=== PATIENT | female | born 1960 | race Caucasian/White ===

== ENCOUNTER 2020-07-02 03:48 | Inpatient (IN) | payer OTHER, SELFPAY ==
[2020-07-02] VITALS (42 sets, daily range): BP systolic 97–181; BP diastolic 57–129; PULSE 101–161; RESP 20–40; TEMP 36.1–37.1; O2SAT 90–100; BMI 51.4
--- NOTE | ~2020-07-02 | CT_ITS ---
EXAMINATION: CT chest high resolution wo id EXAM DATE: 07/04/2020 10:03 INDICATION: persistent hypoxemia, hemoptysis. TECHNIQUE: Spiral CT of the chest without contrast. HRCT. Axial, coronal and sagittal images of the chest were reviewed. Coronal maximum intensity pixel images of chest reviewed. The dose-length prod uct (DLP) for this examination was 990.55 mGy-cm. The exposure was tailored according to patient siz e (auto mA exposure control), and iterative reconstruction (ASIR) was used as additional dose reducti on technique. Comparison is made to prior examination from 02/21/2019. FINDINGS: There is moderate to severe emphysema. There is patchy right-sided ill-defined perihilar g roundglass airspace disease most consistent with acute infection, less likely hemorrhage or asymmetri c edema. There are superimposed small regions of confluence and volume loss which are probably superi mposed atelectasis. Follow-up exam is needed to exclude any underlying cancer. Small amount of left b asilar subsegmental atelectasis. There are no pleural or pericardial effusions. Tracheobronchial tree is patent. There is no media stinal, hilar or axillary lymphadenopathy. There is no pneumothorax. Heart normal in size. Ther e is mild coronary arterial calcification, arterial sclerosis. Upper abdomen is unremarkable. Ther e is thoracic spondylosis without osteoblastic or osteolytic lesions identified. Right shoulder repla cement. IMPRESSION: 1. Moderate amount of right-sided perihilar predominant acute airspace disease most likely infection , superimposed regions of atelectasis. Follow-up chest CT in 6 months recommended to exclude any unde rlying cancer. 2. Moderate to severe emphysema unchanged. Reviewed, dictated and finalized at location B. IMPRESSION: 1. Moderate amount of right-sided perihilar predominant acute airspace disease most likely infection, superimposed regions of atelectasis. Follow-up chest CT in 6 months recommended to exclude any underlying cancer. 2. Moderate to severe emphysema unchanged.
--- NOTE | ~2020-07-02 | XR_ITS ---
XR chest 1V portable DATE: 07/02/2020 04:18 INDICATION: Shortness of breath TECHNIQUE: Portable AP chest on 07/02/2020 at 0418 hours COMPARISON: 02/21/2019 AP and lateral chest FINDINGS: There is prominent patchy consolidation in the right mid and particularly right lower lung zones and mild infiltrate or atelectasis at the left lung base. Normal heart size. Aortic calcification and unfolding. Right glenohumeral joint replacement. Resection of the lateral aspect of the right clavicle. Diffuse osteopenia. Degenerative spurring of the thoracic spine. IMPRESSION: Prominent patchy consolidation in the right mid and lower lung zones and mild infiltrate or atelectasis at the left lung base Reviewed, dictated and finalized at location A. IMPRESSION: Prominent patchy consolidation in the right mid and lower lung zone s and mild infiltrate or atelectasis at the left lung base
[2020-07-02] MEDS: NITROGLYCERIN OINTMENT 1 INCH DOSE 0.5 INCH TRANSDERM (04:20)
[2020-07-02 04:24] LABS: Alveolar/Arterial O2 Gradient 523.4 mmHg; Base Excess ABG -3.6 mEq/l (+/-2.0); Fractional Inspired Oxygen 100 %; HCO3 ABG 23.1 mEq/l (22.0-26.0); Oxygen Content ABG 19.1 %vol (16.0-22.0); Oxygen Saturation ABG 98.6 % (95.0-100.0); Oxyhemoglobin 97.2 % THb (90.0-100.0); PCO2 ABG 47.6 mmHg (35.0-45.0); PO2 FiO2 Ratio Arterial Blood 1.42 %; Total Hemoglobin 13.8 g/dL (12.0-18.0); pH ABG 7.303 (7.350-7.450)
[2020-07-02 04:25] LABS: Device NON-INVASIVE VENT; Modified Allen's Test Pass; Site Drawn RIGHT RADIAL
[2020-07-02 04:26] LABS: Non-Invasive Expiratory Pressure 8 CMH2O; Non-Invasive Inspiratory Pressure 16 CMH2O; Non-Invasive Vent Rate 4 /MIN
[2020-07-02 04:37] LABS: Hematocrit 45.5 % (37.0-47.0); Hemoglobin 13.4 g/dL (12.0-15.0); Mean Corpuscular HGB Conc 29.5 g/dl (32-36); Mean Corpuscular Hemoglobin 27.1 pg (26-34); Mean Corpuscular Volume 91.9 fl (80-100); Mean Platelet Volume 10.9 fl (7.4-10.4); Platelet Count Result 180 k/mm3 (150-375); Red Blood Count 4.95 M/mm3 (4.2-5.4); Red Cell Distribution Width 15.3 % (11.5-14.5); White Blood Count 17.3 K/mm3 (4.5-10.0)
[2020-07-02 04:49] LABS: Alanine Aminotransferase 23 U/L (4-35); Alkaline Phosphatase 142 U/L (38-126); Anion Gap 9 mmol/L (8-16); Aspartate Amino Transferase 26 U/L (14-36); Bilirubin,Total 0.5 mg/dL (0.2-1.3); Blood Urea Nitrogen 18 mg/dL (7-17); Calcium 9.2 mg/dL (8.4-10.2); Carbon Dioxide 22 mmol/L (22-30); Chloride 107 mmol/L (98-107); Estimated CRCL calculation 70 ml/min; Estimated Glomerular Filt Rate 42; Glucose 147 mg/dL (65-105); INR 0.9; Potassium 4.4 mmol/L (3.4-5.0); Prothrombin Time 12.2 Seconds (11.1-14.7); Sodium 138 mmol/L (137-145)
[2020-07-02 04:50] LABS: Band Neutrophils Percent 4 % (0-6); Lymphocytes Absolute Manual 0.69 K/mm3 (1.1-4.5); Monocytes Absolute Manual 0.17 K/mm3 (0.1-0.90); Monocytes Percent Manual 1 % (3-9); Neutrophils Absolute Manual 16.43 K/mm3 (1.7-7.2); Neutrophils Percent Manual 91 % (46-73); Ovalocytes 1+ (NORMAL); Platelet Estimate Adequate (Adequate); Stomatocytes 1+ (NORMAL); Total Cells Counted 100
[2020-07-02] MEDS: dilTIAZem HCl INJ 25 MG/5 ML VIAL 10 MG IV PUSH (04:55)
[2020-07-02 05:12] LABS: NT Pro B Type Natriuretic Pept 57 pg/mL (5-100); Troponin I < 0.012 ng/mL (0.000-0.034)
--- NOTE | 2020-07-02 05:25 | ED.SOB ---
HPI - SOB/Dyspnea General Chief Complaint: Shortness of Breath/Dyspnea Stated Complaint: difficulty breathing/speaking Time Seen by Provider: 07/02/20 03:49 History of Present Illness HPI Narrative: Patient is a 59-year-old female with COPD who presents ER with shortness of breath and hypoxia. Patient was found to be hypoxic in the 70s on her home O2 of 3 L. EMS applied CPAP and 100% O2 and patient's oxygen saturations improved. Patient is wheezy and dyspneic. She reports she has had a cough for the last 2 weeks and associated fevers. No known sick contacts. She has no chest pain or chest pressure. She does have history of CHF and a leaky valve. She reports has been compliant with her Lasix and she has had no increase in her weight or leg edema. She is out of nebulizer treatments at home. Shortness of breath is worsened with any type of movement. No alleviating factors at this time. Related Data Allergies Allergy/AdvReac Type Severity Reaction Status Date / Time Penicillins Allergy Rash Verified 02/21/19 17:22 Review of Systems Review of Systems: All systems reviewed & are unremarkable except as noted in HPI and below Constitutional: Constitutional: Reports chills, Reports fatigue and Reports fever(s) ENT: Denies nasal congestion and Denies sore throat Cardiovascular: Cardiovascular: Denies chest pain and Denies radiating jaw, neck or arm pain Respiratory: Respiratory: Reports cough, Reports dyspnea and Reports wheezing Gastrointestinal: Gastrointestinal: Denies abdominal pain, Denies nausea and Denies vomiting PMF Past Medical History Medical History (Updated 07/02/20 @ 05:57 by Troy Schwartz MD) Asthma COPD (chronic obstructive pulmonary disease) Herniated disc On home O2 3L Peripheral neuropathy Surgical History Surgical History (Updated 02/21/19 @ 18:25 by Nhi Tejeda) No pertinent past surgical history Social History Social History (Updated 02/21/19 @ 18:27 by Nhi Tejeda) Smoking status: Unknown if ever smoked Exam Narrative: Exam Narrative: GENERAL:ill-appearing, morbidly obese, and in moderate distress. HEAD: Normocephalic, atraumatic. ENT: Mucous membranes moist. CHEST: Diffuse wheezing, poor air movement, moderate respiratory distress. HEART: Tachycardic regular. Normal peripheral pulses. ABDOMEN: Soft, nontender, nondistended. EXTREMITIES: Normal range of motion. 1+ edema. SKIN: Warm, dry, no rash. NEURO: Alert and oriented x3. PSYCH: Normal mood and affect. Course Course Emergency Course: Significant pneumonia on chest x-ray. IV antibiotics ordered. Tachycardia not improving with diltiazem or with nebulizer. Patient may just be volume depleted related to infection. Admit to hospitalist service. Vital Signs Vital signs: Vital Signs Temperature 97.0 F L 07/02/20 04:04 Pulse Rate 141 H 07/02/20 04:04 Respiratory Rate 40 H 07/02/20 04:04 Blood Pressure 165/114 H 07/02/20 04:04 Pulse Oximetry 91 07/02/20 04:04 Temperature 97.0 F L 07/02/20 04:04 Pulse Rate 138 H 07/02/20 06:40 Respiratory Rate 29 H 07/02/20 06:40 Blood Pressure 128/73 07/02/20 06:03 Pulse Oximetry 99 07/02/20 06:40 MDM - SOB/Dyspnea Lab Data Result diagrams: 07/02/20 04:33 07/02/20 04:33 Labs: Lab Results 07/02/20 07/02/20 07/02/20 Range/Units 04:21 04:33 04:33 WBC 17.3 H (4.5-10.0) K/mm3 RBC 4.95 (4.2-5.4) M/mm3 Hgb 13.4 (12.0-15.0) g/dL Hct 45.5 (37.0-47.0) % MCV 91.9 (80-100) fl MCH 27.1 (26-34) pg MCHC 29.5 L (32-36) g/dl RDW 15.3 H (11.5-14.5) % Plt Count 180 (150-375) k/mm3 MPV 10.9 H (7.4-10.4) fl Immature Gran % (Auto) Not Reportable Neut % (Auto) Not Reportable Lymph % (Auto) Not Reportable [place] % (Auto) Not Reportable Eos % (Auto) Not Reportable Baso % (Auto) Not Reportable Lymph # (Auto) Not Reportable [place] # (Auto) Not Re
[2020-07-02] MEDS: IPRATROPIUM BR 0.02% INH SOLN 0.5 MG/2.5 ML VIAL 1.5 MG INHALATION (05:29)
--- NOTE | 2020-07-02 05:38 | PC.NURSE ---
0510 At direction of EDP Nitro paste removed.
--- NOTE | 2020-07-02 05:52 | ECG_ITS ---
Measurements Intervals [place] Rate: 153 P: 31 MS: 121 QRS: -16 QRSD: 82 T: 42 QT: 300 QTc: 480 Interpretive Statements SINUS TACHYCARDIA, POSSIBLE ATRIAL FLUTTER INCOMPLETE RIGHT BUNDLE BRANCH BLOCK LOW QRS VOLTAGE IN PRECORDIAL LEADS INFERIOR INFARCT, AGE INDETERMINATE BORDERLINE ST-T WAVE ABNORMALITY- HIGH LATERAL LEADS BASELINE ARTIFACT- II, III, AVF, V1, V2, V3-V6 ABNORMAL ECG Electronically Signed On 07-02-2020 8:45:48 CDT by Royce Santiago D.O.
[2020-07-02] MEDS: SODIUM CHLORIDE 0.9% IV 1,000 ML 999 ML IV CONT (06:04)
[2020-07-02] MEDS: methylPREDNISolone SOD SUCC 125 MG VIAL IV PUSH (06:04)
[2020-07-02 06:17] LABS: Lactic Acid Reflex 2.6 mmol/L (0.7-2.1)
--- NOTE | 2020-07-02 07:52 | PC.NURSE ---
This patient, Fariba Olson, was admitted to IMU Room 213-01. Patient/family oriented to hospital policies and general routines including ID bracelet, bed and alarms, visiting hours, pain management, procedures, bathroom and other care routines, personal items, smoking policy, room service/diet, and visiting hours. Information on how to activate the Rapid Response Team has been discussed. Patient/Family are encouraged to report perceived risks to care and to ask questions if they do not understand what they are told or what they should do.
[2020-07-02 08:53] LABS: Reflex Lactic Acid Yes or No Add Lactic
[2020-07-02] MEDS: ONDANSETRON INJ 4 MG/2 ML VIAL IV PUSH (10:46)
[2020-07-02] MEDS: HYDROcodone/acetaminophen (*CRX) 5-325 MG TABLET 1 TAB PO ×2 (10:50→20:32)
[2020-07-02] MEDS: GABAPENTIN 400 MG CAPSULE 800 MG PO ×3 (10:50→17:22)
[2020-07-02] MEDS: CYCLOBENZAPRINE HCL 10 MG TABLET PO ×3 (10:51→17:22)
[2020-07-02] MEDS: TOPIRAMATE 25 MG TABLET 50 MG PO ×2 (10:52→20:29)
[2020-07-02] MEDS: lamoTRIgine 25 MG TABLET 75 MG PO ×2 (10:52→20:31)
[2020-07-02] MEDS: ESCITALOPRAM OXALATE 10 MG TABLET 20 MG PO ×2 (10:52→20:29)
[2020-07-02] MEDS: LORATADINE 10 MG TABLET PO (11:56)
[2020-07-02] MEDS: PANTOPRAZOLE 40 MG TABLET PO (11:56)
[2020-07-02] MEDS: allopurinoL 300 MG TABLET PO (11:56)
[2020-07-02] MEDS: lisinopriL 10 MG TABLET PO ×2 (11:56→20:30)
[2020-07-02] MEDS: MONTELUKAST SODIUM 10 MG TABLET PO (11:56)
[2020-07-02] MEDS: OMEGA 3 POLYUNSAT FATTY ACIDS 1 GM CAP PO ×2 (11:57→17:22)
[2020-07-02] MEDS: POTASSIUM CHLORIDE 20 MEQ TABLET.ER PO ×2 (11:57→17:23)
[2020-07-02] MEDS: ASPIRIN 81 MG ENTERIC TABLET PO (11:57)
[2020-07-02] MEDS: IPRATROPIUM BR 0.02% INH SOLN 0.5 MG/2.5 ML VIAL INHALATION ×3 (11:57→20:45)
[2020-07-02] MEDS: ALBUTEROL SULFATE NEB 2.5 MG/0.5 ML INH INHALATION ×3 (11:57→20:45)
[2020-07-02] MEDS: UMECLIDINIUM BROMIDE 62.5 MCG ELLIPTA 1 PUFF INHALATION (11:58)
--- NOTE | 2020-07-02 13:11 | PM.IMHP ---
H&P: HPI History of Present Illness Date/Time: 07/02/20 13:11 patient is a 59-year-old female with history of chronic respiratory failure on home oxygen 3 L per nasal cannula and COPD patient presented emergency department via EMS upon EMS arrival patient was hypoxic and saturating 70% on her 3 L nasal cannula, CPAP was applied and patient was brought to emergency depart which did improve her oxygenation. Patient stated for last 2 weeks patient has been short of breath, cough and fever, emergency depart patient was applied on BiPAP, chest x-ray showed prominent patchy consolidation in the right mid and lower lung zones and mild infiltrate or atelectasis at the left lung base. Patient is diagnosed with community-acquired pneumonia and placed azithromycin and Rocephin, also has exacerbation of COPD patient is treated with Solu-Medrol and updraft, there is a concern the patient may have a COVID-19 patient is being isolated and tested, at present time patient states is feeling much better compared to when she arrived, will continue present management, will consult welt stitcher for further recommendation, continue to monitor the patient. Patient will stay in the hospital for 2 days secondary to exacerbation of COPD and community-acquired pneumonia Chief Complaint: Shortness of breath Review of Systems Review of Systems: All systems reviewed & are unremarkable except as noted in HPI and below PMFSH Past Medical History Medical History (Updated 07/02/20 @ 13:29 by Juan Chan MD) Asthma COPD (chronic obstructive pulmonary disease) Herniated disc On home O2 3L Peripheral neuropathy Surgical History Surgical History (Updated 02/21/19 @ 18:25 by Nhi Tejeda) No pertinent past surgical history Social History Social History (Updated 02/21/19 @ 18:27 by Nhi Tejeda) Smoking status: Unknown if ever smoked Meds Home Medications and Allergies Home Medications Medication Instructions Recorded Confirmed Type albuterol sulfate 2 puff INHALATION Q6H PRN 07/02/20 07/02/20 History albuterol sulfate 2.5 mg INHALATION TID 07/02/20 07/02/20 History allopurinol 300 mg PO DAILY 07/02/20 07/02/20 History alprazolam 0.5 mg PO HS PRN 07/02/20 07/02/20 History aspirin 81 mg PO DAILY 07/02/20 07/02/20 History atorvastatin 40 mg PO HS 07/02/20 07/02/20 History bupropion HCl 150 mg PO Q12H 07/02/20 07/02/20 History cetirizine 10 mg PO DAILY 07/02/20 07/02/20 History cyclobenzaprine 10 mg PO TID 07/02/20 07/02/20 History escitalopram oxalate 20 mg PO Q12H 07/02/20 07/02/20 History furosemide 40 mg PO TID 07/02/20 07/02/20 History gabapentin 800 mg PO TID 07/02/20 07/02/20 History hydrocodone-acetaminophen [[place]] 1 tablet PO Q8H PRN 07/02/20 07/02/20 History ibuprofen 400 mg PO Q6H PRN 07/02/20 07/02/20 History lamotrigine 75 mg PO BID 07/02/20 07/02/20 History lisinopril 10 mg PO BID 07/02/20 07/02/20 History montelukast 10 mg PO DAILY 07/02/20 07/02/20 History nitroglycerin [Nitrostat] 0.4 mg SUBLINGUAL PRN PRN 07/02/20 07/02/20 History omega-3 fatty acids-vitamin E 1 cap PO BID 07/02/20 07/02/20 History [Fish Oil] pantoprazole 40 mg PO DAILY 07/02/20 07/02/20 History potassium chloride 20 meq PO BID 07/02/20 07/02/20 History topiramate 50 mg PO BID 07/02/20 07/02/20 History trazodone 50 mg PO HS 07/02/20 07/02/20 History umeclidinium [Incruse Ellipta] 1 inh INHALATION DAILY 07/02/20 07/02/20 History Allergies Allergy/AdvReac Type Severity Reaction Status Date / Time Penicillins Allergy Rash Verified 02/21/19 17:22 Vital Signs Vital Signs - 24 hr 07/02/20 04:04 07/02/20 04:13 07/02/20 04:23 Temperature 97.0 F L Pulse Rate 141 H 156 H Respiratory Rate 40 H 35 H 40 H Blood Pressure 165/114 H Pulse Oximetry 91 98 07/02/20 04:29 07/02/20 04:30 07/02/20 04:31 Temperature Pulse Rate 161 H 156 H 161 H Respiratory Rate 25 H 21 H 40 H Blood Pressure 126/97 H 144/129 H Pulse Oximetry 100 97 100 07/02/20
[2020-07-02] MEDS: methylPREDNISolone SOD SUCC 125 MG VIAL 60 MG IV PUSH ×2 (14:29→21:19)
--- NOTE | 2020-07-02 16:53 | PM.CNPUL ---
Assessment and Plan Assessment and plan (1) Acute on chronic respiratory failure: Qualifiers: Respiratory failure complication: hypoxia and hypercapnia Qualified Code(s): J96.21 - Acute and chronic respiratory failure with hypoxia; J96.22 - Acute and chronic respiratory failure with hypercapnia Code(s): J96.20 - Acute and chronic respiratory failure, unspecified whether with hypoxia or hypercapnia Status: Acute Assessment and Plan: ABG 7.3/47/142 on excessive amounts of O2; needs to be weaned, CO2 retention is not severe enough to qualify for NPPV She normally uses O2 at home, has been on O2 for 10 years, increased to 5 L.min since COVID in the fall from 3 L/min; today on 100% and bipap she had significant increase in the A-a gradient, pO2 147 on 100% BiPAP 16; she has infiltrate in the right base with crackles, localized squeaks, right chest wall tenderness; may have pleuritis. She is being treated for pneumonia with Rocephin and azithromycin, adequate coverage. She is on respiratory isolation, and COVID precautions are in effect until she has a negative test. Her pCO2 was mildly increased at 47.6, and this was after she was on BiPAP, normal HCO3. Does not appear to have chronic hypercapnea. Will decrease the steroids, continue inhaled bronchodilator. I called the [facility] number to let them know that she is here in the hospital. They will not have services at her house until she is discharged. (2) COPD (chronic obstructive pulmonary disease): Code(s): J44.9 - Chronic obstructive pulmonary disease, unspecified Status: Acute Assessment and Plan: She has a long history of tobacco, over 40 pack years, at times 1.5 pack a day, quit in 2019. She is on Incruse at home and uses albuterol inhaler about twice a day. She may benefit from triple medication. She sees Dr Mendoza, pulmonary, in [facility]. Previously had a nebulizer, no longer useful after the cord was chewed on by a mouse. She says she is able to use the inhaler without a problem. Will request records from [facility] to see her renal baseline, any additional diagnoses. She is a candidate for triple therapy with addition of inhaled corticosteroid. (3) Community acquired pneumonia: Code(s): J18.9 - Pneumonia, unspecified organism Status: Acute Assessment and Plan: Infiltrate in the right base, without significant sputum production. She is on broad coverage for community acquired pathogens. Will check urine antigen for pneumococcus and sputum for bacterial pathogens. (4) History of tobacco abuse: Code(s): Z87.891 - Personal history of nicotine dependence Status: Acute Assessment and Plan: Quit Feb 2019, up to 1.5 ppd, started age 11, 40+ pack years History of Present Illness History of Present Illness Consult date: 07/03/20 Requesting physician: Juan Chan MD Chief complaint: pneumonia/respiratory failure Narrative: Primary = Dr Raza Lakhani; pulmonary is Dr. Mendoza NEW: Fariba Olson is a 59 year old female admitted with increased shortness of breath. She has COPD, chronic respiratory failure on supplemental O2 for about 10 years since she became disabled and stopped working in 2009. She was using O2 at 3 L/min until she had COVID in Dec through Jan 2020, admitted to [facility] for a month. She went home, and has been on 5 L/min since then with saturation 88%-92%. She never fully recovered, still has shortness of breath and loss of smell and taste. She does not walk much at home, uses a walker and wheelchair due to severe non-diabetic neuropathy worse in legs than hands, cannot feel her lower legs. For the last month she has had increased lower extremity swelli
[2020-07-02 19:16] LABS: SARS-CoV-2 RNA PCR Negative
[2020-07-02] MEDS: ENOXAPARIN 40 MG/0.4 ML SYRINGE SUB-Q (20:29)
[2020-07-02] MEDS: ATORVASTATIN 40 MG TABLET PO (20:30)
[2020-07-02] MEDS: traZODone HCL 50 MG TABLET PO (20:30)
[2020-07-03] VITALS (22 sets, daily range): BP systolic 92–105; BP diastolic 45–59; PULSE 79–106; RESP 20–24; TEMP 35.8–36.8; O2SAT 88–97
[2020-07-03] MEDS: IPRATROPIUM BR 0.02% INH SOLN 0.5 MG/2.5 ML VIAL INHALATION ×6 (00:14→19:50)
[2020-07-03] MEDS: ALBUTEROL SULFATE NEB 2.5 MG/0.5 ML INH INHALATION ×6 (00:14→19:50)
[2020-07-03 04:38] LABS: Hemoglobin 10.2 g/dL (12.0-15.0); Mean Corpuscular Volume 89.9 fl (80-100); Mean Platelet Volume 11.5 fl (7.4-10.4); Platelet Count Result 153 k/mm3 (150-375); Red Blood Count 3.78 M/mm3 (4.2-5.4); Red Cell Distribution Width 15.4 % (11.5-14.5)
[2020-07-03] MEDS: methylPREDNISolone SOD SUCC 40 MG VIAL IV PUSH ×3 (05:09→22:17)
[2020-07-03] MEDS: HYDROcodone/acetaminophen (*CRX) 5-325 MG TABLET 1 TAB PO ×2 (05:14→18:29)
[2020-07-03 05:23] LABS: Anion Gap 7 mmol/L (8-16); Blood Urea Nitrogen 40 mg/dL (7-17); Calcium 8.8 mg/dL (8.4-10.2); Carbon Dioxide 24 mmol/L (22-30); Chloride 100 mmol/L (98-107); Estimated CRCL calculation 46 ml/min; Estimated Glomerular Filt Rate 27; Glucose 126 mg/dL (65-105); Magnesium 1.6 mg/dL (1.6-2.3); Potassium 4.9 mmol/L (3.4-5.0); Sodium 131 mmol/L (137-145)
[2020-07-03] MEDS: ESCITALOPRAM OXALATE 10 MG TABLET 20 MG PO ×2 (07:59→22:16)
[2020-07-03] MEDS: CYCLOBENZAPRINE HCL 10 MG TABLET PO ×3 (07:59→16:35)
[2020-07-03] MEDS: LORATADINE 10 MG TABLET PO (07:59)
[2020-07-03] MEDS: GABAPENTIN 400 MG CAPSULE 800 MG PO ×3 (07:59→16:35)
[2020-07-03] MEDS: TOPIRAMATE 25 MG TABLET 50 MG PO ×2 (07:59→22:15)
[2020-07-03] MEDS: allopurinoL 300 MG TABLET PO (07:59)
[2020-07-03] MEDS: OMEGA 3 POLYUNSAT FATTY ACIDS 1 GM CAP PO ×2 (07:59→16:35)
[2020-07-03] MEDS: lisinopriL 10 MG TABLET PO ×2 (07:59→22:16)
[2020-07-03] MEDS: ASPIRIN 81 MG ENTERIC TABLET PO (07:59)
[2020-07-03] MEDS: MONTELUKAST SODIUM 10 MG TABLET PO (08:00)
[2020-07-03] MEDS: PANTOPRAZOLE 40 MG TABLET PO (08:00)
[2020-07-03] MEDS: ENOXAPARIN 40 MG/0.4 ML SYRINGE SUB-Q ×2 (08:00→22:16)
[2020-07-03] MEDS: lamoTRIgine 25 MG TABLET 75 MG PO ×2 (08:00→22:16)
[2020-07-03] MEDS: POTASSIUM CHLORIDE 20 MEQ TABLET.ER PO ×2 (08:00→16:36)
[2020-07-03] MEDS: UMECLIDINIUM BROMIDE 62.5 MCG ELLIPTA 1 PUFF INHALATION (08:11)
--- NOTE | 2020-07-03 09:15 | PC.NURSE ---
Patients rings were removed from fingers and returned to patient. [address] in a bag, given to the patient and she put them in her purse.
[2020-07-03] MEDS: SODIUM CHLORIDE 0.9% IV 1,000 ML 75 ML IV CONT (09:23)
--- NOTE | 2020-07-03 11:55 | PC.NURSE ---
This patient, Fariba Olson, was received from IMU 213 on 07/03/20 at 1155. Patient/family oriented to unit policies and routines
--- NOTE | 2020-07-03 15:38 | PM.PNPUL ---
Progress Note: A&P Assessment and Plan (1) Acute on chronic respiratory failure: Qualifiers: Respiratory failure complication: hypoxia and hypercapnia Qualified Code(s): J96.21 - Acute and chronic respiratory failure with hypoxia; J96.22 - Acute and chronic respiratory failure with hypercapnia Code(s): J96.20 - Acute and chronic respiratory failure, unspecified whether with hypoxia or hypercapnia Status: Acute Assessment and Plan: PLAN: ABG 7.3/47/142 on excessive amounts of O2; needs to be weaned, CO2 retention is not severe enough to qualify for NPPV Needs fiber for bowel regimen and chest CT for hemoptysis Continue antibiotics @@@@@@@@@@@@@@@@ She normally uses O2 at home, has been on O2 for 10 years, increased to 5 L/min since COVID in the fall from 3 L/min; she has infiltrates in the right base with crackles, localized squeaks, right chest wall tenderness; may have pleuritis. SARS-CoV-2 negative. She is being treated for pneumonia with Rocephin and azithromycin, adequate coverage. SHe is off respiratory isolation She had increased pCO2 47.6, and this was after she was on BiPAP, normal HCO3. Does not appear to have chronic hypercapnea. Continue lower dose steroids, inhaled bronchodilator. (2) COPD (chronic obstructive pulmonary disease): Code(s): J44.9 - Chronic obstructive pulmonary disease, unspecified Status: Acute Assessment and Plan: She has a long history of tobacco, over 40 pack years, at times 1.5 pack a day, quit in 2019. She is on Incruse at home and uses albuterol inhaler about twice a day. She may benefit from triple medication. She sees Dr Mendoza, pulmonary, in [facility]. Previously had a nebulizer, no longer useful after the cord was chewed on by a mouse. She says she is able to use the inhaler without a problem. Will request records from [facility] to see her renal baseline, any additional diagnoses. She is a candidate for triple therapy with addition of inhaled corticosteroid. (3) Community acquired pneumonia: Code(s): J18.9 - Pneumonia, unspecified organism Status: Acute Assessment and Plan: Infiltrate in the right base, without significant sputum production. She is on broad coverage for community acquired pathogens. Will check urine antigen for pneumococcus and sputum for bacterial pathogens. (4) History of tobacco abuse: Code(s): Z87.891 - Personal history of nicotine dependence Status: Acute Assessment and Plan: Quit Feb 2019, up to 1.5 ppd, started age 11, 40+ pack years Subjective Date/time seen: 07/03/20 15:38 Fariba Knight is a 59 year old female with acute on chronic respiratory failure, COPD exacerbation, community acquired pneumonia. SARS-CoV-2 negative. She has been moved from [address] [place] [address] to [facility]. She is not on respiratory isolation. She continues to cough with small amounts of blood expectorated. She is eating, however food does not taste normal. She remains short of breath, especially with exertion. She has a problem taking a deep breath in, has not moved her bowels in a few days. Review of Systems Constitutional: Constitutional: Reports difficulty sleeping (getting one hour at a time, then waking) Comments: Legs are not swelling as much Eyes: Eyes: Reports no additional eye complaints Exam Narrative: Exam Narrative: Alert, oriented x 3. Mild to moderate increase in respiratory effort; she is able to lean forward with some effort Const: General: uncomfortable Orientation/consciousness: patient oriented x3 HENMT: Ears: hearing grossly normal bilaterally General nose exam: Normal external nose present Face and sinus: nor
--- NOTE | 2020-07-03 16:23 | PM.IMPN ---
Progress Note: A&P Assessment and Plan (1) Community acquired pneumonia: Code(s): J18.9 - Pneumonia, unspecified organism Status: Acute Assessment and Plan: 07/03/20 16:23 patient is a 59-year-old female with history of chronic respiratory failure on home oxygen 3 L per nasal cannula and COPD patient presented emergency department via EMS upon EMS arrival patient was hypoxic and saturating 70% on her 3 L nasal cannula, CPAP was applied and patient was brought to emergency depart which did improve her oxygenation. Patient stated for last 2 weeks patient has been short of breath, cough and fever, emergency depart patient was applied on BiPAP, chest x-ray showed prominent patchy consolidation in the right mid and lower lung zones and mild infiltrate or atelectasis at the left lung base. Patient is diagnosed with community-acquired pneumonia and placed azithromycin and Rocephin, also has exacerbation of COPD patient is treated with Solu-Medrol and updraft, there is a concern the patient may have a COVID-19 patient is being isolated and tested, at present time patient states is feeling much better compared to when she arrived, will continue present management, will consult chemical applicator for further recommendation, continue to monitor the patient. 07/03 patient COVID test is negative, patient states feeling much better compared to when she arrived, patient was seen by Dr. Ryan of pulmonology and taper Solu-Medrol from 60 mg q.8 to 40 mg q.8, suspect patient has a community-acquired pneumonia will continue azithromycin and Rocephin repeat chest x-ray tomorrow and further recommendation to follow, patient creatinine is rising will gently hydrate the patient as patient p.o. intake for last few days is poor will monitor kidney function, will have a PT OT evaluate the patient patient will benefit from acute rehab. (2) Acute exacerbation of chronic obstructive airways disease: Code(s): J44.1 - Chronic obstructive pulmonary disease with (acute) exacerbation Status: Acute Assessment and Plan: Patient with a history of COPD not in exacerbation being treated with Solu-Medrol updraft azithromycin to cover for atypical with possible community-acquired pneumonia, patient be seen by chemical applicator and further recommendation to (3) Acute on chronic respiratory failure: Qualifiers: Respiratory failure complication: hypoxia and hypercapnia Qualified Code(s): J96.21 - Acute and chronic respiratory failure with hypoxia; J96.22 - Acute and chronic respiratory failure with hypercapnia Code(s): J96.20 - Acute and chronic respiratory failure, unspecified whether with hypoxia or hypercapnia Status: Acute Assessment and Plan: Multifactorial secondary to exacerbation of COPD and community-acquired pneumonia, unlikely congestive heart failure as patient BNP 59 is normal and chest x-ray shows more pneumonia or other than the pulmonary edema (4) COVID-19 ruled out: Code(s): Z20.822 - Contact with and (suspected) exposure to COVID-19 Status: Acute Assessment and Plan: Suspect patient may have COVID-19 patient been isolated and tested (5) CHF (congestive heart failure): Code(s): I50.9 - Heart failure, unspecified Status: Acute Assessment and Plan: Patient with history of congestive heart failure her BNP is 59 patient appears euvolemic though morbidly obese, will continue to monitor (6) Generalized weakness: Code(s): R53.1 - Weakness Status: Acute Assessment and Plan: Most likely secondary to exacerbation of COPD and pneumonia will have a PT OT evaluate the patient and further recommendation to follow Subjective Date/time seen: 07/03/20 16:23 patient is a 59-year-old female with history of chronic respiratory failure on home oxygen 3 L per nasal cannula and COPD patient presented emergency department via EMS upon EMS arrival patient was hypoxic and saturating 70%
[2020-07-03] MEDS: ATORVASTATIN 40 MG TABLET PO (22:16)
[2020-07-03] MEDS: traZODone HCL 50 MG TABLET PO (22:16)
[2020-07-03] MEDS: PSYLLIUM POWDER PACKET 1 PACKET PO (22:17)
[2020-07-04] VITALS (20 sets, daily range): BP systolic 108–114; BP diastolic 61–65; PULSE 80–109; RESP 18–20; TEMP 36.4–37.1; O2SAT 92–96
[2020-07-04] MEDS: ALBUTEROL SULFATE NEB 2.5 MG/0.5 ML INH INHALATION ×7 (00:03→23:18)
[2020-07-04] MEDS: IPRATROPIUM BR 0.02% INH SOLN 0.5 MG/2.5 ML VIAL INHALATION ×7 (00:03→23:18)
[2020-07-04] MEDS: SODIUM CHLORIDE 0.9% IV 1,000 ML 75 ML IV CONT (01:36)
[2020-07-04] MEDS: methylPREDNISolone SOD SUCC 40 MG VIAL IV PUSH (05:56)
[2020-07-04 06:13] LABS: Hematocrit 32.9 % (37.0-47.0); Mean Corpuscular HGB Conc 30.4 g/dl (32-36); Mean Corpuscular Volume 88.9 fl (80-100); Mean Platelet Volume 11.5 fl (7.4-10.4); Platelet Count Result 131 k/mm3 (150-375); Red Cell Distribution Width 14.9 % (11.5-14.5); White Blood Count 18.6 K/mm3 (4.5-10.0)
[2020-07-04 06:18] LABS: Anion Gap 7 mmol/L (8-16); Blood Urea Nitrogen 41 mg/dL (7-17); Calcium 8.7 mg/dL (8.4-10.2); Carbon Dioxide 22 mmol/L (22-30); Chloride 101 mmol/L (98-107); Estimated CRCL calculation 67 ml/min; Estimated Glomerular Filt Rate 42; Glucose 172 mg/dL (65-105); Potassium 4.9 mmol/L (3.4-5.0); Sodium 130 mmol/L (137-145)
--- NOTE | 2020-07-04 10:26 | PM.PNPUL ---
Progress Note: A&P Assessment and Plan (1) Acute on chronic respiratory failure: Qualifiers: Respiratory failure complication: hypoxia and hypercapnia Qualified Code(s): J96.21 - Acute and chronic respiratory failure with hypoxia; J96.22 - Acute and chronic respiratory failure with hypercapnia Code(s): J96.20 - Acute and chronic respiratory failure, unspecified whether with hypoxia or hypercapnia Status: Acute Assessment and Plan: 07/02 She normally uses O2 at home, has been on O2 for 10 years, increased to 5 L.min since COVID in the fall from 3 L/min; today on 100% and bipap she had significant increase in the A-a gradient, pO2 147 on 100% BiPAP 17/10; she has infiltrate in the right base with crackles, localized squeaks, right chest wall tenderness; may have pleuritis. She is being treated for pneumonia with Rocephin and azithromycin, adequate coverage. She is on respiratory isolation, and COVID precautions are in effect until she has a negative test. Her pCO2 was mildly increased at 47.6, and this was after she was on BiPAP, normal HCO3. Does not appear to have chronic hypercapnea. Will decrease the steroids, continue inhaled bronchodilator. I called the [facility] number to let them know that she is here in the hospital. They will not have services at her house until she is discharged. 07/03 ABG 7.3/47/142 on excessive amounts of O2; needs to be weaned, CO2 retention is not severe enough to qualify for NPPV Needs fiber for bowel regimen and chest CT for hemoptysis. Continue antibiotics 07/04 On her home dose of 5L with sats 94% at rest. Will do home O2 assessment later today. (2) COPD (chronic obstructive pulmonary disease): Code(s): J44.9 - Chronic obstructive pulmonary disease, unspecified Status: Acute Assessment and Plan: 07/03 She has a long history of tobacco, over 40 pack years, at times 1.5 pack a day, quit in 2019. She has severe panlobular emphysema on CT scan chest 02/21/2019. She is on Incruse at home and uses albuterol inhaler about twice a day. She may benefit from triple medication. She sees Dr Mendoza, pulmonary, in [facility]. Previously had a nebulizer, no longer useful after the cord was chewed on by a mouse. She says she is able to use the inhaler without a problem. Will request records from [facility] to see her renal baseline, any additional diagnoses. She is a candidate for triple therapy with addition of inhaled corticosteroid. 5/ no wheezes on solumedrol 40 Q 8 and I will change to prednisone 50 mg PO today. Continue albuterol 2.5 mg neb Q 4, ipratroprium 05 mg neb Q 4, hold incruse ellipta while on maximum dose of ipratroprium nebs. Start budesonide .5 mg neb BID today. (3) Community acquired pneumonia: Code(s): J18.9 - Pneumonia, unspecified organism Status: Acute Assessment and Plan: 5/2 Infiltrate in the right base, without significant sputum production. She is on broad coverage for community acquired pathogens. Will check urine antigen for pneumococcus and sputum for bacterial pathogens. 5/3 Day 3 ceftriaxone and azithro. Afebrile and WBC improved. Sputum and cough slowly improved. Cul;tures negative. Hemopsysis improved as well. (4) History of tobacco abuse: Code(s): Z87.891 - Personal history of nicotine dependence Status: Acute Assessment and Plan: Quit Feb 2019, up to 1.5 ppd, started age 11, 40+ pack years Subjective Date/time seen: 07/04/20 10:26 Interval history: 07/02 Fariba Olson is a 59 year old female admitted with increased shortness of breath. She has COPD, chronic respiratory failure on supplemental O2 for about 10 years since she became disabled and stopped working in 2009. She was using O2 at 3
[2020-07-04] MEDS: HYDROcodone/acetaminophen (*CRX) 5-325 MG TABLET 1 TAB PO ×2 (10:33→18:32)
[2020-07-04] MEDS: GABAPENTIN 400 MG CAPSULE 800 MG PO ×3 (10:34→17:00)
[2020-07-04] MEDS: ENOXAPARIN 40 MG/0.4 ML SYRINGE SUB-Q ×2 (10:35→20:32)
[2020-07-04] MEDS: MONTELUKAST SODIUM 10 MG TABLET PO (10:35)
[2020-07-04] MEDS: OMEGA 3 POLYUNSAT FATTY ACIDS 1 GM CAP PO ×2 (10:36→17:01)
[2020-07-04] MEDS: TOPIRAMATE 25 MG TABLET 50 MG PO ×2 (10:36→20:33)
[2020-07-04] MEDS: PANTOPRAZOLE 40 MG TABLET PO (10:36)
[2020-07-04] MEDS: lamoTRIgine 25 MG TABLET 75 MG PO ×2 (10:36→20:32)
[2020-07-04] MEDS: CYCLOBENZAPRINE HCL 10 MG TABLET PO ×3 (10:36→17:01)
[2020-07-04] MEDS: ASPIRIN 81 MG ENTERIC TABLET PO (10:36)
[2020-07-04] MEDS: LORATADINE 10 MG TABLET PO (10:36)
[2020-07-04] MEDS: POTASSIUM CHLORIDE 20 MEQ TABLET.ER PO ×2 (10:37→17:01)
[2020-07-04] MEDS: allopurinoL 300 MG TABLET PO (10:37)
[2020-07-04] MEDS: lisinopriL 10 MG TABLET PO ×2 (10:37→20:33)
[2020-07-04] MEDS: ESCITALOPRAM OXALATE 10 MG TABLET 20 MG PO ×2 (10:37→20:33)
--- NOTE | 2020-07-04 10:37 | PCRCNOTE ---
WILL TRY TO ARRANGE HOME O2 EVAL WITH PT/OT. STATED SHE JUST GOT BACK FROM RAD AND DOESNT WANT TO DO ANYTHING, TOO TIRED AND SOB. SATS ARE 90% ON 5L RESTING IN BED. WEARS 5L AT HOME, BUT DESATS ON 5L WHEN SHE GETS UP TO GO FROM BED TO BATHROOM AT HOME. RN STATED SHE IS STARTING PT/OT TODAY.
[2020-07-04] MEDS: PSYLLIUM POWDER PACKET 1 PACKET PO ×2 (11:32→20:31)
[2020-07-04] MEDS: predniSONE 40 MG, predniSONE 10 MG 50 MG PO (11:33)
--- NOTE | 2020-07-04 12:29 | PM.IMPN ---
Progress Note: A&P Assessment and Plan (1) Community acquired pneumonia: Code(s): J18.9 - Pneumonia, unspecified organism Status: Acute Assessment and Plan: 07/04/20 12:29 patient is a 59-year-old female with history of chronic respiratory failure on home oxygen 3 L per nasal cannula and COPD patient presented emergency department via EMS upon EMS arrival patient was hypoxic and saturating 70% on her 3 L nasal cannula, CPAP was applied and patient was brought to emergency depart which did improve her oxygenation. Patient stated for last 2 weeks patient has been short of breath, cough and fever, emergency depart patient was applied on BiPAP, chest x-ray showed prominent patchy consolidation in the right mid and lower lung zones and mild infiltrate or atelectasis at the left lung base. Patient is diagnosed with community-acquired pneumonia and placed azithromycin and Rocephin, also has exacerbation of COPD patient is treated with Solu-Medrol and updraft, there is a concern the patient may have a COVID-19 patient is being isolated and tested, at present time patient states is feeling much better compared to when she arrived, will continue present management, will consult acoustics teacher for further recommendation, continue to monitor the patient. 07/03 patient COVID test is negative, patient states feeling much better compared to when she arrived, patient was seen by Dr. Ryan of pulmonology and taper Solu-Medrol from 60 mg q.8 to 40 mg q.8, suspect patient has a community-acquired pneumonia will continue azithromycin and Rocephin repeat chest x-ray tomorrow and further recommendation to follow, patient creatinine is rising will gently hydrate the patient as patient p.o. intake for last few days is poor will monitor kidney function, will have a PT OT evaluate the patient patient will benefit from acute rehab. 07/04 patient still c/o shortness of breath at rest and with exertion patient community-acquired pneumonia being treated with azithromycin Rocephin as well as exacerbation of COPD, patient was seen by acoustics teacher today order CT scan in of the chest, and taper Solu-Medrol to prednisone 50 mg q.day, acoustics teacher will follow-up on CT scan of the chest and further recommendation to follow, will continue PT OT, patient will benefit from acute rehab at home present outpatient therapy. (2) Acute exacerbation of chronic obstructive airways disease: Code(s): J44.1 - Chronic obstructive pulmonary disease with (acute) exacerbation Status: Acute Assessment and Plan: Patient with a history of COPD not in exacerbation being treated with Solu-Medrol updraft azithromycin to cover for atypical with possible community-acquired pneumonia, patient be seen by acoustics teacher and further recommendation to (3) Acute on chronic respiratory failure: Qualifiers: Respiratory failure complication: hypoxia and hypercapnia Qualified Code(s): J96.21 - Acute and chronic respiratory failure with hypoxia; J96.22 - Acute and chronic respiratory failure with hypercapnia Code(s): J96.20 - Acute and chronic respiratory failure, unspecified whether with hypoxia or hypercapnia Status: Acute Assessment and Plan: Multifactorial secondary to exacerbation of COPD and community-acquired pneumonia, unlikely congestive heart failure as patient BNP 59 is normal and chest x-ray shows more pneumonia or other than the pulmonary edema (4) COVID-19 ruled out: Code(s): Z20.822 - Contact with and (suspected) exposure to COVID-19 Status: Acute Assessment and Plan: Suspect patient may have COVID-19 patient been isolated and tested (5) CHF (congestive heart failure): Code(s): I50.9 - Heart failure, unspecified Status: Acute Assessment and Plan: Patient with history of congestive heart failure her BNP is 59 patient appears euvolemic though morbidly obese, will continue to monitor (6) Generalized weakness:
[2020-07-04] MEDS: IBUPROFEN 400 MG TABLET PO ×2 (13:17→20:31)
[2020-07-04] MEDS: BUDESONIDE RESPULE NEB 0.5 MG/2 ML AMP INHALATION (19:29)
[2020-07-04] MEDS: ATORVASTATIN 40 MG TABLET PO (20:33)
[2020-07-04] MEDS: traZODone HCL 50 MG TABLET PO (20:34)
[2020-07-05] VITALS (28 sets, daily range): BP systolic 103–135; BP diastolic 53–73; PULSE 72–124; RESP 20–22; TEMP 36.1–36.6; O2SAT 85–98
[2020-07-05] MEDS: ALBUTEROL SULFATE NEB 2.5 MG/0.5 ML INH INHALATION ×4 (03:54→20:53)
[2020-07-05] MEDS: IPRATROPIUM BR 0.02% INH SOLN 0.5 MG/2.5 ML VIAL INHALATION ×4 (03:54→20:53)
[2020-07-05] MEDS: MONTELUKAST SODIUM 10 MG TABLET PO (08:20)
[2020-07-05] MEDS: GABAPENTIN 400 MG CAPSULE 800 MG PO ×3 (08:20→16:38)
[2020-07-05] MEDS: TOPIRAMATE 25 MG TABLET 50 MG PO ×2 (08:21→20:21)
[2020-07-05] MEDS: CYCLOBENZAPRINE HCL 10 MG TABLET PO ×3 (08:21→16:38)
[2020-07-05] MEDS: lamoTRIgine 25 MG TABLET 75 MG PO ×2 (08:21→20:21)
[2020-07-05] MEDS: OMEGA 3 POLYUNSAT FATTY ACIDS 1 GM CAP PO ×2 (08:21→16:39)
[2020-07-05] MEDS: allopurinoL 300 MG TABLET PO (08:21)
[2020-07-05] MEDS: POTASSIUM CHLORIDE 20 MEQ TABLET.ER PO ×2 (08:21→16:38)
[2020-07-05] MEDS: LORATADINE 10 MG TABLET PO (08:21)
[2020-07-05] MEDS: ESCITALOPRAM OXALATE 10 MG TABLET 20 MG PO ×2 (08:21→20:21)
[2020-07-05] MEDS: PANTOPRAZOLE 40 MG TABLET PO (08:21)
[2020-07-05] MEDS: PSYLLIUM POWDER PACKET 1 PACKET PO ×2 (08:22→20:20)
[2020-07-05] MEDS: ENOXAPARIN 40 MG/0.4 ML SYRINGE SUB-Q ×2 (08:22→20:20)
[2020-07-05] MEDS: ASPIRIN 81 MG ENTERIC TABLET PO (08:22)
[2020-07-05] MEDS: predniSONE 40 MG, predniSONE 10 MG 50 MG PO (08:22)
[2020-07-05] MEDS: HYDROcodone/acetaminophen (*CRX) 5-325 MG TABLET 1 TAB PO ×2 (08:25→16:38)
[2020-07-05 08:29] LABS: Hematocrit 31.3 % (37.0-47.0); Hemoglobin 9.9 g/dL (12.0-15.0); Mean Corpuscular HGB Conc 31.6 g/dl (32-36); Mean Corpuscular Volume 85.3 fl (80-100); Mean Platelet Volume 10.7 fl (7.4-10.4); Platelet Count Result 169 k/mm3 (150-375); Red Blood Count 3.67 M/mm3 (4.2-5.4); Red Cell Distribution Width 14.8 % (11.5-14.5); White Blood Count 14.7 K/mm3 (4.5-10.0)
[2020-07-05] MEDS: BUDESONIDE RESPULE NEB 0.5 MG/2 ML AMP INHALATION ×2 (08:33→20:53)
[2020-07-05 08:42] LABS: Anion Gap 6 mmol/L (8-16); Blood Urea Nitrogen 30 mg/dL (7-17); Calcium 8.7 mg/dL (8.4-10.2); Carbon Dioxide 22 mmol/L (22-30); Chloride 102 mmol/L (98-107); Estimated CRCL calculation 72 ml/min; Estimated Glomerular Filt Rate 46; Glucose 133 mg/dL (65-105); Potassium 4.2 mmol/L (3.4-5.0); Sodium 130 mmol/L (137-145)
--- NOTE | 2020-07-05 08:55 | PM.PNPUL ---
Progress Note: A&P Assessment and Plan (1) Acute on chronic respiratory failure: Qualifiers: Respiratory failure complication: hypoxia and hypercapnia Qualified Code(s): J96.21 - Acute and chronic respiratory failure with hypoxia; J96.22 - Acute and chronic respiratory failure with hypercapnia Code(s): J96.20 - Acute and chronic respiratory failure, unspecified whether with hypoxia or hypercapnia Status: Acute Assessment and Plan: 07/02 She normally uses O2 at home, has been on O2 for 10 years, increased to 5 L.min since COVID in the fall from 3 L/min; today on 100% and bipap she had significant increase in the A-a gradient, pO2 147 on 100% BiPAP 16/; she has infiltrate in the right base with crackles, localized squeaks, right chest wall tenderness; may have pleuritis. She is being treated for pneumonia with Rocephin and azithromycin, adequate coverage. She is on respiratory isolation, and COVID precautions are in effect until she has a negative test. Her pCO2 was mildly increased at 47.6, and this was after she was on BiPAP, normal HCO3. Does not appear to have chronic hypercapnea. Will decrease the steroids, continue inhaled bronchodilator. I called the [facility] number to let them know that she is here in the hospital. They will not have services at her house until she is discharged. 07/03 ABG 7.3/47/142 on excessive amounts of O2; needs to be weaned, CO2 retention is not severe enough to qualify for NPPV Needs fiber for bowel regimen and chest CT for hemoptysis. Continue antibiotics / On her home dose of 5L with sats 94% at rest. 5/ On her home dose of 5L NC with sats 90%. Will do home O2 assessment prior to discharge. (2) COPD (chronic obstructive pulmonary disease): Code(s): J44.9 - Chronic obstructive pulmonary disease, unspecified Status: Acute Assessment and Plan: 07/03 She has a long history of tobacco, over 40 pack years, at times 1.5 pack a day, quit in 2019. She has severe panlobular emphysema on CT scan chest 02/21/2019. She had a sleep study 5 months ago, negative for WALT. She is on Incruse and wixela 250/50 1 puff BID at home and uses albuterol inhaler about twice a day. She sees Dr Mendoza, pulmonary, in [facility]. Previously had a nebulizer, no longer useful after the cord was chewed on by a mouse. She says she is able to use the inhaler without a problem. Will request records from [facility] to see her renal baseline, any additional diagnoses. 07/04 no wheezes on solumedrol 40 Q 8 and I will change to prednisone 50 mg PO today. Continue albuterol 2.5 mg neb Q 4, ipratroprium 05 mg neb Q 4, hold incruse ellipta while on maximum dose of ipratroprium nebs. Start budesonide .5 mg neb BID today. 07/05 Continues to improve, on prednisone 50 (day 4 steroids), budesonide 0.5 mg neb BID, albuterol 2.5 mg neb Q 4, ipratroprium 05 mg neb Q 4. If does well anticipate DC on 07/07 on these pulmonary medications: Prednisone 40 mg PO on 07/08, 30 mg PO on 07/09, 20 mg PO on 07/10 and last does of 10 mg PO on 07/11. Levaquin 750 mg PO for 5 days (last torres on 07/11 for a total on 10 days antibiotics) Wixela 250/50 at 1 puff Q day Incruse ellipta 62.5 at 1 puff Q day Rescue albuterol 2 puffs Q 4 H PRN and albuterol 2.5 mg neb Q 4 PRN. Per care corrdination note she will need to purchase a new nebulizer machine. Oxygen per formal home O2 assessment (already ordered). 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 (3) Community acquired pneumonia: Code(s): J18.9 - Pneumonia, unspecified organism Status: Acute Assessment and Plan: 5/2 Infiltrate in the right base, without significant sputum production. She is on broad coverage for community acquired pathogens. Will check urine antigen for pneumococcus and sputum for bacteri
--- NOTE | 2020-07-05 11:09 | HOMEO2EVAL ---
Evaluation was performed at [facility] Home Oxygen Evaluation RC: Home Oxygen (O2) Evaluation Start: 07/04/20 09:35 Freq: ONCE Status: Active Protocol: RPE Activity Type Activity Date Activity User E-Sign Co-Sign Detail Recorded Client Recorded Date Recorded By Document 07/05/20 10:30 LINDY [email or web address] 07/05/20 11:09 LINDY Document 07/05/20 10:31 LINDY [email or web address] 07/05/20 11:09 LINDY Document 07/05/20 10:32 LINDY [email or web address] 07/05/20 11:09 LINDY Document 07/05/20 10:33 LINDY [email or web address] 07/05/20 11:09 LINDY Document 07/05/20 10:34 LINDY [email or web address] 07/05/20 11:09 LINDY Document 07/05/20 10:35 LINDY [email or web address] 07/05/20 11:09 LINDY Document 07/05/20 10:37 LINDY [email or web address] 07/05/20 11:09 LINDY Document 07/05/20 10:38 LINDY [email or web address] 07/05/20 11:09 LINDY Document 07/05/20 10:39 LINDY [email or web address] 07/05/20 11:09 LINDY Document 07/05/20 10:39 LINDY [email or web address] 07/05/20 11:09 LINDY Document 07/05/20 10:40 LINDY [email or web address] 07/05/20 11:09 LINDY Document 07/05/20 10:40 LINDY [email or web address] 07/05/20 11:09 LINDY Document 07/05/20 10:45 LINDY [email or web address] 07/05/20 11:09 LINDY 07/05/20 07/05/20 07/05/20 10:30 10:31 10:32 Home O2 Evaluation Test Phase Resting Resting Resting Oxygen Delivery Room Air High Flow Nasal High Flow Nasal Cannula Cannula Oxygen Flow Rate (L/min) 1 2 Pulse Oximetry (90-100 %) 87 L 87 L 87 L Pulse Rate (60-100 beats/min) 93 Activity Tolerance Ambulation Distance (feet) Home Oxygen Evaluation Comments Treatment Charges O2 Evaluation - Inpatient 07/05/20 07/05/20 07/05/20 10:33 10:34 10:35 Home O2 Evaluation Test Phase Resting Resting Exercise Oxygen Delivery High Flow Nasal High Flow Nasal High Flow Nasal Cannula Cannula Cannula Oxygen Flow Rate (L/min) 3 4 4 Pulse Oximetry (90-100 %) 87 L 91 85 L Pulse Rate (60-100 beats/min) 121 H Activity Tolerance Fair Ambulation Distance (feet) Home Oxygen Evaluation Comments Treatment Charges 07/05/20 07/05/20 07/05/20 10:37 10:38 10:39 Home O2 Evaluation Test Phase Exercise Exercise Exercise Oxygen Delivery High Flow Nasal High Flow Nasal High Flow Nasal Cannula Cannula Cannula Oxygen Flow Rate (L/min) 5 6 7 Pulse Oximetry (90-100 %) 86 L 86 L 86 L Pulse Rate (60-100 beats/min) Activity Tolerance Ambulation Distance (feet) 30 Home Oxygen Evaluation Comments Up from bed with walker, independent, walked from bed to door and back to bed Treatment Charges 07/05/20 07/05/20 07/05/20 10:39 10:40 10:40 Home O2 Evaluation Test Phase Exercise Exercise Exercise Oxygen Delivery High Flow Nasal High Flow Nasal High Flow Nasal Cannula Cannula Cannula Oxygen Flow Rate (L/min) 8 9 10 Pulse Oximetry (90-100 %) 87 L 87 L 89 L Pulse Rate (60-100 beats/min) 124 H Activity Tolerance Ambulation Distance (feet) Home Oxygen Evaluation Comments Treatment Charges 07/05/20 10:45 Home O2 Evaluation Test Phase Resting Oxygen Delivery High Flow Nasal Cannula Oxygen Flow Rate (L/min) 4 Pulse Oximetry (90-100 %) 92 Pulse Rate (60-100 beats/min) 92 Activity Tolerance Ambulation Distance (feet) Home Oxygen Evaluation Comments Pt requires 4 L rest and 10 L exertion/ activity Treatment Charges
--- NOTE | 2020-07-05 11:10 | PCRCNOTE ---
Home O2 eval done, Pt requires 4L rest and 10 L High flow with exertion. Pt has home O2 established with [facility]. I will update them on new/changing O2 needs to ensure pt has all required O2 equipment in the home. States her daughter will bring in a tank for discharge/transport home.
--- NOTE | 2020-07-05 12:13 | PM.IMPN ---
Progress Note: A&P Assessment and Plan (1) Community acquired pneumonia: Code(s): J18.9 - Pneumonia, unspecified organism Status: Acute Assessment and Plan: 07/05/20 12:13 patient is a 59-year-old female with history of chronic respiratory failure on home oxygen 3 L per nasal cannula and COPD patient presented emergency department via EMS upon EMS arrival patient was hypoxic and saturating 70% on her 3 L nasal cannula, CPAP was applied and patient was brought to emergency depart which did improve her oxygenation. Patient stated for last 2 weeks patient has been short of breath, cough and fever, emergency depart patient was applied on BiPAP, chest x-ray showed prominent patchy consolidation in the right mid and lower lung zones and mild infiltrate or atelectasis at the left lung base. Patient is diagnosed with community-acquired pneumonia and placed azithromycin and Rocephin, also has exacerbation of COPD patient is treated with Solu-Medrol and updraft, there is a concern the patient may have a COVID-19 patient is being isolated and tested, at present time patient states is feeling much better compared to when she arrived, will continue present management, will consult ash worker for further recommendation, continue to monitor the patient. 07/03 patient COVID test is negative, patient states feeling much better compared to when she arrived, patient was seen by Dr. Ryan of pulmonology and taper Solu-Medrol from 60 mg q.8 to 40 mg q.8, suspect patient has a community-acquired pneumonia will continue azithromycin and Rocephin repeat chest x-ray tomorrow and further recommendation to follow, patient creatinine is rising will gently hydrate the patient as patient p.o. intake for last few days is poor will monitor kidney function, will have a PT OT evaluate the patient patient will benefit from acute rehab. 07/04 patient still c/o shortness of breath at rest and with exertion patient community-acquired pneumonia being treated with azithromycin Rocephin as well as exacerbation of COPD, patient was seen by ash worker today order CT scan in of the chest, and taper Solu-Medrol to prednisone 50 mg q.day, ash worker will follow-up on CT scan of the chest and further recommendation to follow, will continue PT OT, patient will benefit from acute rehab at home present outpatient therapy. 07/05 CT scan of the chest CT showed right-sided infiltrate and recommending to repeat scan in 6 months to further evaluate, today patient is seen by pulmonology, patient is able to walk to the bathroom with a walker however still short winded, ash worker WILLIAM Gonzalez and place the patient Levaquin 750 for 4 days, will have home O2 eval today if remains clinically stable may discharge home tomorrow (2) Acute exacerbation of chronic obstructive airways disease: Code(s): J44.1 - Chronic obstructive pulmonary disease with (acute) exacerbation Status: Acute Assessment and Plan: Patient with a history of COPD not in exacerbation being treated with Solu-Medrol updraft azithromycin to cover for atypical with possible community-acquired pneumonia, patient be seen by ash worker and further recommendation to (3) Acute on chronic respiratory failure: Qualifiers: Respiratory failure complication: hypoxia and hypercapnia Qualified Code(s): J96.21 - Acute and chronic respiratory failure with hypoxia; J96.22 - Acute and chronic respiratory failure with hypercapnia Code(s): J96.20 - Acute and chronic respiratory failure, unspecified whether with hypoxia or hypercapnia Status: Acute Assessment and Plan: Multifactorial secondary to exacerbation of COPD and community-acquired pneumonia, unlikely congestive heart failure as patient BNP 59 is normal and chest x-ray shows more pneumonia or other than the pulmonary edema (4) COVID-19 ruled out: Code(s): Z20.822 - Contact with and (suspected) exposure to COVID-19 Status: Acu
[2020-07-05] MEDS: IBUPROFEN 400 MG TABLET PO ×2 (12:24→20:20)
--- NOTE | 2020-07-05 14:36 | PCRCNOTE ---
SPOKE TO FUENTES FROM [facility] AND SHE STATED THAT SHE HAS A 10 L HOME CONCENTRATOR AND A 15 L REGULATOR FOR SMALLER TANKS FOR OUTSIDE THE HOME. ALSO HAS ALL TUBING AND OTHER SUPPLIES NEEDED.
--- NOTE | 2020-07-05 17:16 | PCRCNOTE ---
Window of time for administration has passed. See next scheduled administration.
[2020-07-05] MEDS: ATORVASTATIN 40 MG TABLET PO (20:22)
[2020-07-05] MEDS: traZODone HCL 50 MG TABLET PO (20:22)
[2020-07-05] MEDS: lisinopriL 10 MG TABLET PO (20:22)
[2020-07-05 22:39] LABS: Pneumococcal Antigen Urine Not Detected (Not Detected)
[2020-07-06] VITALS (10 sets, daily range): BP systolic 127; BP diastolic 71; PULSE 83–120; RESP 20–24; TEMP 36.1; O2SAT 97
[2020-07-06] MEDS: ALBUTEROL SULFATE NEB 2.5 MG/0.5 ML INH INHALATION ×3 (01:34→11:37)
[2020-07-06] MEDS: IPRATROPIUM BR 0.02% INH SOLN 0.5 MG/2.5 ML VIAL INHALATION ×3 (01:34→11:37)
[2020-07-06 06:06] LABS: Hematocrit 35.1 % (37.0-47.0); Hemoglobin 10.8 g/dL (12.0-15.0); Mean Corpuscular HGB Conc 30.8 g/dl (32-36); Mean Corpuscular Hemoglobin 26.9 pg (26-34); Mean Corpuscular Volume 87.5 fl (80-100); Mean Platelet Volume 10.9 fl (7.4-10.4); Platelet Count Result 179 k/mm3 (150-375); Red Blood Count 4.01 M/mm3 (4.2-5.4); Red Cell Distribution Width 14.9 % (11.5-14.5); White Blood Count 10.8 K/mm3 (4.5-10.0)
[2020-07-06 06:19] LABS: Anion Gap 4 mmol/L (8-16); Blood Urea Nitrogen 26 mg/dL (7-17); Calcium 9.2 mg/dL (8.4-10.2); Carbon Dioxide 25 mmol/L (22-30); Chloride 103 mmol/L (98-107); Estimated CRCL calculation 67 ml/min; Estimated Glomerular Filt Rate 42; Glucose 74 mg/dL (65-105); Potassium 4.5 mmol/L (3.4-5.0); Sodium 132 mmol/L (137-145)
--- NOTE | 2020-07-06 07:06 | PCRCNOTE ---
0400 neb treatment not given. Window of time for administration has passed. See next scheduled administration.
[2020-07-06] MEDS: HYDROcodone/acetaminophen (*CRX) 5-325 MG TABLET 1 TAB PO (08:24)
[2020-07-06] MEDS: CYCLOBENZAPRINE HCL 10 MG TABLET PO (08:24)
[2020-07-06] MEDS: ENOXAPARIN 40 MG/0.4 ML SYRINGE SUB-Q (08:25)
[2020-07-06] MEDS: predniSONE 40 MG, predniSONE 10 MG 50 MG PO (08:26)
[2020-07-06] MEDS: lamoTRIgine 25 MG TABLET 75 MG PO (08:26)
[2020-07-06] MEDS: GABAPENTIN 400 MG CAPSULE 800 MG PO (08:26)
[2020-07-06] MEDS: lisinopriL 10 MG TABLET PO (08:27)
[2020-07-06] MEDS: OMEGA 3 POLYUNSAT FATTY ACIDS 1 GM CAP PO (08:27)
[2020-07-06] MEDS: POTASSIUM CHLORIDE 20 MEQ TABLET.ER PO (08:27)
[2020-07-06] MEDS: PANTOPRAZOLE 40 MG TABLET PO (08:27)
[2020-07-06] MEDS: MONTELUKAST SODIUM 10 MG TABLET PO (08:27)
[2020-07-06] MEDS: LORATADINE 10 MG TABLET PO (08:27)
[2020-07-06] MEDS: allopurinoL 300 MG TABLET PO (08:28)
[2020-07-06] MEDS: TOPIRAMATE 25 MG TABLET 50 MG PO (08:28)
[2020-07-06] MEDS: ESCITALOPRAM OXALATE 10 MG TABLET 20 MG PO (08:28)
[2020-07-06] MEDS: ASPIRIN 81 MG ENTERIC TABLET PO (08:28)
--- NOTE | 2020-07-06 08:32 | PM.PNPUL ---
Progress Note: A&P Assessment and Plan (1) Acute on chronic respiratory failure: Qualifiers: Respiratory failure complication: hypoxia and hypercapnia Qualified Code(s): J96.21 - Acute and chronic respiratory failure with hypoxia; J96.22 - Acute and chronic respiratory failure with hypercapnia Code(s): J96.20 - Acute and chronic respiratory failure, unspecified whether with hypoxia or hypercapnia Status: Acute Assessment and Plan: 07/02 She normally uses O2 at home, has been on O2 for 10 years, increased to 5 L.min since COVID in the fall from 3 L/min; today on 100% and bipap she had significant increase in the A-a gradient, pO2 147 on 100% BiPAP 16/; she has infiltrate in the right base with crackles, localized squeaks, right chest wall tenderness; may have pleuritis. She is being treated for pneumonia with Rocephin and azithromycin, adequate coverage. She is on respiratory isolation, and COVID precautions are in effect until she has a negative test. Her pCO2 was mildly increased at 47.6, and this was after she was on BiPAP, normal HCO3. Does not appear to have chronic hypercapnea. Will decrease the steroids, continue inhaled bronchodilator. I called the [facility] number to let them know that she is here in the hospital. They will not have services at her house until she is discharged. 07/03 ABG 7.3/47/142 on excessive amounts of O2; needs to be weaned, CO2 retention is not severe enough to qualify for NPPV Needs fiber for bowel regimen and chest CT for hemoptysis. Continue antibiotics 07/04 On her home dose of 5L with sats 94% at rest. 5 On her home dose of 5L NC with sats 90%. Will do home O2 assessment prior to discharge. Required 4 L with rest and 10 L with ambulation. (2) COPD (chronic obstructive pulmonary disease): Code(s): J44.9 - Chronic obstructive pulmonary disease, unspecified Status: Acute Assessment and Plan: 07/03 She has a long history of tobacco, over 40 pack years, at times 1.5 pack a day, quit in 2019. She has severe panlobular emphysema on CT scan chest 02/21/2019. She had a sleep study 5 months ago, negative for WALT. She is on Incruse and wixela 250/50 1 puff BID at home and uses albuterol inhaler about twice a day. She sees Dr Mendoza, pulmonary, in [facility]. Previously had a nebulizer, no longer useful after the cord was chewed on by a mouse. She says she is able to use the inhaler without a problem. Will request records from [facility] to see her renal baseline, any additional diagnoses. 07/04 no wheezes on solumedrol 40 Q 8 and I will change to prednisone 50 mg PO today. Continue albuterol 2.5 mg neb Q 4, ipratroprium 05 mg neb Q 4, hold incruse ellipta while on maximum dose of ipratroprium nebs. Start budesonide .5 mg neb BID today. 07/05 Continues to improve, on prednisone 50 (day 4 steroids), budesonide 0.5 mg neb BID, albuterol 2.5 mg neb Q 4, ipratroprium 05 mg neb Q 4. 07/06 Slow improvement, remaisn with ROSEN. No wheezes. Ready for DC home on these pulmonary medications: Prednisone 40 mg PO on 07/08, 30 mg PO on 07/09, 20 mg PO on 07/10 and last does of 10 mg PO on 07/11. Levaquin 750 mg PO for 5 more days (last dose on 07/11 for a total on 10 days antibiotics) Wixela 250/50 at 1 puff Q day Incruse ellipta 62.5 at 1 puff Q day Rescue albuterol 2 puffs Q 4 H PRN and albuterol 2.5 mg neb Q 4 PRN. Per care corrdination note she will need to purchase a new nebulizer machine. Home O2 with 4 L at rest and 10L with ambulation. 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 Tucker at [facility], in about 2 weeks. (3) Community acquired pneumonia: Code(s): J18.9 - Pneumonia, unspecified organism Status: Acute Assessment and Plan: 5/ Infiltrate in the right base, without significant sputum production. She is on
[2020-07-06] MEDS: BUDESONIDE RESPULE NEB 0.5 MG/2 ML AMP INHALATION (08:42)
--- NOTE | 2020-07-06 10:57 | PCOTNOTE ---
Attempted to see patient this am, however patient refused due to 10/10 right shoulder pain. Pt reported she is unable to have pain medicine just yet. RN notified.
--- NOTE | 2020-07-06 12:42 | PM.DS ---
DS: Admitting Diagnosis Admitting Diagnosis Admitting Diagnosis: (1) Community acquired pneumonia: (2) Acute exacerbation of chronic obstructive airways disease: (3) Acute on chronic respiratory failure: (4) COVID-19 ruled out: (5) CHF (congestive heart failure): (6) Generalized weakness: DS: Discharge Diagnosis Discharge Diagnosis (1) Community acquired pneumonia: Code(s): J18.9 - Pneumonia, unspecified organism Status: Acute (2) Acute exacerbation of chronic obstructive airways disease: Code(s): J44.1 - Chronic obstructive pulmonary disease with (acute) exacerbation Status: Acute Assessment and Plan: Patient with a history of COPD not in exacerbation being treated with Solu-Medrol updraft azithromycin to cover for atypical with possible community-acquired pneumonia, patient be seen by wharf worker and further recommendation to (3) Acute on chronic respiratory failure: Qualifiers: Respiratory failure complication: hypoxia and hypercapnia Qualified Code(s): J96.21 - Acute and chronic respiratory failure with hypoxia; J96.22 - Acute and chronic respiratory failure with hypercapnia Code(s): J96.20 - Acute and chronic respiratory failure, unspecified whether with hypoxia or hypercapnia Status: Acute Assessment and Plan: Multifactorial secondary to exacerbation of COPD and community-acquired pneumonia, unlikely congestive heart failure as patient BNP 59 is normal and chest x-ray shows more pneumonia or other than the pulmonary edema (4) COVID-19 ruled out: Code(s): Z20.822 - Contact with and (suspected) exposure to COVID-19 Status: Acute Assessment and Plan: Suspect patient may have COVID-19 patient been isolated and tested (5) CHF (congestive heart failure): Code(s): I50.9 - Heart failure, unspecified Status: Acute Assessment and Plan: Patient with history of congestive heart failure her BNP is 59 patient appears euvolemic though morbidly obese, will continue to monitor (6) Generalized weakness: Code(s): R53.1 - Weakness Status: Acute Assessment and Plan: Most likely secondary to exacerbation of COPD and pneumonia will have a PT OT evaluate the patient and further recommendation to follow DS: Summary Hospital Course Reason for hospitalization: SOB Hospital Course: 07/02/20 patient is a 59-year-old female with history of chronic respiratory failure on home oxygen 3 L per nasal cannula and COPD patient presented emergency department via EMS upon EMS arrival patient was hypoxic and saturating 70% on her 3 L nasal cannula, CPAP was applied and patient was brought to emergency depart which did improve her oxygenation. Patient stated for last 2 weeks patient has been short of breath, cough and fever, emergency depart patient was applied on BiPAP, chest x-ray showed prominent patchy consolidation in the right mid and lower lung zones and mild infiltrate or atelectasis at the left lung base. Patient is diagnosed with community-acquired pneumonia and placed azithromycin and Rocephin, also has exacerbation of COPD patient is treated with Solu-Medrol and updraft, there is a concern the patient may have a COVID-19 patient is being isolated and tested, at present time patient states is feeling much better compared to when she arrived, will continue present management, will consult wharf worker for further recommendation, continue to monitor the patient. 07/03 patient COVID test is negative, patient states feeling much better compared to when she arrived, patient was seen by Dr. Ryan of pulmonology and taper Solu-Medrol from 60 mg q.8 to 40 mg q.8, suspect patient has a community-acquired pneumonia will continue azithromycin and Rocephin repeat chest x-ray tomorrow and further recommendation to follow, patient creatinine is rising will gently hydrate the patient as patient p.o. intake for last few days is poor will
--- NOTE | 2020-07-06 13:22 | PC.NURSE ---
Attempted to go over discharge information with patient. The patient's son facetimed the patient and she spoke with him while going over the discharge paperwork. This nurse waited for the phone call to be done but the patient told me to continue.
--- NOTE | 2020-07-07 11:01 | PCRCNOTE ---
Will fax neb set up order and discharge summary to [facility]
== END 2020-07-06 13:50 | disposition home or self-care (01) | DRG 139 ==
LOC: ANHED 05:57 → ANH3MEDSUR 07-04 13:02 → ANHIMU 07-08 13:21
PROVIDERS: Family Medicine; Internal Medicine Critical Care Medicine; Admitting Provider Internal Medicine; Emergency Provider Emergency Medicine; PCP Family Medicine; Visit Provider Hospitalist
DX: J18.9 Pneumonia, unspecified organism (principal); Z20.822 Contact with and (suspected) exposure to COVID-19; J96.21 Acute and chronic respiratory failure with hypoxia; J96.22 Acute and chronic respiratory failure with hypercapnia; J44.1 Chronic obstructive pulmonary disease with (acute) exacerbation; J44.0 Chronic obstructive pulmonary disease with (acute) lower respiratory infection; Z99.81 Dependence on supplemental oxygen; R53.1 Weakness; I50.9 Heart failure, unspecified; E66.01 Morbid (severe) obesity due to excess calories; Z68.43 Body mass index [BMI] 50.0-59.9, adult; N18.9 Chronic kidney disease, unspecified; F31.9 Bipolar disorder, unspecified; G62.9 Polyneuropathy, unspecified; Z79.899 Other long term (current) drug therapy; Z87.891 Personal history of nicotine dependence; Z88.0 Allergy status to penicillin; Z96.619 Presence of unspecified artificial shoulder joint; Z98.42 Cataract extraction status, left eye; Z98.41 Cataract extraction status, right eye
CPT/HCPCS: 36415; 36600; 71045; 71250; 80048; 80053; 82805; 83605; 83735; 83880; 84484; 85025; 85027; 85610; 85730; 87040; 87899; 93005; 94002; 94618; 94640; 94660; 96365; 96368; 96375; 97110; 97116; 97161; 97166; 97530; 99285; A9270; C9803; J0456; J0696; J1650; J2405; J2920; J2930; J7030; J7512; U0003; U0005

== ENCOUNTER 2022-05-07 14:31 | Inpatient (IN) | payer OTHER, SELFPAY ==
[2022-05-07] VITALS (26 sets, daily range): BP systolic 102–139; BP diastolic 63–109; PULSE 88–161; RESP 14–30; TEMP 36.5–36.8; O2SAT 92–100; BMI 49.1
--- NOTE | ~2022-05-07 | US_ITS ---
EXAMINATION: US retroperitoneal comp DATE: 05/08/2022 17:20 INDICATION: clifford TECHNIQUE: Multiple grayscale and Doppler ultrasound images of the kidneys were obtained. COMPARISON: None. FINDINGS: The right kidney measures 10.0 x 6.0 x 5.4 cm. The left kidney measures 10.8 x 5.7 x 4.7 cm. The kidn eys demonstrate normal parenchymal echogenicity. There is no hydronephrosis. The bladder is partially distended and the wall is thickened. A urinary catheter balloon is not seen within the bladder lumen . IMPRESSION: Bladder wall thickening, may represent cystitis in the appropriate clinical context. Urinary catheter balloon not visualized within the bladder lumen, correlate with tube function and consider repositio brad/replacement. Reviewed, dictated and finalized at location K. H MIXER IMPRESSION: Bladder wall thickening, may represent cystitis in the appropriate clinical con text. Urinary catheter balloon not visualized within the bladder lumen, correla te with tube function and consider repositioning/replacement.
--- NOTE | ~2022-05-07 | XR_ITS ---
EXAMINATION: XR chest 1V portable DATE: 05/07/2022 15:17 INDICATION: Altered mental status. TECHNIQUE: A single frontal view of the chest was obtained on 2 radiographs. COMPARISON: Chest single view 07/02/2020 FINDINGS: There is mild atelectasis in the lower lung zones. There are lucencies in the upper lungs, consistent with emphysema. No pleural effusion or pneumothorax. The heart size is normal. There is a right shoulder arthroplasty. IMPRESSION: 1. Emphysema. 2. Mild atelectasis in the lower lung zones. Reviewed, dictated and finalized at location A. CONSULTING MANAGER
--- NOTE | ~2022-05-07 | CT_ITS ---
EXAMINATION: CT brain wo con DATE: 05/07/2022 17:49 INDICATION: ams . TECHNIQUE: Computed tomography (CT) of the head was performed without intravenous contrast. The mA wa s adjusted according to patient size. Iterative reconstruction technique was employed. The dose-lengt h product was 1362.00 mGy-cm. COMPARISON: 03/02/2015. FINDINGS: No acute intracranial hemorrhage or extra-axial fluid collection. No hydrocephalus, mass, or herniation. No acute ischemic infarct. Unremarkable dural venous sinus attenuation. No acute osseous abnormality. The aerated spaces are clear. Mild atrophy and chronic white matter change. Mild atherosclerotic intracranial calcification. Bilate ral lens replacements. IMPRESSION: No acute intracranial process. Reviewed, dictated and finalized at location K. ICAL BIOCHEMICAL GENETICIST
--- NOTE | 2022-05-07 14:46 | ECG_ITS ---
Measurements Intervals [place] Rate: 152 P: [place]: 0 QRS: -29 QRSD: 92 T: 106 QT: 242 QTc: 386 Interpretive Statements ATRIAL FLUTTER/TACHYCARDIA WITH RAPID VENTRICULAR RESPONSE LEFT VENTRICULAR HYPERTROPHY AND ST-T CHANGE ST-T WAVE ABNORMALITY IN ANTEROLATERAL LEADS- CONSIDER ISCHEMIA BASELINE ARTIFACT- I, II, III, AVR, AVL, AVF ABNORMAL ECG COMPARED TO ECG 07/02/2020 04:06:41 LEFT VENTRICULAR HYPERTROPHY NOW PRESENT ST (T WAVE) DEVIATION NOW PRESENT Electronically Signed On 05-07-2022 16:45:28 LIVER TRIMMER by Royce Santiago D.O.
[2022-05-07 15:12] LABS: Alveolar/Arterial O2 Gradient 139.9 mmHg; Base Excess ABG 11.1 mEq/l (+/-2.0); Fractional Inspired Oxygen 36 %; HCO3 ABG 34.2 mEq/l (22.0-26.0); Oxygen Saturation ABG 96.2 % (95.0-100.0); Oxyhemoglobin 93.2 % THb (90.0-100.0); PCO2 ABG 38.9 mmHg (35.0-45.0); PO2 ABG 71.7 mmHg (80.0-100.0); PO2 FiO2 Ratio Arterial Blood 1.99 %; Total Hemoglobin 17.6 g/dL (12.0-18.0)
--- NOTE | 2022-05-07 15:13 | ED.GENADULT ---
HPI - General Adult General Chief complaint: Weakness Stated complaint: feels woozy Time Seen by Provider: 05/07/22 14:40 History of Present Illness HPI narrative: Patient is a 61-year-old female who was sent to the ER today for increased confusion and jitteriness. Patient felt to be more confused due to her some oxycodone she had been taking and she refused her most recent dose. Patient found to be tachycardic and in an arrhythmia on arrival. Patient has no history of A-fib or a flutter. Patient is alert and oriented x3 but is very slow to respond. There is been no reports of fevers or chills or sweats. No known productive cough. Related Data Home Medications Medication Instructions Recorded Confirmed allopurinol 300 mg tablet 300 mg PO DAILY 07/02/20 07/02/20 alprazolam 0.5 mg tablet 0.5 mg PO HS PRN Sleep 07/02/20 07/02/20 aspirin 81 mg tablet 81 mg PO DAILY 07/02/20 07/02/20 atorvastatin 40 mg tablet 40 mg PO HS 07/02/20 07/02/20 bupropion HCl 150 mg tablet,12 hr 150 mg PO Q12H 07/02/20 07/02/20 sustained-release cetirizine 10 mg tablet 10 mg PO DAILY 07/02/20 07/02/20 cyclobenzaprine 10 mg tablet 10 mg PO TID 07/02/20 07/02/20 escitalopram oxalate 20 mg tablet 20 mg PO Q12H 07/02/20 07/02/20 furosemide 20 mg tablet 40 mg PO TID 07/02/20 07/02/20 gabapentin 800 mg tablet 800 mg PO TID 07/02/20 07/02/20 hydrocodone 5 mg-acetaminophen 325 1 tablet PO Q8H PRN Pain (Scale 07/02/20 07/02/20 mg tablet Score 7-10) ibuprofen 200 mg tablet 400 mg PO Q6H PRN Pain (Scale 07/02/20 07/02/20 Score 4-6) lamotrigine 25 mg tablet 75 mg PO BID 07/02/20 07/02/20 lisinopril 10 mg tablet 10 mg PO BID 07/02/20 07/02/20 montelukast 10 mg tablet 10 mg PO DAILY 07/02/20 07/02/20 nitroglycerin 0.4 mg sublingual 0.4 mg sublingual PRN PRN Chest 07/02/20 07/02/20 tablet (Nitrostat) Pain omega-3 fatty acids-vitamin E 1 cap PO BID 07/02/20 07/02/20 1,000 mg capsule pantoprazole 40 mg tablet,delayed 40 mg PO DAILY 07/02/20 07/02/20 release potassium chloride 20 mEq 20 meq PO BID 07/02/20 07/02/20 tablet,extended release topiramate 50 mg tablet 50 mg PO BID 07/02/20 07/02/20 trazodone 50 mg tablet 50 mg PO HS 07/02/20 07/02/20 umeclidinium 62.5 mcg/actuation 1 inh inhalation DAILY 07/02/20 07/02/20 blister powder for inhalation (Incruse Ellipta) Allergies Allergy/AdvReac Type Severity Reaction Status Date / Time Penicillins Allergy Rash Verified 05/07/22 15:16 Review of Systems Review of Systems: ROS unobtainable: Yes unobtainable due to medical condition [facility] Past Medical History Medical History (Updated 05/07/22 @ 19:28 by Troy Schwartz MD) Asthma Bipolar 1 disorder Chronic hypoxemic respiratory failure CKD (chronic kidney disease) COPD (chronic obstructive pulmonary disease) Herniated disc History of kidney stones 9 episodes, 3 procedures History of tobacco abuse On home O2 5L Peripheral neuropathy Surgical History Surgical History (Updated 07/02/20 @ 19:45 by Che Ryan MD) History of bilateral cataract extraction Hx of tonsillectomy Status post total shoulder arthroplasty Family History Family History (Updated 07/02/20 @ 19:41 by Che Ryan MD) Mother , age 68 CHF (congestive heart failure) Emphysema of lung Father , at age 62 Acute myocardial infarction Emphysema of lung Sibling , age 59 Pancreatic cancer Sibling , age 40 acute [place] Acute myocardial infarction Social History Social History (Updated 07/03/20 @ 15:37 by Che Ryan MD) Social History: Heavy former smoker, started age 11, quit Feb 2019, maximum 1.5 ppd, average 1 ppd 40 + years; disabled in 2009 partly due to COPD; has 4 kids, 8 grandchildren. She has home care workers assist her 6 hours/day 5 days/ week through [facility], ; [employer]. Smoking packs per day: 1 Smoking cigarettes per day: 20.0 Years smok
[2022-05-07 15:14] LABS: Device NASAL CANNULA; Modified Allen's Test Pass; Site Drawn LEFT RADIAL; pH ABG 7.562 (7.350-7.450)
[2022-05-07] MEDS: dilTIAZem HCl INJ 25 MG/5 ML VIAL 15 MG IV PUSH (15:29)
[2022-05-07 15:37] LABS: Basophils Absolute Auto 0.1 K/mm3 (0.0-0.1); Basophils Percent Auto 0.3 % (0.2-1.2); Immature Granulocyte Absolute 0.19 K/mm3 (0.00-0.031); Immature Granulocyte Percent A 1.1 % (0-0.5); Lymphocytes Absolute Auto 2.54 K/mm3 (0.9-3.2); Lymphocytes Percent Auto 14.5 % (18.3-44.2); Mean Corpuscular HGB Conc 32.7 g/dl (32-36); Mean Corpuscular Hemoglobin 26.3 pg (26-34); Mean Corpuscular Volume 80.4 fl (80-100); Mean Platelet Volume 12.4 fl (7.4-10.4); Monocytes Absolute Auto 1.3 K/mm3 (0.1-0.6); Monocytes Percent Auto 7.3 % (2.6-8.5); Neutrophils Absolute Auto 13.5 K/mm3 (1.3-6.7); Neutrophils Percent Auto 76.8 % (45.5-73.1); Platelet Count Result 213 k/mm3 (150-375); Red Blood Count 6.47 M/mm3 (4.2-5.4); Red Cell Distribution Width 17.3 % (11.5-14.5); White Blood Count 17.6 K/mm3 (4.5-10.0)
[2022-05-07] MEDS: SODIUM CHLORIDE 0.9% IV 1,000 ML 999 ML IV CONT ×2 (16:06→18:31)
[2022-05-07 16:26] LABS: INR 1.1; Prothrombin Time 13.5 Seconds (11.1-14.7)
[2022-05-07 16:27] LABS: Partial Thromboplastin Time 25.5 SECONDS (22.3-36.8)
[2022-05-07 16:32] LABS: Alanine Aminotransferase 58 U/L (6-35); Albumin Level 4.8 g/dL (3.5-5.1); Alkaline Phosphatase 176 U/L (38-126); Anion Gap 13 mmol/L (8-16); Aspartate Amino Transferase 60 U/L (14-36); Bilirubin,Total 1.3 mg/dL (0.2-1.3); Blood Urea Nitrogen 61 mg/dL (7-17); Calcium 9.4 mg/dL (8.4-10.2); Carbon Dioxide 37 mmol/L (22-30); Chloride 80 mmol/L (98-107); Estimated CRCL calculation 37 ml/min; Estimated Glomerular Filt Rate 23; Glucose 194 mg/dL (65-110); Potassium 2.4 mmol/L (3.4-5.0); Sodium 130 mmol/L (137-145)
[2022-05-07 16:39] LABS: NT Pro B Type Natriuretic Pept 4100 pg/mL (19.9-100); Troponin I 0.124 ng/mL (0.000-0.034)
[2022-05-07 16:52] LABS: Appearance Urine Clear (Clear); Bilirubin Urine Negative (Negative); Blood Urine Negative (Negative); Color Urine Yellow (Yellow); Glucose Urine UA Negative (Negative); Ketones Urine Negative (Negative); Leukocyte Esterase Ur Negative LEU/UL (Negative); Nitrate Urine Negative (Negative); Protein Urine Negative (Negative); Specific Grav Ur 1.012 (1.001-1.035); Urobilinogen Urine 0.2 mg/dL (<2.0); pH Urine 6.5 (5.0-9.0)
[2022-05-07 17:05] LABS: Add Urine Microscopic? NO
[2022-05-07] MEDS: POTASSIUM CHLORIDE 20 MEQ PACKET (FOR LIQUID) 40 MEQ PO (18:17)
[2022-05-07] MEDS: POTASSIUM CHLORIDE INJ 40 MEQ in SODIUM CHLORIDE 0.9% IV 500 ML 130 MEQ IVPB (18:19)
[2022-05-07] MEDS: MAGNESIUM SULF 2 GM/WATER 50ML 2 GM/50 ML BAG IVPB (18:30)
[2022-05-07] MEDS: ENOXAPARIN 40 MG/0.4 ML SYRINGE SUB-Q (18:37)
[2022-05-07] MEDS: ENOXAPARIN 100 MG/ML SYRINGE 96 MG SUB-Q (18:38)
[2022-05-07 18:47] LABS: Magnesium 2.4 mg/dL (1.6-2.3)
[2022-05-07 19:49] LABS: Troponin I 0.113 ng/mL (0.000-0.034)
--- NOTE | 2022-05-07 20:32 | ADMGEN ---
This patient, Fariba Olson, was admitted to IMU Room 209-01 at 19:55. Patient/family oriented to hospital policies and general routines including ID bracelet, bed and alarms, visiting hours, pain management, procedures, bathroom and other care routines, personal items, smoking policy, room service/diet, and visiting hours. Information on how to activate the Rapid Response Team has been discussed. Patient/Family are encouraged to report perceived risks to care and to ask questions if they do not understand what they are told or what they should do.
[2022-05-07] MEDS: SODIUM CHLORIDE 0.9% IV 1,000 ML 100 ML IV CONT (22:50)
[2022-05-07 23:03] LABS: Troponin I 0.094 ng/mL (0.000-0.034)
[2022-05-08] VITALS (14 sets, daily range): BP systolic 117–140; BP diastolic 63–85; PULSE 61–101; RESP 16–22; TEMP 36.1–36.7; O2SAT 96–100
--- NOTE | 2022-05-08 | ECHO_ITS ---
Patient Info Name: Fariba Olson Age: 61 years : 1960 Gender: Female Ht: 68 in Wt: 322 lbs BSA: 2.73 m2 HR: 91 bpm BP: 117 / 75 mmHg Heart Rhythm: Sinus Rhythm Technical Quality: Poor Exam Date: 05/08/2022 7:42 AM Exam Location: [facility] Pul[facility] Patient Status: Outpatient Admit Date: 05/07/2022 Staff Ordering Physician: Mere Lim DO Car Unloader: Julisa Cota RDCS Attending Provider: Jerardo Knight MD Referring Physician: Carina DIXON; Exam Type: CA echo dop color flow w con Study Info Indications - afib Complete two-dimensional, color flow and Doppler transthoracic echocardiogram is performed with contrast to opacify the left ventricle and to improve the deliniation of the left ventricle endocardial borders. Contrast/Agitated Saline Contrast/Ag. Saline: Definity Amount: 3.00 ml Administered By: Julisa Cota RDCS Existing IV Access: Yes IV Access Condition: patent with no signs of infiltration Summary 1. Normal left ventricular size and thickness, good to hyperdynamic left ventricular systolic function, EF greater than 70%. No segmental wall motion abnormalities. Grade 1 diastolic dysfunction is present. 2. Borderline right ventricular enlargement. 3. No significant valve disease. 4. Anterior echo free space, likely a fat pad. 5. Normal sinus rhythm. 6. Technically difficult study due to body habitus; definity echo contrast used. Left Ventricle Left ventricular chamber dimension is normal. Left ventricular systolic function is normal, estimated at >70%. There is no increased left ventricular wall thickness. Left ventricular septal wall motion is normal. The left ventricular diastolic function is grade I diastolic dysfunction. Right Ventricle Right ventricular chamber dimension is mildly enlarged. Right ventricular systolic function is normal. Left Atria Left atrial chamber dimension is normal. Right Atria Right atrial chamber dimension is normal. Aortic Valve The aortic valve is trileaflet. There is no aortic valve sclerosis. There is no aortic valve stenosis. There is no aortic valve regurgitation. Pulmonic Valve The pulmonic valve is normal. There is no pulmonic valve stenosis. There is no pulmonic regurgitation. Mitral Valve The mitral valve has normal leaflets. There is no mitral valve stenosis. There is no mitral valve regurgitation. Tricuspid Valve The tricuspid valve leaflets are normal. There is no significant tricuspid valve stenosis. There is no tricuspid valve regurgitation. No pulmonary hypertension, estimated pulmonary arterial systolic pressure is Empty. Pericardium/Pleural The pericardium appears epicardial fat pad. There is no pericardial effusion. Inferior Vena Cava Normal inferior vena cava with >50% collapse upon inspiration consistent with Empty right atrial pressure, Empty. Aorta The aortic root size at the sinus of Valsalva is normal. The prox ascending aorta size is normal. Left Ventricular Outflow Tract Name Value Normal LVOT 2D LVOT Diameter 2.04 cm LVOT Doppler
--- NOTE | 2022-05-08 01:22 | PM.IMHP ---
H&P: HPI History of Present Illness Date/Time: 05/08/22 01:22 Chief Complaint: Increased tremors weakness and episodes of confusion Narrative: 61-year-old female with past medical history chronic hypoxic respiratory failure, chronic pain, peripheral neuropathy, anxiety, morbid obesity, GERD, chronic kidney disease stage III and bipolar disorder who presented to the ER from long term facility due to increased shaking, increased weakness and intermittent confusion. The patient reports that about 4 5 days ago her pain medications were switched from [place] [id number] Percocet 12/04/2024. After the 1st day the patient noticed that she was not is clear and thought process in her head. She was feeling weaker and tremulous. She was also having decreased oral intake. She reported that she did not feel like she wanted to eat anything and was having some nausea. She did not have any vomiting. She thinks that her last bowel movement was 2 or 3 days ago. She denies any abdominal pain. She reported that her pain medications were changed because she felt like her [place] was not helping her much. But due to her symptoms she had actually quit taking the Percocet on the evening of the . Her when she went to get up she had 2 falls on the morning of the . She states she has resided at the shelter since October when she had amputation of her left great toe due to osteomyelitis. When the patient arrived to the in atrial flutter on arrival to the ER. She denies any known history of atrial flutter or heart failure. She states that she has been on chronic Lasix at home for about 3 years due to chronic swelling of her hands and feet. She denies any orthopnea but does report that she has been told she snores quite loudly. She has never had a sleep study before. She denies having any chest pain with her palpitations but did state that she has noticed recently that her chest has been feeling funny at times. She reports that she has chronic urinary frequency but denies any dysuria. She reports chronic neuropathic pain in her hands and feet. She has chronic wounds to the 2nd and 3rd toe of the left foot. Review of Systems Review of Systems: 12 systems were reviewed with pertinent positives and negatives per HPI. Except as documented in the HPI, all other systems were reviewed and are negative. [facility] Past Medical History Medical History (Updated 05/08/22 @ 08:39 by Mere Lim DO) Asthma Bipolar 1 disorder Chronic hypoxemic respiratory failure CKD (chronic kidney disease) COPD (chronic obstructive pulmonary disease) Herniated disc History of kidney stones 9 episodes, 3 procedures History of tobacco abuse On home O2 5L Peripheral neuropathy Surgical History Surgical History History of bilateral cataract extraction Hx of tonsillectomy Status post total shoulder arthroplasty Family History Family History Mother , age 68 CHF (congestive heart failure) Emphysema of lung Father , at age 62 Acute myocardial infarction Emphysema of lung Sibling , age 59 Pancreatic cancer Sibling , age 40 acute [place] Acute myocardial infarction Social History Social History (Updated 07/03/20 @ 15:37 by Che Ryan MD) Social History: Heavy former smoker, started age 11, quit Feb 2019, maximum 1.5 ppd, average 1 ppd 40 + years; disabled in 2009 partly due to COPD; has 4 kids, 8 grandchildren. She has home care workers assist her 6 hours/day 5 days/ week through [facility], ; [facility]. Smoking packs per day: 1 Smoking cigarettes per day: 20.0 Years smoked: 40 Smoking pack-years: 40.00 Smoking status: Former smoker Tobacco type: cigarettes Second hand tobacco smoke exposure: Yes (in childhood) Alcohol intake: never Substance use: cu
[2022-05-08] MEDS: TOPIRAMATE 25 MG TABLET 50 MG PO ×3 (03:30→20:13)
[2022-05-08] MEDS: ATORVASTATIN 40 MG TABLET PO ×2 (03:30→20:14)
[2022-05-08] MEDS: traZODone HCL 50 MG TABLET PO ×2 (03:30→20:13)
[2022-05-08] MEDS: buPROPion HCL SR (12 HR) 150 MG TAB PO ×3 (03:30→20:13)
[2022-05-08 04:54] LABS: Hematocrit 46.7 % (37.0-47.0); Hemoglobin 14.7 g/dL (12.0-15.0); Mean Corpuscular HGB Conc 31.5 g/dl (32-36); Mean Corpuscular Hemoglobin 25.8 pg (26-34); Mean Corpuscular Volume 81.9 fl (80-100); Mean Platelet Volume 11.8 fl (7.4-10.4); Platelet Count Result 179 k/mm3 (150-375); Red Cell Distribution Width 16.1 % (11.5-14.5); White Blood Count 15.6 K/mm3 (4.5-10.0)
[2022-05-08 05:13] LABS: Anion Gap 10 mmol/L (8-16); Blood Urea Nitrogen 54 mg/dL (7-17); Calcium 8.6 mg/dL (8.4-10.2); Carbon Dioxide 35 mmol/L (22-30); Chloride 86 mmol/L (98-107); Estimated CRCL calculation 44 ml/min; Estimated Glomerular Filt Rate 27; Glucose 133 mg/dL (65-110); Magnesium 2.7 mg/dL (1.6-2.3); Phosphorus 4.1 mg/dL (2.5-4.5); Potassium 2.3 mmol/L (3.4-5.0); Sodium 131 mmol/L (137-145)
[2022-05-08 06:00] LABS: Thyroid Stimulating Hormone Reflex 0.775 uIU/mL (0.465-4.68)
[2022-05-08] MEDS: UMECLIDINIUM BROMIDE 62.5 MCG ELLIPTA 1 PUFF INHALATION (07:20)
[2022-05-08 08:17] LABS: Glucose Point of Care 143 mg/dl (65-105)
[2022-05-08] MEDS: PERFLUTREN LIPID MICROSPHERES 1.5 ML VIAL DILUTED TO 10 ML TOTAL VOLUME IV PUSH (08:18)
--- NOTE | 2022-05-08 08:19 | IVDEFINITY ---
Prior to administration of IV Definity the patient was educated on the risks and benefits of the imaging enhancing agent including potential adverse side effects. The patient verbalized understanding. Allergies were verified. No exclusion criteria were identified and at least one of the following inclusion criteria were met: 1) physician request, 2) patient technically difficult to image (per the [place] [employer] Echocardi[employer] guidelines of two or more segments not discernable within the apical view), or 3) questionable left ventricular function. ?
--- NOTE | 2022-05-08 08:43 | ECG_ITS ---
Measurements Intervals [place] Rate: 98 P: 20 [place]: 152 QRS: -25 QRSD: 97 T: 42 QT: 363 QTc: 465 Interpretive Statements SINUS RHYTHM POSSIBLE LEFT ATRIAL ENLARGEMENT INCOMPLETE RIGHT BUNDLE BRANCH BLOCK POSSIBLE LEFT VENTRICULAR HYPERTROPHY ST-T WAVE ABNORMALITY IN ANT/HIGH LAT LEADS- CONSIDER ISCHEMIA ABNORMAL ECG COMPARED TO ECG 05/07/2022 15:02:24 SINUS RHYTHM NOW PRESENT Electronically Signed On 05-08-2022 13:13:11 HIGH SCHOOL FOOTBALL COACH by Royce Santiago D.O.
[2022-05-08] MEDS: HYDROcodone/acetaminophen (*CRX) 10-325 MG TABLET 1 TAB PO ×2 (09:18→21:43)
[2022-05-08] MEDS: FAMOTIDINE 20 MG TABLET 40 MG PO (09:20)
[2022-05-08] MEDS: lamoTRIgine 25 MG TABLET 75 MG PO ×2 (09:20→20:14)
[2022-05-08] MEDS: ARIPiprazole 5 MG TABLET PO (09:20)
--- NOTE | 2022-05-08 09:20 | PC.NURSE ---
Cardiopulmonary Rehab Services flyer was given to patient in admission folder.
[2022-05-08] MEDS: MONTELUKAST SODIUM 10 MG TABLET PO (09:21)
[2022-05-08] MEDS: GABAPENTIN 400 MG CAPSULE 800 MG PO ×3 (09:21→16:07)
[2022-05-08] MEDS: allopurinoL 300 MG TABLET PO (09:21)
[2022-05-08] MEDS: ASPIRIN 81 MG ENTERIC TABLET PO (09:21)
[2022-05-08] MEDS: OMEGA 3 POLYUNSAT FATTY ACIDS 1 GM CAP PO ×2 (09:21→16:07)
[2022-05-08] MEDS: POTASSIUM CHLORIDE 20 MEQ TABLET.ER 40 MEQ PO (09:22)
[2022-05-08] MEDS: KCL 40 MEQ/0.45% NS 1,000 ML 75 ML IV CONT (10:47)
--- NOTE | 2022-05-08 14:11 | PM.CNCAR ---
Assessment and Plan Assessment and plan (1) Acute hypokalemia: Code(s): E87.6 - Hypokalemia Status: Acute (2) Atrial flutter with rapid ventricular response: Code(s): I48.92 - Unspecified atrial flutter Status: Acute (3) Elevated troponin: Code(s): R77.8 - Other specified abnormalities of plasma proteins Status: Acute Plan 1) Atrial flutter with RVR Given Diltiazem 15mg IV x 1 in the ER. Back in sinus rhythm. Echo with LVEF >70%, no significant valvular disease. [id number] of 0. Does not meet criteria for anticoagulation for stroke prophylaxis. Will start Metoprolol . Needs potassium level replaced. TSH level normal. Needs sleep study. 2) Severe hypokalemia Keep potassium >4. 3) Elevated troponin: Peak of 0.124. No s/s of ischemia. Likely due to demand ischemia from atrial flutter with RVR. Echo without regional wall motion abnormalities. No further cardiac needs at this time. Cardiology will sign off. History of Present Illness History of Present Illness Consult date/time: 05/08/22 14:11 Requesting physician: Carli Katz MD Consult reason: atrial fibrillation Reason For Visit: ROQUE,AFIB RVR,Hypokalemia,AMS,Elevated Trop Narrative: We are consulted for atrial flutter. This is a 61-year-old female with a history of morbid obesity, chronic hypoxic respiratory failure on home oxygen, moderate-severe emphysema, chronic pain, peripheral neuropathy, GERD, CKD who presented from [facility] facility for increased shaking, increased weakness and confusion. While in the ER, patient noted to be in atrial flutter on EKG with HR in the 150s. She was given Diltiazem 15mg IV x 1. Noted to be severely hypokalemic in the ER. Has been in sinus rhythm. Patient denies past cardiac history. No prior history of atrial fibrillation/flutter. Review of Systems Review of Systems: All systems reviewed & are unremarkable except as noted in HPI and below (HPI) [facility] Past Medical History Medical History Asthma Bipolar 1 disorder Chronic hypoxemic respiratory failure CKD (chronic kidney disease) COPD (chronic obstructive pulmonary disease) Herniated disc History of kidney stones 9 episodes, 3 procedures History of tobacco abuse On home O2 5L Peripheral neuropathy Surgical History Surgical History History of bilateral cataract extraction Hx of tonsillectomy Status post total shoulder arthroplasty Family History Family History Mother , age 68 CHF (congestive heart failure) Emphysema of lung Father , at age 62 Acute myocardial infarction Emphysema of lung Sibling , age 59 Pancreatic cancer Sibling , age 40 acute [place] Acute myocardial infarction Social History Social History Social History: Heavy former smoker, started age 11, quit Feb 2019, maximum 1.5 ppd, average 1 ppd 40 + years; disabled in 2009 partly due to COPD; has 4 kids, 8 grandchildren. She has home care workers assist her 6 hours/day 5 days/ week through [facility], ; [employer]. 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
--- NOTE | 2022-05-08 14:12 | PM.IMPN ---
Progress Note: A&P Assessment and Plan (1) ROQUE (acute kidney injury): Code(s): N17.9 - Acute kidney failure, unspecified Status: Acute (2) Atrial fibrillation with RVR: Code(s): I48.91 - Unspecified atrial fibrillation Status: Acute (3) Acute hypokalemia: Code(s): E87.6 - Hypokalemia Status: Acute Plan 61-year-old female with past medical history chronic hypoxic respiratory failure, chronic pain, peripheral neuropathy, anxiety, morbid obesity, GERD, chronic kidney disease stage III and bipolar disorder who [facility] due to increased shaking, increased weakness and intermittent confusion 1)Acute Encephalopathy: ?likely has resolved 2)ROQUE on CKD Stage 3: Holding lasix C/w V fluids Obtain renal USG Supplement potassium for hypokalemia Repeat BMP this afternoon 3)Afibb with RVR: C/w Metoprolol Add therapeutic lovenox Supplement potassium Await echo Await cardiology consult 4)Leucocytosis: ?etiology ?Chronic Obtain blood culture for now 5)H/o Chronic Resp Failure: C/ O2 support 6)DVtppx:Lovenox 7)Code:Full 8)Dispo:pending improvement Time Spent With Patient Time with patient: 25 - 35 minutes Subjective Date/time seen: 05/08/22 14:12 Interval history: no acute events overnight Review of Systems Review of Systems: All systems reviewed & are unremarkable except as noted in HPI and below Exam Const: General: comfortable Other: obese HENMT: Mouth: Yes moist mucous membranes Eyes: Sclera: sclerae normal Neck: Neck: supple Resp: Effort & Inspection: normal respiratory effort Auscultation: diminished lung sounds Cardio: Rate: tachycardic Rhythm: abnormal rhythm GI: GI Palp: Yes Soft to palpation Auscultation: normal bowel sounds Skin: General skin exam: normal color Neuro: Speech: normal speech Extrem: General: normal to inspection Psych: Mental Status: mental status grossly normal Objective Data Vital Signs Vital Signs: Vital Signs - 24 hr 05/07/22 15:05 05/07/22 15:08 05/07/22 15:41 Temperature 98.2 F Pulse Rate 150 H 144 H 119 H Respiratory Rate 22 H 20 Blood Pressure 136/96 H 124/80 Pulse Oximetry 95 94 Oxygen Delivery Nasal Cannula Oxygen Flow Rate 4 05/07/22 14:54 05/07/22 15:01 05/07/22 15:16 Temperature Pulse Rate 150 H 153 H 161 H Respiratory Rate 23 H 21 H 27 H Blood Pressure 136/96 H 139/109 H 115/93 H Pulse Oximetry 94 95 Oxygen Delivery Oxygen Flow Rate 05/07/22 15:34 05/07/22 15:37 05/07/22 15:39 Temperature Pulse Rate 152 H 139 H 136 H Respiratory Rate 24 H 21 H 25 H Blood Pressure 118/99 H 110/73 120/82 Pulse Oximetry 95 95 93 Oxygen Delivery Oxygen Flow Rate 05/07/22 15:42 05/07/22 15:51 05/07/22 16:02 Temperature Pulse Rate 127 H 132 H 125 H Respiratory Rate 23 H 21 H 19 Blood Pressure 124/80 102/80 136/92 H Pulse Oximetry 95 94 92 Oxygen Delivery Oxygen Flow Rate 05/07/22 16:11 05/07/22 16:21 05/07/22 16:51 Temperature Pulse Rate 129 H 132 H 140 H Respiratory Rate 22 H 25 H 20 Blood Pressure 113/81 126/108 H 122/85 Pulse Oximetry 93 94 95 Oxygen Delivery Oxygen Flow Rate 05/07/22 17:11 05/07/22 17:23 05/07/22 18:01 Temperature Pulse Rate 142 H 147 H 123 H Respiratory Rate 23 H 30 H 22 H Blood Pressure 130/94 H 129/80 114/77 Pulse Oximetry 96 100 96 Oxygen Delivery Oxygen Flow Rate 05/07/22 18:11 05/07/22 19:15 05/07/22 19:30 Temperature Pulse Rate 130 H 91 93 Respiratory Rate 14 17 18 Blood Pressure 119/87 Pulse Oximetry 95 95 Oxygen Delivery Oxygen Flow Rate 05/07/22 19:32 05/07/22 19:55 05/07/22 21:13 Temperature 97.7 F Pulse Rate 92 92 96 Respiratory Rate 15 20 20 Blood Pressure 106/78 111/63 Pulse Oximetry 97 94 95 Oxygen Delivery Nasal Cannula Oxygen Flow Rate 5 05/07/22 23:03 05/08/22 00:00 05/07/22 22:00 Temperature 97.
[2022-05-08 15:03] LABS: Anion Gap 7 mmol/L (8-16); Blood Urea Nitrogen 50 mg/dL (7-17); Calcium 8.8 mg/dL (8.4-10.2); Carbon Dioxide 32 mmol/L (22-30); Chloride 86 mmol/L (98-107); Estimated CRCL calculation 56 ml/min; Estimated Glomerular Filt Rate 36; Glucose 202 mg/dL (65-110); Potassium 2.8 mmol/L (3.4-5.0); Sodium 125 mmol/L (137-145)
[2022-05-08] MEDS: POTASSIUM CHLORIDE 20 MEQ PACKET (FOR LIQUID) 40 MEQ PO ×2 (16:05→16:06)
[2022-05-08] MEDS: ENOXAPARIN 80 MG/0.8 ML SYRINGE 145 MG SUB-Q (16:07)
[2022-05-08] MEDS: METOPROLOL TARTRATE 25 MG TABLET PO (20:14)
[2022-05-09] VITALS (13 sets, daily range): BP systolic 106–131; BP diastolic 70–78; PULSE 66–89; RESP 20–22; TEMP 36–36.6; O2SAT 95–100
[2022-05-09] MEDS: ENOXAPARIN 80 MG/0.8 ML SYRINGE 145 MG SUB-Q (03:05)
[2022-05-09] MEDS: KCL 40 MEQ/0.45% NS 1,000 ML 75 ML IV CONT (05:07)
[2022-05-09 05:22] LABS: Alanine Aminotransferase 44 U/L (6-35); Albumin Level 3.7 g/dL (3.5-5.1); Alkaline Phosphatase 135 U/L (38-126); Anion Gap 8 mmol/L (8-16); Aspartate Amino Transferase 47 U/L (14-36); Bilirubin,Total 0.9 mg/dL (0.2-1.3); Blood Urea Nitrogen 40 mg/dL (7-17); Calcium 8.6 mg/dL (8.4-10.2); Carbon Dioxide 29 mmol/L (22-30); Chloride 95 mmol/L (98-107); Estimated CRCL calculation 60 ml/min; Estimated Glomerular Filt Rate 38; Glucose 116 mg/dL (65-110); Magnesium 2.8 mg/dL (1.6-2.3); Sodium 132 mmol/L (137-145)
[2022-05-09] MEDS: POTASSIUM CHLORIDE 20 MEQ PACKET (FOR LIQUID) 40 MEQ PO ×2 (08:23→17:14)
[2022-05-09] MEDS: POTASSIUM CHLORIDE 20 MEQ TABLET 40 MEQ PO (08:24)
[2022-05-09] MEDS: GABAPENTIN 400 MG CAPSULE 800 MG PO ×3 (08:24→17:13)
[2022-05-09] MEDS: FAMOTIDINE 20 MG TABLET 40 MG PO (08:25)
[2022-05-09] MEDS: allopurinoL 300 MG TABLET PO (08:25)
[2022-05-09] MEDS: buPROPion HCL SR (12 HR) 150 MG TAB PO ×2 (08:25→21:54)
[2022-05-09] MEDS: TOPIRAMATE 25 MG TABLET 50 MG PO ×2 (08:25→21:50)
[2022-05-09] MEDS: MONTELUKAST SODIUM 10 MG TABLET PO (08:25)
[2022-05-09] MEDS: OMEGA 3 POLYUNSAT FATTY ACIDS 1 GM CAP PO ×2 (08:25→17:14)
[2022-05-09] MEDS: lamoTRIgine 25 MG TABLET 75 MG PO ×2 (08:25→21:54)
[2022-05-09] MEDS: METOPROLOL TARTRATE 25 MG TABLET PO ×2 (08:25→21:54)
[2022-05-09] MEDS: ASPIRIN 81 MG ENTERIC TABLET PO (08:25)
[2022-05-09] MEDS: ARIPiprazole 5 MG TABLET PO (08:26)
--- NOTE | 2022-05-09 08:26 | PM.IMPN ---
Progress Note: A&P Assessment and Plan (1) ROQUE (acute kidney injury): Code(s): N17.9 - Acute kidney failure, unspecified Status: Acute (2) Atrial fibrillation with RVR: Code(s): I48.91 - Unspecified atrial fibrillation Status: Acute (3) Acute hypokalemia: Code(s): E87.6 - Hypokalemia Status: Acute Plan 61-year-old female with past medical history chronic hypoxic respiratory failure, chronic pain, peripheral neuropathy, anxiety, morbid obesity, GERD, chronic kidney disease stage III and bipolar disorder who presented to the ER from nursing home facility due to increased shaking, increased weakness and intermittent confusion, now resolved 1)Acute Encephalopathy: Improving, monitor Unsure of etiology, likely multifactorial 2)ROQUE on CKD Stage 3: Holding lasix C/w IV fluids Urinalysis and renal ultrasound nonacute Supplement potassium for hypokalemia Improving, cr 1.4 today, down from 1.9, essentially at baseline of 1.2-1.3 3)Afib with RVR: C/w Metoprolol D/C therapeutic lovenox, switch to prophylactic dose Supplement potassium to keep greater than 4 Echo showed EF greater than 70% with grade 1 diastolic dysfunction and no significant valvular abnormality noted Cardiology consultation appreciated, they recommend outpatient sleep study and do not recommend anticoagulation Elevated troponin likely secondary to demand ischemia, no acute cardiac etiology consistent with ischemia noted 4)Leucocytosis, likely reactive, trending down Unsure of etiology, fluctuating, down from yesterday Blood cultures NGTD Was on cipro outpatient for unknown reason? 5)H/o Chronic Resp Failure: Continue home oxygen at 5 L nasal cannula 6)DVT ppx:Lovenox 7)Code: Full 8)Dispo: when mentation resolved, leukocytosis resolved, and cr at baseline Subjective Date/time seen: 05/09/22 08:26 Interval history: No overnight events noted. No chest pain or shortness of breath. No nausea, vomiting or diarrhea. No fevers or chills. Patient states she feels like she is back to normal and is eager to go home. Review of Systems Review of Systems: 12 point review of systems was assessed and was negative except as noted in the HPI Exam Narrative: General: No acute distress, alert and oriented per baseline HEENT: Atraumatic, normocephalic, mucous membranes moist CV: Regular rate and rhythm, S1, S2 Lungs: Clear to auscultation bilaterally, no rales or crackles noted, no wheezes, good air entry Abdomen: Soft, nontender, nondistended Extremities: Normal to inspection Skin: No rashes noted, no lesions or wounds seen Psych: Euthymic, normal affect Objective Data Vital Signs Vital Signs: Vital Signs - 24 hr 05/08/22 12:00 05/08/22 10:00 05/08/22 12:00 Temperature 97.1 F L Pulse Rate 101 H 100 101 H Respiratory Rate 16 Blood Pressure 125/85 Pulse Oximetry 97 Oxygen Delivery Oxygen Flow Rate 05/08/22 14:00 05/08/22 12:00 05/08/22 16:00 Temperature Pulse Rate 97 Respiratory Rate Blood Pressure Pulse Oximetry 98 99 Oxygen Delivery Nasal Cannula Nasal Cannula Oxygen Flow Rate 5 5 05/08/22 16:00 05/08/22 16:00 05/08/22 18:00 Temperature 97.0 F L Pulse Rate 94 96 97 Respiratory Rate 20 Blood Pressure 140/76 Pulse Oximetry 100 Oxygen Delivery Oxygen Flow Rate 05/08/22 20:14 05/08/22 20:00 05/08/22 20:00 Temperature 97.3 F L Pulse Rate 93 93 Respiratory Rate 22 H Blood Pressure 131/63 Pulse Oximetry 99 98 Oxygen Delivery Nasal Cannula Oxygen Flow Rate 5 05/08/22 22:00 05/08/22 20:00 05/09/22 00:00 Temperature 97.8 F Pulse Rate 76 95 86 Respiratory Rate 22 H Blood Pressure 131/78 Pulse Oximetry 97 Oxygen Delivery Oxygen Flow Rate 05/09/22 00:00 05/09/22 04:00 05/09/22 00:00 Temperature Pulse Rate 76 Respiratory Rate Blood Pressure Pulse Oximetry 98 98 Oxygen Delivery Nasal C
[2022-05-09] MEDS: HYDROcodone/acetaminophen (*CRX) 10-325 MG TABLET 1 TAB PO (08:30)
[2022-05-09 08:34] LABS: Basophils Percent Auto 0.4 % (0.2-1.2); Eosinophils Absolute Auto 0.1 K/mm3 (0-0.3); Eosinophils Percent Auto 1.3 % (0-4.4); Hematocrit 47.4 % (37.0-47.0); Hemoglobin 14.1 g/dL (12.0-15.0); Immature Granulocyte Absolute 0.08 K/mm3 (0.00-0.031); Immature Granulocyte Percent A 0.7 % (0-0.5); Mean Corpuscular HGB Conc 29.7 g/dl (32-36); Mean Corpuscular Hemoglobin 26.6 pg (26-34); Mean Corpuscular Volume 89.3 fl (80-100); Monocytes Absolute Auto 1.5 K/mm3 (0.1-0.6); Monocytes Percent Auto 13.5 % (2.6-8.5); Neutrophils Absolute Auto 6.4 K/mm3 (1.3-6.7); Neutrophils Percent Auto 59.1 % (45.5-73.1); Platelet Count Result 123 k/mm3 (150-375); Red Blood Count 5.31 M/mm3 (4.2-5.4); Red Cell Distribution Width 16.3 % (11.5-14.5); White Blood Count 10.8 K/mm3 (4.5-10.0)
[2022-05-09 09:00] LABS: Anisocytosis 1+ (NORMAL); Poikilocytosis 1+ (NORMAL); Schistocytes Rare (NORMAL)
[2022-05-09 09:01] LABS: Ovalocytes 1+ (NORMAL)
[2022-05-09] MEDS: UMECLIDINIUM BROMIDE 62.5 MCG ELLIPTA 1 PUFF INHALATION (09:02)
[2022-05-09 14:12] LABS: Basophils Percent Auto 0.3 % (0.2-1.2); Eosinophils Absolute Auto 0.2 K/mm3 (0-0.3); Eosinophils Percent Auto 2.3 % (0-4.4); Hematocrit 43.7 % (37.0-47.0); Hemoglobin 13.5 g/dL (12.0-15.0); Immature Granulocyte Absolute 0.06 K/mm3 (0.00-0.031); Immature Granulocyte Percent A 0.6 % (0-0.5); Lymphocytes Absolute Auto 2.24 K/mm3 (0.9-3.2); Mean Corpuscular HGB Conc 30.9 g/dl (32-36); Mean Corpuscular Hemoglobin 26.2 pg (26-34); Mean Corpuscular Volume 84.9 fl (80-100); Mean Platelet Volume 12.7 fl (7.4-10.4); Monocytes Percent Auto 10.6 % (2.6-8.5); Neutrophils Absolute Auto 6.1 K/mm3 (1.3-6.7); Neutrophils Percent Auto 63.2 % (45.5-73.1); Platelet Count Result 139 k/mm3 (150-375); Red Blood Count 5.15 M/mm3 (4.2-5.4); Red Cell Distribution Width 15.9 % (11.5-14.5); White Blood Count 9.7 K/mm3 (4.5-10.0)
[2022-05-09 14:19] LABS: Anion Gap 7 mmol/L (8-16); Blood Urea Nitrogen 32 mg/dL (7-17); Calcium 8.8 mg/dL (8.4-10.2); Carbon Dioxide 30 mmol/L (22-30); Chloride 97 mmol/L (98-107); Estimated CRCL calculation 64 ml/min; Estimated Glomerular Filt Rate 42; Glucose 171 mg/dL (65-110); Potassium 3.5 mmol/L (3.4-5.0); Sodium 134 mmol/L (137-145)
[2022-05-09] MEDS: ATORVASTATIN 40 MG TABLET PO (21:54)
[2022-05-09] MEDS: traZODone HCL 50 MG TABLET PO (21:55)
[2022-05-09] MEDS: ASCORBIC ACID 500 MG TABLET PO (21:55)
[2022-05-10] VITALS (7 sets, daily range): BP systolic 113–119; BP diastolic 67–96; PULSE 64–87; RESP 20–22; TEMP 35.9–36.6; O2SAT 91–100
[2022-05-10 05:05] LABS: Basophils Absolute Auto 0.1 K/mm3 (0.0-0.1); Basophils Percent Auto 0.6 % (0.2-1.2); Eosinophils Absolute Auto 0.3 K/mm3 (0-0.3); Eosinophils Percent Auto 2.8 % (0-4.4); Hematocrit 46.9 % (37.0-47.0); Hemoglobin 13.6 g/dL (12.0-15.0); Immature Granulocyte Absolute 0.08 K/mm3 (0.00-0.031); Immature Granulocyte Percent A 0.8 % (0-0.5); Immature Platelet Fraction Pct 12.3 % (0.9-11.2); Lymphocytes Absolute Auto 2.57 K/mm3 (0.9-3.2); Lymphocytes Percent Auto 24.3 % (18.3-44.2); Mean Corpuscular Hemoglobin 26.4 pg (26-34); Mean Corpuscular Volume 91.1 fl (80-100); Mean Platelet Volume 13.6 fl (7.4-10.4); Monocytes Absolute Auto 1.4 K/mm3 (0.1-0.6); Monocytes Percent Auto 13.5 % (2.6-8.5); Neutrophils Absolute Auto 6.1 K/mm3 (1.3-6.7); Platelet Count Result 85 k/mm3 (150-375); Red Blood Count 5.15 M/mm3 (4.2-5.4); Red Cell Distribution Width 16.3 % (11.5-14.5); White Blood Count 10.6 K/mm3 (4.5-10.0)
[2022-05-10 05:26] LABS: Ovalocytes 1+ (NORMAL); Platelet Estimate Decreased (Adequate); Schistocytes Rare (NORMAL)
[2022-05-10] MEDS: UMECLIDINIUM BROMIDE 62.5 MCG ELLIPTA 1 PUFF INHALATION (08:09)
[2022-05-10 08:13] LABS: Alanine Aminotransferase 48 U/L (6-35); Albumin Level 3.8 g/dL (3.5-5.1); Alkaline Phosphatase 117 U/L (38-126); Anion Gap 6 mmol/L (8-16); Aspartate Amino Transferase 48 U/L (14-36); Bilirubin,Total 0.6 mg/dL (0.2-1.3); Blood Urea Nitrogen 28 mg/dL (7-17); Calcium 8.8 mg/dL (8.4-10.2); Carbon Dioxide 30 mmol/L (22-30); Chloride 98 mmol/L (98-107); Estimated CRCL calculation 69 ml/min; Estimated Glomerular Filt Rate 46; Glucose 104 mg/dL (65-110); Potassium 3.6 mmol/L (3.4-5.0); Sodium 134 mmol/L (137-145)
[2022-05-10] MEDS: GABAPENTIN 400 MG CAPSULE 800 MG PO ×3 (10:18→16:16)
[2022-05-10] MEDS: ARIPiprazole 5 MG TABLET PO (10:19)
[2022-05-10] MEDS: MONTELUKAST SODIUM 10 MG TABLET PO (10:19)
[2022-05-10] MEDS: TOPIRAMATE 25 MG TABLET 50 MG PO (10:19)
[2022-05-10] MEDS: ASCORBIC ACID 500 MG TABLET PO (10:19)
[2022-05-10] MEDS: lamoTRIgine 25 MG TABLET 75 MG PO (10:20)
[2022-05-10] MEDS: POTASSIUM CHLORIDE 20 MEQ PACKET (FOR LIQUID) 40 MEQ PO ×2 (10:20→16:17)
[2022-05-10] MEDS: METOPROLOL TARTRATE 25 MG TABLET PO (10:20)
[2022-05-10] MEDS: OMEGA 3 POLYUNSAT FATTY ACIDS 1 GM CAP PO (10:20)
[2022-05-10] MEDS: FAMOTIDINE 20 MG TABLET 40 MG PO (10:20)
[2022-05-10] MEDS: ENOXAPARIN 30 MG/0.3 ML SYRINGE SUB-Q (10:21)
[2022-05-10] MEDS: buPROPion HCL SR (12 HR) 150 MG TAB PO (10:21)
[2022-05-10] MEDS: allopurinoL 300 MG TABLET PO (10:22)
[2022-05-10] MEDS: ASPIRIN 81 MG ENTERIC TABLET PO (10:22)
--- NOTE | 2022-05-10 13:09 | PCOTNOTE ---
Pt. is participating in out of bed activity with nursing, without additional assist. Pt. is a group home resident with assistance at care facility. Spoke with hospitalist and rn urgent care, who agreed evaluation is not needed.
--- NOTE | 2022-05-10 13:50 | PCPTNOTE ---
PER OT: Pt. is participating in out of bed activity with nursing, without additional assist. Pt. is a [facility] resident with assistance at care facility. Spoke with hospitalist and ostomy care nurse, who agreed evaluation is not needed.
--- NOTE | 2022-05-10 14:23 | PM.DS ---
DS: Admitting Diagnosis Discharge Date 05/10/22 Admitting Diagnosis ams DS: Discharge Diagnosis Discharge Diagnosis (1) ROQUE (acute kidney injury): Code(s): N17.9 - Acute kidney failure, unspecified Status: Acute (2) Atrial fibrillation with RVR: Code(s): I48.91 - Unspecified atrial fibrillation Status: Acute (3) Acute hypokalemia: Code(s): E87.6 - Hypokalemia Status: Acute Plan 61-year-old female with past medical history chronic hypoxic respiratory failure, chronic pain, peripheral neuropathy, anxiety, morbid obesity, GERD, chronic kidney disease stage III and bipolar disorder who presented to the ER from residential facility due to increased shaking, increased weakness and intermittent confusion, now resolved 1)Acute Encephalopathy: Resolved Unsure of etiology, likely multifactorial 2)ROQUE on CKD Stage 3: resolved, at baseline creatinine Holding lasix IVF d/c Urinalysis and renal ultrasound nonacute Hypokalemia resolved 3)Afib with RVR: C/w Metoprolol D/C therapeutic lovenox, switch to prophylactic dose Supplement potassium to keep greater than 4 Echo showed EF greater than 70% with grade 1 diastolic dysfunction and no significant valvular abnormality noted Cardiology consultation appreciated, they recommend outpatient sleep study and do not recommend anticoagulation Elevated troponin likely secondary to demand ischemia, no acute cardiac etiology consistent with ischemia noted 4)Leucocytosis, likely reactive, trending down Unsure of etiology, fluctuating, down from yesterday Blood cultures NGTD Was on cipro outpatient for UTI 5)H/o Chronic Resp Failure: Continue home oxygen at 4-5 L nasal cannula 6)DVT ppx:Lovenox 7)Code: Full 8)Dispo: when mentation resolved, leukocytosis resolved, and cr at baseline DS: Summary Hospital Course Hospital Course: 61-year-old female presenting from nursing facility with shaking, weakness and confusion. Her mentation quickly resolved and was likely multifactorial. Acute kidney injury resolved with IV fluids. AFib with RVR resolved with metoprolol. Leukocytosis resolved without any antibiotic intervention and was likely reactive. She was discharged back in stable condition. See above for details. Time Spent with Patient Time attestation: Total time spent providing and/or coordinating discharge services: Exam Narrative: General: No acute distress, alert and oriented per baseline HEENT: Atraumatic, normocephalic, mucous membranes moist CV: Regular rate and rhythm, S1, S2 Lungs: Clear to auscultation bilaterally, no rales or crackles noted, no wheezes, good air entry Abdomen: Soft, nontender, nondistended Extremities: Normal to inspection Skin: No rashes noted, no lesions or wounds seen Psych: Euthymic, normal affect DS: Data Data Completed and Pending Labs on day of discharge: Labs from last 24 hours 05/10/22 05/10/22 07:41 04:51 WBC 10.6 H RBC 5.15 Hgb 13.6 Hct 46.9 MCV 91.1 D MCH 26.4 MCHC 29.0 L RDW 16.3 H Plt Count 85 L MPV 13.6 H Immature Gran % (Auto) 0.8 H Neut % (Auto) 58.0 Lymph % (Auto) 24.3 [place] % (Auto) 13.5 H Eos % (Auto) 2.8 Baso % (Auto) 0.6 Lymph # (Auto) 2.57 [place] # (Auto) 1.4 H Eos # (Auto) 0.3 Baso # (Auto) 0.1 Abs Immat Gran (auto) 0.08 H Absolute Neuts (auto) 6.1 Absolute Nucleated RBC 0.0 Nucleated RBC % 0.0 Platelet Estimate Decreased % Immature Plt Fraction 12.3 H Ovalocytes 1+ Schistocytes Rare Sodium 134 L Potassium 3.6 Chloride 98 Carbon Dioxide 30 Anion Gap 6 L BUN 28 H Creatinine 1.20 H Estim Creat Clear Calc 69 Estimated GFR 46 L Glucose 104 Calcium 8.8 Total Bilirubin 0.6 AST 48 H ALT 48 H Alkaline Phosphatase 117 Total Protein 6.0 L Albumin 3.8 Preliminary micro results at discharge 05/08/22 10:34 Blood Culture - Preliminary Blood 05/08/22 10:25 Blood
[2022-05-10 15:50] LABS: EDCOVIDSCREEN Negative (Negative)
[2022-05-10] MEDS: HYDROcodone/acetaminophen (*CRX) 10-325 MG TABLET 1 TAB PO (16:15)
== END 2022-05-10 16:26 | DRG 201 ==
LOC: ANHED 17:10 → ANHIMU 18:23
PROVIDERS: Internal Medicine; Admitting Provider Internal Medicine; Emergency Provider Emergency Medicine; PCP Family Medicine; Visit Provider Student in an Organized Health Care Education/Training Program
DX: I48.91 Unspecified atrial fibrillation (principal); N17.9 Acute kidney failure, unspecified; J96.21 Acute and chronic respiratory failure with hypoxia; G93.40 Encephalopathy, unspecified; E66.01 Morbid (severe) obesity due to excess calories; G62.9 Polyneuropathy, unspecified; D75.1 Secondary polycythemia; E87.1 Hypo-osmolality and hyponatremia; I24.8 Other forms of acute ischemic heart disease; Z99.81 Dependence on supplemental oxygen; Z20.822 Contact with and (suspected) exposure to COVID-19; E87.6 Hypokalemia; N18.30 Chronic kidney disease, stage 3 unspecified; F41.9 Anxiety disorder, unspecified; K21.9 Gastro-esophageal reflux disease without esophagitis; J43.9 Emphysema, unspecified; F31.9 Bipolar disorder, unspecified; G89.29 Other chronic pain; I48.92 Unspecified atrial flutter; D72.829 Elevated white blood cell count, unspecified; Z68.42 Body mass index [BMI] 45.0-49.9, adult; R35.0 Frequency of micturition; Z96.619 Presence of unspecified artificial shoulder joint; Z87.442 Personal history of urinary calculi; Z87.891 Personal history of nicotine dependence; Z98.42 Cataract extraction status, left eye; Z98.41 Cataract extraction status, right eye; Z79.82 Long term (current) use of aspirin
CPT/HCPCS: 36415; 36600; 70450; 71045; 76770; 80048; 80053; 81003; 82805; 82948; 83735; 83880; 84100; 84443; 84484; 85025; 85027; 85055; 85610; 85730; 87040; 87426; 93005; 94640; 96361; 96365; 96366; 96367; 96372; 96374; 99285; A9270; C8929; C9803; G0378; G0379; J1650; J3475; J3480; J7030; J7040; Q9957

== ENCOUNTER 2022-05-24 22:30 | Emergency (ER) | payer OTHER, SELFPAY ==
--- NOTE | ~2022-05-24 | CT_ITS ---
Noncontrast CT scan of the cervical spine Technique: Multiple contiguous axial [address] images of the cervical spine were obtained and rec onstructed in 2D sagittal and coronal planes on the acquisition scanner. Dose reduction technique was used on this scan by utilizing automated exposure control, adjustment of the mA and/or kV according to patient size. Clinical History: Pain Findings: No fractures or dislocations. There is reversal of the normal cervical lordosis. There is advanced degenerative disc narrowing at C5-C6 and C6-C7, with uncovertebral degenerative change at th katarina levels. There are scattered mild facet joint degenerative changes in the cervical spine. No preve rtebral soft tissue swelling. Impression: No fracture or subluxation of the cervical spine. Mild degenerative spondylosis, as above. Reviewed, dictated and finalized at [facility]. Impression: No fracture or subluxation of the cervical spine. Mild degenerative spondylosis, as above.
--- NOTE | ~2022-05-24 | CT_ITS ---
Non-contrast Head CT History: Status post fall COMPARISON: 05/07/2022 Technique: Axial non-contrast imaging of the brain was performed. Dose reduction technique was used on this scan by utilizing automated exposure control and iterative reconstruction technique. The dose -length product (DLP) was 756.67 mGy-cm. Findings: There is no evidence of intracranial hemorrhage, mass lesion, or acute infarct. Brain par enchyma appears normal. The ventricles and subarachnoid spaces are normal in size. The calvarium ap pears normal. The visualized paranasal sinuses and mastoid air cells are clear. Impression: No significant abnormality seen. Reviewed, dictated and finalized at location . Impression: No significant abnormality seen.
--- NOTE | ~2022-05-24 | XR_ITS ---
Left Shoulder Technique: AP and scapular Y views were obtained. Clinical History: Pain Findings: No fracture or dislocation is seen. Osseous alignment is anatomic. The glenohumeral and acr omioclavicular joint spaces are preserved. Soft tissues are unremarkable. Impression: Unremarkable left shoulder radiographs. Reviewed, dictated and finalized at [facility]. Impression: Unremarkable left shoulder radiographs.
--- NOTE | ~2022-05-24 | US_ITS ---
EXAMINATION: US venous doppler [facility] DATE: 05/25/2022 07:52 INDICATION: Lower limb pain, swelling and erythema. TECHNIQUE: Grayscale ultrasound images without and with compression and Doppler ultrasound images of the bilateral lower extremity veins were obtained. COMPARISON: None. FINDINGS: The visualized portions of right common femoral vein, profunda (deep) femoral vein, femoral vein, pop liteal vein, posterior tibial veins, gastrocnemius vein and greater saphenous vein outflow are patent . The visualized portions of left common femoral vein, profunda femoral vein, femoral vein, popliteal v ein, posterior tibial veins, gastrocnemius vein and greater saphenous vein outflow are patent. IMPRESSION: 1. No deep venous thrombosis in either lower limb. Reviewed, dictated and finalized at location [facility].
[2022-05-24 22:33] VITALS: BP 103/75; PULSE 79; RESP 18; TEMP 36.6; O2SAT 95
[2022-05-25 00:01] VITALS: BP 126/78
--- NOTE | 2022-05-25 01:31 | ED.FALL ---
HPI - Fall General Chief Complaint: Fall <VIDAL Smith Last Filed: 05/25/22 04:07> Stated Complaint: glf, bilat leg pain <VIDAL Smith Last Filed: 05/25/22 04:07> Time Seen by Provider: 05/25/22 00:14 <VIDAL Smith Last Filed: 05/25/22 04:07> Source: patient <VIDAL Smith Last Filed: 05/25/22 04:07> Mode of arrival: EMS <VIDAL Smith Last Filed: 05/25/22 04:07> Limitations: no limitations <VIDAL Smith Last Filed: 05/25/22 04:07> History of Present Illness HPI Narrative: Patient is a 61-year-old female who presents the ED via EMS with report of a ground-level fall. Patient is a resident at [facility]. She has a history of COPD and chronically wears 4 L nasal cannula. She states she got up this evening to use the restroom and her oxygen tubing was caught on her bed wheel. Patient bent over to fix the tubing and fell forward. She hit her head in the fall, but denied LOC. She complains of pain to her head, left shoulder. Denies any back or neck pain, abdominal pain, chest pain, worsening difficulty breathing, dizziness, lightheadedness, vision changes, nausea, vomiting. Patient does mention having pain and redness in her bilateral lower extremities. She states she has been dealing with cellulitis for the last couple weeks. She is not currently on any antibiotics. She is not currently seeing any physician for this. Denies any recent fevers, puslike drainage, weeping. Patient does have history of congestive heart failure as well and takes Lasix. Patient is not on any blood thinners. <VIDAL Smith Last Filed: 05/25/22 04:07> Related Data Home Medications: Home Medications Medication Instructions Recorded Confirmed allopurinol 300 mg tablet 300 mg PO DAILY 07/02/20 05/07/22 aspirin 81 mg tablet 81 mg PO DAILY 07/02/20 05/07/22 atorvastatin 40 mg tablet 40 mg PO HS 07/02/20 05/07/22 cetirizine 10 mg tablet 10 mg PO DAILY 07/02/20 05/07/22 gabapentin 800 mg tablet 800 mg PO TID 07/02/20 05/07/22 lamotrigine 25 mg tablet 75 mg PO BID 07/02/20 05/07/22 montelukast 10 mg tablet 10 mg PO DAILY 07/02/20 05/07/22 nitroglycerin 0.4 mg sublingual 0.4 mg sublingual PRN PRN Chest 07/02/20 05/07/22 tablet (Nitrostat) Pain omega-3 fatty acids-vitamin E 1 cap PO BID 07/02/20 05/07/22 1,000 mg capsule potassium chloride 20 mEq 20 meq PO BID 07/02/20 05/07/22 tablet,extended release trazodone 50 mg tablet 50 mg PO HS 07/02/20 05/07/22 aripiprazole 5 mg tablet 5 mg PO DAILY 05/07/22 05/07/22 ascorbic acid (vitamin C) 500 mg 500 mg PO Q12H 05/07/22 05/07/22 capsule,extended release bupropion HCl 150 mg tablet,12 hr 150 mg PO BID 05/07/22 05/07/22 sustained-release (Wellbutrin SR) famotidine 40 mg tablet 40 mg PO DAILY 05/07/22 05/07/22 fluticasone 250 mcg-salmeterol 50 1 inh inhalation DAILY PRN Allergy 05/07/22 05/07/22 mcg/dose blistr powdr for Symptoms inhalation (Wixela Inhub) lorazepam 0.5 mg tablet 0.5 mg PO HS PRN Insomnia 05/07/22 05/07/22 oxycodone-acetaminophen 5 mg-325 1 tablet PO Q6H PRN Moderate Pain 05/07/22 05/07/22 mg tablet (Scale Score 5-6) psyllium husk (with sugar) 3.4 1 ea PO Q12HR PRN Constipation 05/07/22 05/07/22 gram oral powder packet (Metamucil (with sugar)) topiramate 50 mg tablet 50 mg PO BID 05/07/22 05/07/22 umeclidinium 62.5 mcg/actuation 1 inh inhalation DAILY 05/07/22 05/07/22 blister powder for inhalation (Incruse Ellipta) <Francine Castillo PA-C - Last Filed: 05/25/22 04:07> Allergies/Adverse Reactions: Allergies Allergy/AdvReac Type Severity Reaction Status Date / Time Penicillins Allergy Rash Verified 05/07/22 15:16 fixodent Allergy Hives Uncoded 05/08/22 19:11 <Francine Castillo PA-C - Last Filed: 05/25/22 04:07> Review of Systems Review of Systems: CONSTITUTIONAL: Denies fever, chil
[2022-05-25 01:42] VITALS: BP 114/59
[2022-05-25 01:47] LABS: Basophils Percent Auto 0.4 % (0.2-1.2); Eosinophils Absolute Auto 0.3 K/mm3 (0-0.3); Eosinophils Percent Auto 3.5 % (0-4.4); Hematocrit 41.6 % (37.0-47.0); Hemoglobin 12.5 g/dL (12.0-15.0); Immature Granulocyte Absolute 0.03 K/mm3 (0.00-0.031); Immature Granulocyte Percent A 0.4 % (0-0.5); Lymphocytes Absolute Auto 2.14 K/mm3 (0.9-3.2); Mean Corpuscular Hemoglobin 26.7 pg (26-34); Mean Corpuscular Volume 88.9 fl (80-100); Mean Platelet Volume 10.4 fl (7.4-10.4); Monocytes Absolute Auto 0.8 K/mm3 (0.1-0.6); Monocytes Percent Auto 10.8 % (2.6-8.5); Neutrophils Absolute Auto 4.1 K/mm3 (1.3-6.7); Neutrophils Percent Auto 55.9 % (45.5-73.1); Platelet Count Result 145 k/mm3 (150-375); Red Blood Count 4.68 M/mm3 (4.2-5.4); Red Cell Distribution Width 16.7 % (11.5-14.5); White Blood Count 7.4 K/mm3 (4.5-10.0)
[2022-05-25 02:04] LABS: Alanine Aminotransferase 33 U/L (6-35); Alkaline Phosphatase 144 U/L (38-126); Anion Gap 7 mmol/L (8-16); Aspartate Amino Transferase 31 U/L (14-36); Bilirubin,Total 0.8 mg/dL (0.2-1.3); Blood Urea Nitrogen 8 mg/dL (7-17); Calcium 8.9 mg/dL (8.4-10.2); Carbon Dioxide 30 mmol/L (22-30); Chloride 105 mmol/L (98-107); Estimated CRCL calculation 79 ml/min; Estimated Glomerular Filt Rate 51; Glucose 103 mg/dL (65-110); Potassium 3.8 mmol/L (3.4-5.0); Sodium 142 mmol/L (137-145)
[2022-05-25 02:15] LABS: NT Pro B Type Natriuretic Pept 118 pg/mL (19.9-100)
[2022-05-25 02:24] LABS: D Dimer 1.36 ug/mL (<0.48)
--- NOTE | 2022-05-25 02:53 | PC.NURSE ---
contacted lab, spoke w/ Smiley. States he will add on ptt and pt/inr.
[2022-05-25 03:36] VITALS: BP 115/101; PULSE 70; RESP 18; TEMP 36.6; O2SAT 99
[2022-05-25] MEDS: ENOXAPARIN 30 MG/0.3 ML SYRINGE SUB-Q (04:18)
[2022-05-25] MEDS: ENOXAPARIN 120 MG/0.8 ML SYRINGE SUB-Q (04:19)
[2022-05-25 04:32] LABS: Prothrombin Time 13.1 Seconds (11.1-14.7)
[2022-05-25 04:33] LABS: Partial Thromboplastin Time 28.9 SECONDS (22.3-36.8)
[2022-05-25 06:02] VITALS: BP 156/90; PULSE 97; RESP 18; TEMP 37.2; O2SAT 99
[2022-05-25 07:29] VITALS: BP 122/74; PULSE 85; RESP 15; O2SAT 99
[2022-05-25] MEDS: ACETAMINOPHEN 500 MG TABLET 1000 MG PO (08:01)
--- NOTE | 2022-05-25 08:51 | PC.NURSE ---
This RN called Mag (pts daughter) w/ permission at [phone], and discussed results and POC. Attempted to call NH w/ report, no one avail and no VM option.
== END 2022-05-25 09:48 ==
PROVIDERS: Emergency Provider Physician Assistant; PCP Family Medicine
DX: S09.90XA Unspecified injury of head, initial encounter (principal); M79.89 Other specified soft tissue disorders; R79.89 Other specified abnormal findings of blood chemistry; J45.909 Unspecified asthma, uncomplicated; N18.9 Chronic kidney disease, unspecified; F31.9 Bipolar disorder, unspecified; Z87.442 Personal history of urinary calculi; J96.11 Chronic respiratory failure with hypoxia; Z99.81 Dependence on supplemental oxygen; W01.0XXA Fall on same level from slipping, tripping and stumbling without subsequent striking against object, initial encounter
CPT/HCPCS: 36415; 70450; 72125; 73030; 80053; 83880; 85025; 85380; 85610; 85730; 93970; 96372; 99284; A9270; J1650

== ENCOUNTER 2022-07-16 12:26 | Outpatient (CLI) | payer OTHER, SELFPAY ==
--- NOTE | ~2022-07-16 | MR_ITS ---
MRI of the left shoulder Technique: Axial proton-density fat-sat images, coronal proton density fat-sat and T2 fat-sat images, and sagittal T1-weighted and T2 fat-sat images were acquired. Clinical History: Rotator cuff tear Findings: There is mild to moderate AC joint degenerative change. Clavicular, coracoacromial, and cor acohumeral ligaments are intact. There is an area of full-thickness tear versus high-grade partial-thickness tear at the central to po sterior aspect of the distal supraspinatus tendon. Area of tear measures approximately 2.0 x 1.3 cm i n extent. Infraspinatus tendon appears to be intact. Subscapularis tendon is intact with moderate dis angus tendinosis. Tendon of long head of the biceps is intact with intra-articular tendinosis. No definite labral tear identified. Inferior glenohumeral ligament is intact. No degenerative change or effusion of the glenohumeral join t. No muscle atrophy or edema. Impression: Full-thickness tear versus high-grade partial-thickness at the central to posterior aspect of the sup raspinatus tendon distally, and pulmonary of 2.0 x 1.3 cm in extent. Tendinosis of the subscapularis and intra-articular biceps tendons. [id number] AC joint degenerative change. Reviewed, dictated and finalized at [facility]. Impression: Full-thickness tear versus high-grade partial-thickness at the central to poste rior aspect of the supraspinatus tendon distally, and pulmonary of 2.0 x 1.3 cm in extent. Tendinosis of the subscapularis and intra-articular biceps tendons. [id number] AC joint degenerative change.
== END 2022-07-16 12:27 | disposition home or self-care (01) ==
PROVIDERS: PCP Family Medicine Sports Medicine; Visit Provider Hospitalist
DX: M75.102 Unspecified rotator cuff tear or rupture of left shoulder, not specified as traumatic (principal)
CPT/HCPCS: 73221

== ENCOUNTER 2022-10-19 07:34 | Emergency (ER) | payer OTHER, SELFPAY ==
[2022-10-19] VITALS (16 sets, daily range): BP systolic 95–119; BP diastolic 58–91; PULSE 71–86; RESP 12–20; TEMP 36.4; O2SAT 94–100
--- NOTE | ~2022-10-19 | CT_ITS ---
EXAMINATION: CT brain wo con DATE: 10/19/2022 08:18 INDICATION: Head injury TECHNIQUE: Computed tomography (CT) of the head was performed without intravenous contrast. Sagittal and coronal reconstructions were performed. The mA was adjusted according to patient size. Iterative reconstruction technique was employed. The dose-length product was 681.00 mGy-cm. COMPARISON: head CT dated 05/25/2022 FINDINGS: No fracture. No acute intracranial hemorrhage, acute infarction or abnormal extra axial fluid collect ion. Ventricles are normal and symmetric. No mass/mass effect. Minimal atherosclerotic calcification at the carotid siphons. The orbits, paranasal sinuses and mastoid air cells are normal. IMPRESSION: 1. Normal brain. No acute intracranial process. Reviewed, dictated and finalized at location A.
--- NOTE | ~2022-10-19 | XR_ITS ---
EXAMINATION: XR knee LT min 4V DATE: 10/19/2022 08:35 INDICATION: Left knee pain. Fall. TECHNIQUE: 4 views of left knee were obtained. COMPARISON: None. FINDINGS: Bone alignment is normal. No fracture. There is mild tricompartmental osteoarthritis. No kn ee joint effusion. IMPRESSION: 1. Mild left knee osteoarthritis. Reviewed, dictated and finalized at location A.
--- NOTE | ~2022-10-19 | XR_ITS ---
EXAMINATION: XR knee RT min 4V DATE: 10/19/2022 08:36 INDICATION: Right knee pain. Fall. TECHNIQUE: 4 views of right knee were obtained. COMPARISON: Right knee radiographs 02/21/2019 FINDINGS: Bone alignment is normal. No fracture. There is mild tricompartment osteoarthritis. No knee joint effusion. IMPRESSION: 1. Mild right knee osteoarthritis. Reviewed, dictated and finalized at location A.
--- NOTE | ~2022-10-19 | XR_ITS ---
EXAMINATION: XR shoulder RT min 2V DATE: 10/19/2022 08:36 INDICATION: Right shoulder pain. Fall. TECHNIQUE: 4 views of right shoulder were obtained. COMPARISON: Right shoulder radiographs 10/23/2012 FINDINGS: There is a reverse [id number] total right shoulder arthroplasty. There is an oblique p eriprosthetic fracture of the proximal humeral diaphysis with 5 mm displacement. There are likely maxime nges of distal clavicle resection. IMPRESSION: 1. Total right shoulder arthroplasty with periprosthetic fracture of the proximal humerus. Reviewed, dictated and finalized at location A. IMPRESSION: 1. Total right shoulder arthroplasty with periprosthetic fracture of the proxim al humerus.
--- NOTE | 2022-10-19 08:08 | ED.FALL ---
HPI - Fall General Chief Complaint: Fall Stated Complaint: fall Time Seen by Provider: 10/19/22 07:39 Source: patient, EMS, RN notes reviewed and old records reviewed Mode of arrival: EMS Limitations: no limitations History of Present Illness HPI Narrative: This is a 61 year old female with history of COPD, chronic respiratory failure on 4 L NC, chronic pain, obesity, hyperlipidemia who presents for evaluation after a fall. Patient accidentally slipped and she fell onto her knees. She reports she hit her chin on the floor but denies LOC. She reports most of her pain is located in her right shoulder. She has history of right shoulder replacement in that shoulder 5 years ago. She reports she is mostly in a wheelchair due to difficulty walking due to balance issues. She reports she took pain medication this morning. Related Data Home Medications Medication Instructions Recorded Confirmed allopurinol 300 mg tablet 300 mg PO DAILY 07/02/20 05/07/22 aspirin 81 mg tablet 81 mg PO DAILY 07/02/20 05/07/22 atorvastatin 40 mg tablet 40 mg PO HS 07/02/20 05/07/22 cetirizine 10 mg tablet 10 mg PO DAILY 07/02/20 05/07/22 gabapentin 800 mg tablet 800 mg PO TID 07/02/20 05/07/22 lamotrigine 25 mg tablet 75 mg PO BID 07/02/20 05/07/22 montelukast 10 mg tablet 10 mg PO DAILY 07/02/20 05/07/22 omega-3 fatty acids-vitamin E 1 cap PO BID 07/02/20 05/07/22 1,000 mg capsule potassium chloride 20 mEq 20 meq PO BID 07/02/20 05/07/22 tablet,extended release trazodone 50 mg tablet 50 mg PO HS 07/02/20 05/07/22 aripiprazole 5 mg tablet 5 mg PO DAILY 05/07/22 05/07/22 ascorbic acid (vitamin C) 500 mg 500 mg PO Q12H 05/07/22 05/07/22 capsule,extended release bupropion HCl 150 mg tablet,12 hr 150 mg PO BID 05/07/22 05/07/22 sustained-release (Wellbutrin SR) famotidine 40 mg tablet 40 mg PO DAILY 05/07/22 05/07/22 fluticasone 250 mcg-salmeterol 50 1 inh inhalation DAILY PRN Allergy 05/07/22 05/07/22 mcg/dose blistr powdr for Symptoms inhalation (Wixela Inhub) topiramate 50 mg tablet 50 mg PO BID 05/07/22 05/07/22 benzonatate 200 mg capsule 200 mg PO TID 10/19/22 cyclobenzaprine 10 mg tablet mg 10/19/22 duloxetine 30 mg capsule,delayed mg PO 10/19/22 release fluconazole 150 mg tablet mg 10/19/22 furosemide 40 mg tablet mg 10/19/22 isosorbide dinitrate 30 mg tablet mg 10/19/22 metolazone 2.5 mg tablet 2.5 mg PO EVERY OTHER DAY 10/19/22 omeprazole 20 mg capsule,delayed mg 10/19/22 release oxycodone-acetaminophen 7.5 mg-325 tablet 10/19/22 mg tablet sennosides 8.6 mg tablet (senna) 8.6 mg PO BID 10/19/22 spironolactone 25 mg tablet mg 10/19/22 sumatriptan succinate 100 mg tablet mg PO 10/19/22 Allergies Allergy/AdvReac Type Severity Reaction Status Date / Time bee venom protein (honey bee) Allergy Severe Anaphylaxis Verified 10/19/22 08:56 Penicillins Allergy Rash Verified 10/19/22 07:52 fixodent Allergy Hives Uncoded 10/19/22 07:52 Review of Systems Review of Systems: All systems reviewed & are unremarkable except as noted in HPI and below PMFSH Past Medical History Medical History (Updated 10/19/22 @ 13:26 by Gilda Gonzales MD) Asthma Bipolar 1 disorder Chronic hypoxemic respiratory failure CKD (chronic kidney disease) COPD (chronic obstructive pulmonary disease) Herniated disc (~10/19/22) History of kidney stones 9 episodes, 3 procedures History of tobacco abuse On home O2 5L Peripheral neuropathy Surgical History Surgical History (Updated 10/19/22 @ 13:26 by Gilda Gonzales MD) History of bilateral cataract extraction Hx of tonsillectomy Status post total shoulder arthroplasty Family History Family History Mother , age 68 CHF (congestive heart failure) Emphysema of lung Father , at age 62 Acute myocardial infarction Emphysema of lung Sibling , age 59 Pancreatic cancer Si
[2022-10-19] MEDS: ONDANSETRON INJ 4 MG/2 ML VIAL IV PUSH (09:19)
[2022-10-19] MEDS: HYDROmorphone HCL INJ (*CRX) 1 MG/ML SYR 0.5 MG IV PUSH ×2 (09:19→12:45)
--- NOTE | 2022-10-19 11:21 | ECG_ITS ---
Measurements Intervals [place] Rate: 74 P: 50 DC: 159 QRS: -52 QRSD: 114 T: 44 QT: 417 QTc: 463 Interpretive Statements SINUS RHYTHM LEFT AXIS DEVIATION [QRS AXIS < -30] LOW QRS VOLTAGE IN PRECORDIAL LEADS [QRS DEFLECTION < 1.0 mV IN CHEST LEADS] NONSPECIFIC T-WAVE ABNORMALITY CONSIDER ANTERIOR ISCHEMIA ABNORMAL ECG COMPARED TO ECG 05/08/2022 10:39:[address] SEGMENT DEPRESSION IS IMPROVED Electronically Signed On 10-19-2022 16:03:24 CDT by Terence Angel M.D.
--- NOTE | 2022-10-19 12:36 | PC.NURSE ---
Regular diet food tray ordered
[2022-10-19 12:51] LABS: Basophils Absolute Auto 0.1 K/mm3 (0.0-0.1); Basophils Percent Auto 0.5 % (0.2-1.2); Eosinophils Absolute Auto 0.1 K/mm3 (0-0.3); Eosinophils Percent Auto 0.8 % (0-4.4); Hematocrit 48.6 % (37.0-47.0); Hemoglobin 14.9 g/dL (12.0-15.0); Immature Granulocyte Absolute 0.11 K/mm3 (0.00-0.031); Lymphocytes Absolute Auto 1.69 K/mm3 (0.9-3.2); Lymphocytes Percent Auto 15.2 % (18.3-44.2); Mean Corpuscular HGB Conc 30.7 g/dl (32-36); Mean Corpuscular Hemoglobin 27.3 pg (26-34); Mean Corpuscular Volume 89.2 fl (80-100); Mean Platelet Volume 11.4 fl (7.4-10.4); Monocytes Absolute Auto 1.1 K/mm3 (0.1-0.6); Monocytes Percent Auto 9.5 % (2.6-8.5); Neutrophils Absolute Auto 8.1 K/mm3 (1.3-6.7); Platelet Count Result 167 k/mm3 (150-375); Red Blood Count 5.45 M/mm3 (4.2-5.4); Red Cell Distribution Width 15.7 % (11.5-14.5); White Blood Count 11.1 K/mm3 (4.5-10.0)
[2022-10-19 13:00] LABS: Alanine Aminotransferase 65 U/L (6-35); Albumin Level 4.5 g/dL (3.5-5.1); Alkaline Phosphatase 176 U/L (38-126); Anion Gap 9 mmol/L (8-16); Aspartate Amino Transferase 55 U/L (14-36); Bilirubin,Total 0.7 mg/dL (0.2-1.3); Blood Urea Nitrogen 40 mg/dL (7-17); Calcium 9.7 mg/dL (8.4-10.2); Carbon Dioxide 39 mmol/L (22-30); Chloride 89 mmol/L (98-107); Estimated CRCL calculation 55 ml/min; Estimated Glomerular Filt Rate 33; Glucose 109 mg/dL (65-110); Magnesium 1.9 mg/dL (1.6-2.3); Potassium 3.6 mmol/L (3.4-5.0); Sodium 137 mmol/L (137-145)
== END 2022-10-19 16:30 ==
PROVIDERS: Emergency Provider General Practice; PCP Hospitalist
DX: S42.201A Unspecified fracture of upper end of right humerus, initial encounter for closed fracture (principal); M97.31XA Periprosthetic fracture around internal prosthetic right shoulder joint, initial encounter; S80.212A Abrasion, left knee, initial encounter; S80.211A Abrasion, right knee, initial encounter; J44.9 Chronic obstructive pulmonary disease, unspecified; J96.11 Chronic respiratory failure with hypoxia; N18.9 Chronic kidney disease, unspecified; E78.5 Hyperlipidemia, unspecified; G62.9 Polyneuropathy, unspecified; E66.9 Obesity, unspecified; Z68.42 Body mass index [BMI] 45.0-49.9, adult; Z99.81 Dependence on supplemental oxygen; F31.9 Bipolar disorder, unspecified; Z96.619 Presence of unspecified artificial shoulder joint; Z87.442 Personal history of urinary calculi; Z87.891 Personal history of nicotine dependence; Z98.42 Cataract extraction status, left eye; Z98.41 Cataract extraction status, right eye; Z79.82 Long term (current) use of aspirin; R94.31 Abnormal electrocardiogram [ECG] [EKG]; M17.0 Bilateral primary osteoarthritis of knee; W01.0XXA Fall on same level from slipping, tripping and stumbling without subsequent striking against object, initial encounter
CPT/HCPCS: 36415; 70450; 73030; 73564; 80053; 83735; 85025; 85055; 93005; 96374; 96375; 96376; 99284; A4565; J1170; J2405

== ENCOUNTER 2022-10-21 14:05 | Observation (INO) | payer OTHER, SELFPAY ==
[2022-10-21] VITALS (7 sets, daily range): BP systolic 105–127; BP diastolic 55–80; PULSE 76–86; RESP 12–20; TEMP 36.5–36.7; O2SAT 88–100
--- NOTE | ~2022-10-21 | CT_ITS ---
EXAMINATION: CT brain wo con INDICATION: Headache COMPARISON: 10/19/2022 TECHNIQUE: Standard unenhanced head CT. The dose-length product (DLP) was 681.00 mGy-cm. The mA was a djusted according to patient size. Iterative reconstruction technique was employed. FINDINGS: There is no intracranial hemorrhage, acute infarction, or abnormal mass lesion. The ventric les are normal. There is no abnormal mass effect or midline shift. The lazar-white matter differentiat ion is normal. The basal cisterns are patent. Changes in the globes are likely from ocular lens surge ry. The paranasal sinuses, mastoids and calvarium are normal. IMPRESSION: 1. No acute intracranial abnormality. Reviewed, dictated and finalized at location F.
--- NOTE | ~2022-10-21 | US_ITS ---
EXAMINATION: US renal BI DATE: 10/22/2022 11:14 INDICATION: Acute on chronic renal failure TECHNIQUE: Multiple grayscale and Doppler ultrasound images of the kidneys were obtained. COMPARISON: 05/08/2022 FINDINGS: The right kidney measures 10.8 x 5.0 x 4.9 cm. There is a possible 7 mm nonobstructing ston e of the right kidney. The left kidney measures 11.0 x 5.9 x 5.1 cm. The kidneys demonstrate normal p arenchymal echogenicity. There is no hydronephrosis. The bladder is decompressed by Abrams catheter. IMPRESSION: 1. Possible nonobstructing stone of the right kidney, otherwise unremarkable kidneys without hydronep hrosis. Reviewed, dictated and finalized at location A. IMPRESSION: 1. Possible nonobstructing stone of the right kidney, otherwise unremarkable ki dneys without hydronephrosis.
--- NOTE | ~2022-10-21 | XR_ITS ---
EXAMINATION: XR chest 1V portable INDICATION: Shortness of breath TECHNIQUE: Portable AP chest at 1443 hours COMPARISON: 05/07/2022 FINDINGS: The lung volumes are low. The lungs are free of acute opacities. No pleural effusion or pne umothorax. The cardiomediastinal silhouette is normal. Changes of right shoulder arthroplasty are not ed. IMPRESSION: 1. No acute cardiopulmonary abnormality. Reviewed, dictated and finalized at location F.
--- NOTE | 2022-10-21 14:23 | ED.FALL ---
HPI - Fall General Chief Complaint: Altered Mental Status Stated Complaint: AMS Time Seen by Provider: 10/21/22 14:23 History of Present Illness HPI Narrative: Patient is a 61-year-old female with history of COPD, on 4 L nasal cannula at baseline here with altered mental status. History is obtained from daughter at bedside. Daughter last saw patient 4 days ago when she was brought into the emergency department after a fall. At that time patient had been reportedly trying to get clothing out of her closet and fell down striking her chin and her shoulder. Patient had a negative workup in the ER aside from a shoulder fracture and was discharged back to facility. She is largely wheelchair bound and normally alert and oriented x4. Today family went to check on her at the facility and noted that she was unable to hold a full conversation and repeating questions and slurring her words. They are unsure of when this began and staff had not noticed. daughter demanded that patient be brought into the emergency department for further evaluation. Patient does awake and answers basic questions. She denies any coughs, she does note diarrhea. She is unable to provide much of a history at this time. Daughter is unsure if they have recently changed any of her pain medications since her fall 4 days ago. Related Data Home Medications Medication Instructions Recorded Confirmed allopurinol 300 mg tablet 300 mg PO DAILY 07/02/20 10/21/22 aspirin 81 mg tablet 81 mg PO DAILY 07/02/20 10/21/22 atorvastatin 40 mg tablet 40 mg PO 07/02/20 10/21/22 gabapentin 800 mg tablet 800 mg PO TID 07/02/20 10/21/22 lamotrigine 25 mg tablet 100 mg PO BID 07/02/20 10/21/22 montelukast 10 mg tablet 10 mg PO HS 07/02/20 10/21/22 omega-3 fatty acids-vitamin E 1 cap PO BID 07/02/20 10/21/22 1,000 mg capsule potassium chloride 20 mEq 10 meq PO DAILY 07/02/20 10/21/22 tablet,extended release trazodone 50 mg tablet 100 mg PO 07/02/20 10/21/22 aripiprazole 5 mg tablet 5 mg PO DAILY 05/07/22 10/21/22 bupropion HCl 150 mg tablet,12 hr 150 mg PO BID 05/07/22 10/21/22 sustained-release (Wellbutrin SR) famotidine 40 mg tablet 40 mg PO DAILY 05/07/22 10/21/22 fluticasone 250 mcg-salmeterol 50 1 inh inhalation DAILY PRN Allergy 05/07/22 10/21/22 mcg/dose blistr powdr for Symptoms inhalation (Wixela Inhub) topiramate 50 mg tablet 50 mg PO BID 05/07/22 10/21/22 benzonatate 200 mg capsule 200 mg PO TID 10/19/22 10/21/22 cyclobenzaprine 10 mg tablet 10 mg PO DAILY 10/19/22 10/21/22 duloxetine 30 mg capsule,delayed 30 mg PO DAILY 10/19/22 10/21/22 release fluconazole 150 mg tablet 150 mg PO DAILY 10/19/22 10/21/22 furosemide 40 mg tablet 40 mg PO BID 10/19/22 10/21/22 isosorbide dinitrate 30 mg tablet 30 mg PO DAILY 10/19/22 10/21/22 metolazone 2.5 mg tablet 2.5 mg PO EVERY OTHER DAY 10/19/22 10/21/22 omeprazole 20 mg capsule,delayed 20 mg PO DAILY 10/19/22 10/21/22 release oxycodone-acetaminophen 7.5 mg-325 1 tablet PO Q6-8H PRN Pain 10/19/22 10/21/22 mg tablet sennosides 8.6 mg tablet (senna) 8.6 mg PO BID 10/19/22 10/21/22 spironolactone 25 mg tablet 25 mg PO BID 10/19/22 10/21/22 sumatriptan succinate 100 mg tablet 100 mg PO BID PRN Migraine Headache 10/19/22 10/21/22 acetaminophen 325 mg chewable 650 mg PO Q6-8H PRN Pain 10/21/22 10/21/22 tablet Allergies Allergy/AdvReac Type Severity Reaction Status Date / Time bee venom protein (honey bee) Allergy Severe Anaphylaxis Verified 10/19/22 08:56 Penicillins Allergy Rash Verified 10/19/22 07:52 fixodent Allergy Hives Uncoded 10/19/22 07:52 Review of Systems Review of Systems: ROS unobtainable: Yes unobtainable due to mental status PMFSH Past Medical History Medical History (Updated 08/20/23 @ 17:05 by Albina Grace MD) Asthma Bipolar 1 disorder Chronic hypoxemic respiratory failure CKD (chronic kidney disease) COPD (chronic obstructive pulmonary disease) Herniated disc (~10/19/22) History of kid
--- NOTE | 2022-10-21 14:36 | ECG_ITS ---
Measurements Intervals [place] Rate: 82 P: 35 AR: 153 QRS: -24 QRSD: 118 T: 49 QT: 398 QTc: 466 Interpretive Statements SINUS RHYTHM POSSIBLE LEFT ATRIAL ENLARGEMENT [-0.1mV P WAVE IN V1/V2] BORDERLINE LEFT AXIS DEVIATION [QRS AXIS < -20] INCOMPLETE RIGHT BUNDLE BRANCH BLOCK [90+ ms QRS DURATION, TERMINAL R IN V1/V2, 40+ ms S IN I/aVL/V4/V5/V6] NONSPECIFIC T-WAVE ABNORMALITY ABNORMAL ECG COMPARED TO ECG 10/19/2022 12:25:11 NO SIGNIFICANT CHANGE Electronically Signed On 10-22-2022 7:26:48 CDT by Terence Angel M.D.
[2022-10-21 15:04] LABS: Glucose Point of Care 122 mg/dl (65-105)
[2022-10-21 15:09] LABS: Alveolar/Arterial O2 Gradient 125.2 mmHg; Base Excess ABG 3.8 mEq/l (+/-2.0); Fractional Inspired Oxygen 34 %; HCO3 ABG 28.5 mEq/l (22.0-26.0); Oxygen Content ABG 18.5 %vol (16.0-22.0); Oxyhemoglobin 90.6 % THb (90.0-100.0); PCO2 ABG 42.9 mmHg (35.0-45.0); PO2 ABG 67.2 mmHg (80.0-100.0); PO2 FiO2 Ratio Arterial Blood 1.98 %; Total Hemoglobin 14.5 g/dL (12.0-18.0)
[2022-10-21 15:10] LABS: Device NASAL CANNULA; Liters per Minute 3.5 LPM; Modified Allen's Test Pass; Site Drawn LEFT RADIAL
[2022-10-21 15:39] LABS: Alanine Aminotransferase 49 U/L (6-35); Albumin Level 4.5 g/dL (3.5-5.1); Alkaline Phosphatase 159 U/L (38-126); Anion Gap 11 mmol/L (8-16); Aspartate Amino Transferase 49 U/L (14-36); Bilirubin,Total 1.1 mg/dL (0.2-1.3); Blood Urea Nitrogen 58 mg/dL (7-17); CRP 7.9 mg/dL (<1.0); Calcium 9.3 mg/dL (8.4-10.2); Carbon Dioxide 34 mmol/L (22-30); Chloride 87 mmol/L (98-107); Creatine Kinase 316 U/L (30-135); Estimated CRCL calculation 39 ml/min; Estimated Glomerular Filt Rate 24; Glucose 108 mg/dL (65-110); Lipase 87 U/L (23-300); Magnesium 2.3 mg/dL (1.6-2.3); Potassium 3.2 mmol/L (3.4-5.0); Sodium 132 mmol/L (137-145)
[2022-10-21 15:40] LABS: Basophils Percent Auto 0.3 % (0.2-1.2); Eosinophils Absolute Auto 0.1 K/mm3 (0-0.3); Hemoglobin 13.8 g/dL (12.0-15.0); Immature Granulocyte Percent A 1.6 % (0-0.5); Mean Corpuscular HGB Conc 30.7 g/dl (32-36); Mean Corpuscular Hemoglobin 26.7 pg (26-34); Monocytes Absolute Auto 1.8 K/mm3 (0.1-0.6); Monocytes Percent Auto 14.6 % (2.6-8.5); Neutrophils Absolute Auto 7.6 K/mm3 (1.3-6.7); Neutrophils Percent Auto 61.5 % (45.5-73.1); Platelet Count Result 187 k/mm3 (150-375); Red Blood Count 5.17 M/mm3 (4.2-5.4); Red Cell Distribution Width 15.5 % (11.5-14.5); White Blood Count 12.4 K/mm3 (4.5-10.0)
[2022-10-21 15:42] LABS: Lactic Acid Reflex 0.9 mmol/L (0.7-2.0)
[2022-10-21 15:45] LABS: Appearance Urine Clear (Clear); Bilirubin Urine Negative (Negative); Blood Urine Negative (Negative); Color Urine Yellow (Yellow); Glucose Urine UA Negative (Negative); Ketones Urine Negative (Negative); Leukocyte Esterase Ur Negative LEU/UL (Negative); Nitrate Urine Negative (Negative); Protein Urine Negative (Negative); Specific Grav Ur 1.015 (1.001-1.035); pH Urine 5.5 (5.0-9.0)
[2022-10-21 15:48] LABS: Troponin I < 0.012 ng/mL (0.000-0.034)
[2022-10-21 16:07] LABS: Ammonia < 9 umol/L (9-30)
[2022-10-21 16:14] LABS: Add Urine Microscopic? NO
--- NOTE | 2022-10-21 17:20 | PC.NURSE ---
Mag, pt daughter & POA, called for update. Can be reached at [phone]
[2022-10-21 17:44] LABS: Influenza A QL RT-PCR Negative (Negative); Influenza B QL RT-PCR Negative (Negative); RSV RNA, RT-PCR Negative (Negative); SARS-CoV-2 RNA PCR Negative (Negative)
--- NOTE | 2022-10-21 18:41 | ADMGEN ---
This patient, Fariba Olson, was admitted to Medical Room 347-. Patient/family oriented to hospital policies and general routines including ID bracelet, bed and alarms, visiting hours, pain management, procedures, bathroom and other care routines, personal items, smoking policy, room service/diet, and visiting hours. Information on how to activate the Rapid Response Team has been discussed. Patient/Family are encouraged to report perceived risks to care and to ask questions if they do not understand what they are told or what they should do.
--- NOTE | 2022-10-21 21:19 | PM.IMHP ---
H&P: HPI History of Present Illness Date/Time: 10/21/22 21:19 Chief Complaint: Altered mental status Narrative: This is a 61-year-old female patient who resides at at her [address] [place] [address]. The patient has a history of COPD and is chronically on oxygen at 4 L per nasal cannula chronically. The patient is here today because she has been more confused. The daughter last saw the patient 4 days ago when she brought her to the emergency room after a fall. The patient reportedly had been getting close out of her closet and fell down striking her head and her shoulder. The patient was noted to have a shoulder fracture and was discharged back to the facility. The patient is wheelchair-bound and is typically alert orientated x4. Today did the family went to check on her at the facility and the patient was unable to have a full conversation and was slurring her words. The patient has been on pain medication unsure if there has been any changes in her dosages. Her white count is noted to be 12.4. Sodium 132. Potassium 3.2. Chloride 87 carbon dioxide 34 BUN 58 and creatinine 2.10. Previous BUN was 40 with a creatinine of 1.62 weeks ago. Liver enzymes are elevated but improved from 2 weeks ago. Her urine is negative for UTI and she is negative for influenza A/B and COVID. Head CT was read as no acute intracranial abnormality. Chest x-ray was read as no acute cardiopulmonary abnormality. Her shoulder x-ray on 10/19/2022 was read as total right shoulder arthroplasty with periprosthetic fracture of the proximal humerus. The patient is being admitted to observation status on the date of service 10/21/2022. Review of Systems Review of Systems: All systems reviewed & are unremarkable except as noted in HPI and below Constitutional: Constitutional: Reports as per HPI and Reports no additional constitutional complaints Eyes: Eyes: Reports as per HPI and Reports no additional eye complaints ENT: Reports system reviewed and no additional complaints, except as documented and Reports Normal hearing present Cardiovascular: Cardiovascular: Reports no additional cardiovascular complaints Respiratory: Respiratory: Reports no additional respiratory complaints and Reports no additional respiratory complaints Gastrointestinal: Gastrointestinal: Reports as per HPI and Reports no additional gastrointestinal complaints Musculoskeletal: Musculoskeletal: Reports no additional musculoskeletal complaints Integumentary/Breasts: Skin/Breast: Reports system reviewed and no additional complaints, except as docu and Reports as per HPI Neurologic: Reports system reviewed and no additional complaints, except as documented, Reports as per HPI and Reports Normal hearing present Psychiatric: Psychiatric: Reports no additional psychiatric complaints and Reports as per HPI Endocrine: Endocrine: Reports no additional endocrine complaints Hematologic/Lymphatic: Hematologic/Lymphatic: Reports no additional hematologic/lymphatic complaints Allergic/Immunologic: Allergic/Immunologic: Reports no additional allergic/immunologic complaints [facility] Past Medical History Medical History (Updated 10/22/22 @ 01:07 by Luly Renteria NP) Asthma Bipolar 1 disorder Chronic hypoxemic respiratory failure CKD (chronic kidney disease) COPD (chronic obstructive pulmonary disease) COVID-19 ruled out Depression with anxiety Herniated disc (~10/19/22) History of cervical cancer History of kidney stones 9 episodes, 3 procedures History of tobacco abuse Hyperlipidemia Hypertension Obstructive sleep apnea On home O2 5L Peripheral neuropathy Surgical History Surgical History (Updated 10/22/22 @ 00:54 by Luly Renteria NP) H/O: hysterectomy History of bilateral cataract extraction History of section, classical Hx of tonsillectomy Status post total shoulder arthroplasty Family History Family History Mother Dec
[2022-10-21] MEDS: oxyCODONE HCL (*CRX) 2.5 MG TAB IR PO (22:12)
[2022-10-21] MEDS: oxyCODONE/ACETAMINOPHEN (*CRX) 5-325 MG TABLET 1 TABLET PO (22:12)
[2022-10-22] VITALS (13 sets, daily range): BP systolic 113–143; BP diastolic 67–77; PULSE 82–99; RESP 16–18; TEMP 36.4–37; O2SAT 93–100
[2022-10-22 01:48] LABS: Alveolar/Arterial O2 Gradient 133.7 mmHg; Base Excess ABG 7.8 mEq/l (+/-2.0); Fractional Inspired Oxygen 36 %; Oxygen Content ABG 18.2 %vol (16.0-22.0); Oxygen Saturation ABG 91.3 % (95.0-100.0); Oxyhemoglobin 89.6 % THb (90.0-100.0); PCO2 ABG 53.6 mmHg (35.0-45.0); PO2 ABG 60.8 mmHg (80.0-100.0); PO2 FiO2 Ratio Arterial Blood 1.69 %; Total Hemoglobin 14.5 g/dL (12.0-18.0)
[2022-10-22 01:49] LABS: Device NASAL CANNULA; Modified Allen's Test Pass; Site Drawn LEFT RADIAL
[2022-10-22 06:51] LABS: Basophils Absolute Auto 0.1 K/mm3 (0.0-0.1); Basophils Percent Auto 0.5 % (0.2-1.2); Eosinophils Absolute Auto 0.2 K/mm3 (0-0.3); Eosinophils Percent Auto 1.9 % (0-4.4); Hematocrit 43.9 % (37.0-47.0); Hemoglobin 13.4 g/dL (12.0-15.0); Immature Granulocyte Absolute 0.13 K/mm3 (0.00-0.031); Immature Granulocyte Percent A 1.2 % (0-0.5); Lymphocytes Absolute Auto 1.78 K/mm3 (0.9-3.2); Lymphocytes Percent Auto 16.8 % (18.3-44.2); Mean Corpuscular HGB Conc 30.5 g/dl (32-36); Mean Corpuscular Hemoglobin 26.6 pg (26-34); Mean Corpuscular Volume 87.3 fl (80-100); Monocytes Absolute Auto 1.5 K/mm3 (0.1-0.6); Monocytes Percent Auto 14.2 % (2.6-8.5); Neutrophils Absolute Auto 6.9 K/mm3 (1.3-6.7); Neutrophils Percent Auto 65.4 % (45.5-73.1); Platelet Count Result 171 k/mm3 (150-375); Red Blood Count 5.03 M/mm3 (4.2-5.4); Red Cell Distribution Width 15.5 % (11.5-14.5); White Blood Count 10.6 K/mm3 (4.5-10.0)
[2022-10-22 07:04] LABS: Alanine Aminotransferase 49 U/L (6-35); Albumin Level 4.2 g/dL (3.5-5.1); Alkaline Phosphatase 161 U/L (38-126); Anion Gap 8 mmol/L (8-16); Aspartate Amino Transferase 58 U/L (14-36); Bilirubin,Total 1.4 mg/dL (0.2-1.3); Blood Urea Nitrogen 55 mg/dL (7-17); Calcium 9.2 mg/dL (8.4-10.2); Carbon Dioxide 35 mmol/L (22-30); Chloride 90 mmol/L (98-107); Estimated CRCL calculation 43 ml/min; Estimated Glomerular Filt Rate 27; Glucose 107 mg/dL (65-110); Magnesium 2.3 mg/dL (1.6-2.3); Potassium 3.3 mmol/L (3.4-5.0); Sodium 133 mmol/L (137-145)
[2022-10-22] MEDS: FLUTICASONE/SALMETEROL 115-21 MCG INHALER 1 PUFF 2 PUFF INHALATION ×2 (07:29→19:42)
[2022-10-22] MEDS: ACETAMINOPHEN 325 MG TABLET 650 MG BY MOUTH (08:27)
[2022-10-22] MEDS: OMEGA 3 POLYUNSAT FATTY ACIDS 1 GM CAP PO ×2 (08:43→17:43)
[2022-10-22] MEDS: SENNOSIDES 8.6 MG TABLET PO ×2 (08:43→17:41)
[2022-10-22] MEDS: lamoTRIgine 100 MG TABLET PO ×2 (08:43→20:58)
[2022-10-22] MEDS: FAMOTIDINE 20 MG TABLET 40 MG PO (08:43)
[2022-10-22] MEDS: PANTOPRAZOLE 40 MG TABLET PO (08:44)
[2022-10-22] MEDS: DULoxetine HCL 30 MG CAPSULE.DR PO (08:44)
[2022-10-22] MEDS: POTASSIUM CHLORIDE 10 MEQ ER TABLET PO (08:44)
[2022-10-22] MEDS: GABAPENTIN 400 MG CAPSULE 800 MG PO ×3 (08:44→17:43)
[2022-10-22] MEDS: ARIPiprazole 5 MG TABLET PO (08:44)
[2022-10-22] MEDS: buPROPion HCL SR (12 HR) 150 MG TAB PO ×2 (08:44→20:58)
[2022-10-22] MEDS: ISOSORBIDE DINITRATE 10 MG TABLET 30 MG PO (08:45)
[2022-10-22] MEDS: ASPIRIN 81 MG ENTERIC TABLET PO (08:45)
[2022-10-22] MEDS: TOPIRAMATE 25 MG TABLET 50 MG PO ×2 (08:45→20:59)
[2022-10-22] MEDS: METOPROLOL TARTRATE 25 MG TABLET PO ×2 (08:45→20:58)
--- NOTE | 2022-10-22 09:31 | PM.IMPN ---
Progress Note: A&P Assessment and Plan (1) Acute kidney injury superimposed on chronic kidney disease: Code(s): N17.9 - Acute kidney failure, unspecified; N18.9 - Chronic kidney disease, unspecified Status: Acute Assessment and Plan: Mild improvement noted after admission. Restart diuretics to prevent worsening CHF (2) Periprosthetic fracture around internal prosthetic right shoulder joint, subsequent encounter: Code(s): M97.31XD - Periprosthetic fracture around internal prosthetic right shoulder joint, subsequent encounter Status: Acute Assessment and Plan: Right arm fracture, arm in a sling, orthopedics at [facility] was consulted day of injury and wanted patient to follow-up in clinic. (3) AMS (altered mental status): Qualifiers: Altered mental status type: unspecified Qualified Code(s): R41.82 - Altered mental status, unspecified Code(s): R41.82 - Altered mental status, unspecified Status: Acute Assessment and Plan: Patient presented to the hospital altered mental status which has subsequently improved after discontinuation pain medication and other sedating medications. (4) Depression with anxiety: Code(s): F41.8 - Other specified anxiety disorders Status: Acute Assessment and Plan: Patient very anxious and depressed that we cannot do surgery on right arm. (5) Obstructive sleep apnea: Code(s): G47.33 - Obstructive sleep apnea (adult) (pediatric) Status: Acute Assessment and Plan: History of COPD and WALT. Patient needs to continue PAP therapy while in the hospital and at SNF (6) COPD (chronic obstructive pulmonary disease): Code(s): J44.9 - Chronic obstructive pulmonary disease, unspecified Status: Acute Assessment and Plan: Patient on 4 L oxygen nasal cannula, continue home usage, ABG shows compensated respiratory acidosis and metabolic alkalosis. (7) Hypertension: Code(s): I10 - Essential (primary) hypertension Status: Acute Assessment and Plan: Reviewed 10/22 and stable at this time. (8) Chronic hypokalemia: Code(s): E87.6 - Hypokalemia Status: Acute Assessment and Plan: Ordered potassium replacement for level of 3.3 Plan Case management also discussed with patient that we could attempt again to call [facility] to attempt transfer and patient said that she would return to an extended care facility but wanted to switch which one she goes to. Plan will be discharge 10/23 pending patient evaluation tomorrow. Time Spent With Patient Time with patient: Greater than 35 minutes Subjective Date/time seen: 10/22/22 09:31 Interval history: Patient admitted to the hospital with altered mental status thought to be related to medication given for uncontrolled right shoulder pain status post fall with periprosthetic fracture. On admission patient had findings of ROQUE on CKD. All pain medications and sedating medications were held and now patient is awake and alert complaining severe right arm pain. She thought that we had taken her to surgery while she was unconscious. We informed patient that surgery cannot be done on her arm and that it would have to heal in a sling. Patient began to cry excessively stating that she just cannot tolerate the pain. Oxy code own was re-initiated. Patient denies difficulty breathing states she always wears 4 L nasal cannula due to COPD. ABG was obtained found to have 89% saturation and pCO2 53.6. This is compensated with a rise in HC03 of 34. PH 7.42 On date of initial fall patient was seen in the emergency department and orthopedics at [facility] was consulted stated that the fracture appears stable and does not require intervention at this time to apply sling and follow-up in clinic. Review of Systems Review of Systems: All systems reviewed & are unremarkable except as noted in HPI and below Exam Narrative:
[2022-10-22] MEDS: TOLNAFTATE 1% POWDER 45 GM BTL 1 APPLIC TOPICAL ×2 (12:51→20:59)
[2022-10-22] MEDS: BENZONATATE 100 MG CAPSULE 200 MG PO ×2 (12:51→17:43)
[2022-10-22] MEDS: POTASSIUM CHLORIDE 20 MEQ ER TABLET 40 MEQ PO (14:04)
--- NOTE | 2022-10-22 14:21 | PC.NURSE ---
Patients IV infiltrated and was removed at 1000. Two attempts at replacement failed. Per Frank Gaona NP, IV does not need to be replaced at this time. PT will be on oral medications.
--- NOTE | 2022-10-22 16:07 | PM.CNOR ---
Assessment and Plan Assessment and plan (1) Periprosthetic fracture around internal prosthetic right shoulder joint, subsequent encounter: Code(s): M97.31XD - Periprosthetic fracture around internal prosthetic right shoulder joint, subsequent encounter Status: Acute Plan Nondisplaced fracture about the proximal metaphyseal right humerus. The reverse total shoulder implant appears to be intact. Press-Fit long stem. No definite loosening of the stem. Previous poor functioning of the shoulder without significant elevation capability. Surgery is not indicated at this time. The fracture should heal uneventfully. Sling for 6 weeks. Nonweightbearing. She may follow-up as an outpatient with the surgeon who performed the procedure. She may remove the sling for hygiene, as well as elbow wrist and hand range of motion. Obtain x-rays, and start shoulder range of motion at 4 weeks. History of Present Illness HPI Consult date: 10/22/22 Chief complaint: ROQUE/AMS Narrative: 61-year-old [id number] female. Confused. History obtained largely from the nurse. Patient fell several days ago. X-rays showed a nondisplaced periprosthetic fracture of the right arm. She was subsequently sent back to the [facility]. She is admitted now due to mental status changes. History of rotator cuff repair and subsequent reverse total shoulder arthroplasty elsewhere. She states that she never had good function and was not able to raise her arm. Currently in a sling. States that she has some light touch numbness in the hand since surgery. No changes. Review of Systems Review of Systems: All systems reviewed & are unremarkable except as noted in HPI and below PMFSH Past Medical History Medical History Asthma Bipolar 1 disorder Chronic hypoxemic respiratory failure CKD (chronic kidney disease) COPD (chronic obstructive pulmonary disease) COVID-19 ruled out Depression with anxiety Herniated disc (~10/19/22) History of cervical cancer History of kidney stones 9 episodes, 3 procedures History of tobacco abuse Hyperlipidemia Hypertension Obstructive sleep apnea On home O2 5L Peripheral neuropathy Surgical History Surgical History H/O: hysterectomy History of bilateral cataract extraction History of section, classical Hx of tonsillectomy Status post total shoulder arthroplasty Family History Family History Mother , age 68 CHF (congestive heart failure) Emphysema of lung Father , at age 62 Acute myocardial infarction Emphysema of lung Sibling , age 59 Pancreatic cancer Sibling , age 40 acute [place] Acute myocardial infarction Social History Social History Social History: Heavy former smoker, started age 11, quit Feb 2019, maximum 1.5 ppd, average 1 ppd 40 + years; disabled in 2009 partly due to COPD; has 4 kids, 8 grandchildren. She is currently at [facility]. 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 Gender identity (if verbalized by the patient): Female Spiritual care concerns: No Meds Home Medications and Allergies Home Medications Medication Instructions Recorded C
[2022-10-22 16:58] LABS: Glucose Point of Care 137 mg/dl (65-105)
[2022-10-22] MEDS: SPIRONOLACTONE 25 MG TABLET PO (17:41)
[2022-10-22] MEDS: FUROSEMIDE 40 MG TABLET PO (17:41)
[2022-10-22] MEDS: oxyCODONE/ACETAMINOPHEN (*CRX) 10-325 MG TABLET 1 TAB PO (20:58)
[2022-10-22] MEDS: ATORVASTATIN 40 MG TABLET PO (20:58)
[2022-10-22] MEDS: traZODone HCL 50 MG TABLET 100 MG PO (20:58)
[2022-10-22] MEDS: MONTELUKAST SODIUM 10 MG TABLET PO (20:59)
[2022-10-23] VITALS (10 sets, daily range): BP systolic 108–116; BP diastolic 64–71; PULSE 64–78; RESP 18; TEMP 36.3–36.6; O2SAT 94–98
[2022-10-23] MEDS: oxyCODONE/ACETAMINOPHEN (*CRX) 10-325 MG TABLET 1 TAB PO (05:07)
[2022-10-23 05:57] LABS: Hematocrit 45.1 % (37.0-47.0); Mean Corpuscular Volume 87.1 fl (80-100); Mean Platelet Volume 11.6 fl (7.4-10.4); Platelet Count Result 177 k/mm3 (150-375); Red Blood Count 5.18 M/mm3 (4.2-5.4); Red Cell Distribution Width 15.9 % (11.5-14.5); White Blood Count 10.6 K/mm3 (4.5-10.0)
[2022-10-23 06:05] LABS: Anion Gap 7 mmol/L (8-16); Blood Urea Nitrogen 48 mg/dL (7-17); Calcium 9.6 mg/dL (8.4-10.2); Carbon Dioxide 32 mmol/L (22-30); Chloride 91 mmol/L (98-107); Estimated CRCL calculation 54 ml/min; Estimated Glomerular Filt Rate 36; Glucose 130 mg/dL (65-110); Potassium 2.9 mmol/L (3.4-5.0); Sodium 130 mmol/L (137-145)
[2022-10-23] MEDS: FLUTICASONE/SALMETEROL 115-21 MCG INHALER 1 PUFF 2 PUFF INHALATION (08:56)
[2022-10-23] MEDS: ARIPiprazole 5 MG TABLET PO (09:08)
[2022-10-23] MEDS: ASPIRIN 81 MG ENTERIC TABLET PO (09:08)
[2022-10-23] MEDS: GABAPENTIN 400 MG CAPSULE 800 MG PO ×2 (09:08→13:20)
[2022-10-23] MEDS: SENNOSIDES 8.6 MG TABLET PO (09:08)
[2022-10-23] MEDS: metOLazone 2.5 MG TABLET PO (09:08)
[2022-10-23] MEDS: FUROSEMIDE 40 MG TABLET PO (09:09)
[2022-10-23] MEDS: buPROPion HCL SR (12 HR) 150 MG TAB PO (09:09)
[2022-10-23] MEDS: DULoxetine HCL 30 MG CAPSULE.DR PO (09:09)
[2022-10-23] MEDS: BENZONATATE 100 MG CAPSULE 200 MG PO ×2 (09:09→13:19)
[2022-10-23] MEDS: POTASSIUM CHLORIDE 20 MEQ ER TABLET 40 MEQ PO (09:09)
[2022-10-23] MEDS: OMEGA 3 POLYUNSAT FATTY ACIDS 1 GM CAP PO (09:09)
[2022-10-23] MEDS: PANTOPRAZOLE 40 MG TABLET PO (09:09)
[2022-10-23] MEDS: ISOSORBIDE DINITRATE 10 MG TABLET 30 MG PO (09:09)
[2022-10-23] MEDS: FAMOTIDINE 20 MG TABLET 40 MG PO (09:09)
[2022-10-23] MEDS: POTASSIUM CHLORIDE 10 MEQ ER TABLET PO (09:09)
[2022-10-23] MEDS: TOPIRAMATE 25 MG TABLET 50 MG PO (09:09)
[2022-10-23] MEDS: SPIRONOLACTONE 25 MG TABLET PO (09:09)
[2022-10-23] MEDS: lamoTRIgine 100 MG TABLET PO (09:10)
[2022-10-23] MEDS: METOPROLOL TARTRATE 25 MG TABLET PO (09:10)
[2022-10-23] MEDS: TOLNAFTATE 1% POWDER 45 GM BTL 1 APPLIC TOPICAL (09:17)
[2022-10-23 11:36] LABS: Alveolar/Arterial O2 Gradient 136.4 mmHg; Base Excess ABG 5.1 mEq/l (+/-2.0); Fractional Inspired Oxygen 36 %; HCO3 ABG 30.8 mEq/l (22.0-26.0); Oxygen Content ABG 18.6 %vol (16.0-22.0); Oxygen Saturation ABG 92.2 % (95.0-100.0); Oxyhemoglobin 89.5 % THb (90.0-100.0); PCO2 ABG 49.2 mmHg (35.0-45.0); PO2 ABG 63.2 mmHg (80.0-100.0); PO2 FiO2 Ratio Arterial Blood 1.76 %; Total Hemoglobin 14.8 g/dL (12.0-18.0); pH ABG 7.415 (7.350-7.450)
[2022-10-23 11:39] LABS: Device NASAL CANNULA; Modified Allen's Test Pass; Site Drawn LEFT RADIAL
--- NOTE | 2022-10-23 12:11 | PM.DS ---
DS: Admitting Diagnosis Discharge Date 10/23/2022 Admitting Diagnosis ROQUE Hypertension Depression with anxiety Obstructive sleep apnea Altered mental status COPD Generalized weakness CHF DS: Discharge Diagnosis Discharge Diagnosis (1) Periprosthetic fracture around internal prosthetic right shoulder joint, subsequent encounter: Code(s): M97.31XD - Periprosthetic fracture around internal prosthetic right shoulder joint, subsequent encounter Status: Acute Assessment and Plan: nonoperative management, follow up with Dr. Morocho in clinic (2) AMS (altered mental status): Qualifiers: Altered mental status type: unspecified Qualified Code(s): R41.82 - Altered mental status, unspecified Code(s): R41.82 - Altered mental status, unspecified Status: Acute Assessment and Plan: Thought to be related to increased pain medication use and muscle relaxers leading to sedation also likely that patient not wearing CPAP leading to CO2 retention on top of medication use. (3) Acute kidney injury superimposed on chronic kidney disease: Code(s): N17.9 - Acute kidney failure, unspecified; N18.9 - Chronic kidney disease, unspecified Status: Acute Assessment and Plan: Improved (4) Depression with anxiety: Code(s): F41.8 - Other specified anxiety disorders Status: Acute (5) Obstructive sleep apnea: Code(s): G47.33 - Obstructive sleep apnea (adult) (pediatric) Status: Acute Assessment and Plan: CPAP orders for [facility] (6) COPD (chronic obstructive pulmonary disease): Code(s): J44.9 - Chronic obstructive pulmonary disease, unspecified Status: Acute Assessment and Plan: chronic oxygen use (7) Chronic hypokalemia: Code(s): E87.6 - Hypokalemia Status: Acute Assessment and Plan: increased to 20 mEq daily (8) Hypertension: Code(s): I10 - Essential (primary) hypertension Status: Acute Assessment and Plan: Resume prior medications Plan DC to SNF/NH DS: Summary Hospital Course Reason for hospitalization: This is a 61-year-old female patient with a history of COPD and obstructive sleep apnea recently fell and has a periprosthetic fracture right shoulder/arm without hardware loosening. Pain medication was increased and patient now presented with altered mental status. Hospital Course: Patient admitted overnight with altered mental status found the next morning to be alert and oriented. Initial ABG shows some hypercapnia but pH was compensated. It is felt that increased pain medication contributed to drowsiness and patient not using CPAP which led to increased CO2 retention. Status at Discharge Cognitive/behavioral status at discharge: awake, alert, oriented, improved cognition Functional status at discharge: uses cane/walker Overall status at discharge: patient is progressing back to baseline Time Spent with Patient Time attestation: Total time spent providing and/or coordinating discharge services: Time spent: Greater than 30 minutes Exam Narrative: GENERAL: Chronically ill-appearing wearing oxygen 4 liters/minute no respiratory distress. Patient awake and alert oriented. She states that she feels back to normal. HEENT: Pupils are equally round and briskly reactive to light. Extraocular muscles are intact. Oral mucous membranes are moist without lesions. NECK: The patient has no noted JVD. No adenopathy is appreciated. CHEST/LUNGS: Lungs are diminished bilaterally without gerry rhonchi or wheezes. HEART: The patient has a regular rate and rhythm. No murmurs, rubs, or gallops are appreciated. Distal pulses are 2+. ABDOMEN: The patient?s abdomen is obese, soft, nontender, and nondistended. Bowel sounds are positive. No peritoneal signs. EXTREMITIES: The patient has no peripheral edema. There is no focal long bone tenderness or deformity. SKIN: The patient?s skin is warm and dry, w
[2022-10-23 14:28] LABS: SARS-CoV-2 RNA PCR Negative (Negative)
== END 2022-10-23 15:45 ==
LOC: ANHED 17:05 → ANH3MED 18:06
PROVIDERS: Nurse Practitioner; Admitting Provider Hospitalist; Emergency Provider Student in an Organized Health Care Education/Training Program; PCP Hospitalist; Visit Provider Family Medicine
DX: R41.82 Altered mental status, unspecified (principal); M97.31XD Periprosthetic fracture around internal prosthetic right shoulder joint, subsequent encounter; N17.9 Acute kidney failure, unspecified; J44.9 Chronic obstructive pulmonary disease, unspecified; Z99.81 Dependence on supplemental oxygen; R19.7 Diarrhea, unspecified; Z99.3 Dependence on wheelchair; Z20.822 Contact with and (suspected) exposure to COVID-19; G43.909 Migraine, unspecified, not intractable, without status migrainosus; J96.11 Chronic respiratory failure with hypoxia; I13.0 Hypertensive heart and chronic kidney disease with heart failure and stage 1 through stage 4 chronic kidney disease, or unspecified chronic kidney disease; I50.9 Heart failure, unspecified; N18.9 Chronic kidney disease, unspecified; G62.9 Polyneuropathy, unspecified; F41.8 Other specified anxiety disorders; F31.9 Bipolar disorder, unspecified; E87.1 Hypo-osmolality and hyponatremia; E87.6 Hypokalemia; G47.33 Obstructive sleep apnea (adult) (pediatric); E87.8 Other disorders of electrolyte and fluid balance, not elsewhere classified; E78.5 Hyperlipidemia, unspecified; R79.1 Abnormal coagulation profile; R79.89 Other specified abnormal findings of blood chemistry; R79.81 Abnormal blood-gas level; R94.31 Abnormal electrocardiogram [ECG] [EKG]; R53.1 Weakness; Z87.891 Personal history of nicotine dependence; Z79.82 Long term (current) use of aspirin; Z79.51 Long term (current) use of inhaled steroids; Z79.891 Long term (current) use of opiate analgesic; Z79.1 Long term (current) use of non-steroidal anti-inflammatories (NSAID); Z79.899 Other long term (current) drug therapy; Z82.49 Family history of ischemic heart disease and other diseases of the circulatory system; Z83.6 Family history of other diseases of the respiratory system
CPT/HCPCS: 36415; 36600; 70450; 71045; 76775; 80048; 80053; 81003; 82140; 82550; 82805; 82948; 83605; 83690; 83735; 84443; 84484; 85025; 85027; 86140; 87040; 87635; 87637; 93005; 94640; 94660; 99285; A9270; G0378; G0379

== ENCOUNTER 2022-10-29 14:14 | Inpatient (IN) | payer OTHER, SELFPAY ==
[2022-10-29] VITALS (38 sets, daily range): BP systolic 95–134; BP diastolic 45–119; PULSE 76–90; RESP 13–23; TEMP 36.1–36.8; O2SAT 93–100
--- NOTE | ~2022-10-29 | XR_ITS ---
EXAMINATION: XR chest 1V DATE: 10/29/2022 17:01 INDICATION: Shortness of breath. TECHNIQUE: A single frontal view of the chest was obtained. COMPARISON: Chest view 10/21/2022 FINDINGS: There are lucencies in the lungs, consistent with emphysema. There are airspace opacities i n left lower lung zone. No pleural effusion or pneumothorax. The heart size is normal. There is a tot al right shoulder arthroplasty. IMPRESSION: 1. Airspace opacities in left lower lung zone, consistent with atelectasis versus pneumonia. 2. Emphysema. Reviewed, dictated and finalized at location E. IMPRESSION: 1. Airspace opacities in left lower lung zone, consistent with atelectasis vers us pneumonia. 2. Emphysema.
--- NOTE | ~2022-10-29 | XR_ITS ---
EXAMINATION: XR elbow RT min 3V DATE: 10/29/2022 17:01 INDICATION: Right elbow injury. Fall. TECHNIQUE: 3 views of right elbow were obtained. COMPARISON: Radiographs 10/23/2012 FINDINGS: Bone alignment is normal. No fracture. There is mild elbow joint osteoarthritis. No elbow j oint effusion. IMPRESSION: 1. Mild elbow joint osteoarthritis. Reviewed, dictated and finalized at location E.
--- NOTE | ~2022-10-29 | XR_ITS ---
EXAMINATION: XR shoulder RT min 2V DATE: 10/29/2022 17:01 INDICATION: Right shoulder injury. TECHNIQUE: 2 views of right shoulder were obtained. COMPARISON: Right shoulder radiograph 10/19/2022 FINDINGS: There is a reverse [id number] total right shoulder arthroplasty in near-anatomic align ment. Again seen is a periprosthetic fracture of proximal right humerus. The fracture fragment involv ing the greater tuberosity demonstrates 2.2 cm lateral displacement. There are likely changes of dist al clavicle resection. There is a loose body in the axillary recess. IMPRESSION: 1. Reverse [id number] total right shoulder arthroplasty with periprosthetic humeral fracture wit h worsened alignment. Reviewed, dictated and finalized at location E. IMPRESSION: 1. Reverse [id number] total right shoulder arthroplasty with periprostheti c humeral fracture with worsened alignment.
--- NOTE | 2022-10-29 15:02 | ED.RECABL ---
HPI - Recheck/Abnormal Lab/Rx General Chief Complaint: Recheck/Abnormal Lab/Rx Stated Complaint: abnormal labs Time Seen by Provider: 10/29/22 14:46 History of Present Illness HPI narrative: Patient is a 61-year-old female with a history of spina bifida, left BKA, bipolar disorder, chronic respiratory failure on baseline O2 presenting for evaluation of possible abnormal labs. Patient is coming from a nursing facility. Blood work was drawn approximately 4 days ago and she was noted to have a low potassium. She was sent in for further evaluation today. Patient reports acute on chronic right shoulder pain after a fall. Denies striking her head or loss of consciousness. Other than shoulder pain, patient denies any complaints. States she is not really sure why she is here. Related Data Home Medications Medication Instructions Recorded Confirmed allopurinol 300 mg tablet 300 mg PO DAILY 07/02/20 10/21/22 aspirin 81 mg tablet 81 mg PO DAILY 07/02/20 10/21/22 atorvastatin 40 mg tablet 40 mg PO HS 07/02/20 10/21/22 gabapentin 800 mg tablet 800 mg PO TID 07/02/20 10/21/22 lamotrigine 25 mg tablet 100 mg PO BID 07/02/20 10/21/22 montelukast 10 mg tablet 10 mg PO HS 07/02/20 10/21/22 omega-3 fatty acids-vitamin E 1 cap PO BID 07/02/20 10/21/22 1,000 mg capsule trazodone 50 mg tablet 100 mg PO HS 07/02/20 10/21/22 aripiprazole 5 mg tablet 5 mg PO DAILY 05/07/22 10/21/22 bupropion HCl 150 mg tablet,12 hr 150 mg PO BID 05/07/22 10/21/22 sustained-release (Wellbutrin SR) famotidine 40 mg tablet 40 mg PO DAILY 05/07/22 10/21/22 fluticasone 250 mcg-salmeterol 50 1 inh inhalation DAILY PRN Allergy 05/07/22 10/21/22 mcg/dose blistr powdr for Symptoms inhalation (Wixela Inhub) topiramate 50 mg tablet 50 mg PO BID 05/07/22 10/21/22 benzonatate 200 mg capsule 200 mg PO TID 10/19/22 10/21/22 cyclobenzaprine 10 mg tablet 10 mg PO DAILY 10/19/22 10/21/22 duloxetine 30 mg capsule,delayed 30 mg PO DAILY 10/19/22 10/21/22 release furosemide 40 mg tablet 40 mg PO BID 10/19/22 10/21/22 isosorbide dinitrate 30 mg tablet 30 mg PO DAILY 10/19/22 10/21/22 metolazone 2.5 mg tablet 2.5 mg PO EVERY OTHER DAY 10/19/22 10/21/22 omeprazole 20 mg capsule,delayed 20 mg PO DAILY 10/19/22 10/21/22 release sennosides 8.6 mg tablet (senna) 8.6 mg PO BID 10/19/22 10/21/22 spironolactone 25 mg tablet 25 mg PO BID 10/19/22 10/21/22 sumatriptan succinate 100 mg tablet 100 mg PO BID PRN Migraine Headache 10/19/22 10/21/22 acetaminophen 325 mg chewable 650 mg PO Q6-8H PRN Pain 10/21/22 10/21/22 tablet acetaminophen 325 mg chewable 650 mg PO Q6H PRN Pain (Scale 10/29/22 10/29/22 tablet Score 1-3) ipratropium 0.5 mg-albuterol 3 mg 3 ml inhalation TID PRN Shortness 10/29/22 10/29/22 (2.5 mg base)/3 mL nebulization Of Breath Or Wheezing soln trazodone 50 mg tablet 100 mg PO HS 10/29/22 10/29/22 Allergies Allergy/AdvReac Type Severity Reaction Status Date / Time bee venom protein (honey bee) Allergy Severe Anaphylaxis Verified 11/01/22 08:01 Penicillins Allergy Anaphylaxis Verified 11/01/22 08:01 fixodent Allergy Hives Uncoded 11/01/22 08:01 Review of Systems Review of Systems: All systems reviewed & are unremarkable except as noted in HPI and below PMFSH Past Medical History Medical History (Updated 11/02/22 @ 14:09 by Ai Christian MD) Asthma Bipolar 1 disorder Chronic hypoxemic respiratory failure CKD (chronic kidney disease) COPD (chronic obstructive pulmonary disease) COVID-19 ruled out Depression with anxiety Herniated disc (~10/19/22) History of cervical cancer History of kidney stones 9 episodes, 3 procedures History of tobacco abuse Hyperlipidemia Hypertension Morbid obesity with BMI of 50.0-59.9, adult Obstructive sleep apnea On home O2 5L Peripheral neuropathy Right humeral fracture Proximal periprosthetic greater tuberosity fracture October 2022 Surgical History Surgical History (Updated 11/01/22 @ 08:01 by Mook Granda
[2022-10-29 16:12] LABS: Basophils Absolute Auto 0.1 K/mm3 (0.0-0.1); Basophils Percent Auto 0.3 % (0.2-1.2); Eosinophils Absolute Auto 0.3 K/mm3 (0-0.3); Eosinophils Percent Auto 1.8 % (0-4.4); Hematocrit 46.3 % (37.0-47.0); Hemoglobin 14.7 g/dL (12.0-15.0); Immature Granulocyte Absolute 0.18 K/mm3 (0.00-0.031); Immature Granulocyte Percent A 1.2 % (0-0.5); Lymphocytes Absolute Auto 1.88 K/mm3 (0.9-3.2); Lymphocytes Percent Auto 12.7 % (18.3-44.2); Mean Corpuscular HGB Conc 31.7 g/dl (32-36); Mean Corpuscular Hemoglobin 26.7 pg (26-34); Mean Platelet Volume 11.5 fl (7.4-10.4); Monocytes Absolute Auto 1.6 K/mm3 (0.1-0.6); Monocytes Percent Auto 10.5 % (2.6-8.5); Neutrophils Absolute Auto 10.9 K/mm3 (1.3-6.7); Neutrophils Percent Auto 73.5 % (45.5-73.1); Platelet Count Result 243 k/mm3 (150-375); Red Blood Count 5.51 M/mm3 (4.2-5.4); Red Cell Distribution Width 15.1 % (11.5-14.5); White Blood Count 14.8 K/mm3 (4.5-10.0)
[2022-10-29 16:35] LABS: Anion Gap 12 mmol/L (8-16); Blood Urea Nitrogen 78 mg/dL (7-17); Calcium 9.3 mg/dL (8.4-10.2); Carbon Dioxide 31 mmol/L (22-30); Chloride 89 mmol/L (98-107); Estimated CRCL calculation 40 ml/min; Estimated Glomerular Filt Rate 23; Glucose 140 mg/dL (65-110); Magnesium 2.5 mg/dL (1.6-2.3); Potassium 2.8 mmol/L (3.4-5.0); Sodium 132 mmol/L (137-145)
[2022-10-29 16:59] LABS: Appearance Urine Cloudy (Clear); Bacteria Urine 4+ /hpf; Bilirubin Urine Negative (Negative); Blood Urine 2+ (Negative); Color Urine Yellow (Yellow); Glucose Urine UA Negative (Negative); Ketones Urine Negative (Negative); Leukocyte Esterase Ur 3+ LEU/UL (Negative); Need Manual Microscopic Reviewed; Nitrate Urine Negative (Negative); Non Pathogenic Casts >20; Protein Urine Negative (Negative); Specific Grav Ur 1.014 (1.001-1.035); Squamous Epithelial Cell Urine None seen /hpf (Few); WBC Urine >100 /hpf; pH Urine 5.5 (5.0-9.0)
[2022-10-29 17:00] LABS: Add Urine Microscopic? YES
[2022-10-29] MEDS: POTASSIUM CHLORIDE INJ 40 MEQ in SODIUM CHLORIDE 0.9% IV 500 ML 130 MEQ IVPB (17:15)
[2022-10-29] MEDS: POTASSIUM CHLORIDE 20 MEQ PACKET (FOR LIQUID) 40 MEQ PO (17:15)
[2022-10-29] MEDS: cefTRIAXone 2 GM/NS 100 ML 2 GM/100 ML BAG IVPB (18:45)
--- NOTE | 2022-10-29 19:05 | PC.NURSE ---
This RN took patient report from JONES Bridges. This RN assumed care of patient.
[2022-10-29] MEDS: AZITHROMYCIN 500 MG/NS 250 ML 500 MG/250 ML BAG 250 MG IVPB (19:19)
[2022-10-29] MEDS: SODIUM CHLORIDE 0.9% IV 1,000 ML 999 ML IV CONT (19:33)
--- NOTE | 2022-10-29 20:56 | PM.IMHP ---
H&P: HPI History of Present Illness Date/Time: 10/29/22 20:56 Chief Complaint: SHORTNESS OF BREATH Narrative: THIS IS A 61-YEAR-OLD FEMALE WITH PAST MEDICAL HISTORY SIGNIFICANT FOR CHRONIC HYPOXIC RESPIRATORY FAILURE ON SUPPLEMENTAL OXYGEN BY NASAL CANNULA 2 L, MORBID OBESITY, COPD/ EMPHYSEMA. PATIENT PRESENTS TO THE EMERGENCY ROOM DUE TO SHORTNESS OF BREATH REQUIRING HIGHER THAN USUAL SUPPLEMENT OF OXYGEN. PATIENT IS UNABLE TO GIVE MUCH HISTORY. PRELIMINARY WORKUP WAS SIGNIFICANT FOR A SODIUM 132 CHLORIDE 85 BUN 78 CREATININE 2.2 BICARB 30 A CHEST X-RAY WAS SIGNIFICANT FOR INFILTRATES A URINALYSIS HAD NUMEROUS WBCS PRESENT. EXAMINATION: XR chest 1V DATE: 10/29/2022 17:01 INDICATION: Shortness of breath. TECHNIQUE: A single frontal view of the chest was obtained. COMPARISON: Chest view 10/21/2022 FINDINGS: There are lucencies in the lungs, consistent with emphysema. There are airspace opacities in left lower lung zone. No pleural effusion or pneumothorax. The heart size is normal. There is a total right shoulder arthroplasty. IMPRESSION: 1. Airspace opacities in left lower lung zone, consistent with atelectasis versus pneumonia. 2. Emphysema. Review of Systems Review of Systems: ROS unobtainable: Yes unobtainable due to mental status ( OBTUNDATION) [facility] Social History Social History Smoking packs per day: 1 Smoking cigarettes per day: 20.0 Years smoked: 50 Smoking pack-years: 50.00 Smoking status: Former smoker Alcohol intake: former Substance use: never Lack of Transportation: No Lack of Food: Never True Current Housing: I Do Not Have Housing Concerned About Future Housing: No Difficulty Paying Gas/Electric Bills: No Difficulty Paying for Meds: No Currently Unemployed: No Education: High School Diploma/GED Difficulty w/ Childcare or Family Care: No Spiritual care concerns: No Meds Home Medications and Allergies Home Medications Medication Instructions Recorded Confirmed Type acetaminophen 325 mg chewable 650 mg PO Q6H PRN Pain (Scale 10/29/22 10/29/22 History tablet Score 1-3) albuterol sulfate 90 mcg/actuation 2 inh inhalation Q4H PRN Shortness 10/29/22 10/29/22 History aerosol inhaler Of Breath Or Wheezing allopurinol 300 mg tablet 300 mg PO DAILY 10/29/22 10/29/22 History aripiprazole 5 mg tablet 5 mg PO DAILY 10/29/22 10/29/22 History ascorbic acid (vitamin C) 500 mg 500 mg PO BID 10/29/22 10/29/22 History tablet aspirin 81 mg chewable tablet 81 mg PO DAILY 10/29/22 10/29/22 History atorvastatin 40 mg tablet 40 mg PO DAILY 10/29/22 10/29/22 History benzonatate 200 mg capsule 200 mg PO TID 10/29/22 10/29/22 History bupropion HCl 150 mg tablet,12 hr 150 mg PO BID 10/29/22 10/29/22 History sustained-release buspirone 7.5 mg tablet 7.5 mg PO BID 10/29/22 10/29/22 History cyclobenzaprine 10 mg tablet 10 mg PO DAILY 10/29/22 10/29/22 History docusate sodium 100 mg capsule 100 mg PO DAILY PRN Constipation 10/29/22 10/29/22 History (Colace) duloxetine 30 mg capsule,delayed 30 mg PO DAILY 10/29/22 10/29/22 History release famotidine 40 mg tablet 40 mg PO DAILY 10/29/22 10/29/22 History fluticasone 250 mcg-salmeterol 50 1 ea inhalation TID PRN Shortness 10/29/22 10/29/22 History mcg/dose blistr powdr for Of Breath Or Wheezing inhalation (Advair Diskus) furosemide 40 mg tablet 40 mg PO BID 10/29/22 10/29/22 History gabapentin 800 mg tablet 800 mg PO TID 10/29/22 10/29/22 History ipratropium 0.5 mg-albuterol 3 mg 3 ml inhalation TID PRN Shortness 10/29/22 10/29/22 History (2.5 mg base)/3 mL nebulization Of Breath Or Wheezing soln isosorbide dinitrate 30 mg tablet 30 mg PO DAILY 10/29/22 10/29/22 History lamotrigine 100 mg tablet 100 mg PO BID 10/29/22 10/29/22 History metolazone 2.5 mg tablet 2.5 mg PO DAILY 10/29/22 10/29/22 History metoprolol succinate 25 mg 25 mg PO BID
[2022-10-29 22:13] LABS: Glucose Point of Care 107 mg/dl (65-105)
--- NOTE | 2022-10-29 22:17 | ADMGEN ---
This patient, Fariba Olson, was admitted to [facility] Surg Room 329-01. Patient/family oriented to hospital policies and general routines including ID bracelet, bed and alarms, visiting hours, pain management, procedures, bathroom and other care routines, personal items, smoking policy, room service/diet, and visiting hours. Information on how to activate the Rapid Response Team has been discussed. Patient/Family are encouraged to report perceived risks to care and to ask questions if they do not understand what they are told or what they should do.
[2022-10-30] VITALS (13 sets, daily range): BP systolic 104–153; BP diastolic 59–76; PULSE 73–91; RESP 12–16; TEMP 35.7–36.1; O2SAT 95–100
[2022-10-30 10:21] LABS: Basophils Absolute Auto 0.1 K/mm3 (0.0-0.1); Basophils Percent Auto 0.6 % (0.2-1.2); Eosinophils Absolute Auto 0.3 K/mm3 (0-0.3); Eosinophils Percent Auto 2.5 % (0-4.4); Hematocrit 46.8 % (37.0-47.0); Hemoglobin 14.4 g/dL (12.0-15.0); Immature Granulocyte Absolute 0.15 K/mm3 (0.00-0.031); Immature Granulocyte Percent A 1.3 % (0-0.5); Lymphocytes Absolute Auto 1.89 K/mm3 (0.9-3.2); Mean Corpuscular HGB Conc 30.8 g/dl (32-36); Mean Corpuscular Hemoglobin 26.6 pg (26-34); Mean Corpuscular Volume 86.3 fl (80-100); Monocytes Absolute Auto 1.6 K/mm3 (0.1-0.6); Neutrophils Absolute Auto 7.2 K/mm3 (1.3-6.7); Neutrophils Percent Auto 64.6 % (45.5-73.1); Platelet Count Result 208 k/mm3 (150-375); Red Blood Count 5.42 M/mm3 (4.2-5.4); Red Cell Distribution Width 15.1 % (11.5-14.5); White Blood Count 11.2 K/mm3 (4.5-10.0)
[2022-10-30 10:36] LABS: Alanine Aminotransferase 54 U/L (6-35); Alkaline Phosphatase 172 U/L (38-126); Anion Gap 11 mmol/L (8-16); Aspartate Amino Transferase 52 U/L (14-36); Bilirubin,Total 0.7 mg/dL (0.2-1.3); Blood Urea Nitrogen 59 mg/dL (7-17); Calcium 9.4 mg/dL (8.4-10.2); Carbon Dioxide 32 mmol/L (22-30); Chloride 93 mmol/L (98-107); Estimated CRCL calculation 52 ml/min; Estimated Glomerular Filt Rate 31; Glucose 120 mg/dL (65-110); Magnesium 2.7 mg/dL (1.6-2.3); Potassium 2.8 mmol/L (3.4-5.0); Sodium 136 mmol/L (137-145)
[2022-10-30] MEDS: POTASSIUM CHLORIDE 20 MEQ ER TABLET 80 MEQ PO (10:59)
--- NOTE | 2022-10-30 11:00 | PM.IMPN ---
Progress Note: A&P Assessment and Plan (1) Acute on chronic respiratory failure with hypoxia: Code(s): J96.21 - Acute and chronic respiratory failure with hypoxia Status: Acute Assessment and Plan: Presented to the ED after fall. It is also noted that the patient has required 4 L nasal cannula up from her chronic 2L Current saturations >95% wean supplemental oxygen to maintain saturations >92% Neb treatments ordered Chest xray indicates PNA (2) Pneumonia: Qualifiers: Laterality: left Lung location: lower lobe of lung Pneumonia type: due to unspecified organism Qualified Code(s): J18.9 - Pneumonia, unspecified organism Code(s): J18.9 - Pneumonia, unspecified organism Status: Acute Assessment and Plan: Requiring more oxygen then baseline of 2 LNC Chest xray shows acute PNA in the left lower lung zone consistent with atelectasis vs PNA Azithromycin and Ceftriaxone continued WBCs slightly elevated at 14.8 up admission, currently 11.2 Neb treatments Sputum culture ordered Trend labs Wean supplemental oxygen to maintain saturation >92% (3) UTI (urinary tract infection): Qualifiers: Hematuria presence: without hematuria Urinary tract infection type: site unspecified Qualified Code(s): N39.0 - Urinary tract infection, site not specified Code(s): N39.0 - Urinary tract infection, site not specified Status: Acute Assessment and Plan: UA leukocyte esterase 3+, WBC >100, Bacteria 4+ Currently on ceftriaxone Urine culture pending Tailor antibiotics to culture results (4) ROQUE (acute kidney injury): Code(s): N17.9 - Acute kidney failure, unspecified Status: Acute Assessment and Plan: BUN/Cr 78/2.20, at admission Current BUN/Cr 59/1.70 trend urine output Related to UTI Trend labs Adjust therapy as indicated Continue IV fluids (5) Leukocytosis: Qualifiers: Leukocytosis type: unspecified Qualified Code(s): D72.829 - Elevated white blood cell count, unspecified Code(s): D72.829 - Elevated white blood cell count, unspecified Status: Acute Assessment and Plan: WBC 14.8 currently trending down at 11.2 Most likely related to the UTI and PNA Continue to trend labs Continue antibiotic therapy Tailor antibiotics to culture results (6) Morbid obesity with BMI of 50.0-59.9, adult: Code(s): E66.01 - Morbid (severe) obesity due to excess calories; Z68.43 - Body mass index [BMI] 50.0-59.9, adult Status: Acute Assessment and Plan: Lifestyle changes consider charger consult (7) Acute hypokalemia: Code(s): E87.6 - Hypokalemia Status: Acute Assessment and Plan: K is 2.8, Replacement given Repeat K was 2.8 80 mcg p.o. and 40 IV given will do repeat this afternoon continue to trend labs Adjust therapy as indicated (8) Right humeral fracture: Qualifiers: Encounter type: initial encounter Humerus Location: proximal Fracture type: closed Fracture morphology: other fracture Fracture alignment: displaced Qualified Code(s): S42.291A - Other displaced fracture of upper end of right humerus, initial encounter for closed fracture Code(s): S42.301A - Unspecified fracture of shaft of humerus, right arm, initial encounter for closed fracture Status: Acute Assessment and Plan: Humerus on the right side hip is noted to be fractured Sling ordered Orthopedics consulted PT and OT when appropriate Will need weight-bearing status Pain medications on board Time Spent With Patient Time: 52 minutes Time with patient: Greater than 35 minutes Subjective Date/time seen: 10/30/22 1100 Interval history: 10/30/22 1100 Patient was lying in bed. She denies any current shortness of breath
--- NOTE | 2022-10-30 11:00 | P.PNIM_ITS ---
Progress Note: A&P Assessment and Plan (1) Acute on chronic respiratory failure with hypoxia: Code(s): J96.21 - Acute and chronic respiratory failure with hypoxia Status: Acute Assessment and Plan: * Presented to the ED after fall. It is also noted that the patient has required 4 L nasal cannula up from her chronic 2L * Current saturations >95% * wean supplemental oxygen to maintain saturations >92% * Neb treatments ordered * Chest xray indicates PNA (2) Pneumonia: Qualifiers: Laterality: left Lung location: lower lobe of lung Pneumonia type: due to unspecified organism Qualified Code(s): J18.9 - Pneumonia, unspecified organism Code(s): J18.9 - Pneumonia, unspecified organism Status: Acute Assessment and Plan: * Requiring more oxygen then baseline of 2 LNC * Chest xray shows acute PNA in the left lower lung zone consistent with atelectasis vs PNA * Azithromycin and Ceftriaxone continued * WBCs slightly elevated at 14.8 up admission, currently 11.2 * Neb treatments * Sputum culture ordered * Trend labs * Wean supplemental oxygen to maintain saturation >92% (3) UTI (urinary tract infection): Qualifiers: Hematuria presence: without hematuria Urinary tract infection type: site unspecified Qualified Code(s): N39.0 - Urinary tract infection, site not specified Code(s): N39.0 - Urinary tract infection, site not specified Status: Acute Assessment and Plan: * UA leukocyte esterase 3+, WBC >100, Bacteria 4+ * Currently on ceftriaxone * Urine culture pending * Tailor antibiotics to culture results (4) ROQUE (acute kidney injury): Code(s): N17.9 - Acute kidney failure, unspecified Status: Acute Assessment and Plan: * BUN/Cr 78/2.20, at admission * Current BUN/Cr 59/1.70 * trend urine output * Related to UTI * Trend labs * Adjust therapy as indicated * Continue IV fluids (5) Leukocytosis: Qualifiers: Leukocytosis type: unspecified Qualified Code(s): D72.829 - Elevated white blood cell count, unspecified Code(s): D72.829 - Elevated white blood cell count, unspecified Status: Acute Assessment and Plan: * WBC 14.8 currently trending down at 11.2 * Most likely related to the UTI and PNA * Continue to trend labs * Continue antibiotic therapy * Tailor antibiotics to culture results (6) Morbid obesity with BMI of 50.0-59.9, adult: Code(s): E66.01 - Morbid (severe) obesity due to excess calories; Z68.43 - Body mass index [BMI] 50.0-59.9, adult Status: Acute Assessment and Plan: * Lifestyle changes * 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 and 40 IV given will do repeat this afternoon * continue to trend labs * Adjust therapy as indicated (8) Right humeral fracture: Qualifiers: Encounter type: initial encounter Humerus Location: proximal Fracture type: closed Fracture morphology: other fracture Fracture alignment: displaced Qualified Code(s): S42.291A - Other displaced fracture of upper end of right humerus, initial encounter for close
[2022-10-30] MEDS: lamoTRIgine 100 MG TABLET PO ×2 (11:01→17:33)
[2022-10-30] MEDS: ASCORBIC ACID 500 MG TABLET PO ×2 (11:01→17:32)
[2022-10-30] MEDS: DULoxetine HCL 30 MG CAPSULE.DR PO (11:01)
[2022-10-30] MEDS: SENNA/DOCUSATE SODIUM TABLET 1 TAB PO ×2 (11:02→17:33)
[2022-10-30] MEDS: ARIPiprazole 5 MG TABLET PO (11:02)
[2022-10-30] MEDS: ASPIRIN 81 MG CHEWABLE TABLET PO (11:02)
[2022-10-30] MEDS: CYCLOBENZAPRINE HCL 10 MG TABLET PO (11:03)
[2022-10-30] MEDS: METOPROLOL SUCCINATE EXT REL 25 MG TABCR PO ×2 (11:03→21:34)
[2022-10-30] MEDS: FAMOTIDINE 20 MG TABLET 40 MG PO (11:04)
[2022-10-30] MEDS: TOPIRAMATE 25 MG TABLET 50 MG PO ×2 (11:04→17:32)
[2022-10-30] MEDS: ATORVASTATIN 40 MG TABLET PO (11:04)
[2022-10-30] MEDS: GABAPENTIN 400 MG CAPSULE 800 MG PO ×3 (11:05→21:36)
[2022-10-30] MEDS: ISOSORBIDE DINITRATE 10 MG TABLET 30 MG PO (11:05)
[2022-10-30] MEDS: BENZONATATE 100 MG CAPSULE 200 MG PO ×3 (11:06→21:35)
[2022-10-30] MEDS: PANTOPRAZOLE 40 MG TABLET PO (11:06)
[2022-10-30] MEDS: allopurinoL 300 MG TABLET PO (11:06)
[2022-10-30] MEDS: busPIRone HCL 2.5 MG TABLET PO ×2 (11:07→17:32)
[2022-10-30] MEDS: buPROPion HCL SR (12 HR) 150 MG TAB PO ×2 (11:07→17:32)
[2022-10-30] MEDS: busPIRone HCL 5 MG TABLET PO ×2 (11:07→17:33)
[2022-10-30] MEDS: TOLNAFTATE 1% POWDER 45 GM BTL 1 APPLIC TOPICAL ×2 (11:08→21:40)
[2022-10-30] MEDS: oxyCODONE/ACETAMINOPHEN (*CRX) 5-325 MG TABLET 1 TABLET PO (11:10)
[2022-10-30] MEDS: oxyCODONE HCL (*CRX) 2.5 MG TAB IR PO (11:10)
[2022-10-30] MEDS: POTASSIUM CHLORIDE INJ 40 MEQ in SODIUM CHLORIDE 0.9% IV 500 ML 130 MEQ IVPB (11:18)
[2022-10-30] MEDS: cefTRIAXone 2 GM/NS 100 ML 2 GM/100 ML BAG IVPB (18:00)
[2022-10-30] MEDS: AZITHROMYCIN 500 MG/NS 250 ML 500 MG/250 ML BAG 250 MG IVPB (18:46)
[2022-10-30] MEDS: traZODone HCL 50 MG TABLET 100 MG PO (21:34)
[2022-10-30] MEDS: MONTELUKAST SODIUM 10 MG TABLET PO (21:34)
[2022-10-31] VITALS (13 sets, daily range): BP systolic 113–158; BP diastolic 59–75; PULSE 63–84; RESP 16; TEMP 35.8–36.6; O2SAT 96–100
[2022-10-31] MEDS: GABAPENTIN 400 MG CAPSULE 800 MG PO ×2 (05:33→13:00)
[2022-10-31] MEDS: BENZONATATE 100 MG CAPSULE 200 MG PO ×3 (05:33→21:59)
[2022-10-31 06:38] LABS: Basophils Absolute Auto 0.1 K/mm3 (0.0-0.1); Basophils Percent Auto 0.5 % (0.2-1.2); Eosinophils Absolute Auto 0.4 K/mm3 (0-0.3); Hematocrit 44.9 % (37.0-47.0); Hemoglobin 13.6 g/dL (12.0-15.0); Immature Granulocyte Absolute 0.13 K/mm3 (0.00-0.031); Immature Granulocyte Percent A 1.3 % (0-0.5); Lymphocytes Absolute Auto 2.28 K/mm3 (0.9-3.2); Mean Corpuscular HGB Conc 30.3 g/dl (32-36); Mean Corpuscular Hemoglobin 26.9 pg (26-34); Mean Corpuscular Volume 88.9 fl (80-100); Mean Platelet Volume 10.8 fl (7.4-10.4); Monocytes Absolute Auto 1.1 K/mm3 (0.1-0.6); Monocytes Percent Auto 10.7 % (2.6-8.5); Neutrophils Absolute Auto 6.4 K/mm3 (1.3-6.7); Neutrophils Percent Auto 61.5 % (45.5-73.1); Platelet Count Result 228 k/mm3 (150-375); Red Blood Count 5.05 M/mm3 (4.2-5.4); Red Cell Distribution Width 15.3 % (11.5-14.5); White Blood Count 10.4 K/mm3 (4.5-10.0)
[2022-10-31 07:05] LABS: Alanine Aminotransferase 50 U/L (6-35); Alkaline Phosphatase 166 U/L (38-126); Anion Gap 13 mmol/L (8-16); Aspartate Amino Transferase 48 U/L (14-36); Bilirubin,Total 0.6 mg/dL (0.2-1.3); Blood Urea Nitrogen 44 mg/dL (7-17); Calcium 9.4 mg/dL (8.4-10.2); Carbon Dioxide 27 mmol/L (22-30); Chloride 99 mmol/L (98-107); Estimated CRCL calculation 62 ml/min; Estimated Glomerular Filt Rate 38; Glucose 99 mg/dL (65-110); Magnesium 2.6 mg/dL (1.6-2.3); Potassium 3.3 mmol/L (3.4-5.0); Sodium 139 mmol/L (137-145)
[2022-10-31] MEDS: UMECLIDINIUM BROMIDE 62.5 MCG ELLIPTA 1 PUFF INHALATION (08:54)
[2022-10-31] MEDS: POTASSIUM CHLORIDE 20 MEQ PACKET (FOR LIQUID) 40 MEQ PO (09:38)
[2022-10-31] MEDS: TOPIRAMATE 25 MG TABLET 50 MG PO ×2 (09:38→16:24)
[2022-10-31] MEDS: FAMOTIDINE 20 MG TABLET 40 MG PO (09:39)
[2022-10-31] MEDS: SENNA/DOCUSATE SODIUM TABLET 1 TAB PO ×2 (09:39→16:24)
[2022-10-31] MEDS: lamoTRIgine 100 MG TABLET PO ×2 (09:39→16:24)
[2022-10-31] MEDS: busPIRone HCL 2.5 MG TABLET PO ×2 (09:39→16:24)
[2022-10-31] MEDS: ATORVASTATIN 40 MG TABLET PO (09:39)
[2022-10-31] MEDS: busPIRone HCL 5 MG TABLET PO ×2 (09:39→16:24)
[2022-10-31] MEDS: ARIPiprazole 5 MG TABLET PO (09:39)
[2022-10-31] MEDS: PANTOPRAZOLE 40 MG TABLET PO (09:39)
[2022-10-31] MEDS: CYCLOBENZAPRINE HCL 10 MG TABLET PO (09:39)
[2022-10-31] MEDS: DULoxetine HCL 30 MG CAPSULE.DR PO (09:39)
[2022-10-31] MEDS: buPROPion HCL SR (12 HR) 150 MG TAB PO ×2 (09:39→16:24)
[2022-10-31] MEDS: ISOSORBIDE DINITRATE 10 MG TABLET 30 MG PO (09:40)
[2022-10-31] MEDS: METOPROLOL SUCCINATE EXT REL 25 MG TABCR PO ×2 (09:40→20:45)
[2022-10-31] MEDS: ASCORBIC ACID 500 MG TABLET PO ×2 (09:40→16:24)
[2022-10-31] MEDS: ASPIRIN 81 MG CHEWABLE TABLET PO (09:40)
[2022-10-31] MEDS: ENOXAPARIN 40 MG/0.4 ML SYRINGE SUB-Q (09:41)
[2022-10-31] MEDS: TOLNAFTATE 1% POWDER 45 GM BTL 1 APPLIC TOPICAL ×2 (09:42→20:40)
[2022-10-31] MEDS: allopurinoL 300 MG TABLET PO (09:44)
[2022-10-31] MEDS: oxyCODONE/ACETAMINOPHEN (*CRX) 5-325 MG TABLET 1 TABLET PO (09:53)
[2022-10-31] MEDS: oxyCODONE HCL (*CRX) 2.5 MG TAB IR PO (09:53)
--- NOTE | 2022-10-31 13:55 | P.PNIM_ITS ---
Progress Note: A&P Assessment and Plan (1) Acute on chronic respiratory failure with hypoxia: Code(s): J96.21 - Acute and chronic respiratory failure with hypoxia Status: Acute Assessment and Plan: * Presented to the ED after fall. It is also noted that the patient has required 4 L nasal cannula up from her chronic 2L * Current saturations >95% * wean supplemental oxygen to maintain saturations >92% * Neb treatments ordered * Chest xray indicates atelectasis vs pna. No pneumonia symptoms. (2) Pneumonia: Qualifiers: Pneumonia type: due to unspecified organism Laterality: left Lung location: lower lobe of lung Qualified Code(s): J18.9 - Pneumonia, unspecified organism Code(s): J18.9 - Pneumonia, unspecified organism Status: Ruled-out Assessment and Plan: * Patient reports baseline of 4 L * Chest xray shows left lower lung zone consistent with atelectasis vs PNA * Azithromycin and Ceftriaxone discontinued due to patient not having pneumonia symptoms * Neb treatments * Sputum culture ordered * Trend labs * Wean supplemental oxygen to maintain saturation >92% (3) UTI (urinary tract infection): Qualifiers: Urinary tract infection type: site unspecified Hematuria presence: without hematuria Qualified Code(s): N39.0 - Urinary tract infection, site not specified Code(s): N39.0 - Urinary tract infection, site not specified Status: Acute Assessment and Plan: * UA leukocyte esterase 3+, WBC >100, Bacteria 4+ * Urine culture positive for E coli ESBL. Discussed with ID pharmacist and will give a 1 time dose of Gent. * Rocephin discontinued * I suspect that patient's white blood cell count is more likely due to UTI rather than pneumonia. * WBCs slightly elevated at 14.8 up admission, currently 10.4 * Tailor antibiotics to culture results (4) ROQUE (acute kidney injury): Code(s): N17.9 - Acute kidney failure, unspecified Status: Acute Assessment and Plan: * BUN/Cr 78/2.20, at admission * Current BUN/Cr 44/1.4 * trend urine output * Related to UTI * Trend labs * Adjust therapy as indicated * Continue IV fluids (5) Leukocytosis: Qualifiers: Leukocytosis type: unspecified Qualified Code(s): D72.829 - Elevated white blood cell count, unspecified Code(s): D72.829 - Elevated white blood cell count, unspecified Status: Acute Assessment and Plan: * WBC 14.8 currently trending down at 10.4 * Most likely related to the UTI * Continue to trend labs * Continue antibiotic therapy * Tailor antibiotics to culture results (6) Acute hypokalemia: Code(s): E87.6 - Hypokalemia Status: Acute Assessment and Plan: * Replacement given * continue to trend labs * Adjust therapy as indicated (7) Right humeral fracture: Qualifiers: Encounter type: initial encounter Humerus Location: proximal Fracture type: closed Fracture morphology: other fracture Fracture alignment: displaced Qualified Code(s): S42.291A - Other displaced fracture of upper end of right humerus, initial encounter for closed fracture Code(s): S42.301A - Unspecified fracture of shaft of humerus, right arm, initial encounter for closed fracture Status: Acute Assessment and Plan: * Humerus on the right side hip is noted to be fractured
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
--- NOTE | 2022-10-31 14:17 | PM.CNOR ---
Assessment and Plan Assessment and plan (1) Right humeral fracture: Qualifiers: Encounter type: initial encounter Humerus Location: proximal Fracture type: closed Fracture morphology: other fracture Fracture alignment: displaced Qualified Code(s): S42.291A - Other displaced fracture of upper end of right humerus, initial encounter for closed fracture Code(s): S42.301A - Unspecified fracture of shaft of humerus, right arm, initial encounter for closed fracture Status: Acute Assessment and Plan: 61-year-old female with an acute fracture of the right proximal humerus greater tuberosity. The implant appears stable on the humeral side and the glenoid side as well. The stability of this construct is really dependent on an intact deltoid which she appears to have. Recommend nonsurgical treatment with a sling and limited use of the right arm for the time being. I will follow while she is in the hospital. Can follow-up in the office in the future. History of Present Illness HPI Consult date: 10/31/22 Consult reason: fracture Chief complaint: Pneumonia, Hypokalemia Narrative: This document created with [id number] technology and is subject to general machinist irregularities. 61-year-old female who is a intermediate resident at [facility]. She fell couple of days ago landing on her right shoulder suffering a greater tuberosity fracture. She is brought to the hospital. She has got pneumonia is being treated for that. I was asked to see her because of the fracture. 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 No other injuries with the fall. Review of Systems Constitutional: Constitutional: Reports no additional constitutional complaints, Denies excessive sweating and Denies fatigue Musculoskeletal: Musculoskeletal: Reports as per HPI [facility] Past Medical History Medical History (Updated 10/31/22 @ 14:24 by Richard Castillo MD) Morbid obesity with BMI of 50.0-59.9, adult Right humeral fracture Proximal periprosthetic greater tuberosity fracture October 2022 Surgical History Surgical History (Updated 10/31/22 @ 14:20 by Richard Castillo MD) History of arthroplasty of right shoulder reverse replacement Dr. Hernández Social History Social History (Updated 10/31/22 @ 14:21 by Richard Castillo MD) Smoking packs per day: 1 Smoking cigarettes per day: 20.0 Years smoked: 50 Smoking pack-years: 50.00 Smoking status: Former smoker Alcohol intake: former Substance use: never Lack of Transportation: No Lack of Food: Never True Current Housing: I Do Not Have Housing Concerned About Future Housing: No Difficulty Paying Gas/Electric Bills: No Difficulty Paying for Meds: No Currently Unemployed: No Education: High School Diploma/GED Difficulty w/ Childcare or Family Care: No Living arrangements: intermediate Additional living arrangements comments: [facility] Spiritual care concerns: No Meds Home Medications and Allergies Home Medications Medication Instructions Recorded Confirmed Type acetaminophen 325 mg chewable 650 mg PO Q6H PRN Pain (Scale 10/29/22 10/29/22 History tablet Score 1-3) albuterol sulfate 90 mcg/actuation 2 inh inhalation Q4H PRN Shortness 10/29/22 10/29/22 History aerosol inhaler Of Breath Or Wheezing allopurinol 300 mg tablet 300 mg PO DAILY 10/29/22 10/29/22 History aripiprazole 5 mg tablet 5 mg PO DAILY 10/29/22 10/29/22 History ascorbic acid (vitamin C) 500 mg 500 mg PO BID 10/29/22 10/29/22 History tablet aspirin 81 mg chewable tablet 81 mg PO DAILY 10/29/22 10/29/22 History atorvastatin 40 mg tablet 40 mg PO DAILY 10/29/22 10/29/22 History benzonatate 200 mg capsule 200 mg PO TID 10/29/22 10/29/22 History bupropion HCl 150 mg tablet,12 hr 150 mg PO BID 10/29/22 10/29/22 History sustained-release buspirone 7.5 mg tablet 7.5 mg PO BID 10/29/22 10/29/22 History
--- NOTE | 2022-10-31 14:45 | PC.NURSE ---
Pt is A&O4 female. Pt has participated and contributed in plan of care. Pt reports pain, that has been treated with medication. Pt unable to safely ambulate to the bathroom so pt was educated that she will use bedside commode or bed garcia from now on. Pt family expressed concerns about previous care and current lab values. Pt and family were educated about lab values. Concerns were expressed to care coordination and provider will be contacted. Pt will continue to be monitored for any changes in status.
[2022-10-31] MEDS: MONTELUKAST SODIUM 10 MG TABLET PO (20:46)
--- NOTE | 2022-10-31 22:13 | PC.NURSE ---
pt segundo during her 2100 med pass. RN did not administer pts dose of trazodone and gabapentin.
[2022-11-01] VITALS (9 sets, daily range): BP systolic 115–124; BP diastolic 61–76; PULSE 65–91; RESP 14–16; TEMP 35.7–36.6; O2SAT 92–100
[2022-11-01] MEDS: GABAPENTIN 400 MG CAPSULE 800 MG PO ×3 (05:25→23:36)
[2022-11-01] MEDS: BENZONATATE 100 MG CAPSULE 200 MG PO ×3 (05:26→23:36)
[2022-11-01 06:05] LABS: Basophils Absolute Auto 0.1 K/mm3 (0.0-0.1); Basophils Percent Auto 0.5 % (0.2-1.2); Eosinophils Absolute Auto 0.3 K/mm3 (0-0.3); Eosinophils Percent Auto 3.2 % (0-4.4); Hematocrit 43.8 % (37.0-47.0); Hemoglobin 13.4 g/dL (12.0-15.0); Lymphocytes Absolute Auto 1.92 K/mm3 (0.9-3.2); Lymphocytes Percent Auto 19.9 % (18.3-44.2); Mean Corpuscular HGB Conc 30.6 g/dl (32-36); Mean Corpuscular Hemoglobin 27.2 pg (26-34); Mean Corpuscular Volume 88.8 fl (80-100); Mean Platelet Volume 10.8 fl (7.4-10.4); Monocytes Percent Auto 10.2 % (2.6-8.5); Neutrophils Absolute Auto 6.3 K/mm3 (1.3-6.7); Neutrophils Percent Auto 65.2 % (45.5-73.1); Platelet Count Result 223 k/mm3 (150-375); Red Blood Count 4.93 M/mm3 (4.2-5.4); Red Cell Distribution Width 15.2 % (11.5-14.5); White Blood Count 9.7 K/mm3 (4.5-10.0)
[2022-11-01 06:24] LABS: Alanine Aminotransferase 47 U/L (6-35); Albumin Level 3.8 g/dL (3.5-5.1); Alkaline Phosphatase 188 U/L (38-126); Anion Gap 10 mmol/L (8-16); Aspartate Amino Transferase 42 U/L (14-36); Bilirubin,Total 0.6 mg/dL (0.2-1.3); Blood Urea Nitrogen 31 mg/dL (7-17); Calcium 9.4 mg/dL (8.4-10.2); Carbon Dioxide 30 mmol/L (22-30); Chloride 96 mmol/L (98-107); Estimated CRCL calculation 62 ml/min; Estimated Glomerular Filt Rate 38; Glucose 103 mg/dL (65-110); Potassium 3.1 mmol/L (3.4-5.0); Sodium 136 mmol/L (137-145)
[2022-11-01] MEDS: lamoTRIgine 100 MG TABLET PO ×2 (08:12→18:50)
[2022-11-01] MEDS: ASCORBIC ACID 500 MG TABLET PO ×2 (08:13→18:49)
[2022-11-01] MEDS: ARIPiprazole 5 MG TABLET PO (08:13)
[2022-11-01] MEDS: busPIRone HCL 2.5 MG TABLET PO ×2 (08:13→18:49)
[2022-11-01] MEDS: TOPIRAMATE 25 MG TABLET 50 MG PO ×2 (08:13→18:50)
[2022-11-01] MEDS: buPROPion HCL SR (12 HR) 150 MG TAB PO ×2 (08:13→18:49)
[2022-11-01] MEDS: ATORVASTATIN 40 MG TABLET PO (08:13)
[2022-11-01] MEDS: PANTOPRAZOLE 40 MG TABLET PO (08:13)
[2022-11-01] MEDS: ASPIRIN 81 MG CHEWABLE TABLET PO (08:13)
[2022-11-01] MEDS: DULoxetine HCL 30 MG CAPSULE.DR PO (08:13)
[2022-11-01] MEDS: FAMOTIDINE 20 MG TABLET 40 MG PO (08:13)
[2022-11-01] MEDS: POTASSIUM CHLORIDE 20 MEQ ER TABLET PO ×2 (08:13→18:50)
[2022-11-01] MEDS: CYCLOBENZAPRINE HCL 10 MG TABLET PO (08:13)
[2022-11-01] MEDS: SENNA/DOCUSATE SODIUM TABLET 1 TAB PO ×2 (08:13→18:49)
[2022-11-01] MEDS: ENOXAPARIN 40 MG/0.4 ML SYRINGE SUB-Q (08:14)
[2022-11-01] MEDS: busPIRone HCL 5 MG TABLET PO ×2 (08:14→18:49)
[2022-11-01] MEDS: allopurinoL 300 MG TABLET PO (08:14)
[2022-11-01] MEDS: ISOSORBIDE DINITRATE 10 MG TABLET 30 MG PO (08:14)
[2022-11-01] MEDS: METOPROLOL SUCCINATE EXT REL 25 MG TABCR PO ×2 (08:15→21:41)
[2022-11-01] MEDS: TOLNAFTATE 1% POWDER 45 GM BTL 1 APPLIC TOPICAL ×2 (08:17→21:40)
[2022-11-01] MEDS: UMECLIDINIUM BROMIDE 62.5 MCG ELLIPTA 1 PUFF INHALATION (09:01)
[2022-11-01] MEDS: oxyCODONE HCL (*CRX) 2.5 MG TAB IR PO ×2 (10:20→18:50)
[2022-11-01] MEDS: POTASSIUM CHLORIDE 20 MEQ ER TABLET 40 MEQ PO (10:21)
[2022-11-01] MEDS: FUROSEMIDE 40 MG TABLET PO ×2 (10:21→18:49)
--- NOTE | 2022-11-01 11:16 | PC.NURSE ---
[facility] called for status on pt. All questions answered.
--- NOTE | 2022-11-01 12:00 | PM.PNORT ---
Progress Note: A&P Assessment and Plan (1) Periprosthetic fracture around internal prosthetic right shoulder joint, subsequent encounter: Code(s): M97.31XD - Periprosthetic fracture around internal prosthetic right shoulder joint, subsequent encounter Status: Acute Assessment and Plan: Continue with sling. Follow up in the office in one month. Subjective Subjective Date/Time Seen: 11/01/22 12:00 Interval history: 61-year-old female with right reverse shoulder replacement periprosthetic fracture involving proximal humerus. No shoulder instability associated with this. Reasonably comfortable. Exam Const: General: cooperative and no acute distress Extrem: Other: Right upper extremity exam unremarkable for new findings. Objective Data Vital Signs Vital Signs: Vital Signs - 24 hr 10/31/22 12:03 10/31/22 14:00 10/31/22 16:01 Temperature 96.5 F L Pulse Rate 84 71 63 Respiratory Rate 16 Blood Pressure 158/59 H Pulse Oximetry 96 Oxygen Delivery Oxygen Flow Rate 10/31/22 20:45 10/31/22 22:00 10/31/22 20:00 Temperature 96.8 F L Pulse Rate 65 67 67 Respiratory Rate 16 Blood Pressure 113/75 Pulse Oximetry 100 Oxygen Delivery Oxygen Flow Rate 11/01/22 00:00 11/01/22 04:00 11/01/22 06:00 Temperature 96.2 F L Pulse Rate 65 66 66 Respiratory Rate 16 Blood Pressure 122/76 Pulse Oximetry 98 Oxygen Delivery Oxygen Flow Rate 11/01/22 08:15 11/01/22 08:00 11/01/22 09:01 Temperature Pulse Rate 91 91 Respiratory Rate 16 Blood Pressure Pulse Oximetry 98 92 Oxygen Delivery Nasal Cannula Nasal Cannula Oxygen Flow Rate 4 4 11/01/22 08:00 Temperature Pulse Rate 67 Respiratory Rate Blood Pressure Pulse Oximetry Oxygen Delivery Oxygen Flow Rate Intake/Output Intake/Output: Intake & Output 10/29/22 10/30/22 10/31/22 11/01/22 23:59 23:59 23:59 23:59 Intake Total 1350 / 1350 1156 / 1156 912 / 912 770 / 770 Output Total 2500 / 2500 1250 / 1250 1000 / 1000 Balance 1350 / 1350 -1344 / -1344 -338 / -338 -230 / -230 Meds/Results Medications: Active Medications Generic Name Dose Route Start Last Admin Trade Name Freq PRN Reason Stop Dose Admin Acetaminophen 650 mg 10/30/22 02:04 Acetaminophen 325 Mg Tablet PO Q6H PRN Pain Rated 1-3 Albuterol 2.5 mg 10/30/22 02:32 Albuterol Sulfate Neb 2.5 Mg/3 Ml Inh INHALATION TID PRN Shortness Of Breath Or Wheezin Allopurinol 300 mg 10/30/22 09:00 11/01/22 08:14 Allopurinol 300 Mg Tablet PO 300 mg DAILY MISSAEL Administration Aripiprazole 5 mg 10/30/22 09:00 11/01/22 08:13 Aripiprazole 5 Mg Tablet PO 5 mg DAILY MISSAEL Administration Ascorbic Acid 500 mg 10/30/22 09:00 11/01/22 08:13 Ascorbic Acid 500 Mg Tablet PO 500 mg BID MISSAEL Administration Aspirin 81 mg 10/30/22 09:00 11/01/22 08:13 Aspirin 81 Mg Chewable Tablet PO 81 mg DAILY MISSAEL Administration Atorvastatin Calcium 40 mg 10/30/22 09:00 11/01/22 08:13 Atorvastatin 40 Mg Tablet PO 40 mg DAILY MISSAEL Administration Benzonatate 200 mg 10/30/22 22:00 11/01/22 05:26 Benzonatate 100 Mg Capsule PO 200 mg Q8HR MISSAEL Administration Bupropion HCl 150 mg 10/30/22 09:00 11/01/22 08:13 Bupropion Hcl Sr (12 Hr) 150 Mg Tab PO 150 mg BID MISSAEL Administration Buspirone HCl 5 mg 10/30/22 09:00 11/01/22 08:14 Buspirone Hcl 5 Mg Tablet PO 5 mg BID MISSAEL Administration Buspirone HCl 2.5 mg 10/30/22 09:00 11/01/22 08:13 Buspirone Hcl 2.5 Mg Tablet PO 2.5 mg BID MISSAEL Administration Cyclobenzaprine HCl 10 mg 10/30/22 09:00 11/01/22 08:13 Cyclobenzaprine Hcl 10 Mg Tablet PO 10 mg DAILY MISSAEL Administration Docusate Sodium 100 mg 10/30/22 02:04 Docusate Sodium 100 Mg Capsule PO DAILY PRN Constipation Duloxetine HCl 30 mg 10/30/22 09:00 11/01/22 08:13 Duloxetine Hcl 30 Mg Capsule.Dr GALVAN
--- NOTE | 2022-11-01 15:42 | P.PNIM_ITS ---
Progress Note: A&P Assessment and Plan (1) Acute on chronic respiratory failure with hypoxia: Code(s): J96.21 - Acute and chronic respiratory failure with hypoxia Status: Acute Assessment and Plan: * Presented to the ED after fall. It is also noted that the patient has required 4 L nasal cannula up from her chronic 2L * Current saturations >95% * wean supplemental oxygen to maintain saturations >92% * Neb treatments ordered * Chest xray indicates atelectasis vs pna. No pneumonia symptoms. (2) Pneumonia: Qualifiers: Pneumonia type: due to unspecified organism Laterality: left Lung location: lower lobe of lung Qualified Code(s): J18.9 - Pneumonia, unspecified organism Code(s): J18.9 - Pneumonia, unspecified organism Status: Ruled-out Assessment and Plan: * Patient reports baseline of 4 L * Chest xray shows left lower lung zone consistent with atelectasis vs PNA * Azithromycin and Ceftriaxone discontinued due to patient not having pneumonia symptoms * Neb treatments * Sputum culture ordered * Trend labs * Wean supplemental oxygen to maintain saturation >92% (3) UTI (urinary tract infection): Qualifiers: Urinary tract infection type: site unspecified Hematuria presence: without hematuria Qualified Code(s): N39.0 - Urinary tract infection, site not specified Code(s): N39.0 - Urinary tract infection, site not specified Status: Acute Assessment and Plan: * UA leukocyte esterase 3+, WBC >100, Bacteria 4+ * Urine culture positive for E coli ESBL. Discussed with ID pharmacist and will give a 1 time dose of Gent. * Rocephin discontinued * I suspect that patient's white blood cell count is more likely due to UTI rather than pneumonia. * WBCs slightly elevated at 14.8 up admission, currently 9.7 (4) ROQUE (acute kidney injury): Code(s): N17.9 - Acute kidney failure, unspecified Status: Acute Assessment and Plan: * BUN/Cr 78/2.20, at admission * Current BUN/Cr 31/1.4 which appears to be close to patient's normal * trend urine output * Related to UTI * Trend labs * Adjust therapy as indicated * Continue IV fluids (5) Leukocytosis: Qualifiers: Leukocytosis type: unspecified Qualified Code(s): D72.829 - Elevated white blood cell count, unspecified Code(s): D72.829 - Elevated white blood cell count, unspecified Status: Acute Assessment and Plan: * WBC 14.8 currently trending down at 9.7 * Most likely related to the UTI * Continue to trend labs * Continue antibiotic therapy * Tailor antibiotics to culture results (6) Acute hypokalemia: Code(s): E87.6 - Hypokalemia Status: Acute Assessment and Plan: * Replacement given * continue to trend labs * Adjust therapy as indicated * 11/01 restarted patient's home Lasix and adjusting patient's home potassium. Replacing potassium as needed until patient is at steady state. (7) Right humeral fracture: Qualifiers: Encounter type: initial encounter Humerus Location: proximal Fracture type: closed Fracture morphology: other fracture Fracture alignment: displaced Qualified Code(s): S42.291A - Other displaced fracture of upper end of right humerus, initial encounter for closed fracture Code(s): S42.301A - Unspecified fracture of shaft of humerus, right arm, init
--- NOTE | 2022-11-01 15:42 | PM.IMPN ---
Progress Note: A&P Assessment and Plan (1) Acute on chronic respiratory failure with hypoxia: Code(s): J96.21 - Acute and chronic respiratory failure with hypoxia Status: Acute Assessment and Plan: Presented to the ED after fall. It is also noted that the patient has required 4 L nasal cannula up from her chronic 2L Current saturations >95% wean supplemental oxygen to maintain saturations >92% Neb treatments ordered Chest xray indicates atelectasis vs pna. No pneumonia symptoms. (2) Pneumonia: Qualifiers: Pneumonia type: due to unspecified organism Laterality: left Lung location: lower lobe of lung Qualified Code(s): J18.9 - Pneumonia, unspecified organism Code(s): J18.9 - Pneumonia, unspecified organism Status: Ruled-out Assessment and Plan: Patient reports baseline of 4 L Chest xray shows left lower lung zone consistent with atelectasis vs PNA Azithromycin and Ceftriaxone discontinued due to patient not having pneumonia symptoms Neb treatments Sputum culture ordered Trend labs Wean supplemental oxygen to maintain saturation >92% (3) UTI (urinary tract infection): Qualifiers: Urinary tract infection type: site unspecified Hematuria presence: without hematuria Qualified Code(s): N39.0 - Urinary tract infection, site not specified Code(s): N39.0 - Urinary tract infection, site not specified Status: Acute Assessment and Plan: UA leukocyte esterase 3+, WBC >100, Bacteria 4+ Urine culture positive for E coli ESBL. Discussed with ID pharmacist and will give a 1 time dose of Gent. Rocephin discontinued I suspect that patient's white blood cell count is more likely due to UTI rather than pneumonia. WBCs slightly elevated at 14.8 up admission, currently 9.7 (4) ROQUE (acute kidney injury): Code(s): N17.9 - Acute kidney failure, unspecified Status: Acute Assessment and Plan: BUN/Cr 78/2.20, at admission Current BUN/Cr 31/1.4 which appears to be close to patient's normal trend urine output Related to UTI Trend labs Adjust therapy as indicated Continue IV fluids (5) Leukocytosis: Qualifiers: Leukocytosis type: unspecified Qualified Code(s): D72.829 - Elevated white blood cell count, unspecified Code(s): D72.829 - Elevated white blood cell count, unspecified Status: Acute Assessment and Plan: WBC 14.8 currently trending down at 9.7 Most likely related to the UTI Continue to trend labs Continue antibiotic therapy Tailor antibiotics to culture results (6) Acute hypokalemia: Code(s): E87.6 - Hypokalemia Status: Acute Assessment and Plan: Replacement given continue to trend labs Adjust therapy as indicated 11/01 restarted patient's home Lasix and adjusting patient's home potassium. Replacing potassium as needed until patient is at steady state. (7) Right humeral fracture: Qualifiers: Encounter type: initial encounter Humerus Location: proximal Fracture type: closed Fracture morphology: other fracture Fracture alignment: displaced Qualified Code(s): S42.291A - Other displaced fracture of upper end of right humerus, initial encounter for closed fracture Code(s): S42.301A - Unspecified fracture of shaft of humerus, right arm, initial encounter for closed fracture Status: Acute Assessment and Plan: Humerus on the right side hip is noted to be fractured Sling ordered Orthopedics consulted and recommending nonsurgical management at this time. PT and OT when appropriate Will need weight-bearing status Pain medications on board Subjective Date/time seen: 11/01/22 15:42 Interval history: Patient doing well today. Discussed her potassium with her. Explained that her Lasix is most likely causing her hypokalemia and ildefonso
[2022-11-01] MEDS: MONTELUKAST SODIUM 10 MG TABLET PO (21:41)
[2022-11-01] MEDS: traZODone HCL 50 MG TABLET 100 MG PO (21:41)
[2022-11-02] MEDS: BENZONATATE 100 MG CAPSULE 200 MG PO ×2 (05:34→13:31)
[2022-11-02] MEDS: GABAPENTIN 400 MG CAPSULE 800 MG PO ×2 (05:34→13:30)
[2022-11-02] MEDS: oxyCODONE/ACETAMINOPHEN (*CRX) 5-325 MG TABLET 1 TABLET PO (05:39)
[2022-11-02 06:00] VITALS: BP 159/96; PULSE 68; RESP 16; TEMP 36; O2SAT 99
[2022-11-02 06:45] LABS: Basophils Percent Auto 0.3 % (0.2-1.2); Eosinophils Absolute Auto 0.2 K/mm3 (0-0.3); Eosinophils Percent Auto 2.4 % (0-4.4); Hematocrit 43.6 % (37.0-47.0); Hemoglobin 13.4 g/dL (12.0-15.0); Immature Granulocyte Absolute 0.15 K/mm3 (0.00-0.031); Immature Granulocyte Percent A 1.5 % (0-0.5); Lymphocytes Absolute Auto 2.14 K/mm3 (0.9-3.2); Lymphocytes Percent Auto 21.8 % (18.3-44.2); Mean Corpuscular HGB Conc 30.7 g/dl (32-36); Mean Corpuscular Hemoglobin 27.3 pg (26-34); Mean Corpuscular Volume 88.8 fl (80-100); Mean Platelet Volume 11.5 fl (7.4-10.4); Monocytes Absolute Auto 0.9 K/mm3 (0.1-0.6); Monocytes Percent Auto 9.2 % (2.6-8.5); Neutrophils Absolute Auto 6.3 K/mm3 (1.3-6.7); Neutrophils Percent Auto 64.8 % (45.5-73.1); Platelet Count Result 233 k/mm3 (150-375); Red Blood Count 4.91 M/mm3 (4.2-5.4); Red Cell Distribution Width 15.5 % (11.5-14.5); White Blood Count 9.8 K/mm3 (4.5-10.0)
[2022-11-02 08:00] VITALS: PULSE 62; RESP 16; O2SAT 96
[2022-11-02] MEDS: FAMOTIDINE 20 MG TABLET 40 MG PO (08:11)
[2022-11-02] MEDS: FUROSEMIDE 40 MG TABLET PO ×2 (08:11→17:20)
[2022-11-02] MEDS: lamoTRIgine 100 MG TABLET PO ×2 (08:11→17:20)
[2022-11-02] MEDS: buPROPion HCL SR (12 HR) 150 MG TAB PO ×2 (08:11→17:20)
[2022-11-02] MEDS: PANTOPRAZOLE 40 MG TABLET PO (08:11)
[2022-11-02] MEDS: SENNA/DOCUSATE SODIUM TABLET 1 TAB PO ×2 (08:11→17:20)
[2022-11-02] MEDS: busPIRone HCL 2.5 MG TABLET PO ×2 (08:11→17:20)
[2022-11-02] MEDS: ASCORBIC ACID 500 MG TABLET PO ×2 (08:11→17:20)
[2022-11-02] MEDS: ASPIRIN 81 MG CHEWABLE TABLET PO (08:11)
[2022-11-02] MEDS: busPIRone HCL 5 MG TABLET PO ×2 (08:11→17:22)
[2022-11-02] MEDS: ISOSORBIDE DINITRATE 10 MG TABLET 30 MG PO (08:11)
[2022-11-02] MEDS: ATORVASTATIN 40 MG TABLET PO (08:11)
[2022-11-02] MEDS: DULoxetine HCL 30 MG CAPSULE.DR PO (08:11)
[2022-11-02] MEDS: CYCLOBENZAPRINE HCL 10 MG TABLET PO (08:11)
[2022-11-02] MEDS: TOPIRAMATE 25 MG TABLET 50 MG PO ×2 (08:12→17:20)
[2022-11-02] MEDS: POTASSIUM CHLORIDE 20 MEQ ER TABLET PO ×2 (08:12→17:21)
[2022-11-02] MEDS: allopurinoL 300 MG TABLET PO (08:12)
[2022-11-02] MEDS: ARIPiprazole 5 MG TABLET PO (08:12)
[2022-11-02 08:13] VITALS: O2SAT 96
[2022-11-02] MEDS: UMECLIDINIUM BROMIDE 62.5 MCG ELLIPTA 1 PUFF INHALATION (08:13)
[2022-11-02] MEDS: TOLNAFTATE 1% POWDER 45 GM BTL 1 APPLIC TOPICAL (08:13)
[2022-11-02 08:14] VITALS: PULSE 62
[2022-11-02] MEDS: METOPROLOL SUCCINATE EXT REL 25 MG TABCR PO (08:14)
[2022-11-02] MEDS: ENOXAPARIN 40 MG/0.4 ML SYRINGE SUB-Q (08:17)
[2022-11-02 10:27] LABS: Anion Gap 8 mmol/L (8-16); Blood Urea Nitrogen 27 mg/dL (7-17); Carbon Dioxide 29 mmol/L (22-30); Chloride 97 mmol/L (98-107); Estimated CRCL calculation 72 ml/min; Estimated Glomerular Filt Rate 46; Potassium 3.6 mmol/L (3.4-5.0); Sodium 134 mmol/L (137-145)
[2022-11-02 10:28] LABS: Alanine Aminotransferase 50 U/L (6-35); Aspartate Amino Transferase 57 U/L (14-36); Bilirubin,Total 0.8 mg/dL (0.2-1.3); Calcium 9.2 mg/dL (8.4-10.2); Glucose 128 mg/dL (65-110)
[2022-11-02 10:33] LABS: Alkaline Phosphatase 186 U/L (38-126); Total Protein 7.1 g/dL (6.3-8.2)
[2022-11-02 12:28] LABS: SARS-CoV-2 RNA PCR Negative (Negative)
--- NOTE | 2022-11-02 12:55 | PM.DS ---
DS: Admitting Diagnosis Discharge Date 11/02/22 Admitting Diagnosis Fall, right hip breast fracture, hypokalemia DS: Discharge Diagnosis Discharge Diagnosis (1) Acute on chronic respiratory failure with hypoxia: Code(s): J96.21 - Acute and chronic respiratory failure with hypoxia Status: Acute (2) Pneumonia: Qualifiers: Pneumonia type: due to unspecified organism Laterality: left Lung location: lower lobe of lung Qualified Code(s): J18.9 - Pneumonia, unspecified organism Code(s): J18.9 - Pneumonia, unspecified organism Status: Ruled-out (3) UTI (urinary tract infection): Qualifiers: Urinary tract infection type: site unspecified Hematuria presence: without hematuria Qualified Code(s): N39.0 - Urinary tract infection, site not specified Code(s): N39.0 - Urinary tract infection, site not specified Status: Acute (4) ROQUE (acute kidney injury): Code(s): N17.9 - Acute kidney failure, unspecified Status: Acute (5) Leukocytosis: Qualifiers: Leukocytosis type: unspecified Qualified Code(s): D72.829 - Elevated white blood cell count, unspecified Code(s): D72.829 - Elevated white blood cell count, unspecified Status: Acute (6) Acute hypokalemia: Code(s): E87.6 - Hypokalemia Status: Acute (7) Right humeral fracture: Qualifiers: Encounter type: initial encounter Humerus Location: proximal Fracture type: closed Fracture morphology: other fracture Fracture alignment: displaced Qualified Code(s): S42.291A - Other displaced fracture of upper end of right humerus, initial encounter for closed fracture Code(s): S42.301A - Unspecified fracture of shaft of humerus, right arm, initial encounter for closed fracture Status: Acute DS: Summary Hospital Course Hospital Course: This is a 61-year-old female with past medical history of chronic respiratory failure on supplemental oxygen, order BC, COPD, anxiety depression and dyslipidemia. According to our records patient is post be wearing 2 L at home but patient states that she wears anywhere between 3-4. She presented to the ED due to worsening shortness of breath. She was found to have a potassium of 2.8 that was replaced. She is on furosemide at home and on 20 mg of potassium daily. Hypokalemia likely due to furosemide. Patient's potassium was replenished and she was started on 20 mg twice daily potassium. She was also found to have an ROQUE and was started on IV fluids. She does have kidney disease and her BUN and creatinine return to patient's baseline. Patient started on ceftriaxone and azithromycin due to chest x-ray showing atelectasis versus pneumonia. According to the patient she has had no pneumonia symptoms such as fever, cough, body aches or chills. She does have a history of COPD and most of her symptoms are consistent with this. She was also found to have a UTI and sensitivities came back for E coli ESBL and due to simple cystitis patient was given a 1 time dose of gentamicin for her simple cystitis. Azithromycin course completed but ceftriaxone discontinued. Patient is on her home O2 setting at the time of discharge. According to the patient prior to ED presentation she had a fall landing on her right arm. She was found to have a right humeral fracture and Orthopedics was consulted. Orthopedics recommended nonsurgical approach at this time and that patient wear a sling. She is to follow-up with orthopedics in approximately 4 weeks. Patient's respiratory status has returned to baseline, kidney function at baseline, potassium within normal range and her UTI has been treated. Her labs and vital signs are stable and she is medically clear for discharge at this time. Time Spent with Patient Time attestation: Total time spent providing and/or coordinating discharge services: Exam Narrative: GENERAL: Comfortable, no acute distress, obese [facility]
[2022-11-02 14:00] VITALS: BP 102/54; PULSE 67; RESP 14; TEMP 35.6; O2SAT 100
[2022-11-02] MEDS: oxyCODONE HCL (*CRX) 2.5 MG TAB IR PO (15:27)
== END 2022-11-02 17:40 | DRG 139 ==
LOC: ANHED 16:11 → ANH3MEDSUR 22:46
PROVIDERS: Nurse Practitioner; Physician Assistant; Admitting Provider Internal Medicine; Emergency Provider Emergency Medicine; PCP Hospitalist; Visit Provider Internal Medicine Critical Care Medicine
DX: J18.9 Pneumonia, unspecified organism (principal); J96.21 Acute and chronic respiratory failure with hypoxia; E87.3 Alkalosis; E87.1 Hypo-osmolality and hyponatremia; M97.31XA Periprosthetic fracture around internal prosthetic right shoulder joint, initial encounter; Z68.43 Body mass index [BMI] 50.0-59.9, adult; S42.251A Displaced fracture of greater tuberosity of right humerus, initial encounter for closed fracture; N17.9 Acute kidney failure, unspecified; Z99.81 Dependence on supplemental oxygen; B96.20 Unspecified Escherichia coli [E. coli] as the cause of diseases classified elsewhere; N39.0 Urinary tract infection, site not specified; E87.6 Hypokalemia; E66.01 Morbid (severe) obesity due to excess calories; E78.5 Hyperlipidemia, unspecified; F41.8 Other specified anxiety disorders; F31.9 Bipolar disorder, unspecified; I12.9 Hypertensive chronic kidney disease with stage 1 through stage 4 chronic kidney disease, or unspecified chronic kidney disease; N18.9 Chronic kidney disease, unspecified; J43.9 Emphysema, unspecified; R19.7 Diarrhea, unspecified; Z20.822 Contact with and (suspected) exposure to COVID-19; Z89.512 Acquired absence of left leg below knee; Z79.82 Long term (current) use of aspirin; Z88.0 Allergy status to penicillin; Z85.41 Personal history of malignant neoplasm of cervix uteri; Z90.710 Acquired absence of both cervix and uterus; Z96.611 Presence of right artificial shoulder joint; Z98.41 Cataract extraction status, right eye; Z98.42 Cataract extraction status, left eye; Z87.891 Personal history of nicotine dependence; Z16.12 Extended spectrum beta lactamase (ESBL) resistance
CPT/HCPCS: 36415; 71045; 73030; 73080; 80048; 80053; 81001; 82948; 83735; 85025; 87077; 87086; 87088; 87186; 87635; 94640; 96365; 96367; 96372; 96374; 96375; 99285; A4565; A9270; G0378; G0379; J0456; J0696; J1580; J1650; J3480; J7030; J7040

== ENCOUNTER 2023-02-14 07:45 | Inpatient (IN) | payer OTHER, SELFPAY ==
[2023-02-14] VITALS (70 sets, daily range): BP systolic 99–134; BP diastolic 59–102; PULSE 56–76; RESP 10–23; TEMP 36.4–36.8; O2SAT 97–100
--- NOTE | ~2023-02-14 | CT_ITS ---
Clinical Indication: Chest pain, shortness of breath CT Scan of the Chest with Contrast: Technique: Contiguous sections were acquired throughout the chest after intravenous administration of 100 cc of Omnipaque 350. Dose reduction technique was used on this scan by utilizing automated expos ure control and iterative reconstruction technique. The dose-length product (DLP) was 932.66 mGy-cm. COMPARISON: 07/04/2020 Findings: There is no evidence of any significant mediastinal, hilar or axillary lymphadenopathy. There is no f illing defect in the pulmonary arterial tree to suggest pulmonary embolus. There is no evidence of ao rtic dissection or aneurysm. There is no evidence of pleural or pericardial effusion. Very small right pneumothorax present. There is mild bibasilar atelectatic change. Probable mild to m oderate emphysema. Images through the upper abdomen reveal no abnormalities. Impression: No evidence of pulmonary embolus, aortic dissection, or aortic aneurysm. Very small right pneumothorax. Probable mild to moderate emphysema with mild bibasilar atelectatic change. Reviewed, dictated and finalized at location . NERY OPERATOR REFORMING UNIT Impression: No evidence of pulmonary embolus, aortic dissection, or aortic aneurysm. Very small right pneumothorax. Probable mild to moderate emphysema with mild bibasilar atelectatic change.
--- NOTE | ~2023-02-14 | XR_ITS ---
Portable chest x-ray Comparison: 02/14/2023 Clinical History: Right pneumothorax Findings: There is bibasilar interstitial change. No pleural effusion seen. No definite pneumothorax seen. Cardiomediastinal silhouette is stable. Bones and soft tissues are stable. Impression: No visible pneumothorax. Bibasilar interstitial change. Correlate for chronic interstitial disease, COPD, or possibly minimal interstitial edema. Reviewed, dictated and finalized at [facility]. NDER DIE MACHINE OPERATOR Impression: No visible pneumothorax. Bibasilar interstitial change. Correlate for chronic interstitial disease, COPD , or possibly minimal interstitial edema.
--- NOTE | ~2023-02-14 | XR_ITS ---
EXAMINATION: XR chest 2V DATE: 02/19/2023 14:30 INDICATION: Pneumonia and pneumothorax follow-up TECHNIQUE: Frontal and lateral views of the chest are obtained COMPARISON: 02/16/2023 FINDINGS: Bibasilar airspace opacities persist without significant change. No pneumothorax is identif ied. There are small pleural effusions. The cardiomediastinal silhouette is stable. Changes of right shoulder arthroplasty are noted. There appears to be a partially imaged catheter in the left upper ex tremity on the lateral view. IMPRESSION: 1. Airspace opacities of the lung bases, consistent with atelectasis versus pneumonia. 2. Small pleural effusions. 3. No pneumothorax identified. Reviewed, dictated and finalized at location L. STRIP FINISHER IMPRESSION: 1. Airspace opacities of the lung bases, consistent with atelectasis versus pne umonia. 2. Small pleural effusions. 3. No pneumothorax identified.
--- NOTE | ~2023-02-14 | XR_ITS ---
EXAMINATION: XR chest 1V portable INDICATION: Right-sided chest pain TECHNIQUE: Portable AP chest at 0836 hours COMPARISON: 10/29/2022 FINDINGS: There are interstitial and airspace opacities of the mid and lower lung zones. No pleural e ffusion or pneumothorax. The cardiomediastinal silhouette is normal. Changes of right total shoulder arthroplasty are noted. IMPRESSION: 1. Interstitial and airspace opacities of the mid and lower lung zones which could reflect atelectasi s versus pneumonia versus pulmonary edema. Reviewed, dictated and finalized at location L. NTORY AND PRICING ASSOCIATE IMPRESSION: 1. Interstitial and airspace opacities of the mid and lower lung zones which co uld reflect atelectasis versus pneumonia versus pulmonary edema.
--- NOTE | ~2023-02-14 | XR_ITS ---
XR chest 2V 02/16/2023 09:58 Indication: Pneumothorax. Procedure: 2 view chest Comparison: 02/15 and 02/14/2013 Findings: No pneumothorax identified. Bibasilar airspace disease. Cardiomegaly. There is a right shou lder arthroplasty. No acute osseous abnormality. There is dextroscoliosis. Impression: 1: Bibasilar airspace disease may represent atelectasis or pneumonia. Reviewed, dictated and finalized at location A. ORATOR OPERATOR OIL WELL Impression: 1: Bibasilar airspace disease may represent atelectasis or pneumonia.
--- NOTE | 2023-02-14 07:55 | ECG_ITS ---
Measurements Intervals [place] Rate: 65 P: 47 [place]: 150 QRS: -24 QRSD: 110 T: 31 QT: 428 QTc: 448 Interpretive Statements SINUS RHYTHM BORDERLINE LEFT AXIS DEVIATION [QRS AXIS < -20] LOW QRS VOLTAGE IN PRECORDIAL LEADS [QRS DEFLECTION < 1.0 mV IN CHEST LEADS] ST DEVIATION AND MODERATE T-WAVE ABNORMALITY, CONSIDER ANTERIOR ISCHEMIA [-0.1+ mV T WAVE IN V3/V4] ABNORMAL ECG NO PREVIOUS ECG AVAILABLE FOR COMPARISON Electronically Signed On 02-14-2023 14:02:07 BOXING AND PRESSING SUPERVISOR by Alan Stanford M.D.
--- NOTE | 2023-02-14 07:58 | ED.CHESTPAIN ---
HPI - Chest Pain General Chief Complaint: Chest Pain Stated Complaint: CP/SOB History of Present Illness HPI narrative: 62-year-old female presenting to the ED for evaluation of worsening shortness of breath. Patient states he has had chest pain and shortness of breath over the last few days. Patient felt that it did worsen this morning. Patient does have history of COPD and is always on 4 L of oxygen. EN route to the emergency department EMS had difficulty getting a pulse ox and did place the patient CPAP. Upon arrival to the emergency department patient was placed back her oxygen by nasal cannula had a stable pulse ox. Related Data Home Medications Medication Instructions Recorded Confirmed allopurinol 300 mg tablet 300 mg PO DAILY 07/02/20 02/14/23 atorvastatin 40 mg tablet 40 mg PO HS 07/02/20 02/14/23 gabapentin 800 mg tablet 800 mg PO TID 07/02/20 02/14/23 montelukast 10 mg tablet 10 mg PO HS 07/02/20 02/14/23 trazodone 50 mg tablet 100 mg PO HS 07/02/20 02/14/23 aripiprazole 5 mg tablet 5 mg PO DAILY 05/07/22 02/14/23 bupropion HCl 150 mg tablet,12 hr 150 mg PO BID 05/07/22 02/14/23 sustained-release (Wellbutrin SR) famotidine 40 mg tablet 40 mg PO DAILY 05/07/22 02/14/23 topiramate 50 mg tablet 50 mg PO BID 05/07/22 02/14/23 benzonatate 200 mg capsule 200 mg PO TID 10/19/22 02/14/23 cyclobenzaprine 10 mg tablet 10 mg PO DAILY 10/19/22 02/14/23 duloxetine 30 mg capsule,delayed 30 mg PO DAILY 10/19/22 02/14/23 release furosemide 40 mg tablet 40 mg PO BID 10/19/22 02/14/23 isosorbide dinitrate 30 mg tablet 30 mg PO DAILY 10/19/22 02/14/23 metolazone 2.5 mg tablet 2.5 mg PO EVERY OTHER DAY 10/19/22 02/14/23 spironolactone 25 mg tablet 25 mg PO BID 10/19/22 02/14/23 alprazolam 0.5 mg tablet 0.5 mg PO DAILY 12/13/22 02/14/23 buspirone 10 mg tablet 10 mg PO BID 12/13/22 02/14/23 lamotrigine 25 mg tablet 25 mg PO DAILY 12/13/22 02/14/23 tramadol 50 mg tablet 50 mg PO Q6H PRN Pain 12/13/22 02/14/23 Allergies Allergy/AdvReac Type Severity Reaction Status Date / Time bee venom protein (honey bee) Allergy Severe Anaphylaxis Verified 02/14/23 08:09 Penicillins Allergy Anaphylaxis Verified 02/14/23 08:09 fixodent Allergy Hives Uncoded 02/14/23 08:09 Review of Systems Review of Systems: All systems reviewed & are unremarkable except as noted in HPI and below PMFSH Past Medical History Medical History (Updated 02/14/23 @ 17:55 by Kendall Cummings MD) Asthma Bipolar disorder Cervical cancer Chronic kidney disease Chronic obstructive pulmonary disease 5 L nasal cannula. Chronic respiratory failure with hypoxia, on home oxygen therapy Depression with anxiety History of tobacco abuse Hyperlipidemia Hypertension Kidney stones Morbid obesity with BMI of 50.0-59.9, adult Obstructive sleep apnea on CPAP Peripheral neuropathy (10/2022) Psoriasis Surgical History Surgical History (Updated 02/14/23 @ 14:02 by Earlene Conte PA-C) History of benign breast biopsy History of bilateral cataract extraction History of section History of cystoscopy History of hysterectomy History of reverse total replacement of right shoulder joint History of tonsillectomy Family History Family History Mother , age 68 CHF (congestive heart failure) Emphysema of lung Father , at age 62 Acute myocardial infarction Emphysema of lung Sibling , age 59 Pancreatic cancer Sibling , age 40 acute [place] Acute myocardial infarction Social History Social History (Updated 02/14/23 @ 14:04 by Earlene Conte PA-C) Social History: Healthcare power of associate attorney: Mag Dorsey, daughter. Code status: Full code. Smoking packs per day: 1.5 Smoking cigarettes per day: 30.0 Years smoked: 40 Smoking pack-years: 60.00 Smoking status: Former smoker Tobacco type: cigarettes Second hand tobacco sm
[2023-02-14 08:08] LABS: Alveolar/Arterial O2 Gradient 104.3 mmHg; Base Excess ABG 7.2 mEq/l (+/-2.0); Carboxyhemoglobin 0.8 % THb (0-2.0); Fractional Inspired Oxygen 36 %; HCO3 ABG 33.6 mEq/l (22.0-26.0); Methemoglobin ABG 0.2 %THb (0-1.5); Oxygen Content ABG 20.4 %vol (16.0-22.0); Oxygen Saturation ABG 96.8 % (95.0-100.0); Oxyhemoglobin 95.4 % THb (90.0-100.0); PCO2 ABG 54.1 mmHg (35.0-45.0); PO2 ABG 89.6 mmHg (80.0-100.0); PO2 FiO2 Ratio Arterial Blood 2.49 %; Reduced Hemoglobin 3.6 %THb (0-5.0); Total Hemoglobin 15.2 g/dL (12.0-18.0); pH ABG 7.411 (7.350-7.450)
[2023-02-14 08:09] LABS: Device NASAL CANNULA; Site Drawn RIGHT BRACHIAL
[2023-02-14] MEDS: ALBUTEROL SULFATE NEB 2.5 MG/3 ML INH INHALATION (08:10)
[2023-02-14] MEDS: MORPHINE SULFATE (*CRX) 2 MG/ML INJ IV PUSH ×5 (08:10→19:44)
[2023-02-14 08:38] LABS: Basophils Percent Auto 0.4 % (0.2-1.2); Eosinophils Absolute Auto 0.1 K/mm3 (0-0.3); Eosinophils Percent Auto 0.8 % (0-4.4); Hematocrit 49.3 % (37.0-47.0); Hemoglobin 14.9 g/dL (12.0-15.0); Immature Granulocyte Absolute 0.08 K/mm3 (0.00-0.031); Immature Granulocyte Percent A 0.7 % (0-0.5); Lymphocytes Percent Auto 17.5 % (18.3-44.2); Mean Corpuscular HGB Conc 30.2 g/dl (32-36); Mean Corpuscular Hemoglobin 27.4 pg (26-34); Mean Corpuscular Volume 90.6 fl (80-100); Monocytes Absolute Auto 1.1 K/mm3 (0.1-0.6); Monocytes Percent Auto 9.4 % (2.6-8.5); Neutrophils Absolute Auto 8.1 K/mm3 (1.3-6.7); Neutrophils Percent Auto 71.2 % (45.5-73.1); Platelet Count Result 161 k/mm3 (150-375); Red Blood Count 5.44 M/mm3 (4.2-5.4); Red Cell Distribution Width 15.5 % (11.5-14.5); White Blood Count 11.4 K/mm3 (4.5-10.0)
[2023-02-14 08:46] LABS: Alanine Aminotransferase 35 U/L (6-35); Albumin Level 4.6 g/dL (3.5-5.1); Alkaline Phosphatase 185 U/L (38-126); Anion Gap 10 mmol/L (8-16); Aspartate Amino Transferase 34 U/L (14-36); Bilirubin,Total 0.8 mg/dL (0.2-1.3); Blood Urea Nitrogen 33 mg/dL (7-17); Carbon Dioxide 33 mmol/L (22-30); Chloride 92 mmol/L (98-107); Estimated CRCL calculation 48 ml/min; Estimated Glomerular Filt Rate 31; Glucose 126 mg/dL (65-110); Potassium 3.5 mmol/L (3.4-5.0); Sodium 135 mmol/L (137-145)
[2023-02-14 08:50] LABS: Prothrombin Time 13.3 Seconds (11.1-14.7)
[2023-02-14 08:52] LABS: Partial Thromboplastin Time 23.8 SECONDS (22.3-36.8)
[2023-02-14 08:57] LABS: NT Pro B Type Natriuretic Pept 62 pg/mL (19.9-100); Troponin I < 0.012 ng/mL (0.000-0.034)
[2023-02-14 09:13] LABS: Influenza A QL RT-PCR Negative (Negative); Influenza B QL RT-PCR Negative (Negative); RSV RNA, RT-PCR Negative (Negative); SARS-CoV-2 RNA PCR Negative (Negative)
[2023-02-14 09:46] LABS: Appearance Urine Clear (Clear); Bilirubin Urine Negative (Negative); Blood Urine Negative (Negative); Color Urine Yellow (Yellow); Glucose Urine UA Negative (Negative); Ketones Urine Negative (Negative); Leukocyte Esterase Ur Negative LEU/UL (Negative); Nitrate Urine Negative (Negative); Protein Urine Negative (Negative); Specific Grav Ur 1.015 (1.001-1.035)
[2023-02-14 09:47] LABS: Add Urine Microscopic? NO
[2023-02-14 10:23] LABS: D Dimer 1.97 ug/mL (<0.48)
--- NOTE | 2023-02-14 13:55 | PM.IMHP ---
H&P: HPI History of Present Illness Date/Time: 02/14/23 14:15 Chief Complaint: Chest pain and shortness of breath. Narrative: This is a very pleasant 62-year-old female with chronic respiratory failure on supplemental oxygen, obstructive sleep apnea, morbid obesity, hypertension, dyslipidemia, fatty liver disease, borderline diabetes, chronic kidney disease, bipolar disorder, and other comorbidities who presented to the emergency department via EMS from home for evaluation of chest pain and shortness of breath. The patient provides the following history. She lives with her daughter, son-in-law, and 3 grand children who she reports have all had cold-like symptoms. She has mild rhinorrhea and slight sore throat but nothing significant. Her main concern is that of right anterior chest pleuritic pain which feels similar to when she has had pleurisy. She describes a stabbing and sometimes burning pain which does not radiate. It is worse with laughing, coughing, and deep inspiration. This morning it was more intense and was associated with increasing shortness of breath from baseline and she came in for evaluation. She denies fever, syncope, near syncope, sinus congestion, cough, edema, nausea, vomiting, and diarrhea. In the ED: She was afebrile on arrival with stable vital signs. She arrived on CPAP per EMS but was weaned to her usual 4 L nasal cannula with SpO2 in the mid to upper 90s. Labs were significant for a WBC count of 11.4, D-dimer 1.97, sodium 135, creatinine 1.70, proBNP 62, troponin less than 0.012. She was negative for influenza, RSV, and COVID. Chest CTA showed no evidence of pulmonary embolism, aortic dissection, or aortic aneurysm. A very small right-sided pneumothorax was seen. She is being admitted in this setting for supportive care and close monitoring. Review of Systems Review of Systems: Twelve systems were reviewed and are negative except for as per HPI. [facility] Past Medical History Medical History Asthma Bipolar disorder Cervical cancer Chronic kidney disease Chronic obstructive pulmonary disease 5 L nasal cannula. Chronic respiratory failure with hypoxia, on home oxygen therapy Depression with anxiety History of tobacco abuse Hyperlipidemia Hypertension Kidney stones Morbid obesity with BMI of 50.0-59.9, adult Obstructive sleep apnea on CPAP Peripheral neuropathy (10/2022) Psoriasis Surgical History Surgical History History of benign breast biopsy History of bilateral cataract extraction History of section History of cystoscopy History of hysterectomy History of reverse total replacement of right shoulder joint History of tonsillectomy Family History Family History Mother , age 68 CHF (congestive heart failure) Emphysema of lung Father , at age 62 Acute myocardial infarction Emphysema of lung Sibling , age 59 Pancreatic cancer Sibling , age 40 acute [place] Acute myocardial infarction Social History Social History Social History: Healthcare power of assistant county attorney: Mag Dorsey, daughter. Code status: Full code. Smoking packs per day: 1.5 Smoking cigarettes per day: 30.0 Years smoked: 40 Smoking pack-years: 60.00 Smoking status: Former smoker Second hand tobacco smoke exposure: Yes (in childhood) Alcohol intake: never Substance use type: does not use Other substance usage details: prescribed Lack of Transportation: No Lack of Food: Never True Current Housing: I Have Housing Concerned About Future Housing: No Difficulty Paying Gas/Electric Bills: No Difficulty Paying for Meds: No Currently Unemployed: No Education: High School Diploma/GED Difficulty w/ Childcare or F
--- NOTE | 2023-02-14 14:40 | ECG_ITS ---
Measurements Intervals [place] Rate: 61 P: 34 [place]: 165 QRS: -20 QRSD: 108 T: 34 QT: 422 QTc: 425 Interpretive Statements SINUS RHYTHM LOW QRS VOLTAGE IN PRECORDIAL LEADS [QRS DEFLECTION < 1.0 mV IN CHEST LEADS] MODERATE T-WAVE ABNORMALITY, CONSIDER ANTERIOR ISCHEMIA [-0.1+ mV T WAVE IN V3/V4] ABNORMAL ECG COMPARED TO ECG 02/14/2023 07:54:[address] SEGMENT DEPRESSION IS UNCHANGED Electronically Signed On 02-15-2023 13:46:22 ACADEMIC MANAGER by Terence Angel M.D.
[2023-02-14 15:03] LABS: Troponin I < 0.012 ng/mL (0.000-0.034)
[2023-02-14 17:16] LABS: Troponin I < 0.012 ng/mL (0.000-0.034)
--- NOTE | 2023-02-14 17:50 | ADMGEN ---
This patient, Fariba Olson, was admitted to Medical Room 340-01. Patient/family oriented to hospital policies and general routines including ID bracelet, bed and alarms, visiting hours, pain management, procedures, bathroom and other care routines, personal items, smoking policy, room service/diet, and visiting hours. Information on how to activate the Rapid Response Team has been discussed. Patient/Family are encouraged to report perceived risks to care and to ask questions if they do not understand what they are told or what they should do.
[2023-02-14] MEDS: BENZONATATE 100 MG CAPSULE 200 MG PO (21:16)
[2023-02-14] MEDS: buPROPion HCL SR (12 HR) 150 MG TAB PO (21:16)
[2023-02-14] MEDS: METOPROLOL TARTRATE 25 MG TABLET PO (21:17)
[2023-02-14] MEDS: GABAPENTIN 400 MG CAPSULE 800 MG PO (21:17)
[2023-02-14] MEDS: SPIRONOLACTONE 25 MG TABLET PO (21:17)
[2023-02-14] MEDS: MONTELUKAST SODIUM 10 MG TABLET PO (21:17)
[2023-02-14] MEDS: traZODone HCL 50 MG TABLET 100 MG PO (21:17)
[2023-02-14] MEDS: ATORVASTATIN 40 MG TABLET PO (21:17)
[2023-02-14] MEDS: busPIRone HCL 10 MG TABLET PO (21:17)
[2023-02-14] MEDS: TOPIRAMATE 25 MG TABLET 50 MG PO (21:17)
[2023-02-14] MEDS: POTASSIUM CHLORIDE 20 MEQ ER TABLET PO (21:17)
[2023-02-14] MEDS: HYDROcodone/acetaminophen (*CRX) 5-325 MG TABLET 1 TAB PO (21:19)
[2023-02-14 22:07] LABS: Troponin I 0.033 ng/mL (0.000-0.034)
[2023-02-15] VITALS (14 sets, daily range): BP systolic 105–121; BP diastolic 69–82; PULSE 53–67; RESP 14–22; TEMP 36.1–36.6; O2SAT 95–100
[2023-02-15] MEDS: MORPHINE SULFATE (*CRX) 4 MG/ML INJ IM ×2 (00:12→05:34)
[2023-02-15 05:54] LABS: Hematocrit 48.3 % (37.0-47.0); Mean Corpuscular Hemoglobin 27.2 pg (26-34); Mean Platelet Volume 12.4 fl (7.4-10.4); Platelet Count Result 125 k/mm3 (150-375); Red Blood Count 5.14 M/mm3 (4.2-5.4); Red Cell Distribution Width 15.6 % (11.5-14.5); White Blood Count 9.8 K/mm3 (4.5-10.0)
[2023-02-15 06:33] LABS: Procalcitonin 0.1 ng/mL
[2023-02-15 07:38] LABS: Anion Gap 5 mmol/L (8-16); Blood Urea Nitrogen 30 mg/dL (7-17); CRP 2.2 mg/dL (<1.0); Calcium 9.3 mg/dL (8.4-10.2); Carbon Dioxide 39 mmol/L (22-30); Chloride 92 mmol/L (98-107); Estimated CRCL calculation 44 ml/min; Estimated Glomerular Filt Rate 29; Glucose 111 mg/dL (65-110); Magnesium 2.1 mg/dL (1.6-2.3); Potassium 2.8 mmol/L (3.4-5.0); Sodium 136 mmol/L (137-145)
[2023-02-15] MEDS: METOPROLOL TARTRATE 25 MG TABLET PO ×2 (08:39→20:14)
[2023-02-15] MEDS: CYCLOBENZAPRINE HCL 10 MG TABLET PO (08:39)
[2023-02-15] MEDS: FAMOTIDINE 20 MG TABLET 40 MG PO (08:39)
[2023-02-15] MEDS: ARIPiprazole 5 MG TABLET PO (08:39)
[2023-02-15] MEDS: metOLazone 2.5 MG TABLET PO (08:39)
[2023-02-15] MEDS: POTASSIUM CHLORIDE 20 MEQ ER TABLET PO ×2 (08:39→17:52)
[2023-02-15] MEDS: FUROSEMIDE 40 MG TABLET PO ×2 (08:39→17:52)
[2023-02-15] MEDS: ALPRAZolam (*CRX) 0.5 MG TABLET PO (08:39)
[2023-02-15] MEDS: allopurinoL 300 MG TABLET PO (08:39)
[2023-02-15] MEDS: GABAPENTIN 400 MG CAPSULE 800 MG PO ×3 (08:39→17:51)
[2023-02-15] MEDS: BENZONATATE 100 MG CAPSULE 200 MG PO ×3 (08:40→17:52)
[2023-02-15] MEDS: DULoxetine HCL 30 MG CAPSULE.DR PO (08:40)
[2023-02-15] MEDS: SPIRONOLACTONE 25 MG TABLET PO ×2 (08:40→17:51)
[2023-02-15] MEDS: busPIRone HCL 10 MG TABLET PO ×2 (08:40→17:52)
[2023-02-15] MEDS: ISOSORBIDE DINITRATE 10 MG TABLET 30 MG PO (08:40)
[2023-02-15] MEDS: TOPIRAMATE 25 MG TABLET 50 MG PO ×2 (08:40→17:51)
[2023-02-15] MEDS: buPROPion HCL SR (12 HR) 150 MG TAB PO ×2 (08:41→20:14)
[2023-02-15] MEDS: lamoTRIgine 25 MG TABLET PO (08:41)
[2023-02-15] MEDS: POTASSIUM CHLORIDE INJ 40 MEQ in SODIUM CHLORIDE 0.9% IV 500 ML 130 MEQ IVPB (08:51)
[2023-02-15] MEDS: HYDROcodone/acetaminophen (*CRX) 10-325 MG TABLET 1 TAB PO ×2 (10:19→20:15)
--- NOTE | 2023-02-15 12:20 | PM.IMPN ---
Progress Note: A&P Assessment and Plan (1) Pneumothorax on right: Code(s): J93.9 - Pneumothorax, unspecified Status: Acute Assessment and Plan: Chest CTA showed a very small right-sided pneumothorax, likely the cause of her pleuritic pain. Continue with oxygen, monitor with a repeat chest x-ray. (2) Pleuritic pain: Code(s): R07.81 - Pleurodynia Status: Acute Assessment and Plan: Most likely related to above. No pulmonary embolism noted on chest CTA. Analgesics available as needed. (3) Chronic respiratory failure with hypoxia, on home oxygen therapy: Code(s): J96.11 - Chronic respiratory failure with hypoxia; Z99.81 - Dependence on supplemental oxygen Status: Acute Assessment and Plan: She is at her baseline oxygen requirement. No evidence of pneumonia on chest CTA. (4) Chronic obstructive pulmonary disease: Code(s): J44.9 - Chronic obstructive pulmonary disease, unspecified Status: Acute Assessment and Plan: No evidence to suggest acute exacerbation. Continue maintenance inhalers as prescribed. (5) Chronic kidney disease: Code(s): N18.9 - Chronic kidney disease, unspecified Status: Acute Assessment and Plan: Creatinine frequently fluctuates and is likely near her baseline. (6) Hypertension: Code(s): I10 - Essential (primary) hypertension Status: Acute Assessment and Plan: Blood pressures were reviewed and they are stable. Continue antihypertensives and monitor. Plan Possible discharge home morning, continue with pain management. Continue with oxygen. Repeat chest x-ray in the morning. Subjective Date/time seen: 02/15/23 12:20 Interval history: Patient was seen during morning rounds today. No shortness of breath or chest pain No abdominal pain, nausea, no vomiting. Mood stable Mild pain in shoulder. Review of Systems Review of Systems: Twelve systems were reviewed and are negative except for as per HPI. Exam Narrative: General: Chronically ill-appearing female sitting up in bed in no acute distress. Weight: 45 kg. BMI: 50.1. HEENT: PERRL, EOMI. Sclera anicteric. Oral mucosa moist. Oropharynx is crowded. Neck: Supple. Exam limited due to neck circumference. No obvious JVD. Respiratory: Respirations are nonlabored. Air entry is good, no additional sounds. Cardiovascular: Regular rate and rhythm with S1-S2. Gastrointestinal: Abdomen is soft, morbidly obese, nontender, and nondistended with positive bowel sounds. Skin: Warm and dry. Hard callused area on the plantar aspect of the right 1st toe with a small open area without drainage. Underlying tissue was a bit dusky. No warmth, pain, or induration. Extremities: No cyanosis, clubbing, or significant edema. Radial and pedal pulses intact. 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 Neurological: Alert. Cranial nerves 2-12 are grossly intact. No gross focal deficits to casual conversation. Psychiatric: Pleasant and cooperative with normal mood and affect. Judgment and insight intact. Objective Data Vital Signs Vital Signs: Vital Signs - 24 hr 02/14/23 12:30 02/14/23 12:31 02/14/23 12:45 Temperature Pulse Rate 65 61 60 Respiratory Rate 12 12 14 Blood Pressure 101/60 Pulse Oximetry Oxygen Delivery Oxygen Flow Rate 02/14/23 13:06 02/14/23 14:17 02/14/23 13:00 Temperature Pulse Rate 65 59 L Respiratory Rate 18 14 Blood Pressure 99/59 L Pulse Oximetry 100 100 100 Oxygen Delivery Nasal Cannula Oxygen Flow Rate 4 02/14/23 13:01 02/14/23 13:15 02/14/23 13:30 Temperature Pulse Rate 62 60 60 Respiratory Rate 13 14 16 Blood Pressure 101/70 Pulse Oximetry 100 100 100 Oxygen Delivery Oxygen Flow Rate 02/14/23 13:31 02/14/23 13:45 02/14/23 14:00 Temperature Pulse Rate 59 L 59 L Respiratory Rate 13 13 12 Blood Pressure 105/66 Pulse Oximetry 100 100 100
[2023-02-15] MEDS: ENOXAPARIN 40 MG/0.4 ML SYRINGE SUB-Q (12:52)
[2023-02-15] MEDS: POTASSIUM CHLORIDE 20 MEQ ER TABLET 40 MEQ PO (14:03)
[2023-02-15 17:21] LABS: Potassium 3.6 mmol/L (3.4-5.0)
[2023-02-15] MEDS: traZODone HCL 50 MG TABLET 100 MG PO (20:14)
[2023-02-15] MEDS: ATORVASTATIN 40 MG TABLET PO (20:14)
[2023-02-15] MEDS: MONTELUKAST SODIUM 10 MG TABLET PO (20:14)
[2023-02-16] VITALS (12 sets, daily range): BP systolic 105–138; BP diastolic 66–77; PULSE 57–79; RESP 18–22; TEMP 36.1–36.8; O2SAT 93–100
[2023-02-16] MEDS: HYDROcodone/acetaminophen (*CRX) 10-325 MG TABLET 1 TAB PO ×3 (01:51→16:36)
[2023-02-16] MEDS: TOPIRAMATE 25 MG TABLET 50 MG PO ×2 (08:00→16:36)
[2023-02-16] MEDS: ISOSORBIDE DINITRATE 10 MG TABLET 30 MG PO (08:00)
[2023-02-16] MEDS: SPIRONOLACTONE 25 MG TABLET PO ×2 (08:00→16:36)
[2023-02-16] MEDS: DULoxetine HCL 30 MG CAPSULE.DR PO (08:00)
[2023-02-16] MEDS: lamoTRIgine 25 MG TABLET PO (08:01)
[2023-02-16] MEDS: FAMOTIDINE 20 MG TABLET 40 MG PO (08:01)
[2023-02-16] MEDS: FUROSEMIDE 40 MG TABLET PO ×2 (08:01→16:36)
[2023-02-16] MEDS: buPROPion HCL SR (12 HR) 150 MG TAB PO ×2 (08:01→20:15)
[2023-02-16] MEDS: ALPRAZolam (*CRX) 0.5 MG TABLET PO (08:01)
[2023-02-16] MEDS: BENZONATATE 100 MG CAPSULE 200 MG PO ×3 (08:01→16:36)
[2023-02-16] MEDS: POTASSIUM CHLORIDE 20 MEQ ER TABLET PO ×2 (08:01→16:36)
[2023-02-16] MEDS: busPIRone HCL 10 MG TABLET PO ×2 (08:01→16:36)
[2023-02-16] MEDS: allopurinoL 300 MG TABLET PO (08:01)
[2023-02-16] MEDS: ARIPiprazole 5 MG TABLET PO (08:01)
[2023-02-16] MEDS: CYCLOBENZAPRINE HCL 10 MG TABLET PO (08:01)
[2023-02-16] MEDS: ENOXAPARIN 40 MG/0.4 ML SYRINGE SUB-Q (08:02)
[2023-02-16] MEDS: GABAPENTIN 400 MG CAPSULE 800 MG PO ×3 (08:02→16:36)
[2023-02-16] MEDS: METOPROLOL TARTRATE 25 MG TABLET PO ×2 (08:05→20:15)
[2023-02-16 08:07] LABS: Basophils Percent Auto 0.2 % (0.2-1.2); Eosinophils Absolute Auto 0.2 K/mm3 (0-0.3); Eosinophils Percent Auto 1.4 % (0-4.4); Hematocrit 45.3 % (37.0-47.0); Hemoglobin 13.8 g/dL (12.0-15.0); Immature Granulocyte Absolute 0.05 K/mm3 (0.00-0.031); Immature Granulocyte Percent A 0.4 % (0-0.5); Lymphocytes Absolute Auto 2.21 K/mm3 (0.9-3.2); Lymphocytes Percent Auto 18.2 % (18.3-44.2); Mean Corpuscular HGB Conc 30.5 g/dl (32-36); Mean Corpuscular Hemoglobin 27.6 pg (26-34); Mean Corpuscular Volume 90.6 fl (80-100); Mean Platelet Volume 12.6 fl (7.4-10.4); Monocytes Absolute Auto 1.1 K/mm3 (0.1-0.6); Monocytes Percent Auto 9.2 % (2.6-8.5); Neutrophils Absolute Auto 8.6 K/mm3 (1.3-6.7); Neutrophils Percent Auto 70.6 % (45.5-73.1); Platelet Count Result 149 k/mm3 (150-375); Red Cell Distribution Width 15.4 % (11.5-14.5); White Blood Count 12.1 K/mm3 (4.5-10.0)
[2023-02-16 09:49] LABS: Anion Gap 9 mmol/L (8-16); Blood Urea Nitrogen 33 mg/dL (7-17); Calcium 9.3 mg/dL (8.4-10.2); Carbon Dioxide 30 mmol/L (22-30); Chloride 94 mmol/L (98-107); Estimated CRCL calculation 57 ml/min; Estimated Glomerular Filt Rate 38; Glucose 97 mg/dL (65-110); Potassium 3.5 mmol/L (3.4-5.0); Sodium 133 mmol/L (137-145)
[2023-02-16] MEDS: HYDROcodone/acetaminophen (*CRX) 5-325 MG TABLET 1 TAB PO (11:41)
--- NOTE | 2023-02-16 13:53 | PM.IMPN ---
Progress Note: A&P Assessment and Plan (1) Pneumothorax on right: Code(s): J93.9 - Pneumothorax, unspecified Status: Acute Assessment and Plan: Chest CTA showed a very small right-sided pneumothorax, likely the cause of her pleuritic pain. Continue with oxygen, monitor with a repeat chest x-ray. 02/16: repeat chest x-ray no signs of pneumothorax this morning (2) Pneumonia: Qualifiers: Pneumonia type: due to unspecified organism Laterality: left Lung location: lower lobe of lung Qualified Code(s): J18.9 - Pneumonia, unspecified organism Code(s): J18.9 - Pneumonia, unspecified organism Status: Ruled-out Assessment and Plan: 02/16: nitiate treatment with IV Rocephin doxycycline, blood cultures and lactic acid drawn. ABG ordered. Legionella, mycoplasma, chlamydia pneumoniae, pneumococcal antigen ordered. (3) Pleuritic pain: Code(s): R07.81 - Pleurodynia Status: Acute Assessment and Plan: Most likely related to above. No pulmonary embolism noted on chest CTA. Analgesics available as needed. (4) Chronic respiratory failure with hypoxia, on home oxygen therapy: Code(s): J96.11 - Chronic respiratory failure with hypoxia; Z99.81 - Dependence on supplemental oxygen Status: Acute Assessment and Plan: She is at her baseline oxygen requirement. No evidence of pneumonia on chest CTA. (5) Chronic obstructive pulmonary disease: Code(s): J44.9 - Chronic obstructive pulmonary disease, unspecified Status: Acute Assessment and Plan: No evidence to suggest acute exacerbation. Continue maintenance inhalers as prescribed. 02/16: Patient encephalopathic chest x-ray shows atelectasis versus pneumonia. ABG ordered to check for hypercapnia. (6) Chronic kidney disease: Code(s): N18.9 - Chronic kidney disease, unspecified Status: Acute Assessment and Plan: Creatinine frequently fluctuates and is likely near her baseline. (7) Hypertension: Code(s): I10 - Essential (primary) hypertension Status: Acute Assessment and Plan: Blood pressures were reviewed and they are stable. Continue antihypertensives and monitor. Blood pressure reviewed on 02/16, stable no need for any significant changes at this time Plan Initiate treatment with IV antibiotics for possible pneumonia. Labs ordered and nasal swabs ordered Notified case management as patient will likely require assistance with SNF verses permanent placement Midline ordered due to loss IV access and need to start IV antibiotics PT and OT consulted to assist with discharge recommendations Time Spent With Patient Time with patient: Greater than 35 minutes Subjective Date/time seen: 02/16/23 13:53 Interval history: 02/15: Repeat chest x-ray today shows no evidence of pneumothorax. However, there is findings concerning for atelectasis versus pneumonia. White blood cell count is somewhat elevated at 12 today. Patient seems to be Encephalopathic as she was significantly confused and weak compared to what was previously reported. We will insert midline IV as she has lost access. Will begin treating for pneumonia with Rocephin and doxycycline. Blood cultures lactic acid ABG, MRSA swab, mycoplasma, chlamydia pneumoniae, Legionella and pneumococcal antigen checked. PT and OT ordered. Review of Systems Review of Systems: Twelve systems were reviewed and are negative except for as per HPI. Exam Narrative: General: Chronically ill-appearing female sitting up in bed in no acute distress. HEENT: PERRL, EOMI. Sclera anicteric. Oral mucosa moist. Oropharynx is crowded. Neck: Supple. Exam limited due to neck circumference. No obvious JVD. Respiratory: Respirations are nonlabored. diminished lung sounds Cardiovascular: Regular rate and rhythm with S1-S2. sinus rhythm rate of 78 on telemetry per my interpretation Gastrointestinal:
[2023-02-16 15:27] LABS: Alveolar/Arterial O2 Gradient 98.2 mmHg; Base Excess ABG 6.8 mEq/l (+/-2.0); Carboxyhemoglobin 0.5 % THb (0-2.0); Fractional Inspired Oxygen 36 %; HCO3 ABG 32.7 mEq/l (22.0-26.0); Methemoglobin ABG 0.2 %THb (0-1.5); Oxygen Content ABG 19.2 %vol (16.0-22.0); Oxygen Saturation ABG 97.5 % (95.0-100.0); Oxyhemoglobin 96.4 % THb (90.0-100.0); PO2 ABG 98.2 mmHg (80.0-100.0); PO2 FiO2 Ratio Arterial Blood 2.73 %; Reduced Hemoglobin 2.9 %THb (0-5.0); Total Hemoglobin 14.1 g/dL (12.0-18.0); pH ABG 7.417 (7.350-7.450)
[2023-02-16 15:28] LABS: Device NASAL CANNULA; Modified Allen's Test Pass; Site Drawn RIGHT RADIAL
[2023-02-16] MEDS: LIDOCAINE HCL 1% LOCAL INJ 2 ML AMPUL 5 ML INFILTRATE (15:45)
[2023-02-16 16:01] LABS: Lactic Acid Reflex 1.3 mmol/L (0.7-2.0)
[2023-02-16] MEDS: cefTRIAXone 2 GM/NS 100 ML 2 GM/100 ML BAG IVPB (16:22)
[2023-02-16] MEDS: DOXYCYCLINE HYCLATE 100 MG TABLET PO ×2 (16:23→20:15)
[2023-02-16 17:48] LABS: MRSA (PCR) NOT DETECTED (NOT DETECTE)
[2023-02-16] MEDS: MONTELUKAST SODIUM 10 MG TABLET PO (20:15)
[2023-02-16] MEDS: ATORVASTATIN 40 MG TABLET PO (20:15)
[2023-02-16] MEDS: SALINE LOCK FLUSH 10 ML IV PUSH (21:21)
[2023-02-17] VITALS (12 sets, daily range): BP systolic 103–128; BP diastolic 65–77; PULSE 61–73; RESP 16–20; TEMP 36.1–36.6; O2SAT 92–97
[2023-02-17] MEDS: traZODone HCL 50 MG TABLET 100 MG PO ×2 (01:07→21:46)
[2023-02-17] MEDS: HYDROcodone/acetaminophen (*CRX) 10-325 MG TABLET 1 TAB PO (05:17)
[2023-02-17] MEDS: SALINE LOCK FLUSH 10 ML IV PUSH ×3 (05:19→21:46)
[2023-02-17 05:22] LABS: Basophils Percent Auto 0.3 % (0.2-1.2); Eosinophils Absolute Auto 0.3 K/mm3 (0-0.3); Hematocrit 43.1 % (37.0-47.0); Hemoglobin 13.3 g/dL (12.0-15.0); Immature Granulocyte Absolute 0.05 K/mm3 (0.00-0.031); Immature Granulocyte Percent A 0.6 % (0-0.5); Lymphocytes Absolute Auto 2.26 K/mm3 (0.9-3.2); Mean Corpuscular HGB Conc 30.9 g/dl (32-36); Mean Corpuscular Hemoglobin 27.5 pg (26-34); Mean Platelet Volume 12.1 fl (7.4-10.4); Monocytes Percent Auto 11.4 % (2.6-8.5); Neutrophils Absolute Auto 5.1 K/mm3 (1.3-6.7); Neutrophils Percent Auto 58.7 % (45.5-73.1); Platelet Count Result 151 k/mm3 (150-375); Red Blood Count 4.84 M/mm3 (4.2-5.4); Red Cell Distribution Width 15.5 % (11.5-14.5); White Blood Count 8.7 K/mm3 (4.5-10.0)
[2023-02-17 05:47] LABS: Alanine Aminotransferase 31 U/L (6-35); Albumin Level 3.8 g/dL (3.5-5.1); Alkaline Phosphatase 136 U/L (38-126); Anion Gap 6 mmol/L (8-16); Aspartate Amino Transferase 30 U/L (14-36); Bilirubin,Total 0.5 mg/dL (0.2-1.3); Blood Urea Nitrogen 32 mg/dL (7-17); Calcium 9.4 mg/dL (8.4-10.2); Carbon Dioxide 38 mmol/L (22-30); Chloride 90 mmol/L (98-107); Estimated CRCL calculation 45 ml/min; Estimated Glomerular Filt Rate 29; Glucose 123 mg/dL (65-110); Magnesium 1.9 mg/dL (1.6-2.3); Potassium 2.6 mmol/L (3.4-5.0); Sodium 134 mmol/L (137-145)
[2023-02-17] MEDS: POTASSIUM CHLORIDE 20 MEQ ER TABLET 80 MEQ PO (06:21)
[2023-02-17] MEDS: busPIRone HCL 10 MG TABLET PO ×2 (09:28→17:25)
[2023-02-17] MEDS: ARIPiprazole 5 MG TABLET PO (09:28)
[2023-02-17] MEDS: FUROSEMIDE 40 MG TABLET PO ×2 (09:29→17:25)
[2023-02-17] MEDS: ISOSORBIDE DINITRATE 10 MG TABLET 30 MG PO (09:29)
[2023-02-17] MEDS: ALPRAZolam (*CRX) 0.5 MG TABLET PO (09:29)
[2023-02-17] MEDS: DOXYCYCLINE HYCLATE 100 MG TABLET PO ×2 (09:29→21:46)
[2023-02-17] MEDS: METOPROLOL TARTRATE 25 MG TABLET PO ×2 (09:29→21:45)
[2023-02-17] MEDS: POTASSIUM CHLORIDE 20 MEQ ER TABLET PO (09:30)
[2023-02-17] MEDS: metOLazone 2.5 MG TABLET PO (09:30)
[2023-02-17] MEDS: DULoxetine HCL 30 MG CAPSULE.DR PO (09:30)
[2023-02-17] MEDS: SPIRONOLACTONE 25 MG TABLET PO ×2 (09:30→17:25)
[2023-02-17] MEDS: buPROPion HCL SR (12 HR) 150 MG TAB PO ×2 (09:30→21:46)
[2023-02-17] MEDS: lamoTRIgine 25 MG TABLET PO (09:30)
[2023-02-17] MEDS: TOPIRAMATE 25 MG TABLET 50 MG PO ×2 (09:30→17:25)
[2023-02-17] MEDS: BENZONATATE 100 MG CAPSULE 200 MG PO ×3 (09:30→17:25)
[2023-02-17] MEDS: CYCLOBENZAPRINE HCL 10 MG TABLET PO (09:30)
[2023-02-17] MEDS: GABAPENTIN 400 MG CAPSULE 800 MG PO ×3 (09:30→17:25)
[2023-02-17] MEDS: ENOXAPARIN 40 MG/0.4 ML SYRINGE SUB-Q (09:31)
[2023-02-17] MEDS: allopurinoL 300 MG TABLET PO (09:31)
[2023-02-17] MEDS: FAMOTIDINE 20 MG TABLET 40 MG PO (09:31)
[2023-02-17] MEDS: cefTRIAXone 2 GM/NS 100 ML 2 GM/100 ML BAG IVPB (12:59)
[2023-02-17 13:50] LABS: Potassium 3.5 mmol/L (3.4-5.0)
--- NOTE | 2023-02-17 15:26 | PM.IMPN ---
Progress Note: A&P Assessment and Plan (1) Pneumothorax on right: Code(s): J93.9 - Pneumothorax, unspecified Status: Acute Assessment and Plan: Chest CTA showed a very small right-sided pneumothorax, likely the cause of her pleuritic pain. Continue with oxygen, monitor with a repeat chest x-ray. 02/16: repeat chest x-ray no signs of pneumothorax this morning (2) Pneumonia: Qualifiers: Pneumonia type: due to unspecified organism Laterality: left Lung location: lower lobe of lung Qualified Code(s): J18.9 - Pneumonia, unspecified organism Code(s): J18.9 - Pneumonia, unspecified organism Status: Ruled-out Assessment and Plan: 02/16: Antibiotic treatment with IV Rocephin doxycycline, blood cultures and lactic acid drawn. ABG ordered. Legionella, mycoplasma, chlamydia pneumoniae, pneumococcal antigen ordered. (3) Pleuritic pain: Code(s): R07.81 - Pleurodynia Status: Acute Assessment and Plan: Most likely related to above. No pulmonary embolism noted on chest CTA. Analgesics available as needed. 02/17; Reports pain is better this morning (4) Chronic respiratory failure with hypoxia, on home oxygen therapy: Code(s): J96.11 - Chronic respiratory failure with hypoxia; Z99.81 - Dependence on supplemental oxygen Status: Acute Assessment and Plan: She is at her baseline oxygen requirement. No evidence of pneumonia on chest CTA. (5) Chronic obstructive pulmonary disease: Code(s): J44.9 - Chronic obstructive pulmonary disease, unspecified Status: Acute Assessment and Plan: No evidence to suggest acute exacerbation. Continue maintenance inhalers as prescribed. 02/16: Patient encephalopathic chest x-ray shows atelectasis versus pneumonia. ABG ordered to check for hypercapnia. (6) Chronic kidney disease: Code(s): N18.9 - Chronic kidney disease, unspecified Status: Acute Assessment and Plan: Creatinine frequently fluctuates and is likely near her baseline. (7) Hypertension: Code(s): I10 - Essential (primary) hypertension Status: Acute Assessment and Plan: Blood pressures were reviewed and they are stable. Continue antihypertensives and monitor. Blood pressure reviewed on 02/16, stable no need for any significant changes at this time Plan Initiate treatment with IV antibiotics for possible pneumonia. Labs ordered and nasal swabs ordered Notified case management as patient will likely require assistance with SNF verses permanent placement Midline ordered due to loss IV access and need to start IV antibiotics PT and OT consulted to assist with discharge recommendations Time Spent With Patient Time with patient: 15 - 25 minutes Subjective Date/time seen: 02/17/23 15:26 Interval history: 02/15:? Repeat chest x-ray today shows no evidence of pneumothorax.? However, there is findings concerning for atelectasis versus pneumonia.? White blood cell count is somewhat elevated at 12 today.? Patient seems to be ? Encephalopathic as she was significantly confused and weak compared to what was previously reported.? We will insert midline IV as she has lost access.? Will begin treating for pneumonia with Rocephin and doxycycline.? Blood cultures lactic acid ABG, MRSA swab, mycoplasma, chlamydia pneumoniae, Legionella and pneumococcal antigen checked.? PT and OT ordered. 02/17: Blood cultures lactic acid ABG, MRSA swab, mycoplasma, chlamydia pneumoniae, Legionella and pneumococcal antigen still pending. Hypokalemia today 2.6. Pt is on spironolactone 25 mg BID. Pt also received the metolazone 2.5 mg today. Will hold the current order for potassium 20 mg BID for today and increase to 40 mg BID with a repeat BMP tonight. Review of Systems Review of Systems: All systems reviewed & are unremarkable except as noted in HPI and below Respiratory: Comments: Pt complains of a small area of sor
[2023-02-17] MEDS: POTASSIUM CHLORIDE 20 MEQ ER TABLET 40 MEQ PO (17:25)
[2023-02-17 21:43] LABS: Anion Gap 7 mmol/L (8-16); Blood Urea Nitrogen 33 mg/dL (7-17); Calcium 9.3 mg/dL (8.4-10.2); Carbon Dioxide 36 mmol/L (22-30); Chloride 91 mmol/L (98-107); Estimated CRCL calculation 45 ml/min; Estimated Glomerular Filt Rate 29; Glucose 142 mg/dL (65-110); Potassium 3.1 mmol/L (3.4-5.0); Sodium 134 mmol/L (137-145)
[2023-02-17] MEDS: MONTELUKAST SODIUM 10 MG TABLET PO (21:46)
[2023-02-17] MEDS: ATORVASTATIN 40 MG TABLET PO (21:46)
[2023-02-18] VITALS (12 sets, daily range): BP systolic 113–136; BP diastolic 64–74; PULSE 58–78; RESP 18–21; TEMP 36.1–36.2; O2SAT 93–100
[2023-02-18] MEDS: HYDROcodone/acetaminophen (*CRX) 10-325 MG TABLET 1 TAB PO ×4 (03:03→21:09)
[2023-02-18 05:59] LABS: Basophils Percent Auto 0.4 % (0.2-1.2); Eosinophils Absolute Auto 0.3 K/mm3 (0-0.3); Eosinophils Percent Auto 2.9 % (0-4.4); Hematocrit 42.7 % (37.0-47.0); Hemoglobin 13.4 g/dL (12.0-15.0); Immature Granulocyte Absolute 0.08 K/mm3 (0.00-0.031); Immature Granulocyte Percent A 0.9 % (0-0.5); Lymphocytes Absolute Auto 2.47 K/mm3 (0.9-3.2); Lymphocytes Percent Auto 27.8 % (18.3-44.2); Mean Corpuscular HGB Conc 31.4 g/dl (32-36); Mean Corpuscular Hemoglobin 27.9 pg (26-34); Mean Platelet Volume 11.9 fl (7.4-10.4); Monocytes Percent Auto 11.6 % (2.6-8.5); Neutrophils Percent Auto 56.4 % (45.5-73.1); Platelet Count Result 139 k/mm3 (150-375); Red Cell Distribution Width 15.3 % (11.5-14.5); White Blood Count 8.9 K/mm3 (4.5-10.0)
[2023-02-18 06:35] LABS: Alanine Aminotransferase 30 U/L (6-35); Albumin Level 3.8 g/dL (3.5-5.1); Alkaline Phosphatase 144 U/L (38-126); Anion Gap 5 mmol/L (8-16); Aspartate Amino Transferase 34 U/L (14-36); Bilirubin,Total 0.5 mg/dL (0.2-1.3); Blood Urea Nitrogen 31 mg/dL (7-17); Calcium 9.2 mg/dL (8.4-10.2); Carbon Dioxide 38 mmol/L (22-30); Chloride 91 mmol/L (98-107); Estimated CRCL calculation 47 ml/min; Estimated Glomerular Filt Rate 31; Glucose 99 mg/dL (65-110); Magnesium 1.9 mg/dL (1.6-2.3); Potassium 2.9 mmol/L (3.4-5.0); Sodium 134 mmol/L (137-145)
--- NOTE | 2023-02-18 08:26 | PM.IMPN ---
Progress Note: A&P Assessment and Plan (1) Pneumothorax on right: Code(s): J93.9 - Pneumothorax, unspecified Status: Acute Assessment and Plan: Chest CTA showed a very small right-sided pneumothorax, likely the cause of her pleuritic pain. Continue with oxygen, monitor with a repeat chest x-ray. 02/16: repeat chest x-ray no signs of pneumothorax (2) Pneumonia: Qualifiers: Pneumonia type: due to unspecified organism Laterality: left Lung location: lower lobe of lung Qualified Code(s): J18.9 - Pneumonia, unspecified organism Code(s): J18.9 - Pneumonia, unspecified organism Status: Ruled-out Assessment and Plan: 02/18: Antibiotic treatment with IV Rocephin and doxycycline, blood cultures drawn, Legionella, mycoplasma, chlamydia pneumoniae, pneumococcal antigen ordered and pending (3) Pleuritic pain: Code(s): R07.81 - Pleurodynia Status: Acute Assessment and Plan: Most likely related to above. No pulmonary embolism noted on chest CTA. Analgesics available as needed. Reports pain is better this morning 02/18 (4) Chronic respiratory failure with hypoxia, on home oxygen therapy: Code(s): J96.11 - Chronic respiratory failure with hypoxia; Z99.81 - Dependence on supplemental oxygen Status: Acute Assessment and Plan: She is at her baseline oxygen requirement. No evidence of pneumonia on chest CTA. (5) Chronic obstructive pulmonary disease: Code(s): J44.9 - Chronic obstructive pulmonary disease, unspecified Status: Acute Assessment and Plan: No evidence to suggest acute exacerbation. Continue maintenance inhalers as prescribed. 02/16: Patient encephalopathic chest x-ray shows atelectasis versus pneumonia. ABG ordered to check for hypercapnia-PCO@ 52. (6) Chronic kidney disease: Code(s): N18.9 - Chronic kidney disease, unspecified Status: Acute Assessment and Plan: Creatinine frequently fluctuates and is likely near her baseline. (7) Hypertension: Code(s): I10 - Essential (primary) hypertension Status: Acute Assessment and Plan: Blood pressures were reviewed and they are stable. Continue antihypertensives and monitor. Blood pressure reviewed on 02/18 113/64 Plan Initiate treatment with IV antibiotics for possible pneumonia. Labs ordered and nasal swabs ordered Notified case management as patient will likely require assistance with SNF verses permanent placement Midline ordered due to loss IV access and need to start IV antibiotics PT and OT consulted to assist with discharge recommendations Time Spent With Patient Time with patient: 15 - 25 minutes Subjective Date/time seen: 02/18/23 08:26 Interval history: 02/15:? Repeat chest x-ray today shows no evidence of pneumothorax.? However, there is findings concerning for atelectasis versus pneumonia.? White blood cell count is somewhat elevated at 12 today.? Patient seems to be ? Encephalopathic as she was significantly confused and weak compared to what was previously reported.? We will insert midline IV as she has lost access.? Will begin treating for pneumonia with Rocephin and doxycycline.? Blood cultures lactic acid ABG, MRSA swab, mycoplasma, chlamydia pneumoniae, Legionella and pneumococcal antigen checked.? PT and OT ordered. 02/17: Blood cultures lactic acid ABG, MRSA swab, mycoplasma, chlamydia pneumoniae, Legionella and pneumococcal antigen still pending. Hypokalemia today 2.6. Pt is on spironolactone 25 mg BID. Pt also received the metolazone 2.5 mg today.? Will hold the current order for potassium 20 mg BID for today and increase to 40 mg BID with a repeat BMP tonight. 02/18: Potassium this morning again low at 2.9. Will give 20 mEq IV potassium and increase her scheduled potassium to 40 mEq BID with a repeat potassium level at 1300-3.3 and will receive a 2nd dose of oral potassium later today. Recheck lab in th
[2023-02-18] MEDS: KCL 20 MEQ/SW 100 ML 100 ML 50 MEQ IVPB (09:09)
[2023-02-18] MEDS: buPROPion HCL SR (12 HR) 150 MG TAB PO ×2 (09:10→20:44)
[2023-02-18] MEDS: POTASSIUM CHLORIDE 20 MEQ ER TABLET PO ×2 (09:10→17:16)
[2023-02-18] MEDS: ENOXAPARIN 40 MG/0.4 ML SYRINGE SUB-Q (09:10)
[2023-02-18] MEDS: DULoxetine HCL 30 MG CAPSULE.DR PO (09:10)
[2023-02-18] MEDS: CYCLOBENZAPRINE HCL 10 MG TABLET PO (09:10)
[2023-02-18] MEDS: ALPRAZolam (*CRX) 0.5 MG TABLET PO (09:10)
[2023-02-18] MEDS: allopurinoL 300 MG TABLET PO (09:10)
[2023-02-18] MEDS: FAMOTIDINE 20 MG TABLET 40 MG PO (09:11)
[2023-02-18] MEDS: ARIPiprazole 5 MG TABLET PO (09:11)
[2023-02-18] MEDS: busPIRone HCL 10 MG TABLET PO ×2 (09:11→17:16)
[2023-02-18] MEDS: GABAPENTIN 400 MG CAPSULE 800 MG PO ×3 (09:11→17:16)
[2023-02-18] MEDS: SPIRONOLACTONE 25 MG TABLET PO ×2 (09:11→17:16)
[2023-02-18] MEDS: DOXYCYCLINE HYCLATE 100 MG TABLET PO ×2 (09:11→20:44)
[2023-02-18] MEDS: BENZONATATE 100 MG CAPSULE 200 MG PO ×3 (09:11→17:16)
[2023-02-18] MEDS: FUROSEMIDE 40 MG TABLET PO ×2 (09:11→17:16)
[2023-02-18] MEDS: METOPROLOL TARTRATE 25 MG TABLET PO ×2 (09:11→20:44)
[2023-02-18] MEDS: TOPIRAMATE 25 MG TABLET 50 MG PO ×2 (09:11→17:16)
[2023-02-18] MEDS: ISOSORBIDE DINITRATE 10 MG TABLET 30 MG PO (09:12)
[2023-02-18] MEDS: lamoTRIgine 25 MG TABLET PO (09:12)
[2023-02-18] MEDS: cefTRIAXone 2 GM/NS 100 ML 2 GM/100 ML BAG IVPB (13:51)
[2023-02-18] MEDS: SALINE LOCK FLUSH 10 ML IV PUSH ×2 (13:54→20:47)
[2023-02-18 14:47] LABS: Potassium 3.3 mmol/L (3.4-5.0)
[2023-02-18] MEDS: POTASSIUM CHLORIDE 20 MEQ ER TABLET 40 MEQ PO (17:16)
[2023-02-18] MEDS: ATORVASTATIN 40 MG TABLET PO (20:44)
[2023-02-18] MEDS: traZODone HCL 50 MG TABLET 100 MG PO (20:44)
[2023-02-18] MEDS: MONTELUKAST SODIUM 10 MG TABLET PO (20:44)
[2023-02-19] VITALS (7 sets, daily range): BP systolic 121–131; BP diastolic 74–82; PULSE 57–69; RESP 18–20; TEMP 36.1–36.4; O2SAT 98–100
[2023-02-19 08:06] LABS: Basophils Percent Auto 0.3 % (0.2-1.2); Eosinophils Absolute Auto 0.4 K/mm3 (0-0.3); Eosinophils Percent Auto 4.2 % (0-4.4); Hematocrit 46.9 % (37.0-47.0); Hemoglobin 14.5 g/dL (12.0-15.0); Immature Granulocyte Absolute 0.09 K/mm3 (0.00-0.031); Lymphocytes Absolute Auto 2.38 K/mm3 (0.9-3.2); Lymphocytes Percent Auto 25.9 % (18.3-44.2); Mean Corpuscular HGB Conc 30.9 g/dl (32-36); Mean Corpuscular Hemoglobin 27.9 pg (26-34); Mean Corpuscular Volume 90.4 fl (80-100); Mean Platelet Volume 11.8 fl (7.4-10.4); Monocytes Percent Auto 11.2 % (2.6-8.5); Neutrophils Absolute Auto 5.3 K/mm3 (1.3-6.7); Neutrophils Percent Auto 57.4 % (45.5-73.1); Platelet Count Result 170 k/mm3 (150-375); Red Blood Count 5.19 M/mm3 (4.2-5.4); Red Cell Distribution Width 15.5 % (11.5-14.5); White Blood Count 9.2 K/mm3 (4.5-10.0)
[2023-02-19 08:12] LABS: Alanine Aminotransferase 42 U/L (6-35); Albumin Level 4.4 g/dL (3.5-5.1); Alkaline Phosphatase 144 U/L (38-126); Aspartate Amino Transferase 38 U/L (14-36); Bilirubin,Total 0.6 mg/dL (0.2-1.3); Blood Urea Nitrogen 29 mg/dL (7-17); Calcium 9.6 mg/dL (8.4-10.2); Carbon Dioxide > 40 mmol/L (22-30); Chloride 88 mmol/L (98-107); Estimated CRCL calculation 45 ml/min; Estimated Glomerular Filt Rate 29; Glucose 93 mg/dL (65-110); Magnesium 1.9 mg/dL (1.6-2.3); Potassium 3.2 mmol/L (3.4-5.0); Sodium 135 mmol/L (137-145)
[2023-02-19] MEDS: DULoxetine HCL 30 MG CAPSULE.DR PO (08:38)
[2023-02-19] MEDS: lamoTRIgine 25 MG TABLET PO (08:38)
[2023-02-19] MEDS: ENOXAPARIN 40 MG/0.4 ML SYRINGE SUB-Q (08:38)
[2023-02-19] MEDS: FAMOTIDINE 20 MG TABLET 40 MG PO (08:39)
[2023-02-19] MEDS: METOPROLOL TARTRATE 25 MG TABLET PO (08:39)
[2023-02-19] MEDS: buPROPion HCL SR (12 HR) 150 MG TAB PO (08:39)
[2023-02-19] MEDS: POTASSIUM CHLORIDE 20 MEQ ER TABLET PO ×2 (08:39→16:33)
[2023-02-19] MEDS: POTASSIUM CHLORIDE 20 MEQ ER TABLET 40 MEQ PO ×2 (08:39→16:32)
[2023-02-19] MEDS: BENZONATATE 100 MG CAPSULE 200 MG PO ×3 (08:39→16:32)
[2023-02-19] MEDS: GABAPENTIN 400 MG CAPSULE 800 MG PO ×3 (08:39→16:32)
[2023-02-19] MEDS: DOXYCYCLINE HYCLATE 100 MG TABLET PO (08:39)
[2023-02-19] MEDS: FUROSEMIDE 40 MG TABLET PO ×2 (08:39→16:33)
[2023-02-19] MEDS: busPIRone HCL 10 MG TABLET PO ×2 (08:39→16:33)
[2023-02-19] MEDS: CYCLOBENZAPRINE HCL 10 MG TABLET PO (08:39)
[2023-02-19] MEDS: ISOSORBIDE DINITRATE 10 MG TABLET 30 MG PO (08:39)
[2023-02-19] MEDS: TOPIRAMATE 25 MG TABLET 50 MG PO ×2 (08:40→16:32)
[2023-02-19] MEDS: metOLazone 2.5 MG TABLET PO (08:40)
[2023-02-19] MEDS: allopurinoL 300 MG TABLET PO (08:40)
[2023-02-19] MEDS: SALINE LOCK FLUSH 10 ML IV PUSH ×2 (08:40→13:14)
[2023-02-19] MEDS: SPIRONOLACTONE 25 MG TABLET PO ×2 (08:40→16:33)
[2023-02-19] MEDS: ARIPiprazole 5 MG TABLET PO (08:40)
[2023-02-19] MEDS: HYDROcodone/acetaminophen (*CRX) 10-325 MG TABLET 1 TAB PO (08:46)
--- NOTE | 2023-02-19 12:09 | PM.DS ---
DS: Admitting Diagnosis Discharge Date 02/19/2023 Admitting Diagnosis Pneumothorax on right, pleuritic pain, chronic respiratory failure with hypoxia on home oxygen therapy, COPD, hypertension DS: Discharge Diagnosis Discharge Diagnosis (1) Pneumothorax on right: Code(s): J93.9 - Pneumothorax, unspecified Status: Acute (2) Pneumonia: Qualifiers: Laterality: left Lung location: lower lobe of lung Pneumonia type: due to unspecified organism Qualified Code(s): J18.9 - Pneumonia, unspecified organism Code(s): J18.9 - Pneumonia, unspecified organism Status: Ruled-out (3) Pleuritic pain: Code(s): R07.81 - Pleurodynia Status: Acute (4) Chronic respiratory failure with hypoxia, on home oxygen therapy: Code(s): J96.11 - Chronic respiratory failure with hypoxia; Z99.81 - Dependence on supplemental oxygen Status: Acute (5) Chronic obstructive pulmonary disease: Code(s): J44.9 - Chronic obstructive pulmonary disease, unspecified Status: Acute (6) Chronic kidney disease: Code(s): N18.9 - Chronic kidney disease, unspecified Status: Acute (7) Hypertension: Code(s): I10 - Essential (primary) hypertension Status: Acute DS: Summary Hospital Course Reason for hospitalization: Right-sided chest pain with small pneumothorax Hospital Course: 02/15:? Repeat chest x-ray today shows no evidence of pneumothorax.? However, there is findings concerning for atelectasis versus pneumonia.? White blood cell count is somewhat elevated at 12 today.? Patient seems to be ? Encephalopathic as she was significantly confused and weak compared to what was previously reported.? We will insert midline IV as she has lost access.? Will begin treating for pneumonia with Rocephin and doxycycline.? Blood cultures lactic acid ABG, MRSA swab, mycoplasma, chlamydia pneumoniae, Legionella and pneumococcal antigen checked.? PT and OT ordered. 02/17: Blood cultures lactic acid ABG, MRSA swab, mycoplasma, chlamydia pneumoniae, Legionella and pneumococcal antigen still pending. Hypokalemia today 2.6. Pt is on spironolactone 25 mg BID. Pt also received the metolazone 2.5 mg today.? Will hold the current order for potassium 20 mg BID for today and increase to 40 mg BID with a repeat BMP tonight. 02/18: Potassium this morning again low at 2.9.? Will give 20 mEq IV potassium and increase her scheduled potassium to 40 mEq BID with a repeat potassium level at 1300-3.3 and will receive a 2nd dose of oral potassium later today. Recheck lab in the morning. Magnesium is 1.9 today.? Discussed with RN patients mentation is slowed and she appears drowsy, improved today over yesterday.? RN found pt normally took Xanax at bedtime and it has been administered in the morning her.? Will stop the Xanax for now. MRSA swab negative. chlamydia pneumoniae, legionella, mycoplasma pneumoniae all pending.? 02/19: Patient's pain is improved, mental status improved. She is up to chair. Repeat CXR unchanged from prior, continue treatment for pneumonia with oral antibiotics. Discharge to SNF on oxygen. Time spent discussing smoking cessation with patient: 3 to 10 minutes Status at Discharge Cognitive/behavioral status at discharge: awake, alert, confused per baseline Functional status at discharge: uses cane/walker Overall status at discharge: patient is progressing back to baseline Time Spent with Patient Time attestation: Total time spent providing and/or coordinating discharge services: 40 minutes Time spent: Greater than 30 minutes Exam Narrative: Patient is A/O x 4 and appears in no acute distress. Telemetry remains NSR without ectopy at this time. Const: General: comfortable and no acute distress HENMT: Face/Nose/Sinus: Normal nares present Mouth: Yes moist mucous membranes Eyes: General: appearance normal, both eyes and all related structures Sclera: sclerae normal Pupils: Equal, round
[2023-02-19] MEDS: CEFDINIR 300 MG CAPSULE PO (12:11)
[2023-02-19] MEDS: NEOMYCIN/POLYMYXIN/BACITRACIN OINTMENT PACKET 1 PACKET TOPICAL (16:45)
[2023-02-19 17:14] LABS: SARS-CoV-2 RNA PCR Negative (Negative)
[2023-02-20 02:48] LABS: Pneumococcal Antigen Urine Not Detected (Not Detected)
[2023-02-21 06:59] LABS: Legionella pneumophila Ag Ur Not Detected (Not Detected)
[2023-02-23 11:13] LABS: Chlamydia pneumoniae by PCR Not Detected
== END 2023-02-19 18:20 | DRG 139 ==
LOC: ANHED 12:44 → ANHIMU 14:07 → ANH3MED 17:45
PROVIDERS: Internal Medicine; Nurse Practitioner Family; Physician Assistant; Admitting Provider General Practice; Emergency Provider Emergency Medicine; PCP Family Medicine; Visit Provider Nurse Practitioner
DX: J18.9 Pneumonia, unspecified organism (principal); J44.0 Chronic obstructive pulmonary disease with (acute) lower respiratory infection; J93.9 Pneumothorax, unspecified; J96.11 Chronic respiratory failure with hypoxia; I12.9 Hypertensive chronic kidney disease with stage 1 through stage 4 chronic kidney disease, or unspecified chronic kidney disease; N18.9 Chronic kidney disease, unspecified; E78.5 Hyperlipidemia, unspecified; E87.6 Hypokalemia; E66.01 Morbid (severe) obesity due to excess calories; Z68.42 Body mass index [BMI] 45.0-49.9, adult; G47.33 Obstructive sleep apnea (adult) (pediatric); G62.9 Polyneuropathy, unspecified; L40.9 Psoriasis, unspecified; F31.9 Bipolar disorder, unspecified; F41.9 Anxiety disorder, unspecified; Z20.822 Contact with and (suspected) exposure to COVID-19; Z96.611 Presence of right artificial shoulder joint; Z85.41 Personal history of malignant neoplasm of cervix uteri; Z99.81 Dependence on supplemental oxygen; Z87.891 Personal history of nicotine dependence
CPT/HCPCS: 36415; 36569; 36600; 71045; 71046; 71275; 80048; 80053; 81003; 82375; 82805; 83050; 83605; 83735; 83880; 84132; 84145; 84484; 85025; 85027; 85380; 85610; 85730; 86140; 87040; 87449; 87486; 87581; 87635; 87637; 87641; 87899; 93005; 94640; 96365; 96366; 96374; 96375; 96376; 97110; 97161; 97165; 97530; 99285; A9270; G0378; G0379; J0696; J1650; J2270; J3480; J7040; Q9967

== ENCOUNTER 2024-07-03 05:57 | Emergency (ER) | payer OTHER, SELFPAY ==
--- NOTE | ~2024-07-03 | CT_ITS ---
CT Facial Bones and Cervical Spine Clinical Indication: Status post fall Technique: Contiguous axial scans were obtained through the facial bones and cervical spine followed by coronal and sagittal reconstructions. Dose reduction technique was used on this scan by utilizing automated exposure control and iterative reconstruction technique. The dose-length product (DLP) was 634.58 mGy-cm. COMPARISON: 05/25/2022 Findings: CT facial bones: No fractures are identified. The visualized paranasal sinuses are clear. Intraorbita l soft tissues appear normal. CT cervical spine: No fractures or subluxation. There is advanced degenerative disc narrowing at C5- C6 and C6-C7. There is prominent right facet arthropathy at C2-C3 with mild right neural foraminal na rrowing. There is bilateral neural foraminal narrowing at C5-C6 and C6-C7. No prevertebral soft tissu e swelling. Impression: No fracture is seen in the facial bones. No fracture or subluxation of the cervical spine. Degenerative changes in the cervical spine, as above. Reviewed, dictated and finalized at location . Impression: No fracture is seen in the facial bones. No fracture or subluxation of the cervical spine. Degenerative changes in the cervical spine, as above.
--- NOTE | ~2024-07-03 | CT_ITS ---
Non-contrast Head CT History: Status post fall COMPARISON: 10/21/2022 Technique: Axial non-contrast imaging of the brain was performed. Dose reduction technique was used on this scan by utilizing automated exposure control and iterative reconstruction technique. The dose -length product (DLP) was 681.00 mGy-cm. Findings: There is no evidence of intracranial hemorrhage, mass lesion, or acute infarct. Brain par enchyma appears normal. The ventricles and subarachnoid spaces are normal in size. The calvarium ap pears normal. The visualized paranasal sinuses and mastoid air cells are clear. Impression: No significant abnormality seen. Reviewed, dictated and finalized at location . Impression: No significant abnormality seen.
--- NOTE | ~2024-07-03 | XR_ITS ---
HISTORY: FALL COMPARISON: None TECHNIQUE: 2 views of the right hip along with an AP view of the pelvis FINDINGS: No acute fracture or dislocation is identified. Superior lateral sclerosis of the femoral acetabular joint space is present consistent with osteoarth ritis. Age-appropriate bony mineralization. IMPRESSION: Degenerative disease without acute fracture or dislocation Reviewed, dictated and finalized at location []
--- NOTE | ~2024-07-03 | XR_ITS ---
EXAMINATION: XR knee RT 3V DATE: 07/03/2024 07:19 INDICATION: Right knee injury post fall TECHNIQUE: Anteroposterior, oblique and crosstable lateral views of the right knee were obtained COMPARISON: None. FINDINGS: Alignment is normal. No fracture. Mild tricompartmental osteoarthritis at the right knee. No joint e ffusion/layering lipohemarthrosis. Mild subcutaneous edema along the lateral aspect of the knee. IMPRESSION: 1. Mild tricompartmental osteoarthritis of the right knee. No acute osseous abnormality. Reviewed, dictated and finalized at location A. IMPRESSION: 1. Mild tricompartmental osteoarthritis of the right knee. No acute osseous abn ormality.
--- NOTE | ~2024-07-03 | XR_ITS ---
EXAMINATION: XR lumbar spine 2-3V DATE: 07/03/2024 08:01 INDICATION: Fall TECHNIQUE: Anteroposterior and lateral views of the lumbar spine, and cone-down lateral view of the l umbosacral junction were obtained. COMPARISON: 10/23/2012 FINDINGS: 2 mm anterolisthesis L4 on L5. Unchanged posterior angulation of the coccyx which could be developmen angus or sequela of old trauma. Vertebral body heights are normal. Minimal disc height loss at L3-L4 an d L4-L5. Moderate to severe lower lumbar facet osteoarthritis. Sacral arches are intact. Mild bilater al hip and sacroiliac osteoarthritis. Atherosclerotic abdominal aorta. IMPRESSION: 1. Mild lumbar spondylosis. Reviewed, dictated and finalized at location A. IMPRESSION: 1. Mild lumbar spondylosis.
--- NOTE | ~2024-07-03 | XR_ITS ---
EXAMINATION: XR shoulder RT min 2V DATE: 07/03/2024 07:19 INDICATION: Right shoulder injury post fall TECHNIQUE: AP internally and externally rotated, AP oblique externally rotated and transscapular Y vi ews of the right shoulder were obtained. COMPARISON: 12/13/2022 and 10/19/2022 FINDINGS: Reverse right total shoulder arthroplasty which appears well seated in near-anatomic alignment. There is been interval healing of a prior fracture of the proximal right humerus which is healed with some proximal migration of the greater tuberosity fragment. No acute fracture identified. Chronic distal clavicle resection. Soft tissues are unremarkable. Visualized portion of the right lung are clear. IMPRESSION: Reverse right total shoulder arthroplasty with old healed periprosthetic fracture. No acute osseous a bnormality. Reviewed, dictated and finalized at location A. IMPRESSION: Reverse right total shoulder arthroplasty with old healed periprosthetic fractu re. No acute osseous abnormality.
[2024-07-03 05:55] VITALS: BP 131/62; PULSE 65; RESP 20; TEMP 36.3; O2SAT 96
--- NOTE | 2024-07-03 06:22 | PC.NURSE ---
michel jenkins to place ct scan of brain, facial bones, c-spine, shoulder, hip, knee for right sided fall
--- OUTSIDE RECORDS SUMMARY | 2024-07-03 07:19 | XMS_ITS | Clinical Summary ---
Author Organization [facility] Address [address] [place] [address] Care Team Providers Care Dental Laboratory Technician Apprentice Name Role Phone Sherice Scott RN Unavailable [phone] April Cornejo MD Primary Care Provider [phone] Source Comments [facility],non-owned Affiliates and Associated Physician Practices is amultiple site organization consisting of ambulatory clinics and hospital sitesin [place], [place], [place] and [place]. This disclosure is being madepursuant to the Care Everywhere program and may not contain all information available regarding this patient. Last updated 17.[facility] Allergies Active Allergy Reactions Criticality Noted Date Comments Penicillins Anaphylaxis High 04/12/2015 Medications * Be aware that medications may not be up to date on this document. Alwaysverify current medications with the patient. aspirin (ASPIRIN) 81 MG tablet Take 81 mg by mouth once daily Active ATORVASTATIN CALCIUM PO Take 40 mg by mouth at bedtime Active BUPROPION HCL ER, SR, PO Take 150 mg by mouth 2 times daily after meals Active Multiple Vitamins-Mineral s (CENTRUM SILVER PO) Take by mouth daily with breakfast Active CHLORTHALIDONE PO Take 25 mg by mouth daily with breakfast Active cyclobenzaprine (FLEXERIL) 10 MG tablet Take 10 mg by mouth 3 times daily as needed for Muscle Spasms Active famotidine (PEPCID) 20 MG tablet Take 20 mg by mouth 2 times daily Active GABAPENTIN PO Take 800 mg by mouth 3 times daily Active LISINOPRIL PO Take 10 mg by mouth daily with breakfast Active LITHIUM CARBONATE ER PO Take 300 mg by mouth 2 times daily after meals Active MONTELUKAST SODIUM PO Take 10 mg by mouth daily with breakfast Active Potassium Chloride Scott CR (POTASSIUM CHLORIDE SCOTT ER PO) Take 20 mEq by mouth as needed Active tiotropium (SPIRIVA) 18 MCG inhalation capsule Inhale 1 Cap by mouth once daily Active Budesonide-Formo terol Fumarate (SYMBICORT IN) Inhale by mouth 2 times daily after meals Active traZODone (DESYREL) 100 MG tablet Take 100 mg by mouth nightly as needed for Insomnia One Or Two tabs Active hydrocodone-acet aminophen (NORCO) 5-325 MG tablet Take 1 Tab by mouth every 4 hours as needed for Pain 30 Tab 0 6 Active albuterol HFA (VENTOLIN HFA) 108 (90 BASE) MCG/ACT inhaler Inhale 1 Puff by mouth every 6 hours as needed for Shortness of Breath 6 Active albuterol (PROVENTIL;GENIA ALDO) (2.5 MG/3ML) 0.083% nebulizer solution USE 1 VIAL IN NEBULIZER Q 4 TO 6 HOURS PRN 3 8 Active allopurinol (ZYLOPRIM) 300 MG tablet TK 1 T PO D 0 8 Active cetirizine (ZYRTEC) 10 MG tablet TK 1 T PO D UTD 1 8 Active SYMBICORT 160-4.5 MCG/ACT inhaler INL 2 PFS PO BID 0 8 Active buPROPion SR 12hr (WELLBUTRIN-SR) 150 MG tablet TK 1 T PO D FOR 1 WK THEN TK 1 T PO BID 0 8 Active doxycycline monohydrate 100 MG capsule 0 8 Active escitalopram (LEXAPRO) 20 MG tablet TK 1 T PO D 1 8 Active gabapentin (NEURONTIN) 400 MG capsule TK 2 CS PO TID 0 8 Active lamoTRIgine (LAMICTAL) 25 MG tablet TK 2 TS PO BID 0 8 Active levoFLOXacin (LEVAQUIN) 500 MG tablet TK 1 T PO D UTD 0 8 Active montelukast (SINGULAIR) 10 MG tablet TK 1 T PO QD 0 8 Active nystatin (MYCOSTATIN) 497671 UNIT/GM cream SUZAN AND RUB IN A THIN FILM AA BID IN THE MORNING AND IN THE EVENING 5 8 Active nystatin (MYCOSTATIN) 341709 UNIT/ML suspension TK 5MLS PO QID FOR 10 DAYS 0 8 Active omeprazole (PRILOSEC) 40 MG capsule TK 1 C PO D 0 8 Active potassium chloride ER (KLOR-CON M) 20 MEQ tablet TK 1 T PO D 0 8 Active raNITIdine (ZANTAC) 150 MG tablet TK 1 T PO BID 0 8 Active topiramate ER 24hr (QUDEXY XR) 50 MG capsule TK 2 CS PO QD 1 8 Active INCRUSE ELLIPTA 62.5 MCG/INH inhaler INL 1 PUFF PO ONCE D 3 8 Active lisinopril (PRINIVIL; ZESTRIL) 10 MG tablet TK 1 T PO QD 0 8 Active Active Problems Problem Noted Date Diagnosed Date Presence of right artificial shoulder joint 07/04 Pain in right shoulder 05/24/2015 Rotator cuff tear arthropathy of right shoulder 05/09/2015 Immunizations Immunization Administration Dates Next Due INFLUENZA VACCINE 11/29/2017 PNEUMOCOCCAL PPSV23 11/29/2017 Social History Tobacco Use Types Packs/Day Years Used Date Smoking Tobacco: Some Days Smokeless Tobacco: Never Tobacco Cessation:Ready to Q uit: No; Counseling Given: Yes Alcohol Use Standard Drinks/Week Comments No 0 (1 standard drink = 0.6 oz pur e alcohol) Comments No Sex and Gender Information Value Date Recorded Sex Assigned at Not on file Legal Sex Female 6:49 AM PHOTO TECHNOLOGIST Gender Identity Not on file Sexual Orientation Not on file Last Filed Vital Signs Vital Sign Reading Time Taken Comments Blood Pressure 95/53 05/10/2015 11:56 AM PHOTO TECHNOLOGIST Pulse 87 05/10/2015 11:56 AM PHOTO TECHNOLOGIST Temperature 36.5 C (97.7 F) 05/10/2015 11:56 AM PHOTO TECHNOLOGIST Respiratory Rate 18 05/10/2015 11:56 AM PHOTO TECHNOLOGIST Oxygen Saturation 99% 05/10/2015 11:56 AM PHOTO TECHNOLOGIST Inhaled Oxygen Concentration - - Weight 133.8 kg (295 lb) 02/05/2018 9:02 AM PHOTO TECHNOLOGIST Height 177.8 cm (5' 10 ) 02/05/2018 9:02 AM PHOTO TECHNOLOGIST Body Mass Index 42.33 02/05/2018 9:02 AM PHOTO TECHNOLOGIST Plan of Treatment Health Maintenance Due Date Last Done Comments COLOGUARD (AGES 45-75) - COLON CA SCREENING 1962 COLON MONITORING 1962 COLONOSCOPY - COLON CA SCREENING 1962 CT COLONOGRAPHY - COLON CA SCREENING 1962 Colorectal Cancer Screening 1962 FIT - COLON CA SCREENING 1962 FLEX SIG - COLON CA SCREENING 1962 MAMMOGRAM 1962 PAP SMEAR 1962 HIV SCREENING 1977 HEPATITIS C SCREENING 11/15/1980 DTAP/TDAP/TD VACCINES (1 - Tdap) 1981 ZOSTER VACCINE (1 of 2) 2012 PNEUMOCOCCAL VACCINE 50+ (2 of 2 - PCV) 11/29/2018 11/29/2017 Respiratory Syncytial Virus (RSV) Vaccine Pt: or over 60 yrs (1 - Risk 60-74 years 1-dose series) 2022 COVID-19 VACCINE ( - season) 2023 DEPRESSION SCREENING 03/04/2024 INFLUENZA VACCINE (Season Ended) 2024 11/23/2020, 12/25/2019, 11/28/2018, Additional history exists HEPATITIS B VACCINE Aged Out No longe r eligible based on patient's age to complete this topic HIB VACCINE Aged Out No longer eligi ble based on patient's age to complete this topic HPV VACCINE Aged Out No longer eligi ble based on patient's age to complete this topic MENINGOCOCCAL (Group B) VACCINE SHARED DECISION-MAKING Aged Out No longer eligible based on patient's age to complete this topic MENINGOCOCCAL GROUPS A/C/Y/W VACCINE Aged Out No longer eligible based on patient's age to complete this topic Medical Devices Implanted Type Area Sales And Marketing Assistant Device Identifier Shelf Expiration Date Model / Serial / Lot Implt Ceml Metaglene Implanted:Qty: 1 on 05/09/2015 by Raza Beth MD at [facility] Right: Shoulder [employer] 12/02/2019 [id number] / / [id number] Sys Shld Tot Arthroplst Rev Implanted:Qty: 1 on 05/09/2015 by aRza Beth MD at [facility] [employer] S4 [id number] / / Delta Xtend Implanted:Qty: 1 on 05/09/2015 by Raza Beth MD at [facility] Right: Shoulder 11/01/2019 [id number] / / [id number] Locking Mataglene Screw Implanted:Qty: 1 on 05/09/2015 by Raza Beth MD at [facility] Right: Shoulder 02/01/2020 [id number] / / [id number] Glenosphere Implanted:Qty: 1 on 05/09/2015 by Raza Beth MD at [facility] Right: Shoulder 01/01/2020 [id number] / / [id number] Delta Extend Implanted:Qty: 1 on 05/09/2015 by Raza Beth MD at [facility] Right: Shoulder 09/01/2019 [id number] / / [id number] Delta Extend Implanted:Qty: 1 on 05/09/2015 by Raza Beth MD at [facility] Right: Shoulder 11/01/2019 [id number] / / [id number] Delta Xtend Modular Centered Epiphysis Implanted:Qty: 1 on 05/09/2015 by Raza Beth MD at [facility] Right: Shoulder [employer] 02/01/2020 [id number] / / [id number] Delta Xtend Modular Humeral Stem Ramirez Coated Cementless Implanted:Qty: 1 on 05/09/2015 by Raza Beth MD at [facility] Right: Shoulder [employer] 02/01/2020 [id number] / / [id number] Delta Xtend Standard Humeral Pe Cup Implanted:Qty: 1 on 05/09/2015 by Raza Beth MD at [facility] Right: Shoulder [employer] [id number] / / [id number] Insurance [facility] Advance Directives * Full Code (Latest Code Status on File) Date Activated Date Inactivated Comments 05/09/2015 10:15 PM 05/10/2015 2:17 PM Care Teams Dental Laboratory Technician Apprentice Relationship Specialty Start Date End Date April Cornejo MD PCP - General 02/05/18 Sherice Scott, RN Beam Dyer Operator 05/10/15
--- NOTE | 2024-07-03 07:34 | ED_ITS ---
HPI - Fall General Chief Complaint: Fall Stated Complaint: GLF Time Seen by Provider: 07/03/24 07:02 History of Present Illness HPI Narrative: Pt got up and legs gave out and she fell striking face on case of sprite and landing awkwardly in small space. Pt complains of facial pain. low back pain, left knee pain and right shoulder pain. Pt says has had shoulder replacement of right shoulder and fracture after this and has frozen shoulder. Pt denies LOC or neck pain. Related Data Home Medications ?Medication ?Instructions ?Recorded ?Confirmed ?Last Taken ?Type allopurinol 300 mg tablet 300 mg PO DAILY 07/02/20 02/14/23 02/13/23 History atorvastatin 40 mg tablet 40 mg PO HS 07/02/20 02/14/23 02/13/23 History gabapentin 800 mg tablet 800 mg PO TID 07/02/20 02/14/23 02/13/23 History montelukast 10 mg tablet 10 mg PO HS 07/02/20 02/14/23 02/13/23 History trazodone 50 mg tablet 100 mg PO HS 07/02/20 02/14/23 02/13/23 History aripiprazole 5 mg tablet 5 mg PO DAILY 05/07/22 02/14/23 02/13/23 History famotidine 40 mg tablet 40 mg PO DAILY 05/07/22 02/14/23 02/13/23 History topiramate 50 mg tablet 50 mg PO BID 05/07/22 02/14/23 02/13/23 History benzonatate 200 mg capsule 200 mg PO TID 10/19/22 02/14/23 Unknown History cyclobenzaprine 10 mg tablet 10 mg PO DAILY 10/19/22 02/14/23 Unknown History duloxetine 30 mg capsule,delayed 30 mg PO DAILY 10/19/22 02/14/23 Unknown History release furosemide 40 mg tablet 40 mg PO BID 10/19/22 02/14/23 02/13/23 History isosorbide dinitrate 30 mg tablet 30 mg PO DAILY 10/19/22 02/14/23 02/13/23 History metolazone 2.5 mg tablet 2.5 mg PO EVERY OTHER DAY 10/19/22 02/14/23 Unknown History spironolactone 25 mg tablet 25 mg PO BID 10/19/22 02/14/23 02/13/23 History buspirone 10 mg tablet 10 mg PO BID 12/13/22 02/14/23 02/13/23 History lamotrigine 25 mg tablet 25 mg PO DAILY 12/13/22 02/14/23 02/13/23 History Allergies Allergy/AdvReac Type Severity Reaction Status Date / Time bee venom protein (honey bee) Allergy Severe Anaphylaxis Verified 07/03/24 06:02 Penicillins Allergy Anaphylaxis Verified 07/03/24 06:02 fixodent Allergy Hives Uncoded 07/03/24 06:02 Review of Systems Review of Systems: All systems reviewed & are unremarkable except as noted in HPI and below PMFSH Past Medical History Medical History Asthma Bipolar disorder Cervical cancer Chronic kidney disease Chronic obstructive pulmonary disease 5 L nasal cannula. Chronic respiratory failure with hypoxia, on home oxygen therapy Depression with anxiety History of tobacco abuse Hyperlipidemia Hypertension Kidney stones Morbid obesity with BMI of 50.0-59.9, adult Obstructive sleep apnea on CPAP Peripheral neuropathy (10/2022) Psoriasis Surgical History Surgical History History of benign breast biopsy History of bilateral cataract extraction History of section History of cystoscopy History of hysterectomy History of reverse total replacement of right shoulder joint History of tonsillectomy Family History Family History Mother , age 68 CHF (congestive heart failure) Emphysema of lung Father , at age 62 Acute myocardial infarction Emphysema of lung Sibling , age 59 Pancreatic cancer Sibling , age 40 acute IA Acute myocardial infarction Social History Social History Social History: Healthcare power of real estate attorney: Mag Dorsey, daughter. Code status: Full code. Smoking packs per day: 1.5 Smoking cigarettes per day: 30.0 Years smoked: 40 Smoking pack-years: 60.00 Smoking status: Former smoker Second hand tobacco smoke exposure: Yes (in childhood) Alcohol intake: never Substance use type: does not use Other substance usage details: prescribed Do You Feel Safe in your Home?: Yes Lack of Transportation: No Lack of Food: Never True Current Housing: I Have Housing Concerned About Future Housing: No Difficulty Paying Gas/Electric Bills: No Difficulty Paying for Meds: No Currently Unemployed: No Education: High School Diploma/GED Difficulty w/ Childcare or Family Care: No Additional living arrangements comments: Lives in [place]. Has 4 children. Additional occupation/education comments: Disabled. Spiritual care concerns: No Exam Const: General: healthy appearing and no acute distress Nutritional Appearance: obese Orientation/consciousness: patient oriented x3 Limitations: no limitations HENMT: Head: normal to inspection Mouth: Yes Normal oral and palatal mucosa present Eyes: EOM: EOMs intact bilaterally Neck: Neck: normal visual inspection Chest: Chest palpation & inspection: normal inspection of the chest Resp: Effort & Inspection: normal respiratory effort Auscultation: clear to auscultation bilaterally Cardio: Rate: regular rate Rhythm: regular rhythm GI: GI Palp: Yes Soft to palpation and No Tenderness to palpation present (GI) Auscultation: normal bowel sounds Back/Spine/Pelvis: Other: tender low lumbar area to palpation Skin: General skin exam: normal color Rashes: no rashes Wounds: no wounds Neuro: General: patient oriented x3, moves all extremities, no meningeal signs and no focal motor deficits Cranial nerves: Yes Nystagmus not present Speech: normal speech Extrem: Other: tender left knee without effusion or deformity tender right shoulder with limited ROM Psych: Mental Status: mental status grossly normal Affect: normal affect Attitude: cooperative Course Vital Signs Vital signs: Vital Signs Temperature 97.4 F L 07/03/24 05:55 Pulse Rate 65 07/03/24 05:55 Respiratory Rate 20 07/03/24 05:55 Blood Pressure 131/62 07/03/24 05:55 Pulse Oximetry 96 07/03/24 05:55 Oxygen Delivery Nasal Cannula 07/03/24 05:55 Oxygen Flow Rate 4 07/03/24 05:55 Temperature 97.7 F 07/03/24 09:30 Pulse Rate 56 L 07/03/24 09:30 Respiratory Rate 13 07/03/24 09:30 Blood Pressure 116/74 07/03/24 09:30 Pulse Oximetry 100 07/03/24 09:30 Oxygen Delivery Nasal Cannula 07/03/24 05:55 Oxygen Flow Rate 4 07/03/24 05:55 MDM - Fall MDM Narrative Medical decision making narrative: Pt suffered ground level fall and has compaints of pain. Pt had CT's and x rays ordered per protocol will add LS spine x ray to rule out fx's or intracranial issues. CT and x rays all neg for fx. Pt has pain meds at facility. Discharge Plan Discharge Clinical Impression: Multiple contusions Patient Disposition: Home Condition: Stable Instructions: Antibiotic Form, Contusion in Adults (ED) Patient Language: Korean Prescriptions: No Action buspirone 10 mg tablet 10 mg PO BID lamotrigine 25 mg tablet 25 mg PO DAILY famotidine 40 mg tablet 40 mg PO DAILY aripiprazole 5 mg tablet 5 mg PO DAILY topiramate 50 mg tablet 50 mg PO BID metoprolol tartrate 25 mg Tablet 25 mg PO Q12HR 30 Days Qty: 60 0RF simethicone 125 mg capsule 125 mg PO QID Qty: 20 0RF Rx Instructions: administer after meals and at bedtime dicyclomine 20 mg tablet 20 mg PO QID Qty: 20 0RF levofloxacin 750 mg tablet 750 mg PO DAILY Qty: 5 0RF atorvastatin 40 mg Tablet 40 mg PO HS trazodone 50 mg Tablet 100 mg PO HS gabapentin 800 mg Tablet 800 mg PO TID montelukast 10 mg Tablet 10 mg PO HS allopurinol 300 mg Tablet 300 mg PO DAILY cyclobenzaprine 10 mg tablet 10 mg PO DAILY furosemide 40 mg tablet 40 mg PO BID isosorbide dinitrate 30 mg tablet 30 mg PO DAILY duloxetine 30 mg capsule,delayed release(DR/EC) 30 mg PO DAILY metolazone 2.5 mg Tablet 2.5 mg PO EVERY OTHER DAY benzonatate 200 mg Capsule 200 mg PO TID spironolactone 25 mg tablet 25 mg PO BID acetaminophen 325 mg Tablet 650 mg PO Q4H PRN (Reason: Mild Pain (1-3) Or Fever) Qty: 0 0RF cefdinir 300 mg Capsule 300 mg PO Q12HR Qty: 0 0RF doxycycline hyclate 100 mg Tablet 100 mg PO Q12HR Qty: 0 0RF potassium chloride [K-Tab] 20 mEq Tablet Extended Release 40 meq PO BIDWM Qty: 0 0RF bupropion HCl [Wellbutrin SR] 150 mg Tablet Sustained-Release 12 Hr 150 mg PO Q12H Qty: 60 0RF tramadol 50 mg tablet 50 mg PO Q6H PRN (Reason: Pain) Qty: 12 0RF alprazolam 0.5 mg tablet 0.5 mg PO HS Qty: 12 0RF Follow-up/Referrals: Kar,Raza Black MD [Primary Care Provider] -
[2024-07-03] MEDS: MORPHINE SULFATE INJ (*CRX) 10 MG/ML AMP 4 MG IM (07:41)
[2024-07-03] MEDS: ONDANSETRON HCL ODT 4 MG TABLET PO (07:42)
[2024-07-03 08:00] VITALS: BP 108/33; PULSE 57; RESP 13; TEMP 36.4; O2SAT 100
[2024-07-03 08:15] VITALS: BP 113/76; PULSE 58; RESP 17; O2SAT 100
[2024-07-03 08:30] VITALS: BP 113/76; PULSE 59; RESP 12; TEMP 36.6; O2SAT 100
[2024-07-03 09:30] VITALS: BP 116/74; PULSE 56; RESP 13; TEMP 36.5; O2SAT 100
[2024-07-03] MEDS: CYCLOBENZAPRINE HCL 10 MG TABLET PO (09:43)
[2024-07-03] MEDS: HYDROcodone/acetaminophen (*CRX) 5-325 MG TABLET 1 TAB PO (09:44)
== END 2024-07-03 10:58 ==
PROVIDERS: Emergency Provider Emergency Medicine; PCP Family Medicine
DX: T14.8XXA Other injury of unspecified body region, initial encounter (principal); I12.9 Hypertensive chronic kidney disease with stage 1 through stage 4 chronic kidney disease, or unspecified chronic kidney disease; N18.9 Chronic kidney disease, unspecified; J96.11 Chronic respiratory failure with hypoxia; Z99.81 Dependence on supplemental oxygen; J45.909 Unspecified asthma, uncomplicated; E78.5 Hyperlipidemia, unspecified; E66.01 Morbid (severe) obesity due to excess calories; Z68.42 Body mass index [BMI] 45.0-49.9, adult; G47.33 Obstructive sleep apnea (adult) (pediatric); G62.9 Polyneuropathy, unspecified; L40.9 Psoriasis, unspecified; F41.8 Other specified anxiety disorders; Z96.611 Presence of right artificial shoulder joint; Z85.41 Personal history of malignant neoplasm of cervix uteri; Z87.442 Personal history of urinary calculi; Z87.891 Personal history of nicotine dependence; Z98.42 Cataract extraction status, left eye; Z98.41 Cataract extraction status, right eye; Z90.710 Acquired absence of both cervix and uterus; Z79.899 Other long term (current) drug therapy; M16.11 Unilateral primary osteoarthritis, right hip; M48.02 Spinal stenosis, cervical region; M47.816 Spondylosis without myelopathy or radiculopathy, lumbar region; M17.11 Unilateral primary osteoarthritis, right knee; W01.198A Fall on same level from slipping, tripping and stumbling with subsequent striking against other object, initial encounter
CPT/HCPCS: 70450; 70486; 72100; 72125; 73030; 73502; 73562; 96372; 99284; A9270; J2270

== ENCOUNTER 2024-09-03 18:13 | Emergency (ER) | payer OTHER, SELFPAY ==
[2024-09-03] VITALS (9 sets, daily range): BP systolic 114–128; BP diastolic 61–77; PULSE 53–73; RESP 11–18; O2SAT 97–100
--- NOTE | ~2024-09-03 | XR_ITS ---
XR chest 1V portable Ordering provider: Dhaval Leslie MD History: 63 years Female with . shortness of breath . Comparison: March 19, 2024 FINDINGS: MEDIASTINUM: The cardiac silhouette is slightly enlarged. Congestive yojana. LUNGS: No effusions or pneumothorax. Prominent markings bilaterally with interstitial thickening. Dif ferential include edema versus pneumonitis. OTHER: No free air under the diaphragm. IMPRESSION: Bilateral interstitial thickening which may indicate pulmonary edema versus pneumonitis. Clinical cor relation and follow-up advised. Reviewed, dictated and finalized at location A. IMPRESSION: Bilateral interstitial thickening which may indicate pulmonary edema versus pne umonitis. Clinical correlation and follow-up advised.
--- NOTE | ~2024-09-03 | CT_ITS ---
CTA chest PE protocol Ordering provider: Eddie Luong MD History: 63 years Female with . worsening ANURADHA, left lung pain . Comparison: February 14, 2023 Technique: CT angiogram chest was performed following timed intravenous injection of contrast. Thin s lice axial images and reformatted coronal images were obtained. Three dimensional reformatted images of the chest were also obtained using a [employer] workstation. . Automated exposure control and iterati ve reconstruction technique were employed. The dose-length product was 992.38 mGy-cm. 1000 mL Omnipaq ue 350 was given IV. Findings: PULMONARY ARTERIES: No pulmonary embolus. VISUALIZED THORACIC INLET: Normal. MEDIASTINUM: Aorta/coronary arteries: Mild atheromatous disease. Heart/other: The heart is not enlarged. Lymph nodes: No mediastinal or hilar adenopathy. LUNGS: No pulmonary nodules or masses. No infiltrates or effusions. No pneumothorax. Underlying emphysematou s change. Dependent atelectatic changes. Subsegmental atelectasis in the lingula. VISUALIZED UPPER ABDOMEN: the visualized upper abdomen is normal. MUSCULOSKELETAL: Soft tissues: The superficial soft tissues are normal. Bones: Age appropriate degenerative changes of the spine. IMPRESSION: 1. No pulmonary embolism. 2. No acute cardiopulmonary pathology. 3. Subsegmental atelectasis in the lingula. Reviewed, dictated and finalized at location A.
--- NOTE | 2024-09-03 19:09 | ECG_ITS ---
Test Date: 2024-09-03 22:39:01 Measurements Intervals [place] Rate: 69 P: 41 ND: 145 QRS: -30 QRSD: 118 T: 17 QT: 402 QTc: 433 Interpretive Statements SINUS RHYTHM nonspecific ST wave changes BORDERLINE LEFT AXIS DEVIATION [QRS AXIS < -20] MODERATE INTRAVENTRICULAR CONDUCTION DELAY [110+ ms QRS DURATION] no change compared to prior EKG Electronically Signed On 09-04-2024 12:48:50 CDT by Med Denise M.D.
[2024-09-03 19:21] LABS: Hematocrit 45.9 % (37.0-47.0); Hemoglobin 13.7 g/dL (12.0-15.0); Immature Granulocyte Percent A 0.6 % (0-0.5); Immature Platelet Fraction Pct 3.8 % (0.9-11.2); Lymphocytes Absolute Auto 2.40 K/mm3 (0.9-3.2); Mean Corpuscular HGB Conc 29.8 g/dl (32-36); Mean Corpuscular Hemoglobin 26.9 pg (26-34); Mean Corpuscular Volume 90.2 fl (80-100); Nucleated Red Blood Cells Absolute Auto 0.000 K/mm3 (0.0-0.012); Nucleated Red Blood Cells Perc 0.0 % (0.0-0.2); Platelet Count Result 104 k/mm3 (150-375); Red Blood Count 5.09 M/mm3 (4.2-5.4); White Blood Count 7.3 K/mm3 (4.5-10.0)
[2024-09-03 19:31] LABS: INR 1.0; Partial Thromboplastin Time 28.5 Seconds (22.3-36.8); Prothrombin Time 13.0 Seconds (11.1-14.7)
[2024-09-03 19:33] LABS: Alanine Aminotransferase 24 U/L (6-35); Albumin Level 3.7 g/dL (3.5-5.1); Alkaline Phosphatase 89 U/L (38-126); Anion Gap 8 mmol/L (4-12); Aspartate Amino Transferase 28 U/L (14-36); Bilirubin,Total 0.5 mg/dL (0.2-1.3); Blood Urea Nitrogen 13 mg/dL (7-17); Calcium 9.4 mg/dL (8.4-10.2); Carbon Dioxide 34 mmol/L (22-30); Chloride 99 mmol/L (98-107); Estimated CRCL calculation 80 ml/min; Estimated Glomerular Filt Rate 54; Glucose 80 mg/dL (65-110); Potassium 4.0 mmol/L (3.4-5.0); Sodium 141 mmol/L (137-145); Total Protein 6.6 g/dL (6.3-8.2)
--- NOTE | 2024-09-03 22:06 | ED_ITS ---
HPI - SOB/Dyspnea General Chief Complaint: Shortness of Breath/Dyspnea Stated Complaint: sob Time Seen by Provider: 09/03/24 21:21 History of Present Illness HPI Narrative: 63-year-old female with history of chronic respiratory failure on hypoxia on home oxygen. She also has a history of COPD, CKD, bipolar depression, hypertension, hyperlipidemia. Patient presents to the emergency department today with complaints of shortness of breath. She states been going on for several months it was treated with multiple rounds of antibiotics for pneumonia. She trialed oral antibiotics and then a midline was placed in right upper extremity and she completed course of IV antibiotics and just finished today but she stills feels short of breath. No history of heart failure cardiac disease to her knowledge. She endorses some asymmetric leg swelling occasionally that has gone down over last few days. No history of DVT or PE. Was otherwise in her normal state of health. No recent falls, injuries or recent hospitalizations. Endorses a cough at night especially when lying down flat. Nonproductive. No fever or chills. Related Data Home Medications ?Medication ?Instructions ?Recorded ?Confirmed ?Last Taken ?Type allopurinol 300 mg tablet 300 mg PO DAILY 07/02/20 02/14/23 02/13/23 History atorvastatin 40 mg tablet 40 mg PO HS 07/02/20 02/14/23 02/13/23 History gabapentin 800 mg tablet 800 mg PO TID 07/02/20 02/14/23 02/13/23 History montelukast 10 mg tablet 10 mg PO HS 07/02/20 02/14/23 02/13/23 History trazodone 50 mg tablet 100 mg PO HS 07/02/20 02/14/23 02/13/23 History aripiprazole 5 mg tablet 5 mg PO DAILY 05/07/22 02/14/23 02/13/23 History famotidine 40 mg tablet 40 mg PO DAILY 05/07/22 02/14/23 02/13/23 History topiramate 50 mg tablet 50 mg PO BID 05/07/22 02/14/23 02/13/23 History benzonatate 200 mg capsule 200 mg PO TID 10/19/22 02/14/23 Unknown History cyclobenzaprine 10 mg tablet 10 mg PO DAILY 10/19/22 02/14/23 Unknown History duloxetine 30 mg capsule,delayed 30 mg PO DAILY 10/19/22 02/14/23 Unknown History release furosemide 40 mg tablet 40 mg PO BID 10/19/22 02/14/23 02/13/23 History isosorbide dinitrate 30 mg tablet 30 mg PO DAILY 10/19/22 02/14/23 02/13/23 History metolazone 2.5 mg tablet 2.5 mg PO EVERY OTHER DAY 10/19/22 02/14/23 Unknown History spironolactone 25 mg tablet 25 mg PO BID 10/19/22 02/14/23 02/13/23 History buspirone 10 mg tablet 10 mg PO BID 12/13/22 02/14/23 02/13/23 History lamotrigine 25 mg tablet 25 mg PO DAILY 12/13/22 02/14/23 02/13/23 History Allergies Allergy/AdvReac Type Severity Reaction Status Date / Time bee venom protein (honey bee) Allergy Severe Anaphylaxis Verified 07/03/24 06:02 Penicillins Allergy Anaphylaxis Verified 07/03/24 06:02 bee Stings Allergy Severe Anaphylaxis Uncoded 09/03/24 18:33 Fixodent Allergy Intermediate Blister Uncoded 09/03/24 18:33 fixodent Allergy Hives Uncoded 07/03/24 06:02 Review of Systems 2 Review of Systems: As reviewed above in HPI [facility] Past Medical History Medical History Psoriasis Kidney stones Cervical cancer Obstructive sleep apnea on CPAP Bipolar disorder Chronic kidney disease Chronic obstructive pulmonary disease 5 L nasal cannula. Chronic respiratory failure with hypoxia, on home oxygen therapy Hyperlipidemia Depression with anxiety Hypertension History of tobacco abuse Peripheral neuropathy (10/2022) Asthma Morbid obesity with BMI of 50.0-59.9, adult Surgical History Surgical History History of section History of benign breast biopsy History of cystoscopy History of tonsillectomy History of reverse total replacement of right shoulder joint History of hysterectomy History of bilateral cataract extraction Family History Family History Mother , age 68 CHF (congestive heart failure) Emphysema of lung Father , at age 62 Acute myocardial infarction Emphysema of lung Sibling , age 59 Pancreatic cancer Sibling , age 40 acute PR Acute myocardial infarction Social History Social History Social History: Healthcare power of associate attorney: Mag Dorsey, daughter. Code status: Full code. Smoking packs per day: 1.5 Smoking cigarettes per day: 30.0 Years smoked: 40 Smoking pack-years: 60.00 Smoking status: Former smoker Second hand tobacco smoke exposure: Yes (in childhood) Alcohol intake: never Substance use type: does not use Other substance usage details: prescribed Do You Feel Safe in your Home?: Yes Lack of Transportation: No Lack of Food: Never True Current Housing: I Have Housing Concerned About Future Housing: No Difficulty Paying Gas/Electric Bills: No Difficulty Paying for Meds: No Currently Unemployed: No Education: High School Diploma/GED Difficulty w/ Childcare or Family Care: No Additional living arrangements comments: Lives in [place]. Has 4 children. Additional occupation/education comments: Disabled. Spiritual care concerns: No Exam 2 Narrative: GENERAL: Morbidly obese, not in any acute distress, on home oxygen dose. HEAD: [Normocephalic, atraumatic.] EYES: [PERRLA and EOMI.] ENT: Nares clear, no rhinorrhea or epistaxis. Mucous membranes moist. NECK: Supple. CHEST: [Clear to auscultation. No respiratory distress.] HEART: [Regular rate and rhythm]. No murmur heard. [Normal peripheral pulses.] ABDOMEN: [Soft, nondistended], [nontender], [No rigidity or guarding] EXTREMITIES: Normal range of motion. 1+ pitting edema bilaterally, symmetric leg swelling to the calfs SKIN: Warm, dry, no rash. NEURO: [No focal deficits]. Alert and oriented [x3.] PSYCH: [Normal mood and affect.] Course Vital Signs Vital signs: Vital Signs Pulse Rate 53 L 09/03/24 18:17 Temperature 36.6 C 09/04/24 02:13 Pulse Rate 86 09/04/24 02:13 Respiratory Rate 16 09/04/24 02:13 Blood Pressure 148/86 H 09/04/24 02:13 Pulse Oximetry 98 09/04/24 02:13 Oxygen Delivery Nasal Cannula 09/04/24 01:33 Oxygen Flow Rate 4 09/04/24 01:33 Fraction of Inspired Oxygen 36 09/04/24 01:33 MDM - SOB/Dyspnea MDM Narrative Medical decision making narrative: 63-year-old female with history of chronic respiratory failure on hypoxia on home oxygen. She also has a history of COPD, CKD, bipolar depression, hypertension, hyperlipidemia. Patient presents to the emergency department today with complaints of shortness of breath. She states been going on for several months it was treated with multiple rounds of antibiotics for pneumonia. She trialed oral antibiotics and then a midline was placed in right upper extremity and she completed course of IV antibiotics and just finished today but she stills feels short of breath. No history of heart failure cardiac disease to her knowledge. She endorses some asymmetric leg swelling occasionally that has gone down over last few days. No history of DVT or PE. Was otherwise in her normal state of health. No recent falls, injuries or recent hospitalizations. Endorses a cough at night especially when lying down flat. Nonproductive. No fever or chills. Patient is morbidly obese but not any acute respiratory distress. Vital signs show some sinus bradycardia, normal 99% on 4 L home oxygen dose. No tachypnea, normal blood pressure. Breath sounds are mostly clear bilaterally but she does have some 1+ edema in the extremities. Differential includes recurrence of pneumonia, bronchitis, pneumothorax, pulmonary embolism, heart failure. CBC, CMP, BNP, chest x-ray, EKG as CT angiography of the chest was ordered for further evaluation. She has already completed multiple rounds of antibiotics so I do not suspect infectious pathology is top my differential at this time. Workup shows no leukocytosis or anemia. Platelets with chronic thrombocytopenia. Coagulation panel is normal. Electrolytes are unremarkable, chronic CO2 retention, creatinine 1.04 and chronic. Normal glucose, normal LFTs. Negative lactic acid. Chest x-ray shows some interstitial thickening but no definite consolidations. CT angiography shows no pulmonary embolism or any acute cardiopulmonary pathology. There is sub subsegmental atelectasis in the lingula which could contribute to patient's chronic symptoms. No signs of any pleural effusions or pneumonia. Her EKG shows sinus rhythm, no ST segment elevations or depressions. Patient's remains with normal vital signs here on reassessments, no tachycardia or hypoxia. She is on her chronic oxygen. She was given a DuoNeb with respiratory therapy and incentive spirometer to help treat her atelectasis. She has no acute pathology that needs inpatient hospitalization and she will have to follow up with a hand paster on outpatient basis for further evaluation of her chronic shortness of breath. Patient sent back to the nursing facility via ALS ambulance. Medical Records Attestation: I reviewed the patient's medical records. Lab Data Attestation: I reviewed the patient's lab results. 09/03/24 19:12 09/03/24 19:12 Labs: Lab Results 09/03/24 09/03/24 Range/Units 19:11 19:12 WBC 7.3 (4.5-10.0) K/mm3 RBC 5.09 (4.2-5.4) M/mm3 Hgb 13.7 (12.0-15.0) g/dL Hct 45.9 (37.0-47.0) % MCV 90.2 (80-100) fl MCH 26.9 (26-34) pg MCHC 29.8 L (32-36) g/dl RDW 13.6 (11.5-14.5) % Plt Count 104 L (150-375) k/mm3 MPV 11.2 H (7.4-10.4) fl Immature Gran % (Auto) 0.6 H (0-0.5) % Neut % (Auto) 48.7 (45.5-73.1) % Lymph % (Auto) 33.1 (18.3-44.2) % [place] % (Auto) 11.4 H (2.6-8.5) % Eos % (Auto) 5.9 H (0-4.4) % Baso % (Auto) 0.3 (0.2-1.2) % Lymph # (Auto) 2.40 (0.9-3.2) K/mm3 [place] # (Auto) 0.8 H (0.1-0.6) K/mm3 Eos # (Auto) 0.4 H (0-0.3) K/mm3 Baso # (Auto) 0.0 (0.0-0.1) K/mm3 Abs Immat Gran (auto) 0.04 H (0.00-0.031) K/mm3 Absolute Neuts (auto) 3.5 (1.3-6.7) K/mm3 Absolute Nucleated RBC 0.000 (0.0-0.012) K/mm3 Nucleated RBC % 0.0 (0.0-0.2) % % Immature Plt Fraction 3.8 (0.9-11.2) % PT 13.0 (11.1-14.7) Seconds INR 1.0 APTT 28.5 (22.3-36.8) Seconds Sodium 141 (137-145) mmol/L Potassium 4.0 (3.4-5.0) mmol/L Chloride 99 (98-107) mmol/L Carbon Dioxide 34 H (22-30) mmol/L Anion Gap 8 (4-12) mmol/L BUN 13 (7-17) mg/dL Creatinine 1.04 H (0.7-1.0) mg/dL Estim Creat Clear Calc 80 ml/min Estimated GFR 54 L (59 - ) Glucose 80 (65-110) mg/dL Lactic Acid 0.9 (0.7-2.0) mmol/L Calcium 9.4 (8.4-10.2) mg/dL Total Bilirubin 0.5 (0.2-1.3) mg/dL AST 28 (14-36) U/L ALT 24 (6-35) U/L Alkaline Phosphatase 89 (38-126) U/L NT-Pro-B Natriuret Pep 90 (19.9-100) pg/mL Total Protein 6.6 (6.3-8.2) g/dL Albumin 3.7 (3.5-5.1) g/dL Imaging Data Attestation: I personally reviewed and interpreted this imaging study as follows: My impression: Impressions Chest X-Ray 09/03/24 20:24 IMPRESSION: Bilateral interstitial thickening which may indicate pulmonary edema versus pneumonitis. Clinical correlation and follow-up advised. Chest CTA 09/04/24 00:08 IMPRESSION: 1. No pulmonary embolism. 2. No acute cardiopulmonary pathology. 3. Subsegmental atelectasis in the lingula. Discharge Plan Discharge Clinical Impression: Chronic shortness of breath, Atelectasis of left lung Patient Disposition: Home Condition: Stable Instructions: Antibiotic Form, Atelectasis (ED) Additional Instructions: Your CT scan shows no evidence of any blood clots or pneumonia. No fluid in lungs. The x-ray findings that we saw her earlier were actually a partial collapsing of the middle of the left lung which is likely contributing to her symptoms. We will treat this with incentive spirometry which respiratory therapy has provided for you. You will need to see a hand paster on outpatient basis for further evaluation of your chronic shortness of breath. Return with any new or worsening concerns at any time but currently no signs of infection, pneumonia, pneumothorax, blood clots or any heart failure. Patient Language: Bel[place]ian Prescriptions: No Action buspirone 10 mg tablet 10 mg PO BID lamotrigine 25 mg tablet 25 mg PO DAILY famotidine 40 mg tablet 40 mg PO DAILY aripiprazole 5 mg tablet 5 mg PO DAILY topiramate 50 mg tablet 50 mg PO BID metoprolol tartrate 25 mg Tablet 25 mg PO Q12HR 30 Days Qty: 60 0RF simethicone 125 mg capsule 125 mg PO QID Qty: 20 0RF Rx Instructions: administer after meals and at bedtime dicyclomine 20 mg tablet 20 mg PO QID Qty: 20 0RF levofloxacin 750 mg tablet 750 mg PO DAILY Qty: 5 0RF atorvastatin 40 mg Tablet 40 mg PO HS trazodone 50 mg Tablet 100 mg PO HS gabapentin 800 mg Tablet 800 mg PO TID montelukast 10 mg Tablet 10 mg PO HS allopurinol 300 mg Tablet 300 mg PO DAILY cyclobenzaprine 10 mg tablet 10 mg PO DAILY furosemide 40 mg tablet 40 mg PO BID isosorbide dinitrate 30 mg tablet 30 mg PO DAILY duloxetine 30 mg capsule,delayed release(DR/EC) 30 mg PO DAILY metolazone 2.5 mg Tablet 2.5 mg PO EVERY OTHER DAY benzonatate 200 mg Capsule 200 mg PO TID spironolactone 25 mg tablet 25 mg PO BID acetaminophen 325 mg Tablet 650 mg PO Q4H PRN (Reason: Mild Pain (1-3) Or Fever) Qty: 0 0RF cefdinir 300 mg Capsule 300 mg PO Q12HR Qty: 0 0RF doxycycline hyclate 100 mg Tablet 100 mg PO Q12HR Qty: 0 0RF potassium chloride [K-Tab] 20 mEq Tablet Extended Release 40 meq PO BIDWM Qty: 0 0RF bupropion HCl [Wellbutrin SR] 150 mg Tablet Sustained-Release 12 Hr 150 mg PO Q12H Qty: 60 0RF tramadol 50 mg tablet 50 mg PO Q6H PRN (Reason: Pain) Qty: 12 0RF alprazolam 0.5 mg tablet 0.5 mg PO HS Qty: 12 0RF Follow-up/Referrals: Che Ryan MD [Physician] - 1 Week (Chronic shortness of breath and atelectasis) Kar,Raza Black MD [Non-Staff] - Time of Disposition: 01:23
--- OUTSIDE RECORDS SUMMARY | 2024-09-03 22:09 | XMS_ITS | Clinical Summary ---
Author Organization [facility] Virtual Care Address [address] [place] [phone] Phone Care Team Providers Care Tutoring Clinician Name Role Phone Marlon Mendoza MD Unavailable Jaret Forrester MD Unavailable Ceferino Strickland MD Unavailable [phone] Pj Linder MD Primary Care Provider [phone] Allergies Active Allergy Reactions Criticality Noted Date Comments Bee Venom Protein (Honey Bee) Anaphylaxis High 12/28 Penicillins Anaphylaxis High 12/29/2019 Poison Lupe Extract Anaphylaxis High 08/01/2018 Medications aspirin 81 mg enteric coated tablet Take 1 tablet (81 mg total) by mouth daily Active cetirizine (ZyrTEC) 10 mg tablet Take 1 tablet (10 mg total) by mouth nightly Active fluticasone propionate (FLONASE) 50 mcg/actuation nasal spray Administer 2 sprays into each nostril as needed Active omega 5-ktj-bxv-fish oil (Fish Oil) 100-160-1,000 mg capsule Take 1 capsule by mouth 2 (two) times a day Stop until after surgery Active EPINEPHrine 0.3 mg/0.3 mL auto-injection syringe USE DIRECTED 2 each 1 Active Additional Information Patient taking differently: 1 Syringe subcutaneous As needed, Informant: Self, Reported on 09/06/2022 cyclobenzaprine (FLEXERIL) 10 mg tabletIndications :Chronic bilateral low back pain without sciatica TAKE 1 TABLET BY MOUTH 3 TIMES DAILY 90 tablet Active Additional Information Patient taking differently: 10 mg oral Daily, Informant: Self, Reported on 12/10/2022 albuterol HFA (PROVENTIL HFA,VENTOLIN HFA,PROAIR HFA) 90 mcg/actuation inhaler INHALE TWO (2) PUFFS BY MOUTH FOUR TIMES A DAY 18 g Active Incruse Ellipta 62.5 mcg/actuation blister with device INHALE ONE (1) PUFF BY MOUTH ONCE DAILY 30 each Active Additional Information Patient taking differently: 2 puff inhalation Daily, Informant: Self, Reported on 09/06/2022 nitroglycerin (NITROSTAT) 0.4 mg SL tablet DISSOLVE 1 TABLET UNDER THE TONGUE NEEDED FOR PAIN EVERY 5 MINUTES 25 tablet Active Additional Information Patient taking differently: 0.4 mg sublingual Every 5 min PRN, Never used, Informant: Self, Reported on 09/06/2022 albuterol 2.5 mg /3 mL (0.083 %) nebulizer solution INHALE 1 VIAL VIA NEBULIZER EVERY 4-6 HOURS NEEDED 360 mL Active Advair Diskus 250-50 mcg/dose diskus inhaler Inhale 1 puff 2 (two) times a day Active DULoxetine DR (CYMBALTA) 30 mg capsule Take 1 capsule (30 mg total) by mouth daily Active docusate sodium (COLACE) 100 mg capsuleIndication s:constipation Take 1 capsule (100 mg total) by mouth 2 (two) times a day as needed for constipation Active senna-docusate (PERICOLACE) 8.6-50 mg Take 1 tablet by mouth 2 (two) times a day as needed for constipation Active BD PosiFlush Normal Saline 0.9 injection Active benzonatate (TESSALON) 100 mg capsuleIndication s:Cough Take 1 capsule (100 mg total) by mouth 3 (three) times a day as needed for cough 20 capsule 022 Active ipratropium-albut Alhaji (DUO-NEB) 0.5-2.5 mg/3 mL nebulizer solution 023 Active SUMAtriptan (IMITREX) 100 mg tablet 023 Active allopurinoL (ZYLOPRIM) 300 mg tabletIndications :Chronic gout due to renal impairment of multiple sites without tophus Take 1 tablet (300 mg total) by mouth daily 90 tablet 3 023 Active ALPRAZolam (XANAX) 0.5 mg tabletIndications :Depression with somatization,Bipo lar 1 disorder (HCC) Take 1 tablet (0.5 mg total) by mouth nightly as needed for anxiety 30 tablet 023 Active ARIPiprazole (ABILIFY) 5 mg tabletIndications :Memory loss Take 1 tablet (5 mg total) by mouth daily 90 tablet 3 023 Active atorvastatin (LIPITOR) 40 mg tabletIndications :Mixed hyperlipidemia Take 1 tablet (40 mg total) by mouth daily 90 tablet 3 023 Active buPROPion SR (WELLBUTRIN SR) 150 mg 12 hr tabletIndications :Depression with somatization,Bipo lar 1 disorder (HCC) Take 1 tablet (150 mg total) by mouth 2 (two) times a day 180 tablet 3 023 Active famotidine (PEPCID) 40 mg tabletIndications :Gastroesophageal reflux disease with stricture Take 1 tablet (40 mg total) by mouth daily 90 tablet 3 023 Active gabapentin (NEURONTIN) 800 mg tabletIndications :Peripheral neuropathy, hereditary/idiopa thic Take 1 tablet (800 mg total) by mouth 3 (three) times a day 270 tablet 3 023 Active isosorbide dinitrate (ISORDIL) 30 mg tabletIndications :Essential hypertension Take 1 tablet (30 mg total) by mouth daily 90 tablet 3 023 Active lamoTRIgine (LaMICtal) 25 mg tabletIndications :Depression with somatization,Bipo lar 1 disorder (HCC) Take 1 tablet (25 mg total) by mouth 2 (two) times a day 180 tablet 3 023 Active metOLazone (ZAROXOLYN) 2.5 mg tabletIndications :Pedal edema Take 1 tablet (2.5 mg total) by mouth every other day 45 tablet 3 023 Active metoprolol tartrate (LOPRESSOR) 25 mg immediate release tabletIndications :Essential hypertension Take 1 tablet (25 mg total) by mouth 2 (two) times a day 180 tablet 3 023 Active montelukast (SINGULAIR) 10 mg tabletIndications :Asthma due to seasonal allergies Take 1 tablet (10 mg total) by mouth nightly 90 tablet 3 023 Active spironolactone (ALDACTONE) 25 mg tabletIndications :Pedal edema Take 1 tablet (25 mg total) by mouth 2 (two) times a day 180 tablet 3 023 Active topiramate (TOPAMAX) 50 mg tablet Take 1 tablet (50 mg total) by mouth 2 (two) times a day 180 tablet 3 023 Active busPIRone (BUSPAR) 10 mg tabletIndications :Depression with somatization,Bipo lar 1 disorder (HCC) Take 1 tablet (10 mg total) by mouth 2 (two) times a day 180 tablet 3 023 Active naloxone (NARCAN) 4 mg/actuation spray,non-aerosol Indications:Chron ic bilateral low back pain without sciatica Administer 1 spray into affected nostril(s) as needed for opioid reversal or respiratory depression Call 911. Administer a single spray in one nostril. Repeat every 3 minutes as needed if no or minimal response. 1 each 2 023 Active traMADoL (ULTRAM) 50 mg tablet Take 1 tablet (50 mg total) by mouth every 8 (eight) hours as needed for pain 90 tablet 023 Active doxycycline monohydrate (MONODOX) 100 mg capsule Active pentoxifylline ER (TRENtal) 400 mg CR tablet Active silver sulfadiazine (SILVADENE, SSD) 1 % cream Active furosemide (LASIX) 40 mg tablet Take 1 tablet (40 mg total) by mouth daily Active traZODone (DESYREL) 150 mg tablet Take 1 tablet (150 mg total) by mouth nightly 07/22/2 024 Active PARoxetine (PAXIL) 10 mg tablet Take 10 mg by mouth every morning 2021 Discontinued Active Problems Problem Noted Date Diagnosed Date Class 3 severe obesity due t o excess calories with serious comorbidity and body mass index (BMI) of 40.0 to 44.9 in adult 12/10/2022 Assessment & Plan (12/10/2022 2:06 PM CDT): Uncontrolled. Goal of BMI is less than 30 Educated patient on healthy diet/exercise plan. Exercise 150min-300min per week of moderate intensity. Diet: good, healthy protein (eggs, nuts, peanut butter, chicken, fish, turkey, less pork/beef), lots of vegetables, less carbohydrates and less sugar. 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 12/10/2022 Assessment & Plan (12/10/2022 2:06 PM CDT): Stable, check uric acid level, continue meds History of amputation of left great toe 12/11/19 23 O2 dependent 12/10/2022 Overview (12/10/2022): 4 L continuous Assessment & Plan (12/10/2022 2:07 PM CDT): Continue oxygen at 4 L continuous NAFLD (nonalcoholic fatty liver disease) Chronic heart failure with preserved ejection fr action 02/22/2021 Chronic respiratory failure with hypoxia Assessment & Plan (12/10/2022 2:06 PM CDT): Patient will continue on oxygen Assessment & Plan (07/12/2020 1:07 PM CDT): Continue with 5 L of supplemental oxygen at rest and 6 with exertion. I will repeat 6 minutes walk test today. Assessment & Plan (04/04/2020 4:24 PM GRANITE CUTTER): Currently patient is using 5 L of supplemental oxygen at rest and 6 with exertion. I will obtain 6 minutes walk test today to reassess her oxygen requirements. Patient has multiple comorbidities and osteoarthritis of the hands. She will benefit from small portable oxygen concentrator that he can carry around with ambulation. Will request her [employer] company to assist with it. Smoking greater than 30 pack years 04/04/2020 Assessment & Plan (04/04/2020 4:26 PM GRANITE CUTTER): Patient has quit smoking about 1 and half year ago but did smoke 1 pack per day for more than 30 years. She will need yearly CT scan of the chest for lung cancer screening. Coronary artery calcification seen on CAT scan 0 03/31/2020 Chronic obstructive pulmonar y disease with acute exacerbation 03/31/2020 Assessment & Plan (12/10/2022 2:06 PM CDT): Stable, patient will continue with 4 L of oxygen and her inhalers. May need pulmonary follow-up. Assessment & Plan (07/12/2020 1:07 PM CDT): Continue with Wixela, Incruse Ellipta, duo nebs and p.r.n. albuterol inhaler. Assessment & Plan (04/04/2020 4:24 PM GRANITE CUTTER): Continue with wixela, Incruse and p.r.n. albuterol inhaler. Essential hypertension 03/07/2020 Assessment & Plan (12/10/2022 2:06 PM CDT): Stable, continue current meds. Assessment & Plan (10/31/2021 11:01 AM CDT): Metoprolol Assessment & Plan (09/06/2021 3:07 PM CDT): Lasix Gastroesophageal reflux disease with stricture 1 04/14/2019 Assessment & Plan (12/10/2022 2:04 PM CDT): Stable on current meds Obstructive sleep apnea syndrome 02/12/2020 Assessment & Plan (04/04/2020 4:22 PM GRANITE CUTTER): Patient states she underwent sleep study and was found not to have sleep apnea. Will obtain records of her sleep study. Depression with somatization 02/12/2020 Assessment & Plan (12/10/2022 2:05 PM CDT): Stable on current meds. Benign paroxysmal positional vertigo due to bilateral vestibular disorder 03/27/2019 Diastolic dysfunction 05/22/2018 Excessive daytime sleepiness 05/22/2018 Peripheral neuropathy, hereditary/idiopathic 11/2017 Assessment & Plan (12/10/2022 2:05 PM CDT): Uncontrolled today because patient has been out of medication for 2 weeks. Refilled meds. Stage 3a chronic kidney disease 11/04/2017 Assessment & Plan (12/10/2022 2:05 PM CDT): Stable, due for labs. Allergy to bee sting 06/28/2017 Osteoarthritis of right knee 05/29/2017 Chronic deep vein thrombosis (DVT) of distal vein of lower extremity 05/10/2017 Peripheral vascular disease (CMS/HCC) 05/10/2017 Osteoarthritis of left knee 03/28/2017 Stress incontinence, female 12/20/2016 Impaired fasting glucose 12/11/2016 Assessment & Plan (12/10/2022 2:05 PM CDT): Diet controlled. Patient due for labs. Chronic low back pain 12/16/2015 Assessment & Plan (12/10/2022 2:05 PM CDT): Uncontrolled. Tramadol is not controlling her pain. Will switch her back to [place]. Pulmonary nodule 12/16/2015 Assessment & Plan (07/12/2020 1:06 PM CDT): I will repeat CT scan of the chest before her next visit for better evaluation of lung parenchyma. Presence of right artificial shoulder joint 07/04 Rotator cuff arthropathy of left shoulder 2015 Insomnia 12/02/2013 Hyperlipidemia 10/28/2012 Assessment & Plan (12/10/2022 2:05 PM CDT): Stable, continue current meds. Assessment & Plan (10/31/2021 11:00 AM CDT): Lipitor Assessment & Plan (09/06/2021 3:07 PM CDT): Lipitor Chronic pain syndrome 10/06/2012 Assessment & Plan (12/10/2022 2:12 PM CDT): Continue pain meds Bipolar 1 disorder (CMS/HCC) 10/06/2012 Assessment & Plan (12/10/2022 2:06 PM CDT): Stable, continue current meds. Resolved Problems Problem Noted Date Diagnosed Date Resolved Date Acute osteomyelitis of metat arsal bone of left foot 10/20/2021 12/10/2022 Infection of amputation site of lower extremity 10/20/2021 12/10/2022 Assessment & Plan (12/21/2021 11:07 AM CDT): Impression: Healed left 1st toe amputation. No open ulceration of either lower extremity currently. Plan: Patient follow-up on as-needed basis. Assessment & Plan (2021 2:55 PM CDT): Patient is status post left great toe amputation 09/22/2021 and left foot debridement 10/17/2021. She is to come back for hopefully suture removal and continue monitoring of the wound as it heals slowly. She has continued dressing changes with Xeroform gauze and Yimi wrap. She has been nonweightbearing and placing weight only to the heel with ambulating. She denies any fevers or chills and denies any drainage from the left foot. Stay seen with Dr. Lola Forrester. Sutures removed in the office today. Return in 3 weeks for continued monitoring of the left foot wound. Continue dressing changes with Xeroform gauze Kerlix and Yimi wrap. Assessment & Plan (10/31/2021 11:01 AM CDT): Status post excision all debridement left hallux amputation site, amputation of left metatarsal head due to amputation site infection on 10/18/2021. This is overall healing. No concern for infection at this point. Will initiate [place] for pain control, continue dressing changes with Xeroform. Plan for follow-up in the office in 2 weeks for suture removal Fall 10/20/2021 12/10/2022 Cellulitis of toe of right foot 10/11/2021 10/12/2021 Acute osteomyelitis of left ankle or foot 09/06/2021 10/12/2021 Overview (09/06/2021): Added automatically from request for surgery [id number] Open wound of toe 08/28/2021 10/12/2021 Cellulitis of left toe 04/30/202108/28 Gastroenteritis 04/30/2021 08/28/2021 Acute bronchitis 04/30/2021 08/28/2021 Osteomyelitis of left foot 04/29/2021 1 History of COVID-19 04/29/2021 12/11/19 History of gout 04/29/2021 12/10/2022 Non-cardiac chest pain 02/12/202108/28 Hypokalemia 02/12/2021 10/12/2021 Injury of collateral ligament of wrist 04/25/2020 12/10/2022 Right ankle sprain 04/25/2020 2 Precordial pain 03/31/2020 08/28/2021 Palpitations 03/31/2020 08/28/2021 Morbid obesity (CMS/HCC) 03/31/202011/2022 Assessment & Plan (04/04/2020 4:24 PM GRANITE CUTTER): Patient was advised to lose weight by diet and exercise. Family history of coronary artery disease 03/31/2020 12/10/2022 Asymptomatic COVID-19 virus infection 02/12/2020 10/18/2021 Massive hemoptysis 02/12/2020 2 Positive D-dimer 02/12/2020 08/28/2021 Dyspnea on exertion 08/13/2019 08/29/19 Assessment & Plan (04/04/2020 4:23 PM GRANITE CUTTER): The shortness of breath is improved. Will continue with bronchodilators and supplemental oxygen. Patient is scheduled for cardiac stress test. Recurrent major depressive disorder 06/26/2019 12/10/2022 Abnormal finding on lung imaging 05/22/2018 10/12/2021 Hypoxemia 02/16/2015 08/28/2021 Nicotine dependence 07/19/2014 10/13/19 Allergic rhinitis 10/06/2012 08/28/2021 Assessment & Plan (07/12/2020 1:06 PM CDT): Continue with Flonase and Zyrtec as needed. Assessment & Plan (04/04/2020 4:24 PM GRANITE CUTTER): Continue with Flonase on as needed basis. Gout 10/06/2012 10/12/2021 Acute osteomyelitis of toe 0 10/12/2021 Assessment & Plan (09/06/2021 3:07 PM CDT): Risks benefits alternatives to left hallux amputation were discussed. Risks included bleeding, infection, failure for the wound to heal, and need for further surgery. She wished to proceed. Encounters Date Type Department Care Team Description 07/03/2024 Orders Only [facility] Family Medicine [address] [phone] Provider, MD Thom from Last 3 Months Immunizations Immunization Administration Dates Next Due Influenza, Quadrivalent, Spl it, Preservative Free, Intramuscular 12/10/2022,11/23/2020,12/25/2019,11/28,11/27/2017,12/10/2016,12/03/2016 ,11/21/2015,12/22/2014,11/28/2013 Influenza, Trivalent, IM (MDV) 12/03/2015,2012 Influenza, Unspecified 12/12/2021(Deferr ed: Patient Refused),11/29/2017,11/24/2012 Pneumococcal Polysaccharide PPV23 11/29/2017,12/2016,11/28/2013 ZOSTER Recombinant 04/23/2022,02/16/2022 Surgical History Surgery Date Site/Laterality Comments EYE SURGERY cataract surgery both eyes 04/2019 HYSTERECTOMY CARDIAC CATHETERIZATION SHOULDER SURGERY rcr 2007 SHOULDER SURGERY right total 2008 BREAST LUMPECTOMY 03/04/2008 - 03/03/2009 right FLUORO GUIDED INJECTION SHOU LDER LEFT 07/21/2021 Left BLEPHAROPLASTY Bilateral ESOPHAGOGASTRODUODENOSCOPY with dilatation FINGER SURGERY rt index dog bite repair AMPUTATION Left greater toe BREAST BIOPSY Medical History Medical History Date Comments Bipolar 1 disorder ([facility]) COPD (chronic obstructive pu lmonary disease) ([facility]) Chronic kidney disease stage 3/b orn with it pt states Asthma Fatty liver Neuropathy History of spina bifida Leaky heart valve History of pneumonia History of bronchitis Arrhythmia has a murmer/no problems/ years ago cardiac cath- WNL Heart murmur Allergic rhinitis GERD (gastroesophageal reflu x disease) Obesity Depression Covid 08/31/2021 mild no hospital ization Full dentures Balance problem Dry skin redness under br [place] Headache Chronic pain disorder Herniated lumbar intervertebral disc two degenerative neck and between shoulder blades Spina bifida ([facility]) Patient terme d premature spina bifida, born with many problems with different parts of body , born with high temp 105 pt states. CHF (congestive heart failure) ([facility]) history Wears dentures On home oxygen therapy 4L/[place] History of COVID-19 04/29/2021 Osteomyelitis of left foot ([facility]) 04/29/2021 Obstructive sleep apnea syndrome 02/12/2020 Family History Medical History Relation Name Comments Cancer Brother 1 pancreatic Heart disease Brother 2 Emphysema Father Heart disease Father Heart disease Maternal Grandfather Cancer Maternal Grandmother Heart disease Maternal Grandmother Breast cancer Mother Heart disease Mother Cancer Other Heart disease Other Hypertension Other Kidney disease Other Heart disease Paternal Grandfather Heart disease Paternal Grandmother Relation Name Status Comments Brother 1 Brother 2 Father (Age 68) Maternal Grandfather Maternal Grandmother Mother (Age 74) Other Paternal Grandfather Paternal Grandmother Social History Tobacco Use Types Packs/Day Years Used Date Smoking Tobacco: Former Cigarettes 0 03/07/1965 - 03/07/1999 Smokeless Tobacco: Never Alcohol Use Standard Drinks/Week Comments Not Currently 0 (1 standard drink = 0.6 oz pur e alcohol) Social Connection and Isolat ion Panel [NHANES] Answer Date Recorded In a typical week, how many times do you talk on the phone with family, friends, or neighbors? More than three times a week 05/01/2021 How often do you get togethe r with friends or relatives? More than three times a week 05/01/2021 How often do you attend chur ch or congregational services? 1 to 4 times per year 05/01/2021 Do you belong to any clubs o r organizations such as restorationism groups, unions, fraternal or athletic groups, or school groups? Yes 05/01/2021 How often do you attend meet ings of the clubs or organizations you belong to? 1 to 4 times per year 05/01/2021 Are you , , di vorced, , never , or living with a partner? 05/01/2021 AUDIT-C Answer Date Recorded Q1: How often do you have a drink containing alcohol? Never 10/02/2021 Q2: How many drinks containi ng alcohol do you have on a typical day when you are drinking? Patient does not drink Frequency of Binge Drinking Not on file 03/2021 Overall Financial Resource Strain (CARDIA) Answe r Date Recorded How hard is it for you to pa y for the very basics like food, housing, medical care, and heating? Not hard at all 05/01/2021 PHQ-2 Answer Date Recorded PHQ-2 Total Score (If total score is 3 or more points, staff should administer the PHQ-9) 0 12/10/2022 Hunger Vital Sign Answer Date Recorded Within the past 12 months, y ou worried that your food would run out before you got the money to buy more. Never true 05/01/19 22 Within the past 12 months, t he food you bought just didn't last and you didn't have money to get more. Never true 05/01/2021 PRAPARE - Transportation Answer Date Re corded In the past 12 months, has l ack of transportation kept you from medical appointments or from getting medications? No 04/05 In the past 12 months, has l ack of transportation kept you from meetings, work, or from getting things needed for daily living? No 05/01/2021 Housing Stability Vital Sign Answer Simon e Recorded In the last 12 months, was t here a time when you were not able to pay the mortgage or rent on time? No 05/01/2021 Number of Places Lived in the Last Year Not on f ile 05/01/2021 In the last 12 months, was t here a time when you did not have a steady place to sleep or slept in a fpc (including now)? No 05/01/2021 Comments No Sex and Gender Information Value Date Recorded Sex Assigned at Not on file Legal Sex Female 4:57 PM GRANITE CUTTER Gender Identity Not on file Sexual Orientation Not on file Obstetrics History Para Term AB IAB SAB Ectopic Multiple Livin g Live Births 4 4 4 Date Outcome GA Total Labor Labor/2nd/3rd Weight Sex Type Anes PTL Lindsey A1 A5 Name Clin Term Term Term Term Last Filed Vital Signs Vital Sign Reading Time Taken Comments Blood Pressure 115/72 10/10/2023 3:41 PM CDT Pulse 76 10/10/2023 3:41 PM CDT Temperature 36.1 C (96.9 F) 10/10/2023 3:41 PM CDT Respiratory Rate 22 10/10/2023 3:41 PM CDT Oxygen Saturation 97% 10/10/2023 3:41 PM CDT Inhaled Oxygen Concentration - - Weight 145.2 kg (320 lb) 10/10/2023 3:41 PM CDT Height 177.8 cm (5' 10) 10/10/2023 3:41 PM CDT Body Mass Index 45.92 10/10/2023 3:41 PM CDT Plan of Treatment Health Maintenance Due Date Last Done Comments Hepatitis C Screening 1962 DTaP/Tdap/Td Vaccine (1 - Tdap) 1973 Hepatitis B Screening 1980 Pneumococcal vaccine <65 (2 of 2 - PCV) 11/29/2018 11/29/2017, 12/11/2016, 11/28/2013 Regular Well Visit/Exam 18-64 06/28/2022 06/28/2021, 06/28/2021 Covid-19 Vaccine (2 - 2023-2 5 season) 2023 04/10/2022 Depression Screening 12/11/2023 12/10/2022, 10/02/2021, 10/02/2021, Additional history exists Breast Cancer Screening-Mammogram 05/28/2024 05/29/2023, 10/03/2021, 01/20/2018 Influenza Vaccine (Season Ended) 2024 12/10/2022, 11/23/2020, 12/25/2019, Additional history exists Colon Cancer Screening-Colonoscopy 09/17/20262016 Zoster Vaccine Completed 04/23/2022, 02/16/2022 Medical Devices Implanted Type Area Erecting Engineer Device Identifier Shelf Expiration Date Model / Serial / Lot Lens Lens Bilateral: Eye Right Shoulder Replacement Other - see comments Right: Shoulder Procedures Procedure Name Priority Date/Time Associated Diagnosis Comments XR SPINE LUMBAR 2 OR 3 VIEWS Schedule Routine, Read Routine (OP Routine) 07/03/2024 3:29 PM CDT XR KNEE RIGHT 3 VIEWS Schedule Routine, Read Routine (OP Routine) 07/03/2024 12:38 PM CDT XR SPINE LUMBAR 2 OR 3 VIEWS Schedule Routine, Read Routine (OP Routine) 07/03/2024 12:34 PM CDT SCREENING MAMMOGRAM BILATERAL W GILBERTO Schedule Routine, Read Routine (OP Routine) 05/29/2023 11:16 AM CDT Breast cancer screening by mammogram COLONOSCOPY Routine 09/17/2016 from Last 3 Months or Most Recently Relevant to Health Maintenance Results * XR Spine Lumbar 2 or 3 Views (07/03/2024 3:29 PM CDT) Anatomical Region Laterality Modality Spine N/A Radiographic Radha ging Historical Provider IMG XR PROCEDURES Final R esult * XR Knee Right 3 Views (07/03/2024 12:38 PM CDT) Anatomical Region Laterality Modality Lower Extremities, Knee Right Radiogra phic Imaging Historical Provider IMG XR PROCEDURES Final R esult * XR Spine Lumbar 2 or 3 Views (07/03/2024 12:34 PM CDT) Anatomical Region Laterality Modality Spine N/A Radiographic Radha ging Historical Provider IMG XR PROCEDURES Final R esult * SCREENING MAMMOGRAM BILATERAL W GILBERTO (05/29/2023 11:16 AM CDT) Anatomical Region Laterality Modality Breast Bilateral Mammography Impressions 05/29/2023 11:21 AM CDT BI-RADS ATLAS category (overall): 2 - Benign There is no mammographic evidence of malignancy. A 1 year screening mammogram is recommended. The patient has been or will be contacted. We recommend annual screening mammography for women at average risk of breast cancer beginning at age 40, based on guidelines of the [employer] (ACR Practice Parameter for the Performance of Screening and Diagnostic Mammography) and [employer]. For women with and elevated risk of breast cancer, please refer to the ACR Practice Parameter for specific screening recommendations. The patient will be entered into a reminder system with a target due date of 1 year for her next screening exam. Narrative 05/29/2023 11:21 AM CDT SCREENING MAMMOGRAM BILATERAL W GILBERTO: 05/29/23 The study was acquired using full field digital technology and interpreted from soft copy. 2D digital mammographic views, as well as 3D digital tomosynthesis were performed in the CC and MLO projections. CLINICAL: Breast cancer screening by mammogram. No relevant medical history has been documented for this patient. History of breast cancer in Mother. COMPARISONS: 10/03/2021 SCREENING MAMMOGRAM BILATERAL W GILBERTO 09/21/2009 BREAST NEEDLE LOCALIZATION 08/29/2009 BREAST SONOGRAPHIC BIOPSY 08/25/2009 Diagnostic Mammogram 2D Bilateral 08/25/2009 US Breast Right Limited BREAST TISSUE: The breasts have scattered areas of fibroglandular density. FINDINGS: Suboptimal examination secondary to difficulty with patient positioning related to the patient's physical condition. There are stable postoperative findings in the right breast. There is no new suspicious finding in either breast on mammogram. Moira POLANCO IMG MAMMO PROCEDURES Final Res ult * Colonoscopy (09/17/2016) Anatomical Region Laterality Modality Other Historical Provider ENDOSCOPY PROCEDURES Mikayla mayfield Result from Last 3 Months or Most Recently Relevant to Health Maintenance Insurance [facility] [id number] [place] [address] [facility] Advance Directives For more information, please contact: [phone] Documents on File Type Date Recorded Patient Clinical Allergist Expl anation ADVANCE DIRECTIVE 02/05/2022 8:42 AM POLST - PHYS ORDER FOR PT PREFERENCES ADVANCE DIRECTIVE 07/15/2012 12:00 AM MASSIEL Gildardo OF [employer] FINANCIAL/MEDICAL * Full Code (Latest Code Status on File) Date Activated Date Inactivated Comments 10/12/2021 12:24 AM 10/21/2021 5:13 AM * Full Code Date Activated Date Inactivated Comments 08/29/2021 12:42 AM 09/03/2021 9:27 PM Care Teams Tutoring Clinician Relationship Specialty Start Date End Date Pj Linder MD [address] [facility] [address] [place] [address] PCP - General Family Medicine 04/18/23 Marlon Mendoza MD R[employer] Custodian Cardiovascular Disease 03/31/20 Jaret Forrester MD [address] [facility] [address] [place] [address] Consulting Physician Vascular Surgery 09/03/21 Ceferino Strickland MD [address] [facility] [address] [place] [address] Consulting Physician Infectious Diseases 10/20/21
--- OUTSIDE RECORDS SUMMARY | 2024-09-03 22:09 | XMS_ITS | Referral Summary ---
Author Organization [facility] Virtual Care Address [address] [place] [phone] Phone Care Team Providers Care Cooperative Education Director Name Role Phone Marlon Mendoza MD Unavailable Jaret Forrester MD Unavailable Ceferino Strickland MD Unavailable [phone] Pj Linder MD Primary Care Provider [phone] Encounters Date Type Department Care Team Description 07/03/2024 Orders Only [facility] Family Medicine [address] [address] Provider, MD Thom from Last 3 Months Allergies Active Allergy Reactions Criticality Noted Date [...] into each nostril as needed Active omega 7-tte-lkz-fish oil (Fish Oil) 100-160-1,000 mg capsule Take [...] times a day as needed for constipation 022 Active BD PosiFlush Normal Saline 0.9 injection 022 Active benzonatate (TESSALON) 100 mg capsuleIndication s:Cough Take 1 capsule (100 mg total) by mouth 3 (three) times a day as needed for cough 20 capsule 022 Active ipratropium-albut Alhaji (DUO-NEB) 0.5-2.5 mg/3 mL nebulizer solution Active SUMAtriptan (IMITREX) 100 mg tablet 023 [...] tablet (150 mg total) by mouth nightly Active PARoxetine (PAXIL) 10 mg tablet Take [...] today. Assessment & Plan (04/04/2020 4:24 PM ROLLER PRINTER): Currently patient is using 5 L of supplemental oxygen at rest and 6 with exertion. I will obtain 6 minutes walk test today to reassess her oxygen requirements. Patient has multiple comorbidities and osteoarthritis of the hands. She will benefit from small portable oxygen concentrator that he can carry around with ambulation. Will request her [employer] company to assist with it. Smoking greater than 30 pack years 04/04/2020 Assessment & Plan (04/04/2020 4:26 PM ROLLER PRINTER): Patient has quit smoking about 1 and [...] inhaler. Assessment & Plan (04/04/2020 4:24 PM ROLLER PRINTER): Continue with wixela, Incruse and p.r.n. albuterol [...] 02/12/2020 Assessment & Plan (04/04/2020 4:22 PM ROLLER PRINTER): Patient states she underwent sleep study and [...] her pain. Will switch her back to Amagon. Pulmonary nodule 12/16/2015 Assessment & Plan (07/12/2020 [...] for infection at this point. Will initiate Amagon for pain control, continue dressing changes with Xeroform. Plan for follow-up in the office in 2 weeks for suture removal Fall 10/20/2021 12/10/2022 Cellulitis of toe of right foot 10/11/2021 10/12/2021 Acute osteomyelitis of left ankle or foot 09/06/2021 10/12/2021 Overview (09/06/2021): Added automatically from request for surgery [id number] Open wound of toe 08/28/2021 10/12/2021 Cellulitis of left toe 04/30/202108/28 Gastroenteritis 04/30/2021 08/28/2021 Acute bronchitis 04/30/2021 08/28/2021 Osteomyelitis of left foot 04/29/2021 1 History of COVID-19 04/29/2021 12/11/19 23 History of gout 04/29/2021 12/10/2022 Non-cardiac chest pain 02/12/202108/28 Hypokalemia 02/12/2021 10/12/2021 Injury of collateral ligament of wrist 04/25/2020 12/10/2022 Right ankle sprain 04/25/2020 2 Precordial pain 03/31/2020 08/28/2021 Palpitations 03/31/2020 08/28/2021 Morbid obesity (CMS/HCC) 03/31/202011/2022 Assessment & Plan (04/04/2020 4:24 PM ROLLER PRINTER): Patient was advised to lose weight by diet and exercise. Family history of coronary artery disease 03/31/2020 12/10/2022 Asymptomatic COVID-19 virus infection 02/12/2020 10/18/2021 Massive hemoptysis 02/12/2020 2 Positive D-dimer 02/12/2020 08/28/2021 Dyspnea on exertion 08/13/2019 08/29/19 Assessment & Plan (04/04/2020 4:23 PM ROLLER PRINTER): The shortness of breath is improved. Will continue with bronchodilators and supplemental oxygen. Patient is scheduled for cardiac stress test. Recurrent major depressive disorder 06/26/2019 12/10/2022 Abnormal finding on lung imaging 05/22/2018 10/12/2021 Hypoxemia 02/16/2015 08/28/2021 Nicotine dependence 07/19/2014 10/13/19 22 Allergic rhinitis 10/06/2012 08/28/2021 Assessment & Plan (07/12/2020 1:06 PM CDT): Continue with Flonase and Zyrtec as needed. Assessment & Plan (04/04/2020 4:24 PM ROLLER PRINTER): Continue with Flonase on as needed basis. Gout 10/06/2012 10/12/2021 Acute osteomyelitis of toe 0 10/12/2021 Assessment & Plan (09/06/2021 3:07 PM CDT): Risks benefits alternatives to left hallux amputation were discussed. Risks included bleeding, infection, failure for the wound to heal, and need for further surgery. She wished to proceed. Immunizations Immunization Administration Dates Next Due Influenza, Quadrivalent, Spl it, Preservative Free, Intramuscular 12/10/2022,11/23/2020,12/25/2019,11/28,11/27/2017,12/10/2016,12/03/2016 ,11/21/2015,12/22/2014,11/28/2013 Influenza, Trivalent, IM (MDV) 12/03/2015,2012 Influenza, Unspecified 12/12/2021(Deferr ed: Patient Refused),11/29/2017,11/24/2012 Pneumococcal Polysaccharide PPV23 11/29/2017,12/2016,11/28/2013 ZOSTER Recombinant 04/23/2022,02/16/2022 Social History Tobacco Use Types Packs/Day Years [...] often do you attend chur ch or uatsdin services? 1 to 4 times per year 05/01/2021 Do you belong to any clubs o r organizations such as confucianist groups, unions, fraternal or athletic groups, or [...] place to sleep or slept in a mcfp (including now)? No 05/01/2021 Comments No Sex and Gender Information Value Date Recorded Sex Assigned at Not on file Legal Sex Female 4:57 PM ROLLER PRINTER Gender Identity Not on file Sexual Orientation [...] 10/10/2023 3:41 PM CDT Plan of Treatment Not on file Medical Devices Implanted Type Area Medical Records Specialist Device Identifier Shelf Expiration Date Model / [...] Laterality Modality Spine N/A Radiographic Radha ging us Historical Provider IMG XR PROCEDURES Final R [...] age 40, based on guidelines of the [employer] (ACR Practice Parameter for the Performance of Screening and Diagnostic Mammography) and [employer]. For women [...] suspicious finding in either breast on mammogram. us Moira PLOANCO IMG MAMMO PROCEDURES Final Res ult * Colonoscopy (09/17/2016) Anatomical Region Laterality Modality Other Historical Provider ENDOSCOPY PROCEDURES Mikayla mayfield Result from Last 3 Months or Most Recently Relevant to Health Maintenance Insurance [facility] Member Subscriber Plan / Payer (Ef fective 2020-Present) Name:Fariba Olson Relation to Subscriber:Self Name:Fariba Olson Payer ID:[id number] (NAIC) Type:MEDICAID RISK OTHER Address: [address] [place] [address] [place] [address] [facility] Advance Directives For more information, please contact: [phone] Documents on File Type Date Recorded Patient Landscaping Manager Expl anation ADVANCE DIRECTIVE 02/05/2022 8:42 AM POLST - PHYS ORDER FOR PT PREFERENCES ADVANCE DIRECTIVE 07/15/2012 12:00 AM MASSIEL R OF MOWING MACHINE OPERATOR FINANCIAL/MEDICAL * Full Code (Latest Code Status on File) Date Activated Date Inactivated Comments 10/12/2021 12:24 AM 10/21/2021 5:13 AM * Full Code Date Activated Date Inactivated Comments 08/29/2021 12:42 AM 09/03/2021 9:27 PM Care Teams Cooperative Education Director Relationship Specialty Start Date End Date Pj Linder MD [address] [facility] [address] [place] [address] PCP - General Family Medicine 04/18/23 Marlon Mendoza MD Mill Labor Supervisor Cardiovascular Disease 03/31/20 Jaret Forrester MD [address] [facility] [address] [place] [address] Consulting Physician Vascular Surgery 09/03/21 Ceferino Strickland MD [address] [facility] [address] [place] [address] Consulting Physician Infectious Diseases 10/20/21
--- OUTSIDE RECORDS SUMMARY | 2024-09-03 22:09 | XMS_ITS | Clinical Summary ---
Author Organization [facility] [employer] Address [address] [facility] [place] [address] Care Team Providers Care Food Service Substitute Name Role Phone Sherice Scott RN Unavailable [phone] April Cornejo MD Primary Care Provider [phone] Source Comments [facility],non-owned Affiliates and Associated Physician Practices is amultiple site organization consisting of ambulatory clinics and hospital sitesin [place], [place], [place] and [place]. This disclosure is being madepursuant to the Care Everywhere program and may not contain all information available regarding this patient. Last updated 17.[facility] Allergies Active Allergy Reactions Criticality Noted [...] PO QD 0 8 Active nystatin (MYCOSTATIN) 373934 UNIT/GM cream SUZAN AND RUB IN A THIN FILM AA BID IN THE MORNING AND IN THE EVENING 5 8 Active nystatin (MYCOSTATIN) 898741 UNIT/ML suspension TK 5MLS PO QID FOR [...] on file Legal Sex Female 6:49 AM SECRET SERVICE AGENT Gender Identity Not on file Sexual Orientation Not on file Last Filed Vital Signs Vital Sign Reading Time Taken Comments Blood Pressure 95/53 05/10/2015 11:56 AM SECRET SERVICE AGENT Pulse 87 05/10/2015 11:56 AM SECRET SERVICE AGENT Temperature 36.5 C (97.7 F) 05/10/2015 11:56 AM SECRET SERVICE AGENT Respiratory Rate 18 05/10/2015 11:56 AM SECRET SERVICE AGENT Oxygen Saturation 99% 05/10/2015 11:56 AM SECRET SERVICE AGENT Inhaled Oxygen Concentration - - Weight 133.8 kg (295 lb) 02/05/2018 9:02 AM SECRET SERVICE AGENT Height 177.8 cm (5' 10) 02/05/2018 9:02 AM SECRET SERVICE AGENT Body Mass Index 42.33 02/05/2018 9:02 AM SECRET SERVICE AGENT Plan of Treatment Health Maintenance Due Date Last Done Comments COLOGUARD (AGES 45-75) - COLON CA SCREENING 1962 COLON MONITORING 1962 COLONOSCOPY - COLON CA SCREENING 1962 CT COLONOGRAPHY - COLON CA SCREENING 1962 Colorectal Cancer Screening 1962 FIT - COLON CA SCREENING 1962 FLEX SIG - COLON CA SCREENING 1962 MAMMOGRAM 1962 HIV SCREENING 1977 HEPATITIS C SCREENING 11/15/1980 DTAP/TDAP/TD VACCINES (1 - Tdap) 1981 PAP SMEAR 11/21/1983 ZOSTER VACCINE (1 of 2) 2012 PNEUMOCOCCAL VACCINE 50+ (2 of 2 - PCV) 11/29/2018 11/29/2017 Respiratory Syncytial Virus (RSV) Vaccine Pt: or over 60 yrs (1 - Risk 60-74 years 1-dose series) 2022 COVID-19 VACCINE (1 - season) 2023 DEPRESSION SCREENING 03/04/2024 INFLUENZA [...] this topic Medical Devices Implanted Type Area Child Development Teacher Device Identifier Shelf Expiration Date Model / Serial / Lot Implt Ceml Metaglene Implanted:Qty: 1 on 05/09/2015 by Raza Beth MD at [facility] Right: Shoulder [employer] 12/02/2019 1307-60-000 / / [id number] Sys Shld Tot Arthroplst Rev Implanted:Qty: 1 on 05/09/2015 by Raza Beth MD at [facility] [employer] S4 DEPUY / / Delta Xtend Implanted:Qty: 1 on 05/09/2015 by Raza Beth MD at [facility] Right: Shoulder 11/01/2019 [id number] / / [id number] Locking Mataglene Screw Implanted:Qty: 1 on 05/09/2015 by Raza Beth MD at [facility] Right: Shoulder 02/01/2020 [id number] / / [id number] [employer]osphere Implanted:Qty: 1 on 05/09/2015 by Raza Beth MD at [facility] Right: Shoulder 01/01/2020 1307-60-142 / / [id number] Delta Extend Implanted:Qty: 1 on 05/09/2015 by Raza Beth MD at [facility] Right: Shoulder 09/01/2019 [id number] / / [id number] Delta Extend Implanted:Qty: 1 on 05/09/2015 by Raza Beth MD at [facility] Right: Shoulder 11/01/2019 [id number] / / [id number] Delta Xtend Modular Centered Epiphysis Implanted:Qty: 1 on 05/09/2015 by Raza Beth MD at [facility] Right: Shoulder [employer] 02/01/2020 1307-20-101 / / [id number] Delta Xtend Modular Humeral Stem Ramirez Coated Cementless Implanted:Qty: 1 on 05/09/2015 by Raza Beth MD at [facility] Right: Shoulder [employer] 02/01/2020 1307-12-000 / / [id number] Delta Xtend Standard Humeral Pe Cup Implanted:Qty: 1 on 05/09/2015 by Raza Beth MD at [facility] Right: Shoulder [employer] [id number] / / [id number] Insurance [facility] Advance Directives * Full Code (Latest Code Status on File) Date Activated Date Inactivated Comments 05/09/2015 10:15 PM 05/10/2015 2:17 PM Care Teams Food Service Substitute Relationship Specialty Start Date End Date Aprli Cornejo MD PCP - General 02/05/18 Sherice Scott, RN Seasoning Sprayer 05/10/15
--- OUTSIDE RECORDS SUMMARY | 2024-09-03 22:09 | XMS_ITS | Encounter Summary ---
Author Organization [facility] Address [address] [facility] [address] [place] [address] Care Team Providers Care Paper Control Clerk Name Role Phone April Cornejo MD Primary Care Provider [phone] Raza Lakhani MD Primary Care Provid er Marlon Mendoza MD Unavailable Jaret Forrester MD Unavailable Ceferino Strickland MD Unavailable [phone] Jase Fernandes MD Primary Care Provider [phone] Raza Lakhani MD Primary Care Provid er Pj Linder MD Primary Care Provider [phone] Encounter Details Date Type Department Care Team (Late st Contact Info) Description 02/28/2012 Orders Only [facility] [address] [place] [address] Scanning, Provider Social History Tobacco Use Types Packs/Day Years Used Date Smoking Tobacco: Never Assessed Comments Unknown Sex and Gender Information Value Date Recorded Sex Assigned at Not on file Legal Sex Female 4:57 PM SLIP SHEETER Gender Identity Not on file Sexual Orientation Not on file documented as of this encounter Plan of Treatment Not on file documented as of this encounter Procedures Procedure Name Priority Date/Time Associated Diagnosis Comments PULMONARY - RESULT SCAN 02/28/2012 documented in this encounter Results * PULMONARY - RESULT SCAN (02/28/2012) Anatomical Region Laterality Modality Other us Provider Scanning Final Result documented in this encounter Visit Diagnoses Not on filedocumented in this encounter Additional Health Concerns Infection Onset Date Last Indicated Resolved Time C. difficile 02/27/2012 02/26/2012 02/13/2021 10:1 5 AM SLIP SHEETER COVID: Suspected 12/29/2019 12/29/2019 12/29/2019 12:46 PM CDT COVID19 12/29/2019 12/29/2019 01/12/2020 3:06 AM SLIP SHEETER MRSA 12/29/2019 12/28/2019 10/19/2020 5:00 AM CDT COVID: Recovered Comment:Added based on recent COVID infection. 01/12/2020 01/18/2020 05/11/2020 3:[address] COVID: Suspected 09/16/2020 09/16/2020 09/16/2020 11:04 PM CDT COVID: Suspected 02/12/2021 02/12/2021 02/12/2021 2:43 PM SLIP SHEETER COVID: Suspected 04/29/2021 04/29/2021 04/29/2021 6:17 PM SLIP SHEETER COVID: Suspected 08/15/2021 08/15/2021 08/15/2021 3:51 PM CDT COVID19 08/31/2021 08/31/2021 09/13/2021 3:05 AM CDT COVID: Recovered Comment:Added based on recent COVID infection. 09/13/2021 09/14/2021 10/12/2021 1:40 PM C DT COVID19 Comment:10/12/21 Positive covid result on 08/31/21. Patient admitted with asymptomatic for covid. No reason for isolation. 10/12/2021 10/12/2021 10/12/2021 1:40 PM CDT COVID: Recovered Comment:Original COVID positive date 08/31/21 10/12/2021 10/12/2021 02/09/2022 3:[address] COVID19 10/13/2021 10/13/2021 10/16/2021 8:21 AM CDT COVID: Suspected 02/03/2022 02/03/2022 02/03/2022 8:01 PM SLIP SHEETER RSV, droplet 02/03/2022 02/03/2022 02/10/2022 3:06 AM SLIP SHEETER documented as of this encounter Care Teams Paper Control Clerk Relationship Specialty Start Date End Date April Cornejo MD [address] [address] PCP - General Sports Medicine 01/16/18 02/14/20 Raza Lakhani MD [address] [place] [address] PCP - General Family Medicine 02/15/20 10/23/22 Jase Fernandes MD [address] [address] PCP - General Emergency Medicine 10/24/22 12/05/22 Raza Lakhani MD [address] [place] [address] PCP - General Family Medicine 12/06/22 04/17/23 Pj Linder MD [address] [place] [address] PCP - General Family Medicine 04/18/23 Marlon Mendoza MD [address] [place] [address] General Manager Cardiovascular Disease 03/31/20 [place] [address] [place] [address] Consulting Physician Vascular Surgery 09/03/21 Ceferino Strickland MD [address] [facility] [place] [address] Consulting Physician Infectious Diseases 10/20/21 documented as of this encounter
[2024-09-03 22:18] LABS: NT Pro B Type Natriuretic Pept 90 pg/mL (19.9-100)
--- NOTE | 2024-09-03 23:17 | PC.NURSE ---
Bedside report to Monica GOLDMAN
[2024-09-04] VITALS (14 sets, daily range): BP systolic 116–148; BP diastolic 54–86; PULSE 67–86; RESP 12–20; TEMP 36.6; O2SAT 97–100
[2024-09-04] MEDS: IPRATROPIUM 0.5 MG/ALBUTEROL SULFATE 2.5 MG AMPUL.NEB 3 ML INHALATION (01:28)
--- NOTE | 2024-09-04 02:14 | PC.NURSE ---
report to roxy at [facility]
== END 2024-09-04 02:14 | disposition home or self-care (01) ==
PROVIDERS: Emergency Medicine; Emergency Provider Student in an Organized Health Care Education/Training Program
DX: J98.11 Atelectasis (principal); R06.02 Shortness of breath; J44.9 Chronic obstructive pulmonary disease, unspecified; E78.5 Hyperlipidemia, unspecified; I12.9 Hypertensive chronic kidney disease with stage 1 through stage 4 chronic kidney disease, or unspecified chronic kidney disease; N18.9 Chronic kidney disease, unspecified; Z87.891 Personal history of nicotine dependence
CPT/HCPCS: 36415; 71045; 71275; 80053; 83605; 83880; 85025; 85055; 85610; 85730; 93005; 94640; 99284; Q9967

== ENCOUNTER 2024-09-11 06:49 | Emergency (ER) | payer OTHER, SELFPAY ==
--- NOTE | ~2024-09-11 | XR_ITS ---
EXAM/PROCEDURE: XR chest 1V portable - 09/11/2024 8:15 CDT HISTORY: 63 years old Female with fall/weak TECHNIQUE: Two view(s) of the chest. COMPARISON: 03/19/2024 FINDINGS: LUNGS/ PLEURA: Mild perihilar bronchial wall thickening. Airspace opacity in the right lung base may represent atelectasis, scarring versus pneumonia. HEART/ MEDIASTINUM: Heart appears normal in size. BONES: Degenerative changes. Partially visualized right shoulder arthroplasty. OTHER: Visualized upper abdomen is unremarkable. IMPRESSION: Airspace opacity in the right lung base may represent atelectasis, scarring versus pneumonia. Mild pe rihilar bronchial wall thickening, findings suggestive of respiratory bronchiolitis. Clinical correla tion is recommended. Short-term follow-up chest radiograph is recommended after appropriate clinical therapy. Reviewed, dictated and finalized at location A. IMPRESSION: Airspace opacity in the right lung base may represent atelectasis, scarring stephen vimal pneumonia. Mild perihilar bronchial wall thickening, findings suggestive of respiratory bronchiolitis. Clinical correlation is recommended. Short-term fol low-up chest radiograph is recommended after appropriate clinical therapy.
--- NOTE | ~2024-09-11 | CT_ITS ---
EXAM: CT brain wo con - 09/11/2024 8:35 CDT History: 63 years old Female with fall COMPARISON: 07/03/2024 PROCEDURE: CT of the head without contrast. Axial, sagittal and coronal reformatted planes were darcy luated. Automatic exposure control was used for this study. FINDINGS: BRAIN PARENCHYMA: No acute hemorrhage. No mass effect or herniation. Dela Cruz-white matter differentiatio n is maintained. Mild chronic volume loss. Scattered hypodensities in subcortical and periventricular white matter, likely representing chronic microvascular ischemic changes in this age group. Atherosc lerotic calcification of the intracranial vessels is noted. VENTRICLES/ EXTRA-AXIAL SPACES: No hydrocephalus or extra-axial fluid collection. EXTRACRANIAL STRUCTURES: No calvarial fracture. IMPRESSION: No evidence for acute intracranial hemorrhage or calvarial fracture. Reviewed, dictated and finalized at location A.
--- NOTE | ~2024-09-11 | XR_ITS ---
EXAM/ PROCEDURE: XR shoulder RT min 2V - 09/11/2024 8:15 CDT HISTORY: 63 years old Female with trauma COMPARISON: None available TECHNIQUE: Three view(s) FINDINGS/ IMPRESSION: Intact right shoulder arthroplasty without loosening or fracture. There are no fractures or dislocations.Joint space narrowing, subchondral sclerosis, subchondral cyst formation and osteophyte formation, compatible with mild osteoarthritis. Reviewed, dictated and finalized at location A.
[2024-09-11 06:49] VITALS: BP 128/92; PULSE 82; RESP 18; TEMP 36.8; O2SAT 97
--- OUTSIDE RECORDS SUMMARY | 2024-09-11 07:33 | XMS_ITS | Encounter Summary ---
Author Organization [facility] Address [address] [place] [address] Care Team Providers Care Phonograph Mechanic Name Role Phone April Cornejo MD Primary Care Provider [phone] Raza Lakhani MD Primary Care Provid er Marlon Mendoza MD Unavailable Jaret Forrester MD Unavailable Ceferino Strickland MD Unavailable [phone] Jase Fernandes MD Primary Care Provider [phone] Raza Lakhani MD Primary Care Provid er Pj Linder MD Primary Care Provider [phone] Encounter Details Date Type Department Care Team (Late st Contact Info) Description 02/28/[address] [facility] [place] [facility] [address] [place] [address] Scanning, Provider Social History Tobacco Use Types Packs/Day Years Used Date Smoking Tobacco: Never Assessed Comments Unknown Sex and Gender Information Value Date Recorded Sex Assigned at Not on file Legal Sex Female 4:57 PM ROLL HAND Gender Identity Not on file Sexual Orientation [...] difficile 02/27/2012 02/26/2012 02/13/2021 10:1 5 AM ROLL HAND COVID: Suspected 12/29/2019 12/29/2019 12/29/2019 12:46 PM CDT COVID19 12/29/2019 12/29/2019 01/12/2020 3:06 AM ROLL HAND MRSA 12/29/2019 12/28/2019 10/19/2020 5:00 AM CDT COVID: Recovered Comment:Added based on recent COVID infection. 01/12/2020 01/18/2020 05/11/2020 3:[address] COVID: Suspected 09/16/2020 09/16/2020 09/16/2020 11:04 PM CDT COVID: Suspected 02/12/2021 02/12/2021 02/12/2021 2:43 PM ROLL HAND COVID: Suspected 04/29/2021 04/29/2021 04/29/2021 6:17 PM ROLL HAND COVID: Suspected 08/15/2021 08/15/2021 08/15/2021 3:51 PM [...] COVID: Suspected 02/03/2022 02/03/2022 02/03/2022 8:01 PM ROLL HAND RSV, droplet 02/03/2022 02/03/2022 02/10/2022 3:06 AM ROLL HAND documented as of this encounter Care Teams Phonograph Mechanic Relationship Specialty Start Date End Date April Cornejo MD [address] [address] PCP - General Sports Medicine 01/16/18 02/14/20 Raza Lakhani MD [address] [place] [address] PCP - General Family Medicine 02/15/20 10/23/22 Jase Fernandes MD [address] [address] PCP - General Emergency Medicine 10/24/22 12/05/22 Raza Lakhani MD [address] [place] [address] PCP - General Family Medicine 12/06/22 04/17/23 Pj Linder MD [address] [place] [address] PCP - General Family Medicine 04/18/23 Marlon Mendoza MD [address] [place] [address] Laboratory Asst Cardiovascular Disease 03/31/20 [place] [address] [place] [address] Consulting Physician Vascular Surgery 09/03/21 Ceferino Strickland MD [address] [facility] [place] [address] Consulting Physician Infectious Diseases 10/20/21 documented as of this encounter
--- OUTSIDE RECORDS SUMMARY | 2024-09-11 07:33 | XMS_ITS | Clinical Summary ---
Author Organization [facility] Address [address] [place] [phone] Phone Care Team Providers Care Gang Supervisor Name Role Phone Marlon Mendoza MD Unavailable Jaret Forrester MD Unavailable Ceferino Strickland MD Unavailable [phone] Pj Linder MD Primary Care Provider [phone] Allergies Active Allergy Reactions Criticality Noted Date [...] into each nostril as needed Active omega 5-wgh-srn-fish oil (Fish Oil) 100-160-1,000 mg capsule Take [...] today. Assessment & Plan (04/04/2020 4:24 PM METAL WINDOW FRAME MAKER): Currently patient is using 5 L of supplemental oxygen at rest and 6 with exertion. I will obtain 6 minutes walk test today to reassess her oxygen requirements. Patient has multiple comorbidities and osteoarthritis of the hands. She will benefit from small portable oxygen concentrator that he can carry around with ambulation. Will request her [employer] company to assist with it. Smoking greater than 30 pack years 04/04/2020 Assessment & Plan (04/04/2020 4:26 PM METAL WINDOW FRAME MAKER): Patient has quit smoking about 1 and [...] inhaler. Assessment & Plan (04/04/2020 4:24 PM METAL WINDOW FRAME MAKER): Continue with wixela, Incruse and p.r.n. albuterol [...] 02/12/2020 Assessment & Plan (04/04/2020 4:22 PM METAL WINDOW FRAME MAKER): Patient states she underwent sleep study and [...] her pain. Will switch her back to [place]. Pulmonary nodule 12/16/2015 Assessment & Plan (07/12/2020 [...] for infection at this point. Will initiate [place] for pain control, continue dressing changes with Xeroform. Plan for follow-up in the office in 2 weeks for suture removal Fall 10/20/2021 12/10/2022 Cellulitis of toe of right foot 10/11/2021 10/12/2021 Acute osteomyelitis of left ankle or foot 09/06/2021 10/12/2021 Overview (09/06/2021): Added automatically from request for surgery [id number] Open wound of toe 08/28/2021 10/12/2021 Cellulitis [...] 03/31/202011/2022 Assessment & Plan (04/04/2020 4:24 PM METAL WINDOW FRAME MAKER): Patient was advised to lose weight by diet and exercise. Family history of coronary artery disease 03/31/2020 12/10/2022 Asymptomatic COVID-19 virus infection 02/12/2020 10/18/2021 Massive hemoptysis 02/12/2020 2 Positive D-dimer 02/12/2020 08/28/2021 Dyspnea on exertion 08/13/2019 08/29/19 Assessment & Plan (04/04/2020 4:23 PM METAL WINDOW FRAME MAKER): The shortness of breath is improved. Will [...] needed. Assessment & Plan (04/04/2020 4:24 PM METAL WINDOW FRAME MAKER): Continue with Flonase on as needed basis. Gout 10/06/2012 10/12/2021 Acute osteomyelitis of toe 0 10/12/2021 Assessment & Plan (09/06/2021 3:07 PM CDT): Risks benefits alternatives to left hallux amputation were discussed. Risks included bleeding, infection, failure for the wound to heal, and need for further surgery. She wished to proceed. 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 CHF (congestive heart failure) ([facility]) history Wears dentures On home oxygen therapy 4L/NC History of COVID-19 04/29/2021 Osteomyelitis of left foot ([facility]) 04/29/2021 Obstructive sleep apnea syndrome 02/12/2020 Family [...] often do you attend chur ch or zoroastrianism services? 1 to 4 times per year 05/01/2021 Do you belong to any clubs o r organizations such as anabaptism groups, unions, fraternal or athletic groups, or [...] place to sleep or slept in a intermediate (including now)? No 05/01/2021 Comments No Sex and Gender Information Value Date Recorded Sex Assigned at Not on file Legal Sex Female 4:57 PM METAL WINDOW FRAME MAKER Gender Identity Not on file Sexual Orientation [...] 04/23/2022, 02/16/2022 Medical Devices Implanted Type Area Emergency Department Device Identifier Shelf Expiration Date Model / [...] age 40, based on guidelines of the [employer] (ACR Practice Parameter for the Performance of Screening and Diagnostic Mammography) and [place]. For women [...] Relevant to Health Maintenance Insurance [facility] [id number] [place] [address] [facility] Advance Directives For more information, please contact: [phone] Documents on File Type Date Recorded Patient Refractory Specialist Expl anation ADVANCE DIRECTIVE 02/05/2022 8:42 AM POLST - PHYS ORDER FOR PT PREFERENCES ADVANCE DIRECTIVE 07/15/2012 12:00 AM MASSIEL Gildardo OF [employer] FINANCIAL/MEDICAL * Full Code (Latest Code Status on File) Date Activated Date Inactivated Comments 10/12/2021 12:24 AM 10/21/2021 5:13 AM * Full Code Date Activated Date Inactivated Comments 08/29/2021 12:42 AM 09/03/2021 9:27 PM Care Teams Gang Supervisor Relationship Specialty Start Date End Date Pj Linder MD [address] [facility] [address] [place] [address] PCP - General Family Medicine 04/18/23 Marlon Mendoza MD Assembly Room Supervisor Cardiovascular Disease 03/31/20 Jaret Forrester MD [address] [facility] [address] [place] [address] Consulting Physician Vascular Surgery 09/03/21 Ceferino Strickland MD [address] [facility] [address] [place] [address] Consulting Physician Infectious Diseases 10/20/21
--- OUTSIDE RECORDS SUMMARY | 2024-09-11 07:33 | XMS_ITS | Clinical Summary ---
Author Organization [facility] Astley Clarke Address [address] [facility] [place] [address] Care Team Providers Care Head Sawyer Automatic Name Role Phone Sherice Scott RN Unavailable April Cornejo MD Primary Care Provider Source Comments [facility],non-owned Affiliates and Associated Physician Practices is amultiple site organization consisting of ambulatory clinics and hospital sitesin [place], [place], [place] and [place]. This disclosure is being madepursuant to the Care Everywhere program and may not contain all information available regarding this patient. Last updated 17.[facility] Allergies Active Allergy Reactions Criticality Noted [...] PO QD 0 8 Active nystatin (MYCOSTATIN) 775405 UNIT/GM cream SUZAN AND RUB IN A THIN FILM AA BID IN THE MORNING AND IN THE EVENING 5 8 Active nystatin (MYCOSTATIN) 967317 UNIT/ML suspension TK 5MLS PO QID FOR [...] on file Legal Sex Female 6:49 AM MACHINE PECAN PICKER Gender Identity Not on file Sexual Orientation Not on file Last Filed Vital Signs Vital Sign Reading Time Taken Comments Blood Pressure 95/53 05/10/2015 11:56 AM MACHINE PECAN PICKER Pulse 87 05/10/2015 11:56 AM MACHINE PECAN PICKER Temperature 36.5 C (97.7 F) 05/10/2015 11:56 AM MACHINE PECAN PICKER Respiratory Rate 18 05/10/2015 11:56 AM MACHINE PECAN PICKER Oxygen Saturation 99% 05/10/2015 11:56 AM MACHINE PECAN PICKER Inhaled Oxygen Concentration - - Weight 133.8 kg (295 lb) 02/05/2018 9:02 AM MACHINE PECAN PICKER Height 177.8 cm (5' 10) 02/05/2018 9:02 AM MACHINE PECAN PICKER Body Mass Index 42.33 02/05/2018 9:02 AM MACHINE PECAN PICKER Plan of Treatment Health Maintenance Due Date [...] 1-dose series) 2022 COVID-19 VACCINE (1 - 2023- season) 2023 DEPRESSION SCREENING 03/04/2024 INFLUENZA VACCINE (#1) 2024 , 12/25/2019, 11/28/2018, Additional history exists HEPATITIS B [...] this topic Medical Devices Implanted Type Area Perioperative Tech Device Identifier Shelf Expiration Date Model / Serial / Lot Implt Ceml Metaglene Implanted:Qty: 1 on 05/09/2015 by Raza Beth MD at [facility] Right: Shoulder [employer] 12/02/2019 1307-60-000 / / [id number] Sys Shld Tot Arthroplst Rev Implanted:Qty: 1 on 05/09/2015 by Raza Beth MD at [facility] [employer] S4 DEPUY / / Delta Xtend Implanted:Qty: 1 on 05/09/2015 by Raza Beth MD at [facility] Right: Shoulder 11/01/2019 [id number] / / [id number] Locking Mataglene Screw Implanted:Qty: 1 on 05/09/2015 by Raza Beth MD at [facility] Right: Shoulder 02/01/2020 [id number] / / [id number] Glenosphere Implanted:Qty: 1 on 05/09/2015 by Raza Beth MD at [facility] Right: Shoulder 01/01/2020 1307-60-142 / / [id number] Delta Extend Implanted:Qty: 1 on 05/09/2015 by Raza Beth MD at [facility] Right: Shoulder 09/01/2019 [id number] / / [id number] Delta Extend Implanted:Qty: 1 on 05/09/2015 by Raza Beth MD at [facility] Right: Shoulder 11/01/2019 [id number] / / [id number] Delta Xtend Modular Centered Epiphysis Implanted:Qty: 1 on 05/09/2015 by Raza Beth MD at [facility] Right: Shoulder [employer] 02/01/2020 1307-20-101 / / [id number] Delta Xtend Modular Humeral Stem Ramirez Coated Cementless Implanted:Qty: 1 on 05/09/2015 by Raza Beth MD at [facility] Right: Shoulder [employer] 02/01/2020 1307-12-000 / / [id number] Delta Xtend Standard Humeral Pe Cup Implanted:Qty: 1 on 05/09/2015 by Raza Beth MD at [facility] Right: Shoulder [employer] [id number] / / [id number] Insurance [facility] Advance Directives * Full Code (Latest Code Status on File) Date Activated Date Inactivated Comments 05/09/2015 10:15 PM 05/10/2015 2:17 PM Care Teams Head Sawyer Automatic Relationship Specialty Start Date End Date April Cornejo MD PCP - General 02/05/18 Sherice Scott, RN Channel Installer 05/10/15
--- OUTSIDE RECORDS SUMMARY | 2024-09-11 07:33 | XMS_ITS | Referral Summary ---
Author Organization [facility] Address [address] [place] [phone] Phone Care Team Providers Care Neonatal Doctor Name Role Phone Marlon Mendoza MD Unavailable Jaret Forrester MD Unavailable Ceferino Strickland MD Unavailable [phone] Pj Linder MD Primary Care Provider Encounters Date Type Department Care Team Description 07/03/2024 Orders Only [facility] Family Medicine [address] [address] Provider, MD Thom from Last [...] into each nostril as needed Active omega 6-lxl-yhl-fish oil (Fish Oil) 100-160-1,000 mg capsule Take [...] today. Assessment & Plan (04/04/2020 4:24 PM PRE CERTIFICATION SPECIALIST): Currently patient is using 5 L of supplemental oxygen at rest and 6 with exertion. I will obtain 6 minutes walk test today to reassess her oxygen requirements. Patient has multiple comorbidities and osteoarthritis of the hands. She will benefit from small portable oxygen concentrator that he can carry around with ambulation. Will request her [employer] company to assist with it. Smoking greater than 30 pack years 04/04/2020 Assessment & Plan (04/04/2020 4:26 PM PRE CERTIFICATION SPECIALIST): Patient has quit smoking about 1 and [...] inhaler. Assessment & Plan (04/04/2020 4:24 PM PRE CERTIFICATION SPECIALIST): Continue with wixela, Incruse and p.r.n. albuterol [...] 02/12/2020 Assessment & Plan (04/04/2020 4:22 PM PRE CERTIFICATION SPECIALIST): Patient states she underwent sleep study and [...] her pain. Will switch her back to [place]. Pulmonary nodule 12/16/2015 Assessment & Plan (07/12/2020 [...] for infection at this point. Will initiate [place] for pain control, continue dressing changes with Xeroform. Plan for follow-up in the office in 2 weeks for suture removal Fall 10/20/2021 12/10/2022 Cellulitis of toe of right foot 10/11/2021 10/12/2021 Acute osteomyelitis of left ankle or foot 09/06/2021 10/12/2021 Overview (09/06/2021): Added automatically from request for surgery [id number] Open wound of toe 08/28/2021 10/12/2021 Cellulitis [...] 03/31/202011/2022 Assessment & Plan (04/04/2020 4:24 PM PRE CERTIFICATION SPECIALIST): Patient was advised to lose weight by diet and exercise. Family history of coronary artery disease 03/31/2020 12/10/2022 Asymptomatic COVID-19 virus infection 02/12/2020 10/18/2021 Massive hemoptysis 02/12/2020 2 Positive D-dimer 02/12/2020 08/28/2021 Dyspnea on exertion 08/13/2019 08/29/19 Assessment & Plan (04/04/2020 4:23 PM PRE CERTIFICATION SPECIALIST): The shortness of breath is improved. Will [...] needed. Assessment & Plan (04/04/2020 4:24 PM PRE CERTIFICATION SPECIALIST): Continue with Flonase on as needed basis. [...] often do you attend chur ch or synagogue services? 1 to 4 times per year 05/01/2021 Do you belong to any clubs o r organizations such as islam groups, unions, fraternal or athletic groups, or [...] on file Legal Sex Female 4:57 PM PRE CERTIFICATION SPECIALIST Gender Identity Not on file Sexual Orientation [...] on file Medical Devices Implanted Type Area Acquisitions Editor Device Identifier Shelf Expiration Date Model / [...] age 40, based on guidelines of the [employer] (ACR Practice Parameter for the Performance of Screening and Diagnostic Mammography) and [employer]. For women [...] in either breast on mammogram. us Moira POLANCO IMG MAMMO PROCEDURES Final Res ult * Colonoscopy (09/17/2016) Anatomical Region Laterality Modality Other Historical Provider ENDOSCOPY PROCEDURES Mikayla mayfield Result from Last 3 Months or Most Recently Relevant to Health Maintenance Insurance [facility] Member Subscriber Plan / Payer (Ef fective 2020-Present) Name:Fariba Olson Relation to Subscriber:Self Name:Fariba Olson Payer ID:[id number] (NAIC) Type:MEDICAID RISK OTHER Address: [address] [place] [address] [place] [address] [facility] Advance Directives For more information, please contact: [phone] Documents on File Type Date Recorded Patient Algebra Teacher Expl anation ADVANCE DIRECTIVE 02/05/2022 8:42 AM POLST - PHYS ORDER FOR PT PREFERENCES ADVANCE DIRECTIVE 07/15/2012 12:00 AM MASSIEL R OF ACADEMIC SERVICES PROFESSIONAL FINANCIAL/MEDICAL * Full Code (Latest Code Status on File) Date Activated Date Inactivated Comments 10/12/2021 12:24 AM 10/21/2021 5:13 AM * Full Code Date Activated Date Inactivated Comments 08/29/2021 12:42 AM 09/03/2021 9:27 PM Care Teams Neonatal Doctor Relationship Specialty Start Date End Date Pj Linder MD [address] [facility] [address] [place] [address] PCP - General Family Medicine 04/18/23 Marlon Mendoza MD Wire Coiner Cardiovascular Disease 03/31/20 Jaret Forrester MD [address] [facility] [address] [place] [address] Consulting Physician Vascular Surgery 09/03/21 Ceferino Strickland MD [address] [facility] [address] [place] [address] Consulting Physician Infectious Diseases 10/20/21
[2024-09-11 08:11] LABS: Alveolar/Arterial O2 Gradient 137.8 mmHg; Carboxyhemoglobin 1.4 % THb (0-2.0); Fractional Inspired Oxygen 36 %; HCO3 ABG 22.7 mEq/l (22.0-26.0); Methemoglobin ABG 0.3 %THb (0-1.5); Oxygen Content ABG 19.6 %vol (16.0-22.0); Oxygen Saturation ABG 94.8 % (95.0-100.0); PCO2 ABG 38.8 mmHg (35.0-45.0); PO2 ABG 73.9 mmHg (80.0-100.0); PO2 FiO2 Ratio Arterial Blood 2.05 %; Reduced Hemoglobin 5.0 %THb (0-5.0)
[2024-09-11 08:12] LABS: Liters per Minute 4.0 LPM; Modified Allen's Test Pass; Site Drawn RIGHT RADIAL
--- NOTE | 2024-09-11 09:05 | PC.NURSE ---
Called vascular access for help with difficult stick and blood draw.
[2024-09-11 09:27] LABS: Hematocrit 47.5 % (37.0-47.0); Hemoglobin 14.3 g/dL (12.0-15.0); Immature Granulocyte Percent A 0.5 % (0-0.5); Immature Platelet Fraction Pct 2.2 % (0.9-11.2); Lymphocytes Absolute Auto 0.93 K/mm3 (0.9-3.2); Mean Corpuscular HGB Conc 30.1 g/dl (32-36); Mean Corpuscular Hemoglobin 26.8 pg (26-34); Mean Corpuscular Volume 89.1 fl (80-100); Nucleated Red Blood Cells Absolute Auto 0.000 K/mm3 (0.0-0.012); Nucleated Red Blood Cells Perc 0.0 % (0.0-0.2); Platelet Count Result 111 k/mm3 (150-375); Red Blood Count 5.33 M/mm3 (4.2-5.4); White Blood Count 8.2 K/mm3 (4.5-10.0)
[2024-09-11 09:46] LABS: Add Urine Microscopic? NO; Appearance Urine Clear (Clear); Glucose Urine UA Negative (Negative); Leukocyte Esterase Ur Negative LEU/UL (Negative); Nitrate Urine Negative (Negative); Specific Grav Ur 1.016 (1.001-1.035)
[2024-09-11 09:55] LABS: Alanine Aminotransferase 21 U/L (6-35); Albumin Level 4.1 g/dL (3.5-5.1); Alkaline Phosphatase 92 U/L (38-126); Anion Gap 9 mmol/L (4-12); Aspartate Amino Transferase 26 U/L (14-36); Bilirubin,Total 0.5 mg/dL (0.2-1.3); Blood Urea Nitrogen 11 mg/dL (7-17); Calcium 9.2 mg/dL (8.4-10.2); Carbon Dioxide 29 mmol/L (22-30); Chloride 98 mmol/L (98-107); Estimated CRCL calculation 77 ml/min; Estimated Glomerular Filt Rate 52; Glucose 106 mg/dL (65-110); Lipase 42 U/L (23-300); Potassium 3.3 mmol/L (3.4-5.0); Sodium 136 mmol/L (137-145); Total Protein 7.2 g/dL (6.3-8.2)
--- NOTE | 2024-09-11 11:35 | PC.NURSE ---
Denice from [facility] calling for update on patient.
--- NOTE | 2024-09-11 12:04 | ED_ITS ---
HPI - Fall General Chief Complaint: Fall Stated Complaint: ground level fall Time Seen by Provider: 09/11/24 07:04 History of Present Illness HPI Narrative: Patient is a 63-year-old female who presents ER from her facility after a fall from bed. She then on right side on her shoulder and has pain there. She has not think she struck her head. Patient has no medical complaints at this time reports that she is weak when trying to stand. Related Data Home Medications ?Medication ?Instructions ?Recorded ?Confirmed ?Last Taken ?Type allopurinol 300 mg tablet 300 mg PO DAILY 07/02/20 02/14/23 02/13/23 History atorvastatin 40 mg tablet 40 mg PO HS 07/02/20 02/14/23 02/13/23 History gabapentin 800 mg tablet 800 mg PO TID 07/02/20 02/14/23 02/13/23 History montelukast 10 mg tablet 10 mg PO HS 07/02/20 02/14/23 02/13/23 History trazodone 50 mg tablet 100 mg PO HS 07/02/20 02/14/23 02/13/23 History aripiprazole 5 mg tablet 5 mg PO DAILY 05/07/22 02/14/23 02/13/23 History famotidine 40 mg tablet 40 mg PO DAILY 05/07/22 02/14/23 02/13/23 History topiramate 50 mg tablet 50 mg PO BID 05/07/22 02/14/23 02/13/23 History benzonatate 200 mg capsule 200 mg PO TID 10/19/22 02/14/23 Unknown History cyclobenzaprine 10 mg tablet 10 mg PO DAILY 10/19/22 02/14/23 Unknown History duloxetine 30 mg capsule,delayed 30 mg PO DAILY 10/19/22 02/14/23 Unknown History release furosemide 40 mg tablet 40 mg PO BID 10/19/22 02/14/23 02/13/23 History isosorbide dinitrate 30 mg tablet 30 mg PO DAILY 10/19/22 02/14/23 02/13/23 History metolazone 2.5 mg tablet 2.5 mg PO EVERY OTHER DAY 10/19/22 02/14/23 Unknown History spironolactone 25 mg tablet 25 mg PO BID 10/19/22 02/14/23 02/13/23 History buspirone 10 mg tablet 10 mg PO BID 12/13/22 02/14/23 02/13/23 History lamotrigine 25 mg tablet 25 mg PO DAILY 12/13/22 02/14/23 02/13/23 History Allergies Allergy/AdvReac Type Severity Reaction Status Date / Time bee venom protein (honey bee) Allergy Severe Anaphylaxis Verified 09/11/24 06:55 Penicillins Allergy Anaphylaxis Verified 09/11/24 06:55 bee Stings Allergy Severe Anaphylaxis Uncoded 09/11/24 06:55 Fixodent Allergy Intermediate Blister Uncoded 09/11/24 06:55 fixodent Allergy Hives Uncoded 09/11/24 06:55 Review of Systems 2 Review of Systems: All systems reviewed & are unremarkable except as noted in HPI and below Constitutional: Constitutional: Reports no additional constitutional complaints ENT: Reports system reviewed and no additional complaints, except as documented Cardiovascular: Cardiovascular: Reports no additional cardiovascular complaints Respiratory: Respiratory: Reports no additional respiratory complaints Genitourinary: Genitourinary: Reports no additional female genitourinary complaints REPLACED BY [facility] Past Medical History Medical History Psoriasis Kidney stones Cervical cancer Obstructive sleep apnea on CPAP Bipolar disorder Chronic kidney disease Chronic obstructive pulmonary disease 5 L nasal cannula. Chronic respiratory failure with hypoxia, on home oxygen therapy Hyperlipidemia Depression with anxiety Hypertension History of tobacco abuse Peripheral neuropathy (10/2022) Asthma Morbid obesity with BMI of 50.0-59.9, adult Surgical History Surgical History History of section History of benign breast biopsy History of cystoscopy History of tonsillectomy History of reverse total replacement of right shoulder joint History of hysterectomy History of bilateral cataract extraction Family History Family History Mother , age 68 CHF (congestive heart failure) Emphysema of lung Father , at age 62 Acute myocardial infarction Emphysema of lung Sibling , age 59 Pancreatic cancer Sibling , age 40 acute [place] Acute myocardial infarction Social History Social History Social History: Healthcare power of crisis counselor: Mag Willian, daughter. Code status: Full code. Smoking packs per day: 1.5 Smoking cigarettes per day: 30.0 Years smoked: 40 Smoking pack-years: 60.00 Smoking status: Former smoker Second hand tobacco smoke exposure: Yes (in childhood) Alcohol intake: never Substance use type: does not use Other substance usage details: prescribed Do You Feel Safe in your Home?: Yes Lack of Transportation: No Lack of Food: Never True Current Housing: I Have Housing Concerned About Future Housing: No Difficulty Paying Gas/Electric Bills: No Difficulty Paying for Meds: No Currently Unemployed: No Education: High School Diploma/GED Difficulty w/ Childcare or Family Care: No Additional living arrangements comments: Lives in [place]. Has 4 children. Additional occupation/education comments: Disabled. Spiritual care concerns: No Exam 2 Narrative: GENERAL: Chronically ill-appearing, morbidly obese, and in no acute distress. HEAD: Normocephalic, atraumatic. ENT: Mucous membranes moist. CHEST: Clear to auscultation. No respiratory distress. HEART: Regular rate and rhythm. Normal peripheral pulses. ABDOMEN: Soft, nontender, nondistended. Back: No midline tenderness the T/L-spine. No reproducible paraspinal muscle tenderness. No step-offs. EXTREMITIES: Normal range of motion. No edema. SKIN: Warm, dry, no rash. NEURO: Alert and oriented x3. PSYCH: Normal mood and affect. Course Course Emergency Course: No fractures other injury. Appropriate for discharge back to facility. Vital Signs Vital signs: Vital Signs Temperature 98.2 F 09/11/24 06:49 Pulse Rate 82 09/11/24 06:49 Respiratory Rate 18 09/11/24 06:49 Blood Pressure 128/92 H 09/11/24 06:49 Pulse Oximetry 97 09/11/24 06:49 Oxygen Delivery Nasal Cannula 09/11/24 06:49 Oxygen Flow Rate 4 09/11/24 06:49 Temperature 98.2 F 09/11/24 06:49 Pulse Rate 82 09/11/24 06:49 Respiratory Rate 18 09/11/24 06:49 Blood Pressure 128/92 H 09/11/24 06:49 Pulse Oximetry 97 09/11/24 06:49 Oxygen Delivery Nasal Cannula 09/11/24 06:49 Oxygen Flow Rate 4 09/11/24 06:49 MDM - Fall Lab Data 09/11/24 09:19 09/11/24 09:19 Labs: Lab Results 09/11/24 09/11/24 09/11/24 Range/Units 06:54 08:06 09:19 WBC 8.2 (4.5-10.0) K/mm3 RBC 5.33 (4.2-5.4) M/mm3 Hgb 14.3 (12.0-15.0) g/dL Hct 47.5 H (37.0-47.0) % MCV 89.1 (80-100) fl MCH 26.8 (26-34) pg MCHC 30.1 L (32-36) g/dl RDW 14.1 (11.5-14.5) % Plt Count 111 L (150-375) k/mm3 MPV 10.5 H (7.4-10.4) fl Immature Gran % (Auto) 0.5 (0-0.5) % Neut % (Auto) 74.3 H (45.5-73.1) % Lymph % (Auto) 11.4 L (18.3-44.2) % [place] % (Auto) 13.2 H (2.6-8.5) % Eos % (Auto) 0.2 (0-4.4) % Baso % (Auto) 0.4 (0.2-1.2) % Lymph # (Auto) 0.93 (0.9-3.2) K/mm3 [place] # (Auto) 1.1 H (0.1-0.6) K/mm3 Eos # (Auto) 0.0 (0-0.3) K/mm3 Baso # (Auto) 0.0 (0.0-0.1) K/mm3 Abs Immat Gran (auto) 0.04 H (0.00-0.031) K/mm3 Absolute Neuts (auto) 6.1 (1.3-6.7) K/mm3 Absolute Nucleated RBC 0.000 (0.0-0.012) K/mm3 Nucleated RBC % 0.0 (0.0-0.2) % % Immature Plt Fraction 2.2 (0.9-11.2) % Methemoglobin 0.3 (0-1.5) %THb Sodium 136 L (137-145) mmol/L Potassium 3.3 L (3.4-5.0) mmol/L Chloride 98 (98-107) mmol/L Carbon Dioxide 29 (22-30) mmol/L Anion Gap 9 (4-12) mmol/L BUN 11 (7-17) mg/dL Creatinine 1.07 H (0.7-1.0) mg/dL Estim Creat Clear Calc 77 ml/min Estimated GFR 52 L (59 - ) Glucose 106 (65-110) mg/dL POC Capillary Glucose 83 (65-105) mg/dl Calcium 9.2 (8.4-10.2) mg/dL Total Bilirubin 0.5 (0.2-1.3) mg/dL AST 26 (14-36) U/L ALT 21 (6-35) U/L Alkaline Phosphatase 92 (38-126) U/L Total Protein 7.2 (6.3-8.2) g/dL Albumin 4.1 (3.5-5.1) g/dL Lipase 42 (23-300) U/L Urine Color (Yellow) Urine Appearance (Clear) Urine pH (5.0-9.0) Ur Specific [place] (1.001-1.035) Urine Protein (Negative) mg/dL Urine Glucose (UA) (Negative) mg/dL Urine Ketones (Negative) mg/dL Ur Blood (Man) (Negative) Urine Nitrate (Negative) Urine Bilirubin (Negative) Urine Urobilinogen (<2.0) mg/dL Leukocyte Esterase Rfl (Negative) ALAN/UL 09/11/24 Range/Units 09:38 WBC (4.5-10.0) K/mm3 RBC (4.2-5.4) M/mm3 Hgb (12.0-15.0) g/dL Hct (37.0-47.0) % MCV (80-100) fl MCH (26-34) pg MCHC (32-36) g/dl RDW (11.5-14.5) % Plt Count (150-375) k/mm3 MPV (7.4-10.4) fl Immature Gran % (Auto) (0-0.5) % Neut % (Auto) (45.5-73.1) % Lymph % (Auto) (18.3-44.2) % [place] % (Auto) (2.6-8.5) % Eos % (Auto) (0-4.4) % Baso % (Auto) (0.2-1.2) % Lymph # (Auto) (0.9-3.2) K/mm3 [place] # (Auto) (0.1-0.6) K/mm3 Eos # (Auto) (0-0.3) K/mm3 Baso # (Auto) (0.0-0.1) K/mm3 Abs Immat Gran (auto) (0.00-0.031) K/mm3 Absolute Neuts (auto) (1.3-6.7) K/mm3 Absolute Nucleated RBC (0.0-0.012) K/mm3 Nucleated RBC % (0.0-0.2) % % Immature Plt Fraction (0.9-11.2) % Methemoglobin (0-1.5) %THb Sodium (137-145) mmol/L Potassium (3.4-5.0) mmol/L Chloride (98-107) mmol/L Carbon Dioxide (22-30) mmol/L Anion Gap (4-12) mmol/L BUN (7-17) mg/dL Creatinine (0.7-1.0) mg/dL Estim Creat Clear Calc ml/min Estimated GFR (59 - ) Glucose (65-110) mg/dL POC Capillary Glucose (65-105) mg/dl Calcium (8.4-10.2) mg/dL Total Bilirubin (0.2-1.3) mg/dL AST (14-36) U/L ALT (6-35) U/L Alkaline Phosphatase (38-126) U/L Total Protein (6.3-8.2) g/dL Albumin (3.5-5.1) g/dL Lipase (23-300) U/L Urine Color Yellow (Yellow) Urine Appearance Clear (Clear) Urine pH 7.5 (5.0-9.0) Ur Specific [place] 1.016 (1.001-1.035) Urine Protein Negative (Negative) mg/dL Urine Glucose (UA) Negative (Negative) mg/dL Urine Ketones Negative (Negative) mg/dL Ur Blood (Man) Negative (Negative) Urine Nitrate Negative (Negative) Urine Bilirubin Negative (Negative) Urine Urobilinogen 1.0 (<2.0) mg/dL Leukocyte Esterase Rfl Negative (Negative) ALAN/UL ABG Data ABG results: 09/11/24 08:06 Puncture Site Right radial ABG pH 7.386 ABG pCO2 38.8 ABG pO2 73.9 L ABG PO2/FiO2 Ratio 2.05 ABG HCO3 22.7 ABG O2 Saturation 94.8 L ABG O2 Content 19.6 ABG Base Excess -1.9 A-a Gradient 137.8 Oxyhemoglobin 93.3 Carboxyhemoglobin 1.4 Reduced Hemoglobin 5.0 Total Hemoglobin 14.9 O2 Delivery Device Nasal cannula O2 Liters/Min 4.0 FiO2 36 Imaging Data Radiologist's impression: ITS Impressions Chest X-Ray 09/11/24 08:37 IMPRESSION: Airspace opacity in the right lung base may represent atelectasis, scarring versus pneumonia. Mild perihilar bronchial wall thickening, findings suggestive of respiratory bronchiolitis. Clinical correlation is recommended. Short-term follow-up chest radiograph is recommended after appropriate clinical therapy. Head CT 09/11/24 08:48 IMPRESSION: No evidence for acute intracranial hemorrhage or calvarial fracture. Discharge Plan Discharge Clinical Impression: Accident due to mechanical fall without injury Patient Disposition: Home Condition: Stable Instructions: Fall Prevention for Older Adults (ED) Additional Instructions: There is no bony injury related to her fall. The labs are unremarkable. Return the ER if you have new chest pain, new fever, or have additional concerns. Patient Language: Swedish Prescriptions: New hydrocodone-acetaminophen 5-325 mg tablet 1 tablet PO Q6H PRN (Reason: pain) Qty: 12 0RF No Action buspirone 10 mg tablet 10 mg PO BID lamotrigine 25 mg tablet 25 mg PO DAILY famotidine 40 mg tablet 40 mg PO DAILY aripiprazole 5 mg tablet 5 mg PO DAILY topiramate 50 mg tablet 50 mg PO BID metoprolol tartrate 25 mg Tablet 25 mg PO Q12HR 30 Days Qty: 60 0RF simethicone 125 mg capsule 125 mg PO QID Qty: 20 0RF Rx Instructions: administer after meals and at bedtime dicyclomine 20 mg tablet 20 mg PO QID Qty: 20 0RF levofloxacin 750 mg tablet 750 mg PO DAILY Qty: 5 0RF atorvastatin 40 mg Tablet 40 mg PO HS trazodone 50 mg Tablet 100 mg PO HS gabapentin 800 mg Tablet 800 mg PO TID montelukast 10 mg Tablet 10 mg PO HS allopurinol 300 mg Tablet 300 mg PO DAILY cyclobenzaprine 10 mg tablet 10 mg PO DAILY furosemide 40 mg tablet 40 mg PO BID isosorbide dinitrate 30 mg tablet 30 mg PO DAILY duloxetine 30 mg capsule,delayed release(DR/EC) 30 mg PO DAILY metolazone 2.5 mg Tablet 2.5 mg PO EVERY OTHER DAY benzonatate 200 mg Capsule 200 mg PO TID spironolactone 25 mg tablet 25 mg PO BID acetaminophen 325 mg Tablet 650 mg PO Q4H PRN (Reason: Mild Pain (1-3) Or Fever) Qty: 0 0RF cefdinir 300 mg Capsule 300 mg PO Q12HR Qty: 0 0RF doxycycline hyclate 100 mg Tablet 100 mg PO Q12HR Qty: 0 0RF potassium chloride [K-Tab] 20 mEq Tablet Extended Release 40 meq PO BIDWM Qty: 0 0RF bupropion HCl [Wellbutrin SR] 150 mg Tablet Sustained-Release 12 Hr 150 mg PO Q12H Qty: 60 0RF tramadol 50 mg tablet 50 mg PO Q6H PRN (Reason: Pain) Qty: 12 0RF alprazolam 0.5 mg tablet 0.5 mg PO HS Qty: 12 0RF Follow-up/Referrals: UNKNOWN,DOCTOR [Primary Care Provider] - 1 Week
== END 2024-09-11 13:22 ==
PROVIDERS: Emergency Provider Emergency Medicine
DX: S49.91XA Unspecified injury of right shoulder and upper arm, initial encounter (principal); J96.11 Chronic respiratory failure with hypoxia; J44.9 Chronic obstructive pulmonary disease, unspecified; Z99.81 Dependence on supplemental oxygen; I12.9 Hypertensive chronic kidney disease with stage 1 through stage 4 chronic kidney disease, or unspecified chronic kidney disease; N18.9 Chronic kidney disease, unspecified; E66.01 Morbid (severe) obesity due to excess calories; Z68.41 Body mass index [BMI] 40.0-44.9, adult; E78.5 Hyperlipidemia, unspecified; L40.9 Psoriasis, unspecified; G47.33 Obstructive sleep apnea (adult) (pediatric); G62.9 Polyneuropathy, unspecified; F31.9 Bipolar disorder, unspecified; F41.8 Other specified anxiety disorders; Z96.611 Presence of right artificial shoulder joint; Z98.42 Cataract extraction status, left eye; Z98.41 Cataract extraction status, right eye; Z87.442 Personal history of urinary calculi; Z87.891 Personal history of nicotine dependence; Z90.710 Acquired absence of both cervix and uterus; W06.XXXA Fall from bed, initial encounter
CPT/HCPCS: 36415; 36600; 70450; 71045; 73030; 80053; 81003; 82375; 82805; 82948; 83050; 83690; 85018; 85025; 85055; 99284

== ENCOUNTER 2024-09-11 19:04 | Emergency (ER) | payer OTHER, SELFPAY ==
--- NOTE | ~2024-09-11 | XR_ITS ---
XR chest 1V Ordering provider: Ayde Osborne PA-C History: 63 years Female with . cp . Comparison: September 12, 2023 FINDINGS: MEDIASTINUM: The cardiac silhouette is not enlarged. Prominent yojana. LUNGS: No infiltrates, effusions or pneumothorax. Prominent bronchovascular markings with interstitia l thickening which may indicate early pneumonia versus atelectasis. Follow-up advised. OTHER: No free air under the diaphragm. Right shoulder arthroplasty. IMPRESSION: Prominent markings in the lower lobes with interstitial thickening which may indicate atelectasis stephen vimal early pneumonia. Reviewed, dictated and finalized at location A. IMPRESSION: Prominent markings in the lower lobes with interstitial thickening which may in dicate atelectasis versus early pneumonia.
--- OUTSIDE RECORDS SUMMARY | 2024-09-11 19:06 | XMS_ITS | Encounter Summary ---
Author Organization [facility] Address [address] [place] [address] Care Team Providers Care Diesel Retrofit Installer Name Role Phone April Cornejo MD Primary Care Provider [phone] Raza Lakhani MD Primary Care Provid er Marlon Mendoza MD Unavailable Jaret Forrester MD Unavailable Ceferino Strickland MD Unavailable [phone] Jase Fernandes MD Primary Care Provider [phone] Raza Lakhani MD Primary Care Provid er Pj Linder MD Primary Care Provider [phone] Encounter Details Date Type Department Care Team (Late st Contact Info) Description 02/28/2012 Orders Only [facility] Health Information Management [address] [place] [address] Scanning, Provider Social History Tobacco Use Types Packs/Day Years Used Date Smoking Tobacco: Never Assessed Comments Unknown Sex and Gender Information Value Date Recorded Sex Assigned at Not on file Legal Sex Female 4:57 PM HUMAN RESOURCE ASSISTANT Gender Identity Not on file Sexual Orientation [...] difficile 02/27/2012 02/26/2012 02/13/2021 10:1 5 AM HUMAN RESOURCE ASSISTANT COVID: Suspected 12/29/2019 12/29/2019 12/29/2019 12:46 PM CDT COVID19 12/29/2019 12/29/2019 01/12/2020 3:06 AM HUMAN RESOURCE ASSISTANT MRSA 12/29/2019 12/28/2019 10/19/2020 5:00 AM CDT COVID: Recovered Comment:Added based on recent COVID infection. 01/12/2020 01/18/2020 05/11/2020 3:[address] COVID: Suspected 09/16/2020 09/16/2020 09/16/2020 11:04 PM CDT COVID: Suspected 02/12/2021 02/12/2021 02/12/2021 2:43 PM HUMAN RESOURCE ASSISTANT COVID: Suspected 04/29/2021 04/29/2021 04/29/2021 6:17 PM HUMAN RESOURCE ASSISTANT COVID: Suspected 08/15/2021 08/15/2021 08/15/2021 3:51 PM [...] COVID: Suspected 02/03/2022 02/03/2022 02/03/2022 8:01 PM HUMAN RESOURCE ASSISTANT RSV, droplet 02/03/2022 02/03/2022 02/10/2022 3:06 AM HUMAN RESOURCE ASSISTANT documented as of this encounter Care Teams Diesel Retrofit Installer Relationship Specialty Start Date End Date April Cornejo MD [address] [address] PCP - General Sports Medicine 01/16/18 02/14/20 Raza Lakhani MD [address] [place] [address] PCP - General Family Medicine 02/15/20 10/23/22 Jase Fernandes MD [address] [address] PCP - General Emergency Medicine 10/24/22 12/05/22 Raza Lakhani MD [address] [place] [address] PCP - General Family Medicine 12/06/22 04/17/23 Pj Linder MD [address] [place] [id number] PCP - General Family Medicine 04/18/23 Marlon Mendoza MD [address] [place] [address] National Recruiter Cardiovascular Disease 03/31/20 [place] [address] [place] [id number] Consulting Physician Vascular Surgery 09/03/21 Ceferino Strickland MD [address] [place] [address] Consulting Physician Infectious Diseases 10/20/21 documented as of this encounter
--- OUTSIDE RECORDS SUMMARY | 2024-09-11 19:06 | XMS_ITS | Clinical Summary ---
Author Organization [facility] Walk-in Appointment Scheduler Address [address] [place] [address] Care Team Providers Care Photolettering Machine Operator Name Role Phone Sherice Scott RN Unavailable [phone] April Cornejo MD Primary Care Provider [phone] Source Comments [facility],non-owned Affiliates and Associated Physician Practices is amultiple site organization consisting of ambulatory clinics and hospital sitesin [place], [place], [place] and [place]. This disclosure is being madepursuant to the Care Everywhere program and may not contain all information available regarding this patient. Last updated 17.[facility] Allergies Active Allergy Reactions Criticality Noted Date [...] PO QD 0 8 Active nystatin (MYCOSTATIN) 156774 UNIT/GM cream SUZAN AND RUB IN A THIN FILM AA BID IN THE MORNING AND IN THE EVENING 5 8 Active nystatin (MYCOSTATIN) 757462 UNIT/ML suspension TK 5MLS PO QID FOR [...] on file Legal Sex Female 6:49 AM FLIGHT COMMUNICATIONS SPECIALIST Gender Identity Not on file Sexual Orientation Not on file Last Filed Vital Signs Vital Sign Reading Time Taken Comments Blood Pressure 95/53 05/10/2015 11:56 AM FLIGHT COMMUNICATIONS SPECIALIST Pulse 87 05/10/2015 11:56 AM FLIGHT COMMUNICATIONS SPECIALIST Temperature 36.5 C (97.7 F) 05/10/2015 11:56 AM FLIGHT COMMUNICATIONS SPECIALIST Respiratory Rate 18 05/10/2015 11:56 AM FLIGHT COMMUNICATIONS SPECIALIST Oxygen Saturation 99% 05/10/2015 11:56 AM FLIGHT COMMUNICATIONS SPECIALIST Inhaled Oxygen Concentration - - Weight 133.8 kg (295 lb) 02/05/2018 9:02 AM FLIGHT COMMUNICATIONS SPECIALIST Height 177.8 cm (5' 10) 02/05/2018 9:02 AM FLIGHT COMMUNICATIONS SPECIALIST Body Mass Index 42.33 02/05/2018 9:02 AM FLIGHT COMMUNICATIONS SPECIALIST Plan of Treatment Health Maintenance Due Date [...] this topic Medical Devices Implanted Type Area Field Training Agent Device Identifier Shelf Expiration Date Model / Serial / Lot Implt Ceml Metaglene Implanted:Qty: 1 on 05/09/2015 by Raza Beth MD at [facility] Right: Shoulder [employer] 12/02/2019 1307-60-000 / / [id number] Sys Shld Tot Arthroplst Rev Implanted:Qty: 1 on 05/09/2015 by Raza Beth MD at [facility] [employer] S4 DEPUY / / Delta Xtend Implanted:Qty: 1 on 05/09/2015 by Raza Beth MD at [facility] Right: Shoulder 11/01/2019 [id number] / / [id number] Locking Mataglene Screw Implanted:Qty: 1 on 05/09/2015 by Raza Beth MD at [facility] Right: Shoulder 02/01/2020 [id number] / / [id number] Glenosphere Implanted:Qty: 1 on 05/09/2015 by Raza Beth MD at [facility] Right: Shoulder 01/01/2020 [id number] / / [id number] Delta Extend Implanted:Qty: 1 on 05/09/2015 by Raza Beth MD at [facility] Right: Shoulder 09/01/2019 [id number] / / [id number] Delta Extend Implanted:Qty: 1 on 05/09/2015 by Raza Beth MD at [facility] Right: Shoulder 11/01/2019 [id number] / / [id number] Delta Xtend Modular Centered Epiphysis Implanted:Qty: 1 on 05/09/2015 by Raza Beth MD at [facility] Right: Shoulder [employer] 02/01/2020 [id number] / / [id number] Delta Xtend Modular Humeral Stem Ramirez Coated Cementless Implanted:Qty: 1 on 05/09/2015 by Raza Beth MD at [facility] Right: Shoulder [employer] 02/01/2020 1307-12-000 / / [id number] Delta Xtend Standard Humeral Pe Cup Implanted:Qty: 1 on 05/09/2015 by Raza Beth MD at [facility] Right: Shoulder [employer] [id number] / / [id number] Insurance [facility] Advance Directives * Full Code (Latest Code Status on File) Date Activated Date Inactivated Comments 05/09/2015 10:15 PM 05/10/2015 2:17 PM Care Teams Photolettering Machine Operator Relationship Specialty Start Date End Date April Cornejo MD PCP - General 02/05/18 Sherice Scott, RN Supervisor Dry Cell Assembly 05/10/15
--- OUTSIDE RECORDS SUMMARY | 2024-09-11 19:06 | XMS_ITS | Referral Summary ---
Author Organization [facility] Virtual Care Address [address] [place] [phone] Phone Care Team Providers Care Insemination Worker Name Role Phone Marlon Mendoza MD Unavailable Jaret Forrester MD Unavailable Ceferino Strickland MD Unavailable [phone] Pj Linder MD Primary Care Provider [phone] Encounters Date Type Department Care Team Description 07/03/[address] [facility] Medical Group Family Medicine [address] [address] Provider, MD Thom from Last [...] into each nostril as needed Active omega 5-qsy-tok-fish oil (Fish Oil) 100-160-1,000 mg capsule Take [...] today. Assessment & Plan (04/04/2020 4:24 PM INTERNAL COMBUSTION ENGINE SUBASSEMBLER): Currently patient is using 5 L of supplemental oxygen at rest and 6 with exertion. I will obtain 6 minutes walk test today to reassess her oxygen requirements. Patient has multiple comorbidities and osteoarthritis of the hands. She will benefit from small portable oxygen concentrator that he can carry around with ambulation. Will request her [employer] company to assist with it. Smoking greater than 30 pack years 04/04/2020 Assessment & Plan (04/04/2020 4:26 PM INTERNAL COMBUSTION ENGINE SUBASSEMBLER): Patient has quit smoking about 1 and [...] inhaler. Assessment & Plan (04/04/2020 4:24 PM INTERNAL COMBUSTION ENGINE SUBASSEMBLER): Continue with wixela, Incruse and p.r.n. albuterol [...] 02/12/2020 Assessment & Plan (04/04/2020 4:22 PM INTERNAL COMBUSTION ENGINE SUBASSEMBLER): Patient states she underwent sleep study and [...] her pain. Will switch her back to [place]. Pulmonary nodule 12/16/2015 Assessment & Plan (07/12/2020 [...] for infection at this point. Will initiate [place] for pain control, continue dressing changes with Xeroform. Plan for follow-up in the office in 2 weeks for suture removal Fall 10/20/2021 12/10/2022 Cellulitis of toe of right foot 10/11/2021 10/12/2021 Acute osteomyelitis of left ankle or foot 09/06/2021 10/12/2021 Overview (09/06/2021): Added automatically from request for surgery [id number] Open wound of toe 08/28/2021 10/12/2021 Cellulitis [...] 03/31/202011/2022 Assessment & Plan (04/04/2020 4:24 PM INTERNAL COMBUSTION ENGINE SUBASSEMBLER): Patient was advised to lose weight by diet and exercise. Family history of coronary artery disease 03/31/2020 12/10/2022 Asymptomatic COVID-19 virus infection 02/12/2020 10/18/2021 Massive hemoptysis 02/12/2020 2 Positive D-dimer 02/12/2020 08/28/2021 Dyspnea on exertion 08/13/2019 08/29/19 Assessment & Plan (04/04/2020 4:23 PM INTERNAL COMBUSTION ENGINE SUBASSEMBLER): The shortness of breath is improved. Will [...] needed. Assessment & Plan (04/04/2020 4:24 PM INTERNAL COMBUSTION ENGINE SUBASSEMBLER): Continue with Flonase on as needed basis. [...] often do you attend chur ch or rastafari services? 1 to 4 times per year 05/01/2021 Do you belong to any clubs o r organizations such as evangelical groups, unions, fraternal or athletic groups, or [...] place to sleep or slept in a half-way (including now)? No 05/01/2021 Comments No Sex and Gender Information Value Date Recorded Sex Assigned at Not on file Legal Sex Female 4:57 PM INTERNAL COMBUSTION ENGINE SUBASSEMBLER Gender Identity Not on file Sexual Orientation [...] on file Medical Devices Implanted Type Area Template Maker Device Identifier Shelf Expiration Date Model / [...] age 42, based on guidelines of the [place] [employer] (ACR Practice Parameter for the Performance of Screening and Diagnostic Mammography) and [place] [employer]. For women [...] Most Recently Relevant to Health Maintenance Insurance [facility] Member Subscriber Plan / Payer (Ef fective 2020-Present) Name:Fariba Olson Relation to Subscriber:Self Name:Fariba Olson Payer ID:[id number] (NAIC) Type:MEDICAID RISK OTHER Address: [address] [place] [address] [place] [address] [facility] Advance Directives For more information, please contact: [phone] Documents on File Type Date Recorded Patient Wood Heel Finisher Expl anation ADVANCE DIRECTIVE 02/05/2022 8:42 AM POLST - PHYS ORDER FOR PT PREFERENCES ADVANCE DIRECTIVE 07/15/2012 12:00 AM MASSIEL R OF FISH MACHINE FEEDER FINANCIAL/MEDICAL * Full Code (Latest Code Status on File) Date Activated Date Inactivated Comments 10/12/2021 12:24 AM 10/21/2021 5:13 AM * Full Code Date Activated Date Inactivated Comments 08/29/2021 12:42 AM 09/03/2021 9:27 PM Care Teams Insemination Worker Relationship Specialty Start Date End Date Pj Linder MD [address] [facility] [address] [place] [address] PCP - General Family Medicine 04/18/23 Marlon Mendoza MD Room Service Server Cardiovascular Disease 03/31/20 Jaret Forrester MD [address] [facility] [address] [place] [address] Consulting Physician Vascular Surgery 09/03/21 Ceferino Strickland MD [address] [facility] [address] [place] [address] Consulting Physician Infectious Diseases 10/20/21
--- OUTSIDE RECORDS SUMMARY | 2024-09-11 19:06 | XMS_ITS | Clinical Summary ---
Author Organization [facility] Virtual Care Address [address] [place] [phone] Phone Care Team Providers Care Tinner Automatic Name Role Phone Marlon Mendoza MD Unavailable Jaret Forrester MD Unavailable Ceferino Strickland MD Unavailable [phone] Pj Linder MD Primary Care Provider [phone] Allergies Active Allergy Reactions Criticality Noted Date [...] into each nostril as needed Active omega 7-wxo-tak-fish oil (Fish Oil) 100-160-1,000 mg capsule Take [...] today. Assessment & Plan (04/04/2020 4:24 PM LINING CLEANER): Currently patient is using 5 L of supplemental oxygen at rest and 6 with exertion. I will obtain 6 minutes walk test today to reassess her oxygen requirements. Patient has multiple comorbidities and osteoarthritis of the hands. She will benefit from small portable oxygen concentrator that he can carry around with ambulation. Will request her [employer] company to assist with it. Smoking greater than 30 pack years 04/04/2020 Assessment & Plan (04/04/2020 4:26 PM LINING CLEANER): Patient has quit smoking about 1 and [...] inhaler. Assessment & Plan (04/04/2020 4:24 PM LINING CLEANER): Continue with wixela, Incruse and p.r.n. albuterol [...] 02/12/2020 Assessment & Plan (04/04/2020 4:22 PM LINING CLEANER): Patient states she underwent sleep study and [...] her pain. Will switch her back to [place]. Pulmonary nodule 12/16/2015 Assessment & Plan (07/12/2020 [...] for infection at this point. Will initiate [place] for pain control, continue dressing changes with Xeroform. Plan for follow-up in the office in 2 weeks for suture removal Fall 10/20/2021 12/10/2022 Cellulitis of toe of right foot 10/11/2021 10/12/2021 Acute osteomyelitis of left ankle or foot 09/06/2021 10/12/2021 Overview (09/06/2021): Added automatically from request for surgery [id number] Open wound of toe 08/28/2021 10/12/2021 Cellulitis [...] 03/31/202011/2022 Assessment & Plan (04/04/2020 4:24 PM LINING CLEANER): Patient was advised to lose weight by diet and exercise. Family history of coronary artery disease 03/31/2020 12/10/2022 Asymptomatic COVID-19 virus infection 02/12/2020 10/18/2021 Massive hemoptysis 02/12/2020 2 Positive D-dimer 02/12/2020 08/28/2021 Dyspnea on exertion 08/13/2019 08/29/19 Assessment & Plan (04/04/2020 4:23 PM LINING CLEANER): The shortness of breath is improved. Will [...] needed. Assessment & Plan (04/04/2020 4:24 PM LINING CLEANER): Continue with Flonase on as needed basis. Gout 10/06/2012 10/12/2021 Acute osteomyelitis of toe 0 10/12/2021 Assessment & Plan (09/06/2021 3:07 PM CDT): Risks benefits alternatives to left hallux amputation were discussed. Risks included bleeding, infection, failure for the wound to heal, and need for further surgery. She wished to proceed. Encounters Date Type Department Care Team Description 07/03/2024 Orders Only [facility] Medical Group Family Medicine [address] [phone] Provider, MD Thom from Last [...] Medical History Date Comments Bipolar 1 disorder ([facility]) COPD (chronic obstructive pu lmonary disease) ([facility]) Chronic kidney disease stage 3/b orn with [...] neck and between shoulder blades Spina bifida ([facility]) Patient terme d premature spina bifida, born with many problems with different parts of body , born with high temp 105 pt states. CHF (congestive heart failure) ([facility]) history Wears dentures On home oxygen therapy 4L/[place] History of COVID-19 04/29/2021 Osteomyelitis of left foot ([facility]) 04/29/2021 Obstructive sleep apnea syndrome 02/12/2020 Family [...] often do you attend chur ch or moravian services? 1 to 4 times per year 05/01/2021 Do you belong to any clubs o r organizations such as uatsdin groups, unions, fraternal or athletic groups, or [...] place to sleep or slept in a usp (including now)? No 05/01/2021 Comments No Sex and Gender Information Value Date Recorded Sex Assigned at Not on file Legal Sex Female 4:57 PM LINING CLEANER Gender Identity Not on file Sexual Orientation [...] 04/23/2022, 02/16/2022 Medical Devices Implanted Type Area Defect Repairer Glassware Device Identifier Shelf Expiration Date Model / [...] age 40, based on guidelines of the [employer] [place] [employer] (ACR Practice Parameter for the Performance of Screening and Diagnostic Mammography) and [employer] [place] [employer]. For women [...] Most Recently Relevant to Health Maintenance Insurance [facility] [id number] [place] [address] [facility] Advance Directives For more information, please contact: [phone] Documents on File Type Date Recorded Patient Coordinator Of Online Programs Expl anation ADVANCE DIRECTIVE 02/05/2022 8:42 AM POLST - PHYS ORDER FOR PT PREFERENCES ADVANCE DIRECTIVE 07/15/2012 12:00 AM MASSIEL Gildardo OF RAILROAD FIRER FINANCIAL/MEDICAL * Full Code (Latest Code Status on File) Date Activated Date Inactivated Comments 10/12/2021 12:24 AM 10/21/2021 5:13 AM * Full Code Date Activated Date Inactivated Comments 08/29/2021 12:42 AM 09/03/2021 9:27 PM Care Teams Tinner Automatic Relationship Specialty Start Date End Date Pj Linder MD [address] [facility] [address] [place] [address] PCP - General Family Medicine 04/18/23 Marlon Mendoza MD Yardmaster Cardiovascular Disease 03/31/20 Jaret Forrester MD [address] [facility] [address] [place] [id number] Consulting Physician Vascular Surgery 09/03/21 Ceferino Strickland MD [address] [facility] [address] [place] [id number] Consulting Physician Infectious Diseases 10/20/21
[2024-09-11 19:07] VITALS: BP 121/98; PULSE 88; RESP 16; TEMP 36.4; O2SAT 94
--- NOTE | 2024-09-11 19:10 | ECG_ITS ---
Test Date: 2024-09-11 19:23:36 Measurements Intervals [place] Rate: 87 P: 35 ID: [id number] QRS: -29 QRSD: 108 T: 31 QT: 361 QTc: 437 Interpretive Statements SINUS RHYTHM LEFTWARD AXIS LOW QRS VOLTAGE IN PRECORDIAL LEADS Electronically Signed On 09-12-2024 08:11:04 CDT by Wally Francois D.O
--- NOTE | 2024-09-11 19:11 | ED.WEAKNESS ---
HPI - Weakness General Chief complaint: Weakness <Ayde Osborne PA-C - Last Filed: 09/11/24 23:45> Stated complaint: lethargy, R arm/chest pain <Ayde Osborne PA-C - Last Filed: 09/11/24 23:45> Time Seen by Provider: 09/11/24 19:11 <Ayde Osborne PA-C - Last Filed: 09/11/24 23:45> Focused HPI: This is a 63 year old female that presents to the ER for generalized weakness. Reports she was seen here earlier after a fall. Her family member brought her back out of concern that she seemed confused, very weak. Patient reports pain to the right upper chest/shoulder. GENERAL: Chronically-ill, well-nourished, and in no acute distress. HEAD: Normocephalic, atraumatic. CHEST: No respiratory distress. HEART: Regular rate and rhythm.? NEURO: ?Alert and oriented x3. Patient screened in triage and initial orders placed.? ?Additional care and disposition to be based upon?diagnostic testing and treatment. <Ayde Osborne PA-C - Last Filed: 09/11/24 23:45> Focused HPI: This is a 63 year old female that presents to the ER for generalized weakness. Reports she was seen here earlier after a fall. Her family member brought her back out of concern that she seemed confused, very weak. Patient reports pain to the right upper chest/shoulder. GENERAL: Chronically-ill, well-nourished, and in no acute distress. HEAD: Normocephalic, atraumatic. CHEST: No respiratory distress. HEART: Regular rate and rhythm.? NEURO: ?Alert and oriented x3. Patient screened in triage and initial orders placed.? ?Additional care and disposition to be based upon?diagnostic testing and treatment. Agree with triage assessment. Family members were also concerned of carbon monoxide poisoning as some members at her skilled nursing with diagnosed with that. <Morris Jolley MD - Last Filed: 09/11/24 22:56> Related Data Home medications: Home Medications ?Medication ?Instructions ?Recorded ?Confirmed ?Last Taken ?Type allopurinol 300 mg tablet 300 mg PO DAILY 07/02/20 02/14/23 02/13/23 History atorvastatin 40 mg tablet 40 mg PO HS 07/02/20 02/14/23 02/13/23 History gabapentin 800 mg tablet 800 mg PO TID 07/02/20 02/14/23 02/13/23 History montelukast 10 mg tablet 10 mg PO HS 07/02/20 02/14/23 02/13/23 History trazodone 50 mg tablet 100 mg PO HS 07/02/20 02/14/23 02/13/23 History aripiprazole 5 mg tablet 5 mg PO DAILY 05/07/22 02/14/23 02/13/23 History famotidine 40 mg tablet 40 mg PO DAILY 05/07/22 02/14/23 02/13/23 History topiramate 50 mg tablet 50 mg PO BID 05/07/22 02/14/23 02/13/23 History benzonatate 200 mg capsule 200 mg PO TID 10/19/22 02/14/23 Unknown History cyclobenzaprine 10 mg tablet 10 mg PO DAILY 10/19/22 02/14/23 Unknown History duloxetine 30 mg capsule,delayed 30 mg PO DAILY 10/19/22 02/14/23 Unknown History release furosemide 40 mg tablet 40 mg PO BID 10/19/22 02/14/23 02/13/23 History isosorbide dinitrate 30 mg tablet 30 mg PO DAILY 10/19/22 02/14/23 02/13/23 History metolazone 2.5 mg tablet 2.5 mg PO EVERY OTHER DAY 10/19/22 02/14/23 Unknown History spironolactone 25 mg tablet 25 mg PO BID 10/19/22 02/14/23 02/13/23 History buspirone 10 mg tablet 10 mg PO BID 12/13/22 02/14/23 02/13/23 History lamotrigine 25 mg tablet 25 mg PO DAILY 12/13/22 02/14/23 02/13/23 History Amairani Osborne PA-C - Last Filed: 09/11/24 23:45> Allergies/Adverse reactions: Allergies Allergy/AdvReac Type Severity Reaction Status Date / Time bee venom protein (honey bee) Allergy Severe Anaphylaxis Verified 09/11/24 19:12 Penicillins Allergy Anaphylaxis Verified 09/11/24 19:12 bee Stings Allergy Severe Anaphylaxis Uncoded 09/11/24 19:12 Fixodent Allergy Intermediate Blister Uncoded 09/11/24 19:12 fixodent Allergy Hives Uncoded 09/11/24 19:12 <Ayde Osborne PA-C - Last Filed: 09/11/24 23:45> Review of Systems Review of Systems: All systems are reviewed and are negative unless stated otherwise in the HPI. <Morris Jolley MD - Last Filed: 09/11/24 22:56> PMFSH Past Medical History Medical History: Medical History Psoriasis Kidney stones Cervical cancer Obstructive sleep apnea on CPAP Bipolar disorder Chronic kidney disease Chronic obstructive pulmonary disease 5 L nasal cannula. Chronic respiratory failure with hypoxia, on home oxygen therapy Hyperlipidemia Depression with anxiety Hypertension History of tobacco abuse Peripheral neuropathy (10/2022) Asthma Morbid obesity with BMI of 50.0-59.9, adult <Ayde Osborne PA-C - Last Filed: 09/11/24 23:45> Surgical History Surgical History: Surgical History History of section History of benign breast biopsy History of cystoscopy History of tonsillectomy History of reverse total replacement of right shoulder joint History of hysterectomy History of bilateral cataract extraction <Ayde Osborne PA-C - Last Filed: 09/11/24 23:45> Family History Family History: Family History Mother , age 68 CHF (congestive heart failure) Emphysema of lung Father , at age 62 Acute myocardial infarction Emphysema of lung Sibling , age 59 Pancreatic cancer Sibling , age 40 acute [place] Acute myocardial infarction <Ayde Osborne PA-C - Last Filed: 09/11/24 23:45> Social History Social History: Social History Social History: 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 Code status: Full code. Smoking packs per day: 1.5 Smoking cigarettes per day: 30.0 Years smoked: 40 Smoking pack-years: 60.00 Smoking status: Former smoker Second hand tobacco smoke exposure: Yes (in childhood) Alcohol intake: never Substance use type: does not use Other substance usage details: prescribed Do You Feel Safe in your Home?: Yes Lack of Transportation: No Lack of Food: Never True Current Housing: I Have Housing Concerned About Future Housing: No Difficulty Paying Gas/Electric Bills: No Difficulty Paying for Meds: No Currently Unemployed: No Education: High School Diploma/GED Difficulty w/ Childcare or Family Care: No Additional living arrangements comments: Lives in [place]. Has 4 children. Additional occupation/education comments: Disabled. Spiritual care concerns: No <Ayde Osborne PA-C - Last Filed: 09/11/24 23:45> Exam Narrative: General: Alert, awake, afebrile, in no acute distress. HEENT: PERRL, no rhinorrhea, no post nasal drip, oropharynx clear. Neck: Trachea midline, no JVD, no lymphadenopathy. Cardiovascular: Regular rate and rhythm, no murmurs, rubs or gallops, no peripheral edema. Respiratory: Clear to auscultation bilaterally, no tachypnea, no wheezing, no rhonchi, no rubs, no respiratory distress. Abdomen: Soft, nontender, nondistended, no rebound, no guarding, no peritoneal signs. Musculoskeletal: No joint swelling or deformity, normal muscle tone. Skin: No rashes or petechia, no signs of infection. Psychiatric: Alert and oriented, normal behavior and judgment for situation. Neurological: Alert and oriented to person, place, and time. Follows all commands. No focal deficits, speech is clear and fluent. <Morris Jolley MD - Last Filed: 09/11/24 22:56> Course Vital Signs Vital signs: Vital Signs Temperature 97.6 F 09/11/24 19:07 Pulse Rate 88 09/11/24 19:07 Respiratory Rate 16 09/11/24 19:07 Blood Pressure 121/98 H 09/11/24 19:07 Pulse Oximetry 94 09/11/24 19:07 Oxygen Delivery Nasal Cannula 09/11/24 19:07 Oxygen Flow Rate 4 09/11/24 19:07 Temperature 97.6 F 09/11/24 19:07 Pulse Rate 82 09/11/24 21:45 Respiratory Rate 24 H 09/11/24 21:45 Blood Pressure 135/57 L 09/11/24 21:45 Pulse Oximetry 95 09/11/24 21:45 Oxygen Delivery Nasal Cannula 09/11/24 21:32 Oxygen Flow Rate 4 09/11/24 21:32 <Ayde Osborne PA-C - Last Filed: 09/11/24 23:45> Vital Signs Temperature 97.6 F 09/11/24 19:07 Pulse Rate 88 09/11/24 19:07 Respiratory Rate 16 09/11/24 19:07 Blood Pressure 121/98 H 09/11/24 19:07 Pulse Oximetry 94 09/11/24 19:07 Oxygen Delivery Nasal Cannula 09/11/24 19:07 Oxygen Flow Rate 4 09/11/24 19:07 Temperature 97.6 F 09/11/24 19:07 Pulse Rate 82 09/11/24 21:45 Respiratory Rate 24 H 09/11/24 21:45 Blood Pressure 135/57 L 09/11/24 21:45 Pulse Oximetry 95 09/11/24 21:45 Oxygen Delivery Nasal Cannula 09/11/24 21:32 Oxygen Flow Rate 4 09/11/24 21:32 <Morris Jolley MD - Last Filed: 09/11/24 22:56> MDM - Weakness MDM Narrative Medical decision making narrative: The patient was evaluated by myself in the emergency department. History is obtained from patient who is an independent historian and physical exam was performed. External medical records were reviewed at this time. IV was established and pertinent tests were ordered. EKG was obtained which revealed sinus rhythm rate of 87 beats per minute, no evidence of acute ischemia. EKG was independently interpreted by me and is currently pending official cardiology read. Laboratory results obtained revealing no acute process. Potassium noted to be 3.3. Patient was administered 20 mEq of oral potassium. Imaging studies obtained included CXR which was independently interpreted by me revealing: IMPRESSION: Prominent markings in the lower lobes with interstitial thickening which may indicate atelectasis versus early pneumonia. Patient was started on antibiotics with doxycycline administered her 1st dose in the emergency department to cover for pneumonia. Differential diagnosis considerations include dehydration, electrolyte derangements, acute viral syndrome, infectious process such as pneumonia. Comorbidities impacting this visit include history of COPD with chronic O2 dependence. Patient is satting 95% on her home O2. I have evaluated and discussed social determinants of health with the patient that could potentially impact subsequent diagnosis and treatment plans. On repeat assessment of the patient, reevaluation revealed that the patient is doing well and is in no acute distress. Patient symptoms have improved since she arrived to our emergency department. Repeat vital signs were all reviewed and noted to be stable. Differential diagnosis and treatment plan were discussed with the patient at bedside. Patient agrees with discussion and after shared medical decision making agrees with discharge. All questions were answered to the patient's satisfaction. Patient will follow up with her PCP in 3-5 days. Script for doxycycline was sent to patient's pharmacy to take as prescribed for her pneumonia. Patient was provided with strict return precautions and instructed to return to the emergency department if any new or worsening symptoms develop. The patient was discharged in stable condition. <Morris Jolley MD - Last Filed: 09/11/24 22:56> Lab Data Result diagrams: 09/11/24 19:31 09/11/24 19:31 <Ayde Osborne PA-C - Last Filed: 09/11/24 23:45> Labs: Lab Results 09/11/24 09/11/24 09/11/24 Range/Units 19:31 21:49 22:23 WBC 8.4 (4.5-10.0) K/mm3 RBC 5.48 H (4.2-5.4) M/mm3 Hgb 14.7 (12.0-15.0) g/dL Hct 48.2 H (37.0-47.0) % MCV 88.0 (80-100) fl MCH 26.8 (26-34) pg MCHC 30.5 L (32-36) g/dl RDW 14.1 (11.5-14.5) % Plt Count 116 L (150-375) k/mm3 MPV 10.4 (7.4-10.4) fl Immature Gran % (Auto) 0.7 H (0-0.5) % Neut % (Auto) 69.5 (45.5-73.1) % Lymph % (Auto) 14.0 L (18.3-44.2) % Bradford % (Auto) 15.5 H (2.6-8.5) % Eos % (Auto) 0.1 (0-4.4) % Baso % (Auto) 0.2 (0.2-1.2) % Lymph # (Auto) 1.18 (0.9-3.2) K/mm3 Bradford # (Auto) 1.3 H (0.1-0.6) K/mm3 Eos # (Auto) 0.0 (0-0.3) K/mm3 Baso # (Auto) 0.0 (0.0-0.1) K/mm3 Abs Immat Gran (auto) 0.06 H (0.00-0.031) K/mm3 Absolute Neuts (auto) 5.8 (1.3-6.7) K/mm3 Absolute Nucleated RBC 0.000 (0.0-0.012) K/mm3 Nucleated RBC % 0.0 (0.0-0.2) % % Immature Plt Fraction 2.1 (0.9-11.2) % PT 13.8 (11.1-14.7) Seconds INR 1.1 APTT 30.9 (22.3-36.8) Seconds Methemoglobin (0-1.5) %THb Sodium 137 (137-145) mmol/L Potassium 3.3 L (3.4-5.0) mmol/L Chloride 99 (98-107) mmol/L Carbon Dioxide 29 (22-30) mmol/L Anion Gap 9 (4-12) mmol/L BUN 11 (7-17) mg/dL Creatinine 1.00 (0.7-1.0) mg/dL Estim Creat Clear Calc Not Reportable Estimated GFR 56 L (59 - ) Glucose 120 H (65-110) mg/dL Calcium 9.4 (8.4-10.2) mg/dL Total Bilirubin 0.7 (0.2-1.3) mg/dL AST 28 (14-36) U/L ALT 21 (6-35) U/L Alkaline Phosphatase 91 (38-126) U/L Troponin I 0.015 (0.000-0.034) ng/mL Total Protein 7.5 (6.3-8.2) g/dL Albumin 4.2 (3.5-5.1) g/dL Lipase 44 (23-300) U/L Nasal RSV Type A (PCR) Pending Nasal RSV Type B (PCR) Pending Chlamy pneumoniae PCR Pending Adenovirus DNA Pending Human Bocavirus (AMARJIT) Pending Coronavirus Type OC43 Pending Coronavirus Type HKU1 Pending Coronavirus Type 229E Pending Coronavirus Type NL63 Pending Human Metapneumovir PCR Pending Influenza A (RT-PCR) Negative (Negative) Influenza A (PCR) Pending Influenza A (H1) RNA Pending Influenza A (H3) PCR Pending Influenza B (RT-PCR) Negative (Negative) M. pneumoniae DNA Pending Parainfluenza PCR Pending Parainfluenza 2 (PCR) Pending Parainfluenza 3 RNA (PCR) Pending Parainfluenza 4 (PCR) Pending RSV (RT-PCR) Negative (Negative) Rhino/Enterovirus (AMARJIT) Pending SARS-CoV-2 RNA (RT-PCR) Negative Pending (Negative) Influenza Type B (PCR) Pending Misc Test Comment Pending 09/11/24 Range/Units 22:32 WBC (4.5-10.0) K/mm3 RBC (4.2-5.4) M/mm3 Hgb (12.0-15.0) g/dL Hct (37.0-47.0) % MCV (80-100) fl MCH (26-34) pg MCHC (32-36) g/dl RDW (11.5-14.5) % Plt Count (150-375) k/mm3 MPV (7.4-10.4) fl Immature Gran % (Auto) (0-0.5) % Neut % (Auto) (45.5-73.1) % Lymph % (Auto) (18.3-44.2) % Bradford % (Auto) (2.6-8.5) % Eos % (Auto) (0-4.4) % Baso % (Auto) (0.2-1.2) % Lymph # (Auto) (0.9-3.2) K/mm3 Bradford # (Auto) (0.1-0.6) K/mm3 Eos # (Auto) (0-0.3) K/mm3 Baso # (Auto) (0.0-0.1) K/mm3 Abs Immat Gran (auto) (0.00-0.031) K/mm3 Absolute Neuts (auto) (1.3-6.7) K/mm3 Absolute Nucleated RBC (0.0-0.012) K/mm3 Nucleated RBC % (0.0-0.2) % % Immature Plt Fraction (0.9-11.2) % PT (11.1-14.7) Seconds INR APTT (22.3-36.8) Seconds Methemoglobin 0.3 (0-1.5) %THb Sodium (137-145) mmol/L Potassium (3.4-5.0) mmol/L Chloride (98-107) mmol/L Carbon Dioxide (22-30) mmol/L Anion Gap (4-12) mmol/L BUN (7-17) mg/dL Creatinine (0.7-1.0) mg/dL Estim Creat Clear Calc Estimated GFR (59 - ) Glucose (65-110) mg/dL Calcium (8.4-10.2) mg/dL Total Bilirubin (0.2-1.3) mg/dL AST (14-36) U/L ALT (6-35) U/L Alkaline Phosphatase (38-126) U/L Troponin I (0.000-0.034) ng/mL Total Protein (6.3-8.2) g/dL Albumin (3.5-5.1) g/dL Lipase (23-300) U/L Nasal RSV Type A (PCR) Nasal RSV Type B (PCR) Chlamy pneumoniae PCR Adenovirus DNA Human Bocavirus (AMARJIT) Coronavirus Type OC43 Coronavirus Type HKU1 Coronavirus Type 229E Coronavirus Type NL63 Human Metapneumovir PCR Influenza A (RT-PCR) (Negative) Influenza A (PCR) Influenza A (H1) RNA Influenza A (H3) PCR Influenza B (RT-PCR) (Negative) M. pneumoniae DNA Parainfluenza PCR Parainfluenza 2 (PCR) Parainfluenza 3 RNA (PCR) Parainfluenza 4 (PCR) RSV (RT-PCR) (Negative) Rhino/Enterovirus (AMARJIT) SARS-CoV-2 RNA (RT-PCR) (Negative) Influenza Type B (PCR) [facility] [place] Comment <Ayde Osborne PA-C - Last Filed: 09/11/24 23:45> Lab Results 09/11/24 09/11/24 09/11/24 Range/Units 19:31 21:49 22:23 WBC 8.4 (4.5-10.0) K/mm3 RBC 5.48 H (4.2-5.4) M/mm3 Hgb 14.7 (12.0-15.0) g/dL Hct 48.2 H (37.0-47.0) % MCV 88.0 (80-100) fl MCH 26.8 (26-34) pg MCHC 30.5 L (32-36) g/dl RDW 14.1 (11.5-14.5) % Plt Count 116 L (150-375) k/mm3 MPV 10.4 (7.4-10.4) fl Immature Gran % (Auto) 0.7 H (0-0.5) % Neut % (Auto) 69.5 (45.5-73.1) % Lymph % (Auto) 14.0 L (18.3-44.2) % Bradford % (Auto) 15.5 H (2.6-8.5) % Eos % (Auto) 0.1 (0-4.4) % Baso % (Auto) 0.2 (0.2-1.2) % Lymph # (Auto) 1.18 (0.9-3.2) K/mm3 Bradford # (Auto) 1.3 H (0.1-0.6) K/mm3 Eos # (Auto) 0.0 (0-0.3) K/mm3 Baso # (Auto) 0.0 (0.0-0.1) K/mm3 Abs Immat Gran (auto) 0.06 H (0.00-0.031) K/mm3 Absolute Neuts (auto) 5.8 (1.3-6.7) K/mm3 Absolute Nucleated RBC 0.000 (0.0-0.012) K/mm3 Nucleated RBC % 0.0 (0.0-0.2) % % Immature Plt Fraction 2.1 (0.9-11.2) % PT 13.8 (11.1-14.7) Seconds INR 1.1 APTT 30.9 (22.3-36.8) Seconds Methemoglobin (0-1.5) %THb Sodium 137 (137-145) mmol/L Potassium 3.3 L (3.4-5.0) mmol/L Chloride 99 (98-107) mmol/L Carbon Dioxide 29 (22-30) mmol/L Anion Gap 9 (4-12) mmol/L BUN 11 (7-17) mg/dL Creatinine 1.00 (0.7-1.0) mg/dL Estim Creat Clear Calc Not Reportable Estimated GFR 56 L (59 - ) Glucose 120 H (65-110) mg/dL Calcium 9.4 (8.4-10.2) mg/dL Total Bilirubin 0.7 (0.2-1.3) mg/dL AST 28 (14-36) U/L ALT 21 (6-35) U/L Alkaline Phosphatase 91 (38-126) U/L Troponin I 0.015 (0.000-0.034) ng/mL Total Protein 7.5 (6.3-8.2) g/dL Albumin 4.2 (3.5-5.1) g/dL Lipase 44 (23-300) U/L Nasal RSV Type A (PCR) Pending Nasal RSV Type B (PCR) Pending Chlamy pneumoniae PCR Pending Adenovirus DNA Pending Human Bocavirus (AMARJIT) Pending Coronavirus Type OC43 Pending Coronavirus Type HKU1 Pending Coronavirus Type 229E Pending Coronavirus Type NL63 Pending Human Metapneumovir PCR Pending Influenza A (RT-PCR) Negative (Negative) Influenza A (PCR) Pending Influenza A (H1) RNA Pending Influenza A (H3) PCR Pending Influenza B (RT-PCR) Negative (Negative) M. pneumoniae DNA Pending Parainfluenza PCR Pending Parainfluenza 2 (PCR) Pending Parainfluenza 3 RNA (PCR) Pending Parainfluenza 4 (PCR) Pending RSV (RT-PCR) Negative (Negative) Rhino/Enterovirus (AMARJIT) Pending SARS-CoV-2 RNA (RT-PCR) Negative Pending (Negative) Influenza Type B (PCR) Pending [facility] [place] Comment Pending 09/11/24 Range/Units 22:32 WBC (4.5-10.0) K/mm3 RBC (4.2-5.4) M/mm3 Hgb (12.0-15.0) g/dL Hct (37.0-47.0) % MCV (80-100) fl MCH (26-34) pg MCHC (32-36) g/dl RDW (11.5-14.5) % Plt Count (150-375) k/mm3 MPV (7.4-10.4) fl Immature Gran % (Auto) (0-0.5) % Neut % (Auto) (45.5-73.1) % Lymph % (Auto) (18.3-44.2) % Bradford % (Auto) (2.6-8.5) % Eos % (Auto) (0-4.4) % Baso % (Auto) (0.2-1.2) % Lymph # (Auto) (0.9-3.2) K/mm3 Bradford # (Auto) (0.1-0.6) K/mm3 Eos # (Auto) (0-0.3) K/mm3 Baso # (Auto) (0.0-0.1) K/mm3 Abs Immat Gran (auto) (0.00-0.031) K/mm3 Absolute Neuts (auto) (1.3-6.7) K/mm3 Absolute Nucleated RBC (0.0-0.012) K/mm3 Nucleated RBC % (0.0-0.2) % % Immature Plt Fraction (0.9-11.2) % PT (11.1-14.7) Seconds INR APTT (22.3-36.8) Seconds Methemoglobin 0.3 (0-1.5) %THb Sodium (137-145) mmol/L Potassium (3.4-5.0) mmol/L Chloride (98-107) mmol/L Carbon Dioxide (22-30) mmol/L Anion Gap (4-12) mmol/L BUN (7-17) mg/dL Creatinine (0.7-1.0) mg/dL Estim Creat Clear Calc Estimated GFR (59 - ) Glucose (65-110) mg/dL Calcium (8.4-10.2) mg/dL Total Bilirubin (0.2-1.3) mg/dL AST (14-36) U/L ALT (6-35) U/L Alkaline Phosphatase (38-126) U/L Troponin I (0.000-0.034) ng/mL Total Protein (6.3-8.2) g/dL Albumin (3.5-5.1) g/dL Lipase (23-300) U/L Nasal RSV Type A (PCR) Nasal RSV Type B (PCR) Chlamy pneumoniae PCR Adenovirus DNA Human Bocavirus (AMARJIT) Coronavirus Type OC43 Coronavirus Type HKU1 Coronavirus Type 229E Coronavirus Type NL63 Human Metapneumovir PCR Influenza A (RT-PCR) (Negative) Influenza A (PCR) Influenza A (H1) RNA Influenza A (H3) PCR Influenza B (RT-PCR) (Negative) M. pneumoniae DNA Parainfluenza PCR Parainfluenza 2 (PCR) Parainfluenza 3 RNA (PCR) Parainfluenza 4 (PCR) RSV (RT-PCR) (Negative) Rhino/Enterovirus (AMARJIT) SARS-CoV-2 RNA (RT-PCR) (Negative) Influenza Type B (PCR) Misc Test Comment <Morris Jolley MD - Last Filed: 09/11/24 22:56> ABG Data ABG results: 09/11/24 22:32 Puncture Site Left radial ABG pH 7.426 ABG pCO2 40.0 ABG pO2 75.2 L ABG PO2/FiO2 Ratio 2.09 ABG HCO3 25.7 ABG O2 Saturation 95.4 ABG O2 Content 20.5 ABG Base Excess 1.3 A-a Gradient 135.1 Oxyhemoglobin 93.9 Carboxyhemoglobin 1.3 Reduced Hemoglobin 4.5 Total Hemoglobin 15.5 O2 Delivery Device Nasal cannula O2 Liters/Min 4.0 FiO2 36 <Ayde Osborne PA-C - Last Filed: 09/11/24 23:45> 09/11/24 22:32 Puncture Site Left radial ABG pH 7.426 ABG pCO2 40.0 ABG pO2 75.2 L ABG PO2/FiO2 Ratio 2.09 ABG HCO3 25.7 ABG O2 Saturation 95.4 ABG O2 Content 20.5 ABG Base Excess 1.3 A-a Gradient 135.1 Oxyhemoglobin 93.9 Carboxyhemoglobin 1.3 Reduced Hemoglobin 4.5 Total Hemoglobin 15.5 O2 Delivery Device Nasal cannula O2 Liters/Min 4.0 FiO2 36 <Morris Jolley MD - Last Filed: 09/11/24 22:56> Imaging Data Radiologist's impression: ITS Impressions Chest X-Ray 09/11/24 20:57 IMPRESSION: Prominent markings in the lower lobes with interstitial thickening which may indicate atelectasis versus early pneumonia. <Ayde Osborne PA-C - Last Filed: 09/11/24 23:45> Critical Care Time Critical Care Time Critical Care Time: No <Ayde Osborne PA-C - Last Filed: 09/11/24 23:45> Discharge Plan Discharge Clinical Impression: Hypokalemia Community acquired pneumonia Qualifiers: Laterality: unspecified laterality Qualified Code(s): J18.9 - Pneumonia, unspecified organism <Ayde Osborne PA-C - Last Filed: 09/11/24 23:45> Patient Disposition: SNF <Ayde Osborne PA-C - Last Filed: 09/11/24 23:45> Condition: Improved <Ayde Osborne PA-C - Last Filed: 09/11/24 23:45> Instructions: Community Acquired Pneumonia (DC) <VIDAL Bermudez Last Filed: 09/11/24 23:45> Additional Instructions: Please take the prescribed antibiotic for your pneumonia. Return <Ayde Osborne PA-C - Last Filed: 09/11/24 23:45> Patient Language: Brazilian <VIDAL Bermudez Last Filed: 09/11/24 23:45> Prescriptions: New doxycycline hyclate 100 mg capsule 100 mg PO BID 5 Days Qty: 10 0RF No Action buspirone 10 mg tablet 10 mg PO BID lamotrigine 25 mg tablet 25 mg PO DAILY famotidine 40 mg tablet 40 mg PO DAILY aripiprazole 5 mg tablet 5 mg PO DAILY topiramate 50 mg tablet 50 mg PO BID metoprolol tartrate 25 mg Tablet 25 mg PO Q12HR 30 Days Qty: 60 0RF simethicone 125 mg capsule 125 mg PO QID Qty: 20 0RF Rx Instructions: administer after meals and at bedtime dicyclomine 20 mg tablet 20 mg PO QID Qty: 20 0RF levofloxacin 750 mg tablet 750 mg PO DAILY Qty: 5 0RF atorvastatin 40 mg Tablet 40 mg PO HS trazodone 50 mg Tablet 100 mg PO HS gabapentin 800 mg Tablet 800 mg PO TID montelukast 10 mg Tablet 10 mg PO HS allopurinol 300 mg Tablet 300 mg PO DAILY cyclobenzaprine 10 mg tablet 10 mg PO DAILY furosemide 40 mg tablet 40 mg PO BID isosorbide dinitrate 30 mg tablet 30 mg PO DAILY duloxetine 30 mg capsule,delayed release(DR/EC) 30 mg PO DAILY metolazone 2.5 mg Tablet 2.5 mg PO EVERY OTHER DAY benzonatate 200 mg Capsule 200 mg PO TID spironolactone 25 mg tablet 25 mg PO BID acetaminophen 325 mg Tablet 650 mg PO Q4H PRN (Reason: Mild Pain (1-3) Or Fever) Qty: 0 0RF cefdinir 300 mg Capsule 300 mg PO Q12HR Qty: 0 0RF doxycycline hyclate 100 mg Tablet 100 mg PO Q12HR Qty: 0 0RF potassium chloride [K-Tab] 20 mEq Tablet Extended Release 40 meq PO BIDWM Qty: 0 0RF bupropion HCl [Wellbutrin SR] 150 mg Tablet Sustained-Release 12 Hr 150 mg PO Q12H Qty: 60 0RF tramadol 50 mg tablet 50 mg PO Q6H PRN (Reason: Pain) Qty: 12 0RF alprazolam 0.5 mg tablet 0.5 mg PO HS Qty: 12 0RF hydrocodone-acetaminophen 5-325 mg tablet 1 tablet PO Q6H PRN (Reason: pain) Qty: 12 0RF <Ayde Osborne PA-C - Last Filed: 09/11/24 23:45> Follow-up/Referrals: Adam Llanes MD [Physician] - 3 Days UNKNOWN,DOCTOR [Primary Care Provider] - <Ayde Osborne PA-C - Last Filed: 09/11/24 23:45> Time of Disposition: 22:55 <Ayde Osborne PA-C - Last Filed: 09/11/24 23:45> 22:55 <Morris Jolley MD - Last Filed: 09/11/24 22:56>
[2024-09-11 19:43] LABS: Hematocrit 48.2 % (37.0-47.0); Hemoglobin 14.7 g/dL (12.0-15.0); Immature Granulocyte Percent A 0.7 % (0-0.5); Immature Platelet Fraction Pct 2.1 % (0.9-11.2); Lymphocytes Absolute Auto 1.18 K/mm3 (0.9-3.2); Mean Corpuscular HGB Conc 30.5 g/dl (32-36); Mean Corpuscular Hemoglobin 26.8 pg (26-34); Mean Corpuscular Volume 88.0 fl (80-100); Nucleated Red Blood Cells Absolute Auto 0.000 K/mm3 (0.0-0.012); Nucleated Red Blood Cells Perc 0.0 % (0.0-0.2); Platelet Count Result 116 k/mm3 (150-375); Red Blood Count 5.48 M/mm3 (4.2-5.4); White Blood Count 8.4 K/mm3 (4.5-10.0)
--- OUTSIDE RECORDS SUMMARY | 2024-09-11 19:48 | XMS_ITS | Clinical Summary ---
Author Organization [facility] Virtual Care Address [address] [place] [phone] Phone Care Team Providers Care Hull Drafter Name Role Phone Marlon Mendoza MD Unavailable Jaret Forrester MD Unavailable Ceferino Strickland MD Unavailable [phone] Pj Linder MD Primary Care Provider [phone] Allergies Active Allergy Reactions Criticality Noted Date [...] into each nostril as needed Active omega 0-ccn-vpv-fish oil (Fish Oil) 100-160-1,000 mg capsule Take [...] today. Assessment & Plan (04/04/2020 4:24 PM BRICK POINTER): Currently patient is using 5 L of supplemental oxygen at rest and 6 with exertion. I will obtain 6 minutes walk test today to reassess her oxygen requirements. Patient has multiple comorbidities and osteoarthritis of the hands. She will benefit from small portable oxygen concentrator that he can carry around with ambulation. Will request her [employer] company to assist with it. Smoking greater than 30 pack years 04/04/2020 Assessment & Plan (04/04/2020 4:26 PM BRICK POINTER): Patient has quit smoking about 1 and [...] inhaler. Assessment & Plan (04/04/2020 4:24 PM BRICK POINTER): Continue with wixela, Incruse and p.r.n. albuterol [...] 02/12/2020 Assessment & Plan (04/04/2020 4:22 PM BRICK POINTER): Patient states she underwent sleep study and [...] her pain. Will switch her back to [place]. Pulmonary nodule 12/16/2015 Assessment & Plan (07/12/2020 [...] for infection at this point. Will initiate [place] for pain control, continue dressing changes with Xeroform. Plan for follow-up in the office in 2 weeks for suture removal Fall 10/20/2021 12/10/2022 Cellulitis of toe of right foot 10/11/2021 10/12/2021 Acute osteomyelitis of left ankle or foot 09/06/2021 10/12/2021 Overview (09/06/2021): Added automatically from request for surgery [id number] Open wound of toe 08/28/2021 10/12/2021 Cellulitis [...] 03/31/202011/2022 Assessment & Plan (04/04/2020 4:24 PM BRICK POINTER): Patient was advised to lose weight by diet and exercise. Family history of coronary artery disease 03/31/2020 12/10/2022 Asymptomatic COVID-19 virus infection 02/12/2020 10/18/2021 Massive hemoptysis 02/12/2020 2 Positive D-dimer 02/12/2020 08/28/2021 Dyspnea on exertion 08/13/2019 08/29/19 Assessment & Plan (04/04/2020 4:23 PM BRICK POINTER): The shortness of breath is improved. Will [...] needed. Assessment & Plan (04/04/2020 4:24 PM BRICK POINTER): Continue with Flonase on as needed basis. Gout 10/06/2012 10/12/2021 Acute osteomyelitis of toe 0 10/12/2021 Assessment & Plan (09/06/2021 3:07 PM CDT): Risks benefits alternatives to left hallux amputation were discussed. Risks included bleeding, infection, failure for the wound to heal, and need for further surgery. She wished to proceed. Encounters Date Type Department Care Team Description 07/03/2024 Orders Only [facility] Family Medicine [address] [address] Provider, MD Thom from Last [...] History Date Comments Bipolar 1 disorder ([facility]) COPD (chronic obstructive pu lmonary disease) ([facility]) Chronic kidney disease stage 3/b orn with [...] and between shoulder blades Spina bifida ([facility]) Patient terme d premature spina bifida, born with many problems with different parts of body , born with high temp 105 pt states. CHF (congestive heart failure) ([facility]) history Wears dentures On home oxygen therapy 4L/NC History of COVID-19 04/29/2021 Osteomyelitis of left foot ([facility]) 04/29/2021 Obstructive sleep apnea syndrome 02/12/2020 Family [...] often do you attend chur ch or jainism services? 1 to 4 times per year 05/01/2021 Do you belong to any clubs o r organizations such as yazdanism groups, unions, fraternal or athletic groups, or [...] place to sleep or slept in a senior living (including now)? No 05/01/2021 Comments No Sex and Gender Information Value Date Recorded Sex Assigned at Not on file Legal Sex Female 4:57 PM BRICK POINTER Gender Identity Not on file Sexual Orientation [...] 04/23/2022, 02/16/2022 Medical Devices Implanted Type Area Gas And Oil Checker Device Identifier Shelf Expiration Date Model / [...] based on guidelines of the [place] [employer] (ACR Practice Parameter for the Performance of Screening and Diagnostic Mammography) and [place] [employer]nec[employer]. For women [...] Most Recently Relevant to Health Maintenance Insurance [facility] [id number] [place] [address] [facility] Advance Directives For more information, please contact: [phone] Documents on File Type Date Recorded Patient Research Affiliate Expl anation ADVANCE DIRECTIVE 02/05/2022 8:42 AM POLST - PHYS ORDER FOR PT PREFERENCES ADVANCE DIRECTIVE 07/15/2012 12:00 AM MASSIEL Gildardo OF LIVE STUDY MANAGER FINANCIAL/MEDICAL * Full Code (Latest Code Status on File) Date Activated Date Inactivated Comments 10/12/2021 12:24 AM 10/21/2021 5:13 AM * Full Code Date Activated Date Inactivated Comments 08/29/2021 12:42 AM 09/03/2021 9:27 PM Care Teams Hull Drafter Relationship Specialty Start Date End Date Pj Linder MD [address] [facility] [address] [place] [address] PCP - General Family Medicine 04/18/23 Marlon Mendoza MD Joint Supervisor Cardiovascular Disease 03/31/20 Jaret Forrester MD [address] [facility] [address] [place] [address] Consulting Physician Vascular Surgery 09/03/21 Ceferino Strickland MD [address] [facility] [address] [place] [address] Consulting Physician Infectious Diseases 10/20/21
--- OUTSIDE RECORDS SUMMARY | 2024-09-11 19:48 | XMS_ITS | Encounter Summary ---
Author Organization [facility] Medical Group Address [address] [facility] [address] [place] [address] Care Team Providers Care Bus Info Consultant Name Role Phone April Cornejo MD Primary Care Provider [phone] Raza Lakhani MD Primary Care Provid er Marlon Mendoza MD Unavailable Jaret Forrester MD Unavailable Ceferino Strickland MD Unavailable [phone] Jase Fernandes MD Primary Care Provider [phone] Raza Lakhani MD Primary Care Provid er Pj Linder MD Primary Care Provider [phone] Encounter Details Date Type Department Care Team (Late st Contact Info) Description 02/28/2012 Orders Only [facility] Health Information Management [address] [place] [address] Scanning, Provider Social History Tobacco Use Types Packs/Day Years Used Date Smoking Tobacco: Never Assessed Comments Unknown Sex and Gender Information Value Date Recorded Sex Assigned at Not on file Legal Sex Female 4:57 PM PICTURES EDITOR Gender Identity Not on file Sexual Orientation [...] difficile 02/27/2012 02/26/2012 02/13/2021 10:1 5 AM PICTURES EDITOR COVID: Suspected 12/29/2019 12/29/2019 12/29/2019 12:46 PM CDT COVID19 12/29/2019 12/29/2019 01/12/2020 3:06 AM PICTURES EDITOR MRSA 12/29/2019 12/28/2019 10/19/2020 5:00 AM CDT COVID: Recovered Comment:Added based on recent COVID infection. 01/12/2020 01/18/2020 05/11/2020 3:[address] COVID: Suspected 09/16/2020 09/16/2020 09/16/2020 11:04 PM CDT COVID: Suspected 02/12/2021 02/12/2021 02/12/2021 2:43 PM PICTURES EDITOR COVID: Suspected 04/29/2021 04/29/2021 04/29/2021 6:17 PM PICTURES EDITOR COVID: Suspected 08/15/2021 08/15/2021 08/15/2021 3:51 PM [...] COVID: Suspected 02/03/2022 02/03/2022 02/03/2022 8:01 PM PICTURES EDITOR RSV, droplet 02/03/2022 02/03/2022 02/10/2022 3:06 AM PICTURES EDITOR documented as of this encounter Care Teams Bus Info Consultant Relationship Specialty Start Date End Date April Cornejo MD [address] [address] PCP - General Sports Medicine 01/16/18 02/14/20 Raza Lakhani MD [address] [place] [address] PCP - General Family Medicine 02/15/20 10/23/22 Jase Fernandes MD [address] [address] PCP - General Emergency Medicine 10/24/22 12/05/22 Raza Lakhani MD [address] [place] [address] PCP - General Family Medicine 12/06/22 04/17/23 Pj Linder MD [address] [place] [address] PCP - General Family Medicine 04/18/23 Marlon Mendoza MD [address] [place] [address] Electrical Manager Cardiovascular Disease 03/31/20 [place] [address] [place] [address] Consulting Physician Vascular Surgery 09/03/21 Ceferino Strickland MD [address] [facility] [place] [address] Consulting Physician Infectious Diseases 10/20/21 documented as of this encounter
--- OUTSIDE RECORDS SUMMARY | 2024-09-11 19:48 | XMS_ITS | Clinical Summary ---
Author Organization [facility] Address [address] [facility] [place] [address] Care Team Providers Care Field Crew Chief Name Role Phone Sherice Scott RN Unavailable [phone] April Cornejo MD Primary Care Provider [phone] Source Comments [facility],non-owned Affiliates and Associated Physician Practices is amultiple site organization consisting of ambulatory clinics and hospital sitesin [place], [place] and [place]. This disclosure is being madepursuant to the Care Everywhere program and may not contain all information available regarding this patient. Last updated 17.[facility] Allergies Active Allergy Reactions Criticality [...] PO QD 0 8 Active nystatin (MYCOSTATIN) 265820 UNIT/GM cream SUZAN AND RUB IN A THIN FILM AA BID IN THE MORNING AND IN THE EVENING 5 8 Active nystatin (MYCOSTATIN) 526129 UNIT/ML suspension TK 5MLS PO QID FOR [...] on file Legal Sex Female 6:49 AM SECURITY SALES MANAGER Gender Identity Not on file Sexual Orientation Not on file Last Filed Vital Signs Vital Sign Reading Time Taken Comments Blood Pressure 95/53 05/10/2015 11:56 AM SECURITY SALES MANAGER Pulse 87 05/10/2015 11:56 AM SECURITY SALES MANAGER Temperature 36.5 C (97.7 F) 05/10/2015 11:56 AM SECURITY SALES MANAGER Respiratory Rate 18 05/10/2015 11:56 AM SECURITY SALES MANAGER Oxygen Saturation 99% 05/10/2015 11:56 AM SECURITY SALES MANAGER Inhaled Oxygen Concentration - - Weight 133.8 kg (295 lb) 02/05/2018 9:02 AM SECURITY SALES MANAGER Height 177.8 cm (5' 10) 02/05/2018 9:02 AM SECURITY SALES MANAGER Body Mass Index 42.33 02/05/2018 9:02 AM SECURITY SALES MANAGER Plan of Treatment Health Maintenance Due Date [...] this topic Medical Devices Implanted Type Area Banking Consultant Device Identifier Shelf Expiration Date Model / Serial / Lot Implt Ceml Metaglene Implanted:Qty: 1 on 05/09/2015 by Raza Beth MD at [facility] Right: Shoulder [employer] 12/02/2019 1307-60-000 / / [id number] Sys Shld Tot Arthroplst Rev Implanted:Qty: 1 on 05/09/2015 by Raza Beth MD at [facility] [employer] S4 DEPUY / / Delta Xtend Implanted:Qty: 1 on 05/09/2015 by Raza Beth MD at [facility] Right: Shoulder 11/01/2019 [id number] / / [id number] Locking Mataglene Screw Implanted:Qty: 1 on 05/09/2015 by Raza Beth MD at [facility] Right: Shoulder 02/01/2020 [id number] / / [id number] Glenosphere Implanted:Qty: 1 on 05/09/2015 by Raza Beth MD at [facility] Right: Shoulder 01/01/2020 [id number] / / [id number] Delta Extend Implanted:Qty: 1 on 05/09/2015 by Raza Beth MD at [facility] Right: Shoulder 09/01/2019 [id number] / / [id number] Delta Extend Implanted:Qty: 1 on 05/09/2015 by Raza Beth MD at [facility] Right: Shoulder 11/01/2019 [id number] / / [id number] Delta Xtend Modular Centered Epiphysis Implanted:Qty: 1 on 05/09/2015 by Raza Beth MD at [facility] Right: Shoulder [employer] 02/01/2020 [id number] / / [id number] Delta Xtend Modular Humeral Stem Ramirez Coated Cementless Implanted:Qty: 1 on 05/09/2015 by Raza Beth MD at [facility] Right: Shoulder [employer] 02/01/2020 1307-12-000 / / [id number] Delta Xtend Standard Humeral Pe Cup Implanted:Qty: 1 on 05/09/2015 by Raza Beth MD at [facility] Right: Shoulder [employer] [id number] / / [id number] Insurance [facility] Advance Directives * Full Code (Latest Code Status on File) Date Activated Date Inactivated Comments 05/09/2015 10:15 PM 05/10/2015 2:17 PM Care Teams Field Crew Chief Relationship Specialty Start Date End Date April Cornejo MD PCP - General 02/05/18 Sherice Scott, RN Drywall Sander 05/10/15
--- OUTSIDE RECORDS SUMMARY | 2024-09-11 19:48 | XMS_ITS | Referral Summary ---
Author Organization [facility] Virtual Care Address [address] [place] [phone] Phone Care Team Providers Care Design Printer Balloon Name Role Phone Marlon Mendoza MD Unavailable Jaret Forrester MD Unavailable Ceferino Strickland MD Unavailable [phone] Pj Linder MD Primary Care Provider Encounters Date Type Department Care Team Description 07/03/2024 Orders Only [facility] Family Medicine [address] [address] Provider, MD Thom from Last [...] into each nostril as needed Active omega 3-bwr-fbl-fish oil (Fish Oil) 100-160-1,000 mg capsule Take [...] today. Assessment & Plan (04/04/2020 4:24 PM EXCAVATING MACHINE OPERATOR): Currently patient is using 5 L of supplemental oxygen at rest and 6 with exertion. I will obtain 6 minutes walk test today to reassess her oxygen requirements. Patient has multiple comorbidities and osteoarthritis of the hands. She will benefit from small portable oxygen concentrator that he can carry around with ambulation. Will request her [employer] company to assist with it. Smoking greater than 30 pack years 04/04/2020 Assessment & Plan (04/04/2020 4:26 PM EXCAVATING MACHINE OPERATOR): Patient has quit smoking about 1 and [...] inhaler. Assessment & Plan (04/04/2020 4:24 PM EXCAVATING MACHINE OPERATOR): Continue with wixela, Incruse and p.r.n. albuterol [...] 02/12/2020 Assessment & Plan (04/04/2020 4:22 PM EXCAVATING MACHINE OPERATOR): Patient states she underwent sleep study and [...] her pain. Will switch her back to [place]. Pulmonary nodule 12/16/2015 Assessment & Plan (07/12/2020 [...] for infection at this point. Will initiate [place] for pain control, continue dressing changes with Xeroform. Plan for follow-up in the office in 2 weeks for suture removal Fall 10/20/2021 12/10/2022 Cellulitis of toe of right foot 10/11/2021 10/12/2021 Acute osteomyelitis of left ankle or foot 09/06/2021 10/12/2021 Overview (09/06/2021): Added automatically from request for surgery [id number] Open wound of toe 08/28/2021 10/12/2021 Cellulitis [...] 03/31/202011/2022 Assessment & Plan (04/04/2020 4:24 PM EXCAVATING MACHINE OPERATOR): Patient was advised to lose weight by diet and exercise. Family history of coronary artery disease 03/31/2020 12/10/2022 Asymptomatic COVID-19 virus infection 02/12/2020 10/18/2021 Massive hemoptysis 02/12/2020 2 Positive D-dimer 02/12/2020 08/28/2021 Dyspnea on exertion 08/13/2019 08/29/19 Assessment & Plan (04/04/2020 4:23 PM EXCAVATING MACHINE OPERATOR): The shortness of breath is improved. Will [...] needed. Assessment & Plan (04/04/2020 4:24 PM EXCAVATING MACHINE OPERATOR): Continue with Flonase on as needed basis. [...] often do you attend chur ch or samaritan services? 1 to 4 times per year 05/01/2021 Do you belong to any clubs o r organizations such as advent groups, unions, fraternal or athletic groups, or [...] place to sleep or slept in a longterm (including now)? No 05/01/2021 Comments No Sex and Gender Information Value Date Recorded Sex Assigned at Not on file Legal Sex Female 4:57 PM EXCAVATING MACHINE OPERATOR Gender Identity Not on file Sexual Orientation [...] on file Medical Devices Implanted Type Area Accountant Cost Device Identifier Shelf Expiration Date Model / [...] age 40, based on guidelines of the [place] [employer] (ACR Practice Parameter for the Performance of Screening and Diagnostic Mammography) and [place] [employer]. For women [...] Most Recently Relevant to Health Maintenance Insurance [facility] Member Subscriber Plan / Payer (Ef fective 2020-Present) Name:Fariba Olson Relation to Subscriber:Self Name:Fariba Olson Payer ID:[id number] (NAIC) Type:MEDICAID RISK OTHER Address: [address] [place] [address] [place] [address] [facility] Advance Directives For more information, please contact: [phone] Documents on File Type Date Recorded Patient Development Team Lead Expl anation ADVANCE DIRECTIVE 02/05/2022 8:42 AM POLST - PHYS ORDER FOR PT PREFERENCES ADVANCE DIRECTIVE 07/15/2012 12:00 AM MASSIEL R OF HIGH DENSITY TALC COATER OPERATOR FINANCIAL/MEDICAL * Full Code (Latest Code Status on File) Date Activated Date Inactivated Comments 10/12/2021 12:24 AM 10/21/2021 5:13 AM * Full Code Date Activated Date Inactivated Comments 08/29/2021 12:42 AM 09/03/2021 9:27 PM Care Teams Design Printer Balloon Relationship Specialty Start Date End Date Pj Linder MD [address] [facility] [address] [place] [address] PCP - General Family Medicine 04/18/23 Marlon Mendoza MD Conditioning Yard Supervisor Cardiovascular Disease 03/31/20 Jaret Forrester MD [address] [facility] [address] [place] [address] Consulting Physician Vascular Surgery 09/03/21 Ceferino Strickland MD [address] [facility] [address] [place] [address] Consulting Physician Infectious Diseases 10/20/21
[2024-09-11 19:53] LABS: Alanine Aminotransferase 21 U/L (6-35); Albumin Level 4.2 g/dL (3.5-5.1); Alkaline Phosphatase 91 U/L (38-126); Anion Gap 9 mmol/L (4-12); Aspartate Amino Transferase 28 U/L (14-36); Bilirubin,Total 0.7 mg/dL (0.2-1.3); Blood Urea Nitrogen 11 mg/dL (7-17); Calcium 9.4 mg/dL (8.4-10.2); Carbon Dioxide 29 mmol/L (22-30); Chloride 99 mmol/L (98-107); Estimated Glomerular Filt Rate 56; Glucose 120 mg/dL (65-110); INR 1.1; Lipase 44 U/L (23-300); Partial Thromboplastin Time 30.9 Seconds (22.3-36.8); Potassium 3.3 mmol/L (3.4-5.0); Prothrombin Time 13.8 Seconds (11.1-14.7); Sodium 137 mmol/L (137-145); Total Protein 7.5 g/dL (6.3-8.2)
[2024-09-11 20:05] LABS: Troponin I 0.015 ng/mL (0.000-0.034)
[2024-09-11 21:32] VITALS: PULSE 80; RESP 20; O2SAT 98
[2024-09-11 21:44] VITALS: PULSE 81
[2024-09-11 21:45] VITALS: BP 135/57; PULSE 82; RESP 24; O2SAT 95
[2024-09-11 22:32] LABS: Influenza A QL RT-PCR Negative (Negative); Influenza B QL RT-PCR Negative (Negative); RSV RNA, RT-PCR Negative (Negative); SARS-CoV-2 RNA PCR Negative (Negative)
[2024-09-11 22:40] LABS: Alveolar/Arterial O2 Gradient 135.1 mmHg; Carboxyhemoglobin 1.3 % THb (0-2.0); Fractional Inspired Oxygen 36 %; HCO3 ABG 25.7 mEq/l (22.0-26.0); Methemoglobin ABG 0.3 %THb (0-1.5); Oxygen Content ABG 20.5 %vol (16.0-22.0); Oxygen Saturation ABG 95.4 % (95.0-100.0); PCO2 ABG 40.0 mmHg (35.0-45.0); PO2 ABG 75.2 mmHg (80.0-100.0); PO2 FiO2 Ratio Arterial Blood 2.09 %; Reduced Hemoglobin 4.5 %THb (0-5.0)
[2024-09-11 22:41] LABS: Liters per Minute 4.0 LPM; Modified Allen's Test Pass; Site Drawn LEFT RADIAL
[2024-09-11] MEDS: POTASSIUM CHLORIDE 20 MEQ PACKET (FOR LIQUID) PO (22:49)
[2024-09-11] MEDS: DOXYCYCLINE HYCLATE 100 MG TABLET PO (23:10)
--- NOTE | 2024-09-11 23:50 | PC.NURSE ---
This RN spoke with pts facility and daughter about pts POC and discharge
[2024-09-12 01:16] VITALS: BP 135/57; PULSE 82; RESP 24; O2SAT 95
== END 2024-09-12 01:30 ==
PROVIDERS: Physician Assistant; Emergency Provider Emergency Medicine
DX: J18.9 Pneumonia, unspecified organism (principal); E87.6 Hypokalemia; Z20.822 Contact with and (suspected) exposure to COVID-19; J96.11 Chronic respiratory failure with hypoxia; J44.9 Chronic obstructive pulmonary disease, unspecified; Z99.81 Dependence on supplemental oxygen; I12.9 Hypertensive chronic kidney disease with stage 1 through stage 4 chronic kidney disease, or unspecified chronic kidney disease; N18.9 Chronic kidney disease, unspecified; E66.01 Morbid (severe) obesity due to excess calories; E78.5 Hyperlipidemia, unspecified; L40.9 Psoriasis, unspecified; G47.33 Obstructive sleep apnea (adult) (pediatric); G62.9 Polyneuropathy, unspecified; F31.9 Bipolar disorder, unspecified; F41.8 Other specified anxiety disorders; Z96.611 Presence of right artificial shoulder joint; Z98.42 Cataract extraction status, left eye; Z98.41 Cataract extraction status, right eye; Z87.442 Personal history of urinary calculi; Z87.891 Personal history of nicotine dependence
CPT/HCPCS: 36415; 36600; 71045; 80053; 82375; 82805; 83050; 83690; 84484; 85018; 85025; 85055; 85610; 85730; 87633; 87637; 93005; 99284; A9270

== ENCOUNTER 2024-10-14 02:23 | Emergency (ER) | payer OTHER, SELFPAY ==
--- NOTE | ~2024-10-14 | CT_ITS ---
EXAMINATION: CT cervical spine wo con DATE: 10/14/2024 03:15 INDICATION: Head and neck trauma TECHNIQUE: Computed tomography (CT) of the cervical spine was performed without intravenous contrast. The dose-length product was 613 mGy-cm. Automated exposure control and iterative reconstruction tech SD Motiongraphiks were employed. COMPARISON: CT dated 07/03/2024 FINDINGS: Reversal of cervical lordosis. Advanced degenerative disc disease and spondylosis at C5-6 a nd C6-7. Craniovertebral junction is normal. Odontoid process is normal. There is dextrocurvature of the cervical spine. There is moderate uncinate hypertrophy at C5-6 and C6-7. No acute fracture or tra umatic malalignment. No evidence for perched facet. No paraspinal soft tissue abnormality. There is e mphysema of the lung apices. IMPRESSION: 1. No acute abnormality of the cervical spine. Reviewed, dictated and finalized at location A.
--- NOTE | ~2024-10-14 | CT_ITS ---
EXAMINATION: CT brain wo con DATE: 10/14/2024 03:14 INDICATION: Status post fall. Headache. TECHNIQUE: Computed tomography (CT) of the head was performed without intravenous contrast. The dose- length product was 681.00 mGy-cm. Automated exposure control and iterative reconstruction technique w ere employed. COMPARISON: CT dated 09/11/2024 FINDINGS: Right frontal scalp hematoma. Generalized atrophy. There are scattered mild periventricular and subcortical white matter changes, most likely related to small vessel ischemic disease (microang iopathy). No ventriculomegaly or midline shift. Basilar cisterns are patent. IMPRESSION: 1. No acute intracranial abnormality. Reviewed, dictated and finalized at location A.
[2024-10-14 02:23] VITALS: BP 126/82; PULSE 77; RESP 16; TEMP 36.3; O2SAT 96
--- OUTSIDE RECORDS SUMMARY | 2024-10-14 03:01 | XMS_ITS | Clinical Summary ---
Author Organization [facility] Address [address] [place] [address] Care Team Providers Care Shoe Repair Cobbler Name Role Phone Sherice Scott RN Unavailable [phone] April Cornejo MD Primary Care Provider [phone] Source Comments [facility],non-owned Affiliates and Associated Physician Practices is amultiple site organization consisting of ambulatory clinics and hospital sitesin [place], [place], [place] and [place]. This disclosure is being madepursuant to the Care Everywhere program and may not contain all information available regarding this patient. Last updated 17.[facility] Allergies Active Allergy Reactions Criticality Noted Date [...] for Shortness of Breath 6 Active albuterol (PROVENTIL;EGNIA ALDO) (2.5 MG/3ML) 0.083% nebulizer solution USE [...] PO QD 0 8 Active nystatin (MYCOSTATIN) 439330 UNIT/GM cream SUZAN AND RUB IN A THIN FILM AA BID IN THE MORNING AND IN THE EVENING 5 8 Active nystatin (MYCOSTATIN) 891571 UNIT/ML suspension TK 5MLS PO QID FOR [...] on file Legal Sex Female 6:49 AM VASCULAR ULTRASOUND TECHNICIAN Gender Identity Not on file Sexual Orientation Not on file Last Filed Vital Signs Vital Sign Reading Time Taken Comments Blood Pressure 95/53 05/10/2015 11:56 AM VASCULAR ULTRASOUND TECHNICIAN Pulse 87 05/10/2015 11:56 AM VASCULAR ULTRASOUND TECHNICIAN Temperature 36.5 C (97.7 F) 05/10/2015 11:56 AM VASCULAR ULTRASOUND TECHNICIAN Respiratory Rate 18 05/10/2015 11:56 AM VASCULAR ULTRASOUND TECHNICIAN Oxygen Saturation 99% 05/10/2015 11:56 AM VASCULAR ULTRASOUND TECHNICIAN Inhaled Oxygen Concentration - - Weight 133.8 kg (295 lb) 02/05/2018 9:02 AM VASCULAR ULTRASOUND TECHNICIAN Height 177.8 cm (5' 10) 02/05/2018 9:02 AM VASCULAR ULTRASOUND TECHNICIAN Body Mass Index 42.33 02/05/2018 9:02 AM VASCULAR ULTRASOUND TECHNICIAN Plan of Treatment Health Maintenance Due Date [...] this topic Medical Devices Implanted Type Area Asset Protection Professional Device Identifier Shelf Expiration Date Model / Serial / Lot Implt Ceml Metaglene Implanted:Qty: 1 on 05/09/2015 by Raza Beth MD at [facility] Right: Shoulder [employer] 12/02/2019 1307-60-000 / / [id number] Sys Shld Tot Arthroplst Rev Implanted:Qty: 1 on 05/09/2015 by Raza Beth MD at [facility] [employer] S4 DEPUY / / Delta Xtend Implanted:Qty: 1 on 05/09/2015 by Raza Beth MD at [facility] Right: Shoulder 11/01/2019 [id number] / / [id number] Locking Mataglene Screw Implanted:Qty: 1 on 05/09/2015 by Raza Beth MD at [facility] Right: Shoulder 02/01/2020 [id number] / / [id number] Glenosphere Implanted:Qty: 1 on 05/09/2015 by Raza Beth MD at [facility] Right: Shoulder 01/01/2020 1307-60-142 / / [id number] Delta Extend Implanted:Qty: 1 on 05/09/2015 by Raza Beth MD at [facility] Right: Shoulder 09/01/2019 [id number] / / [id number] Delta Extend Implanted:Qty: 1 on 05/09/2015 by Raza Beth MD at [facility] Right: Shoulder 11/01/2019 [id number] / / [id number] Delta Xtend Modular Centered Epiphysis Implanted:Qty: 1 on 05/09/2015 by Raza Beth MD at [facility] Right: Shoulder [employer] 02/01/2020 1307-20-101 / / [id number] Delta Xtend Modular Humeral Stem Ramirez Coated Cementless Implanted:Qty: 1 on 05/09/2015 by Raza Beth MD at [facility] Right: Shoulder [employer] 02/01/2020 1307-12-000 / / [id number] Delta Xtend Standard Humeral Pe Cup Implanted:Qty: 1 on 05/09/2015 by Raza Beth MD at [facility] Right: Shoulder [employer] [id number] / / [id number] Insurance [facility] Advance Directives * Full Code (Latest Code Status on File) Date Activated Date Inactivated Comments 05/09/2015 10:15 PM 05/10/2015 2:17 PM Care Teams Shoe Repair Cobbler Relationship Specialty Start Date End Date April Cornejo MD PCP - General 02/05/18 Sherice Scott, RN Manufacturing Production Manager 05/10/15
--- OUTSIDE RECORDS SUMMARY | 2024-10-14 03:01 | XMS_ITS | Encounter Summary ---
Author Organization [facility] Address [address] [place] [address] Care Team Providers Care Fish Pitcher Name Role Phone April Cornejo MD Primary Care Provider [phone] Raza Lakhani MD Primary Care Provid er Marlon Mendoza MD Unavailable Jaret Forrester MD Unavailable Ceferino Strickland MD Unavailable [phone] Jase Fernandes MD Primary Care Provider [phone] Raza Lakhani MD Primary Care Provid er Pj Linder MD Primary Care Provider [phone] Encounter Details Date Type Department Care Team (Late st Contact Info) Description 02/28/2012 Orders Only [facility] Information Management [address] [place] [address] Scanning, Provider Social History Tobacco Use Types Packs/Day Years Used Date Smoking Tobacco: Never Assessed Comments Unknown Sex and Gender Information Value Date Recorded Sex Assigned at Not on file Legal Sex Female 4:57 PM FORESTRY INSTRUCTOR Gender Identity Not on file Sexual Orientation [...] difficile 02/27/2012 02/26/2012 02/13/2021 10:1 5 AM FORESTRY INSTRUCTOR COVID: Suspected 12/29/2019 12/29/2019 12/29/2019 12:46 PM CDT COVID19 12/29/2019 12/29/2019 01/12/2020 3:06 AM FORESTRY INSTRUCTOR MRSA 12/29/2019 12/28/2019 10/19/2020 5:00 AM CDT COVID: Recovered Comment:Added based on recent COVID infection. 01/12/2020 01/18/2020 05/11/2020 3:[address] COVID: Suspected 09/16/2020 09/16/2020 09/16/2020 11:04 PM CDT COVID: Suspected 02/12/2021 02/12/2021 02/12/2021 2:43 PM FORESTRY INSTRUCTOR COVID: Suspected 04/29/2021 04/29/2021 04/29/2021 6:17 PM FORESTRY INSTRUCTOR COVID: Suspected 08/15/2021 08/15/2021 08/15/2021 3:51 PM [...] COVID: Suspected 02/03/2022 02/03/2022 02/03/2022 8:01 PM FORESTRY INSTRUCTOR RSV, droplet 02/03/2022 02/03/2022 02/10/2022 3:06 AM FORESTRY INSTRUCTOR documented as of this encounter Care Teams Fish Pitcher Relationship Specialty Start Date End Date April Cornejo MD [address] [address] PCP - General Sports Medicine 01/16/18 02/14/20 Raza Lakhani MD [address] [place] [address] PCP - General Family Medicine 02/15/20 10/23/22 Jase Fernandes MD [address] [address] PCP - General Emergency Medicine 10/24/22 12/05/22 Raza Lakhani MD [address] [place] [address] PCP - General Family Medicine 12/06/22 04/17/23 Pj Linder MD [address] [place] [address] PCP - General Family Medicine 04/18/23 Marlon Mendoza MD [address] [place] [address] Electric Container Tester Cardiovascular Disease 03/31/20 [place] [address] [place] [address] Consulting Physician Vascular Surgery 09/03/21 Ceferino Strickland MD [address] [place] [address] Consulting Physician Infectious Diseases 10/20/21 documented as of this encounter
--- OUTSIDE RECORDS SUMMARY | 2024-10-14 03:01 | XMS_ITS | Clinical Summary ---
Author Organization [facility] Virtual Care Address [address] [place] [phone] Phone Care Team Providers Care Credit Rating Inspector Name Role Phone Marlon Mendoza MD Unavailable Jaret Forrester MD Unavailable Ceferino Strickland MD Unavailable [phone] Pj Linder MD Primary Care Provider [phone] Allergies Active Allergy Reactions Criticality Noted Date [...] into each nostril as needed Active omega 1-ndv-laq-fish oil (Fish Oil) 100-160-1,000 mg capsule Take [...] today. Assessment & Plan (04/04/2020 4:24 PM TELEVISION NEWS PHOTOGRAPHER): Currently patient is using 5 L of supplemental oxygen at rest and 6 with exertion. I will obtain 6 minutes walk test today to reassess her oxygen requirements. Patient has multiple comorbidities and osteoarthritis of the hands. She will benefit from small portable oxygen concentrator that he can carry around with ambulation. Will request her [employer] company to assist with it. Smoking greater than 30 pack years 04/04/2020 Assessment & Plan (04/04/2020 4:26 PM TELEVISION NEWS PHOTOGRAPHER): Patient has quit smoking about 1 and [...] inhaler. Assessment & Plan (04/04/2020 4:24 PM TELEVISION NEWS PHOTOGRAPHER): Continue with wixela, Incruse and p.r.n. albuterol [...] 02/12/2020 Assessment & Plan (04/04/2020 4:22 PM TELEVISION NEWS PHOTOGRAPHER): Patient states she underwent sleep study and [...] her pain. Will switch her back to [place]. Pulmonary nodule 12/16/2015 Assessment & Plan (07/12/2020 [...] for infection at this point. Will initiate [place] for pain control, continue dressing changes with Xeroform. Plan for follow-up in the office in 2 weeks for suture removal Fall 10/20/2021 12/10/2022 Cellulitis of toe of right foot 10/11/2021 10/12/2021 Acute osteomyelitis of left ankle or foot 09/06/2021 10/12/2021 Overview (09/06/2021): Added automatically from request for surgery [id number] Open wound of toe 08/28/2021 10/12/2021 Cellulitis [...] 03/31/202011/2022 Assessment & Plan (04/04/2020 4:24 PM TELEVISION NEWS PHOTOGRAPHER): Patient was advised to lose weight by diet and exercise. Family history of coronary artery disease 03/31/2020 12/10/2022 Asymptomatic COVID-19 virus infection 02/12/2020 10/18/2021 Massive hemoptysis 02/12/2020 2 Positive D-dimer 02/12/2020 08/28/2021 Dyspnea on exertion 08/13/2019 08/29/19 Assessment & Plan (04/04/2020 4:23 PM TELEVISION NEWS PHOTOGRAPHER): The shortness of breath is improved. Will [...] needed. Assessment & Plan (04/04/2020 4:24 PM TELEVISION NEWS PHOTOGRAPHER): Continue with Flonase on as needed basis. [...] Medical History Date Comments Bipolar 1 disorder (HCC) COPD (chronic obstructive pu lmonary disease) Chronic kidney disease stage 3/b orn with [...] neck and between shoulder blades Spina bifida Patient termed premature spina bifida, born with many problems with different parts of body , born with high temp 105 pt states. CHF (congestive heart failure) ([facility]) history Wears dentures On home oxygen therapy 4L/[place] History of COVID-19 04/29/2021 Osteomyelitis of left foot ([facility]) 04/29/2021 Obstructive sleep apnea syndrome [...] oz pur e alcohol) Social Connection and Isolation Panel Answer Date Recorded In a typical week, how many times do you talk on the phone with family, friends, or neighbors? More than three times a week 05/01/2021 How often do you get togethe r with friends or relatives? More than three times a week 05/01/2021 How often do you attend [facility] or restorationism services? 1 to 4 times per year [...] place to sleep or slept in a jail (including now)? No 05/01/2021 Comments No Sex and Gender Information Value Date Recorded Sex Assigned at Not on file Legal Sex Female 4:57 PM TELEVISION NEWS PHOTOGRAPHER Gender Identity Not on file Sexual Orientation [...] Screening-Mammogram 05/28/2024 05/29/2023, 10/03/2021, 01/20/2018 Influenza Vaccine (#1) 2024 , 11/23/2020, 12/25/2019, Additional history exists Colon Cancer Screening-Colonoscopy 09/17/20262016 Zoster Vaccine Completed 04/23/2022, 02/16/2022 Medical Devices Implanted Type Area Alley Worker Device Identifier Shelf Expiration Date Model / Serial / Lot Lens Lens Bilateral: Eye Right Shoulder Replacement Other - see comments Right: Shoulder Procedures Procedure Name Priority Date/Time Associated Diagnosis Comments SCREENING MAMMOGRAM BILATERAL W GILBERTO Schedule Routine, Read Routine (OP Routine) 05/29/2023 11:16 AM CDT Breast cancer screening by mammogram COLONOSCOPY Routine 09/17/2016 from Last 3 Months or Most Recently Relevant to Health Maintenance Results * SCREENING MAMMOGRAM BILATERAL W GILBERTO (05/29/2023 [...] age 42, based on guidelines of the [place] [employer] (ACR Practice Parameter for the Performance of Screening and Diagnostic Mammography) and [place] [employer]. For women [...] Most Recently Relevant to Health Maintenance Insurance Member Subscriber Plan / Payer (Ef fective 2017-Present) Name:Fariba Olson Relation to Subscriber:Self Name:Fariba Olson Payer ID:[id number] (NAIC) Group ID:Not on file Type:MEDICAID RISK OTHER Address: [address] [place], [place] [id number] [place] [address] [facility] Advance Directives For more information, please contact: [phone] Documents on File Type Date Recorded Patient News Editor Expl anation ADVANCE DIRECTIVE 02/05/2022 8:42 AM POLST - PHYS ORDER FOR PT PREFERENCES ADVANCE DIRECTIVE 07/15/2012 12:00 AM MASSIEL R OF SLAB DEPILER OPERATOR FINANCIAL/MEDICAL * Full Code (Latest Code Status on File) Date Activated Date Inactivated Comments 10/12/2021 12:24 AM 10/21/2021 5:13 AM * Full Code Date Activated Date Inactivated Comments 08/29/2021 12:42 AM 09/03/2021 9:27 PM Care Teams Credit Rating Inspector Relationship Specialty Start Date End Date Pj Linder MD [address] [place] [address] PCP - General Family Medicine 04/18/23 Marlon Mendoza MD E Learning Developer Cardiovascular Disease 03/31/20 Jaret Forrester MD [address] [place] [address] [place] [address] Consulting Physician Vascular Surgery 09/03/21 Ceferino Strickland MD [address] [place] [address] [place] [address] Consulting Physician Infectious Diseases 10/20/21
--- OUTSIDE RECORDS SUMMARY | 2024-10-14 03:01 | XMS_ITS | Continuity of Care Document ---
Author Organization [facility] Address [address] [place] [phone] Phone Care Team Providers Care Inbound Sales Representative Name Role Phone Sterling FOX, John EDWARDS Unavailable Unavailab le Procedures Procedure Date SUBSEQUENT HOSPITAL CARE SUBSEQUENT HOSPITAL CARE SUBSEQUENT HOSPITAL CARE ORGANIZATIONAL DEVELOPMENT MANAGER Split Share Billing SUBSEQUENT HOSPITAL CARE SUBSEQUENT HOSPITAL CARE INITIAL INPATIENT CONSULT SUBSEQUENT HOSPITAL CARE SUBSEQUENT HOSPITAL CARE SUBSEQUENT HOSPITAL CARE Advance Directives Directive Yes / No Effective Date File Name No Information Encounters Encounter Description Practice Location Reason(s) For Visit Diagnoses Date Provider Providers Copied on Encounter SUBSEQUENT HOSPITAL CARE [facility], [address] [place] [address], [id number] , tel: [phone] [facility] Inpt Essential (primary) hypertensionShort ness of breathType 2 diabetes mellitus without complicationsUnsp ecified atrial fibrillationChron ic respiratory failure with hypoxiaAltered mental status, unspecifiedObesit y, unspecified Sterling Lopez. [address] [place] [address], [id number], . tel:[phone] Referring Provider: Pj Linder, [address], [place], [address]. tel:[phone] SUBSEQUENT HOSPITAL CARE [facility], [address] [place] [address], [id number] , [place] tel: [phone] [facility] Inpt Essential (primary) hypertensionShort ness of breathType 2 diabetes mellitus without complicationsUnsp ecified atrial fibrillationChron ic respiratory failure with hypoxiaAltered mental status, unspecifiedObesit y, unspecified 5 Moomilli Sebas. [address] [place] [place], [place], [id number], . [phone] Referring Provider: [address], [place], [place], [facility]. tel:[phone] [facility] , [address] [place] [address], [id number] , tel: [phone] [facility] Inpt Essential (primary) hypertensionShort ness of breathType 2 diabetes mellitus without complicationsUnsp ecified atrial fibrillationChron ic respiratory failure with hypoxiaAltered mental status, unspecifiedObesit y, unspecified 5 Hilario Gandara. [address] [place], [place], [id number], . [phone] Referring Provider: [address], [place], [facility]. tel:[phone] SUBSEQUENT HOSPITAL CARE [facility] , [address] [place] [address], [id number] , tel: [phone] [facility] Inpt Essential (primary) hypertensionShort ness of breathUnspecified atrial fibrillationType 2 diabetes mellitus without complicationsObes ity, unspecifiedAltere d mental status, unspecified 5 Pabol Hankins. [address] [place], [place], [id number], . tel:[phone] Referring Provider: Reg[address], [place], [facility]. tel:[phone] [facility] CARE [facility] , [address] [place] [address], [id number] , tel: [phone] [facility] Inpt Essential (primary) hypertensionShort ness of breathType 2 diabetes mellitus without complicationsUnsp ecified atrial fibrillationChron ic respiratory failure with hypoxiaAltered mental status, unspecifiedObesit y, unspecified 5 Kalvaitis Saulius. [address] [place], [place], [id number], . tel:[phone] Referring Provider: Reg[address], [place], [facility]. tel:[phone] INITIAL INPATIENT CONSULT [facility] , [address] [place] [address], [id number] , tel: [phone] [facility] In Essential (primary) hypertensionParox ysmal atrial fibrillationAlter ed mental status, unspecifiedChroni c kidney disease, unspecifiedObesit y, unspecifiedChroni c respiratory failure with hypoxiaEmphysema, unspecifiedShortn ess of breathType 2 diabetes mellitus without complicationsUnsp ecified atrial fibrillation 5 Peterson Monica. [address], [place], [place], [id number], . tel:[phone] Referring Provider: Reginal[address], [place], [facility]. tel:[phone] SUBSEQUENT HOSPITAL CARE [facility] , [address] [place] [address], [id number] , tel: [phone] [facility] In Essential (primary) hypertensionShort ness of breathType 2 diabetes mellitus without complicationsUnsp ecified atrial fibrillationChron ic respiratory failure with hypoxiaAltered mental status, unspecifiedObesit y, unspecified 5 Ventimiglia Ana. [address] [place], [place], [id number], . tel:[phone] Referring Provider: Reginald [address], [place], [address]. tel:[phone] Family History Family Member Type Diagnosis Age At Onset No Information Payers Payer name Insurance type Covered green party ID Authoriza tion(s) [facility] [id number] Social History Type Description Quantity Date Captured Comments Sex Female Smoking Status No Information Chief Complaint And Reason For Visit No Information Reason For Referral Reason For Referral No Information History Of Present Illness Encounter Date Complaint History Of Prese nt Illness No Information Functional Status Date Functional Assessmen t No Information Instructions Date Instruction Additional Infor mation No Information Assessments Type Assessment Date No Information Patient Care Teams Name Effective Dates (start - stop) Status Members No Information
--- NOTE | 2024-10-14 03:50 | ED.HEATRA ---
HPI - Head Injury General Chief complaint: Fall Stated complaint: HEAD/FACE TRAUMA S/P FALL Time Seen by Provider: 10/14/24 02:55 History of Present Illness HPI Narrative: 63-year-old female presenting from her half-way facility after mechanical fall. She states she was leaning forward to picking supervisor her remote off the ground and fell forward hitting her face against the ground. Did not lose consciousness and does not take any blood thinner medications. She is acting appropriately but states she is having a headache in the bilateral frontal regions were she has some bruising forming. No nauseousness or vomiting. No mental status changes or any neurological symptoms. Was otherwise in her normal state of health. Related Data Home Medications ?Medication ?Instructions ?Recorded ?Confirmed ?Last Taken ?Type allopurinol 300 mg tablet 300 mg PO DAILY 07/02/20 02/14/23 02/13/23 History atorvastatin 40 mg tablet 40 mg PO HS 07/02/20 02/14/23 02/13/23 History gabapentin 800 mg tablet 800 mg PO TID 07/02/20 02/14/23 02/13/23 History montelukast 10 mg tablet 10 mg PO HS 07/02/20 02/14/23 02/13/23 History trazodone 50 mg tablet 100 mg PO HS 07/02/20 02/14/23 02/13/23 History aripiprazole 5 mg tablet 5 mg PO DAILY 05/07/22 02/14/23 02/13/23 History famotidine 40 mg tablet 40 mg PO DAILY 05/07/22 02/14/23 02/13/23 History topiramate 50 mg tablet 50 mg PO BID 05/07/22 02/14/23 02/13/23 History benzonatate 200 mg capsule 200 mg PO TID 10/19/22 02/14/23 Unknown History cyclobenzaprine 10 mg tablet 10 mg PO DAILY 10/19/22 02/14/23 Unknown History duloxetine 30 mg capsule,delayed 30 mg PO DAILY 10/19/22 02/14/23 Unknown History release furosemide 40 mg tablet 40 mg PO BID 10/19/22 02/14/23 02/13/23 History isosorbide dinitrate 30 mg tablet 30 mg PO DAILY 10/19/22 02/14/23 02/13/23 History metolazone 2.5 mg tablet 2.5 mg PO EVERY OTHER DAY 10/19/22 02/14/23 Unknown History spironolactone 25 mg tablet 25 mg PO BID 10/19/22 02/14/23 02/13/23 History buspirone 10 mg tablet 10 mg PO BID 12/13/22 02/14/23 02/13/23 History lamotrigine 25 mg tablet 25 mg PO DAILY 12/13/22 02/14/23 02/13/23 History Allergies Allergy/AdvReac Type Severity Reaction Status Date / Time bee venom protein (honey bee) Allergy Severe Anaphylaxis Verified 09/11/24 19:12 Bleach (Sodium Hypochlorite) Allergy Severe Anaphylaxis Verified 10/14/24 02:30 Penicillins Allergy Anaphylaxis Verified 09/11/24 19:12 bee Stings Allergy Severe Anaphylaxis Uncoded 09/11/24 19:12 Fixodent Allergy Intermediate Blister Uncoded 09/11/24 19:12 fixodent Allergy Hives Uncoded 09/11/24 19:12 Review of Systems Review of Systems: As reviewed above in [facility] Past Medical History Medical History Psoriasis Kidney stones Cervical cancer Obstructive sleep apnea on CPAP Bipolar disorder Chronic kidney disease Chronic obstructive pulmonary disease 5 L nasal cannula. Chronic respiratory failure with hypoxia, on home oxygen therapy Hyperlipidemia Depression with anxiety Hypertension History of tobacco abuse Peripheral neuropathy (10/2022) Asthma Morbid obesity with BMI of 50.0-59.9, adult Surgical History Surgical History History of section History of benign breast biopsy History of cystoscopy History of tonsillectomy History of reverse total replacement of right shoulder joint History of hysterectomy History of bilateral cataract extraction Family History Family History Mother , age 68 CHF (congestive heart failure) Emphysema of lung Father , at age 62 Acute myocardial infarction Emphysema of lung Sibling , age 59 Pancreatic cancer Sibling , age 40 acute CO Acute myocardial infarction Social History Social History Social History: Healthcare power of securities attorney: Mag Dorsey, daughter. Code status: Full code. Smoking packs per day: 1.5 Smoking cigarettes per day: 30.0 Years smoked: 40 Smoking pack-years: 60.00 Smoking status: Former smoker Second hand tobacco smoke exposure: Yes (in childhood) Alcohol intake: never Substance use type: does not use Other substance usage details: prescribed Do You Feel Safe in your Home?: Yes Lack of Transportation: No Lack of Food: Never True Current Housing: I Have Housing Concerned About Future Housing: No Difficulty Paying Gas/Electric Bills: No Difficulty Paying for Meds: No Currently Unemployed: No Education: High School Diploma/GED Difficulty w/ Childcare or Family Care: No Additional living arrangements comments: Lives in [place]. Has 4 children. Additional occupation/education comments: Disabled. Spiritual care concerns: No Exam Narrative: GENERAL: Chronically ill-appearing but not any acute distress. Morbidly obese HEAD: Normocephalic, bilateral frontal scalp hematomas without any bleeding. EYES: Pupils equal reactive to light ENT: Nares clear, no rhinorrhea or epistaxis. Mucous membranes moist. NECK: Supple. CHEST: Nonlabored respirations, symmetric chest rise HEART: Regular rate and rhythm warm extremities ABDOMEN: [Soft, nondistended], [nontender], [No rigidity or guarding] EXTREMITIES: Normal range of motion. [No edema.] SKIN: Warm, dry, no rash. NEURO: Awake alert oriented no focal deficits. PSYCH: [Normal mood and affect.] Course Vital Signs Vital signs: Vital Signs Temperature 36.3 C L 10/14/24 02:23 Pulse Rate 77 10/14/24 02:23 Respiratory Rate 16 10/14/24 02:23 Blood Pressure 126/82 10/14/24 02:23 Pulse Oximetry 96 10/14/24 02:23 Oxygen Delivery Room Air 10/14/24 02:23 Temperature 36.3 C L 10/14/24 02:23 Pulse Rate 77 10/14/24 02:23 Respiratory Rate 16 10/14/24 02:23 Blood Pressure 126/82 10/14/24 02:23 Pulse Oximetry 96 10/14/24 02:23 Oxygen Delivery Room Air 10/14/24 02:23 MDM - Head Injury MDM Narrative Medical decision making narrative: 63-year-old female presenting from her half-way facility after mechanical fall. She states she was leaning forward to picking supervisor her remote off the ground and fell forward hitting her face against the ground. Did not lose consciousness and does not take any blood thinner medications. She is acting appropriately but states she is having a headache in the bilateral frontal regions were she has some bruising forming. No nauseousness or vomiting. No mental status changes or any neurological symptoms. Was otherwise in her normal state of health. Patient is overall not any acute distress with normal vital signs here. Given her age and risk factors a CT of the head neck was obtained to rule out any kind of acute injury. She was given Maddock for analgesia with good effect. CT scan shows no hemorrhage, hydrocephalus or intracranial abnormalities. Bones are unremarkable. CT cervical spine shows no fractures or subluxations. No soft tissue swelling in the neck. Patient stable for discharge back to skilled care facility. [facility] ambulance unit arranged. Medical Records Attestation: I reviewed the patient's medical records. Imaging Data Attestation: I personally reviewed and interpreted this imaging study as follows: My impression: No acute traumatic findings Discharge Plan Discharge Clinical Impression: CHI (closed head injury), Contusion of forehead Patient Disposition: Home Condition: Stable Instructions: Antibiotic Form, Head Injury (ED), Contusion in Adults (ED), Post Concussion Syndrome (ED) Additional Instructions: CT scan shows no injuries. Take Tylenol/ibuprofen for aches and pains. Return with any emergent concerns. Patient Language: Macedonian Prescriptions: No Action buspirone 10 mg tablet 10 mg PO BID lamotrigine 25 mg tablet 25 mg PO DAILY famotidine 40 mg tablet 40 mg PO DAILY aripiprazole 5 mg tablet 5 mg PO DAILY topiramate 50 mg tablet 50 mg PO BID metoprolol tartrate 25 mg Tablet 25 mg PO Q12HR 30 Days Qty: 60 0RF simethicone 125 mg capsule 125 mg PO QID Qty: 20 0RF Rx Instructions: administer after meals and at bedtime dicyclomine 20 mg tablet 20 mg PO QID Qty: 20 0RF levofloxacin 750 mg tablet 750 mg PO DAILY Qty: 5 0RF atorvastatin 40 mg Tablet 40 mg PO HS trazodone 50 mg Tablet 100 mg PO HS gabapentin 800 mg Tablet 800 mg PO TID montelukast 10 mg Tablet 10 mg PO HS allopurinol 300 mg Tablet 300 mg PO DAILY cyclobenzaprine 10 mg tablet 10 mg PO DAILY furosemide 40 mg tablet 40 mg PO BID isosorbide dinitrate 30 mg tablet 30 mg PO DAILY duloxetine 30 mg capsule,delayed release(DR/EC) 30 mg PO DAILY metolazone 2.5 mg Tablet 2.5 mg PO EVERY OTHER DAY benzonatate 200 mg Capsule 200 mg PO TID spironolactone 25 mg tablet 25 mg PO BID acetaminophen 325 mg Tablet 650 mg PO Q4H PRN (Reason: Mild Pain (1-3) Or Fever) Qty: 0 0RF cefdinir 300 mg Capsule 300 mg PO Q12HR Qty: 0 0RF doxycycline hyclate 100 mg Tablet 100 mg PO Q12HR Qty: 0 0RF potassium chloride [K-Tab] 20 mEq Tablet Extended Release 40 meq PO BIDWM Qty: 0 0RF bupropion HCl [Wellbutrin SR] 150 mg Tablet Sustained-Release 12 Hr 150 mg PO Q12H Qty: 60 0RF tramadol 50 mg tablet 50 mg PO Q6H PRN (Reason: Pain) Qty: 12 0RF alprazolam 0.5 mg tablet 0.5 mg PO HS Qty: 12 0RF hydrocodone-acetaminophen 5-325 mg tablet 1 tablet PO Q6H PRN (Reason: pain) Qty: 12 0RF doxycycline hyclate 100 mg capsule 100 mg PO BID 5 Days Qty: 10 0RF Follow-up/Referrals: UNKNOWN,DOCTOR [Primary Care Provider] - Time of Disposition: 03:53
[2024-10-14] MEDS: HYDROcodone/acetaminophen (*CRX) 5-325 MG TABLET 1 TAB PO (03:55)
[2024-10-14 07:44] VITALS: BP 103/85; PULSE 88; RESP 20; O2SAT 99
== END 2024-10-14 07:47 ==
PROVIDERS: Emergency Provider Student in an Organized Health Care Education/Training Program
DX: S00.83XA Contusion of other part of head, initial encounter (principal); W18.30XA Fall on same level, unspecified, initial encounter; Z85.41 Personal history of malignant neoplasm of cervix uteri; G47.33 Obstructive sleep apnea (adult) (pediatric); Z99.89 Dependence on other enabling machines and devices; N18.9 Chronic kidney disease, unspecified; F31.9 Bipolar disorder, unspecified; J44.9 Chronic obstructive pulmonary disease, unspecified; Z99.81 Dependence on supplemental oxygen; E78.5 Hyperlipidemia, unspecified; I12.9 Hypertensive chronic kidney disease with stage 1 through stage 4 chronic kidney disease, or unspecified chronic kidney disease; J45.909 Unspecified asthma, uncomplicated; Z87.891 Personal history of nicotine dependence; E66.01 Morbid (severe) obesity due to excess calories; Z68.39 Body mass index [BMI] 39.0-39.9, adult
CPT/HCPCS: 70450; 72125; 99284; A9270

== ENCOUNTER 2025-02-26 11:17 | Emergency (ER) | payer OTHER, SELFPAY ==
--- NOTE | ~2025-02-26 | CT_ITS ---
CT abdomen pelvis w con Clinical History: r flank pain, recent fall . Comparison: None Technique: Axial images lung bases to symphysis pubis IV contrast information not listed in PACS Coronal, sagittal reformats CT images acquired with automatic exposure control for dose reduction DLP: 1588 mGy-cm Findings: Lung bases: Scarring. Visualized heart and pericardium: Unremarkable. Liver: Steatosis. Enlarged Gallbladder: Unremarkable. Spleen: Enlarged. Pancreas: Unremarkable. Adrenal glands: Unremarkable. Kidneys: Right kidney- No hydronephrosis. No renal stones. A few small cysts. Left kidney- No hydronephrosis. No renal stones. Distal esophagus/stomach: Unremarkable. Small bowel loops: Normal caliber and wall thickness. Colon: Normal caliber and wall thickness. Normal RLQ appendix. Nodes: No enlarged nodes. Peritoneum: No ascites. No free air. Urinary bladder: Unremarkable. Uterus: Absent. Adnexa: No masses. Bones: Compression fracture T11. Soft tissues: Unremarkable. Aorta: No aneurysm or dissection. Atherosclerotic disease. IVC: Unremarkable. Main portal vein/SMV/splenic vein: Patent. IMPRESSION: 1. Compression fracture T11. 2. No acute visceral abnormality within abdomen or pelvis. Reviewed, dictated and finalized at location [facility]. [facility]
[2025-02-26 11:19] VITALS: BP 134/86; PULSE 63; RESP 13; TEMP 36.4; O2SAT 95
--- OUTSIDE RECORDS SUMMARY | 2025-02-26 12:17 | XMS_ITS | Clinical Summary ---
Author Organization [facility] Address [address] [place] [address] Care Team Providers Care Power Plant Assistant Name Role Phone Sherice Scott RN Unavailable [phone] April Cornejo MD Primary Care Provider [phone] Source Comments [facility],non-owned Affiliates and Associated Physician Practices is amultiple site organization consisting of ambulatory clinics and hospital sitesin [place], [place], [place] and [place]. This disclosure is being madepursuant to the Care Everywhere program and may not contain all information available regarding this patient. Last updated 17.[facility] Allergies Active Allergy Reactions Criticality [...] PO QD 0 8 Active nystatin (MYCOSTATIN) 666809 UNIT/GM cream SUZAN AND RUB IN A THIN FILM AA BID IN THE MORNING AND IN THE EVENING 5 8 Active nystatin (MYCOSTATIN) 982813 UNIT/ML suspension TK 5MLS PO QID FOR [...] on file Legal Sex Female 6:49 AM SHOE POLISHER Gender Identity Not on file Sexual Orientation Not on file Last Filed Vital Signs Vital Sign Reading Time Taken Comments Blood Pressure 95/53 05/10/2015 11:56 AM SHOE POLISHER Pulse 87 05/10/2015 11:56 AM SHOE POLISHER Temperature 36.5 C (97.7 F) 05/10/2015 11:56 AM SHOE POLISHER Respiratory Rate 18 05/10/2015 11:56 AM SHOE POLISHER Oxygen Saturation 99% 05/10/2015 11:56 AM SHOE POLISHER Inhaled Oxygen Concentration - - Weight 133.8 kg (295 lb) 02/05/2018 9:02 AM SHOE POLISHER Height 177.8 cm (5' 10) 02/05/2018 9:02 AM SHOE POLISHER Body Mass Index 42.33 02/05/2018 9:02 AM SHOE POLISHER Plan of Treatment Health Maintenance Due Date [...] 11/15/1980 DTAP/TDAP/TD VACCINES (1 - Tdap) 1981 Respiratory Syncytial Virus (RSV) Vaccine Pt: or over 60 yrs (1 - Risk 50-74 years 1-dose series) 2012 ZOSTER VACCINE (1 of 2) 2012 PNEUMOCOCCAL VACCINE 50+ (2 of 2 - PCV) 11/29/2018 11/29/2017 DEPRESSION SCREENING 03/04/2024 COVID-19 VACCINE (1 - 2024- season) 2024 INFLUENZA VACCINE (#1) 2024 , 12/25/2019, 11/28/2018, [...] this topic Medical Devices Implanted Type Area Weigher Operator Device Identifier Shelf Expiration Date Model / Serial / Lot Implt Ceml Metaglene Implanted:Qty: 1 on 05/09/2015 by Raza Beth MD at [facility] Right: Shoulder [employer] 12/02/2019 1307-60-000 / / [id number] s ld Tot Arthroplst Rev Implanted:Qty: 1 on 05/09/2015 by Raza Beth MD at [facility] [employer] S4 DEPUY / / Delta Xtend Implanted:Qty: 1 on 05/09/2015 by Raza Beth MD at [facility] Right: Shoulder 11/01/2019 [id number] / / [id number] Locking Mataglene Screw Implanted:Qty: 1 on 05/09/2015 by Raza Beth MD at [facility] Right: Shoulder 02/01/2020 [id number] / / [id number] Glenosphere Implanted:Qty: 1 on 05/09/2015 by Raza Beth MD at [facility] Right: Shoulder 01/01/2020 [id number] / / [id number] Delta Extend Implanted:Qty: 1 on 05/09/2015 by Raza Beth MD at [facility] Right: Shoulder 09/01/2019 [id number] / / [id number] Delta Extend Implanted:Qty: 1 on 05/09/2015 by Raza Beth MD at [facility] Right: Shoulder 11/01/2019 [id number] / / [id number] Delta Xtend Modular Centered Epiphysis Implanted:Qty: 1 on 05/09/2015 by Raza Beth MD at [facility] Right: Shoulder [employer] 02/01/2020 [id number] / / [id number] Delta Xtend Modular Humeral Stem Ramirez Coated Cementless Implanted:Qty: 1 on 05/09/2015 by Raza Beth MD at [facility] Right: Shoulder [employer] 02/01/2020 1307-12-000 / / [id number] Delta Xtend Standard Humeral Pe Cup Implanted:Qty: 1 on 05/09/2015 by Raza Beth MD at [facility] Right: Shoulder [employer] [id number] / / [id number] Insurance [facility] [id number] [place] [address] Advance Directives * Full Code (Latest Code Status on File) Date Activated Date Inactivated Comments 05/09/2015 10:15 PM 05/10/2015 2:17 PM Care Teams Power Plant Assistant Relationship Specialty Start Date End Date April Cornejo MD PCP - General 02/05/18 Sherice Scott, RN Financial Solutions Advisor 05/10/15
--- OUTSIDE RECORDS SUMMARY | 2025-02-26 12:17 | XMS_ITS | Encounter Summary ---
Author Organization [facility] Address [address] [place] [address] Care Team Providers Care Mac Artist Name Role Phone April Cornejo MD Primary Care Provider [phone] Raza Lakhani MD Primary Care Provid er Marlon Mendoza MD Unavailable Jaret Forrester MD Unavailable Ceferino Strickland MD Unavailable [phone] Jase Fernandes MD Primary Care Provider [phone] Raza Lakhani MD Primary Care Provid er Pj Linder MD Primary Care Provider [phone] Encounter Details Date Type Department Care Team (Late st Contact Info) Description 02/28/2012 Orders Only [facility] Information Management [address] [place] [address] Scanning, Provider Social History Tobacco Use Types Packs/Day Years Used Date Smoking Tobacco: Never Assessed Comments Unknown Sex and Gender Information Value Date Recorded Sex Assigned at Not on file Legal Sex Female 4:57 PM ALTO SINGER Gender Identity Not on file Sexual Orientation [...] difficile 02/27/2012 02/26/2012 02/13/2021 10:1 5 AM ALTO SINGER COVID: Suspected 12/29/2019 12/29/2019 12/29/2019 12:46 PM CDT COVID19 12/29/2019 12/29/2019 01/12/2020 3:06 AM ALTO SINGER MRSA 12/29/2019 12/28/2019 10/19/2020 5:00 AM CDT COVID: Recovered Comment:Added based on recent COVID infection. 01/12/2020 01/18/2020 05/11/2020 3:07 AM ALTO SINGER COVID: Suspected 09/16/2020 09/16/2020 09/16/2020 11:04 PM CDT COVID: Suspected 02/12/2021 02/12/2021 02/12/2021 2:43 PM ALTO SINGER COVID: Suspected 04/29/2021 04/29/2021 04/29/2021 6:17 PM ALTO SINGER COVID: Suspected 08/15/2021 08/15/2021 08/15/2021 3:51 PM [...] COVID: Suspected 02/03/2022 02/03/2022 02/03/2022 8:01 PM ALTO SINGER RSV, droplet 02/03/2022 02/03/2022 02/10/2022 3:06 AM ALTO SINGER documented as of this encounter Care Teams Mac Artist Relationship Specialty Start Date End Date April Cornejo MD [address] [address] PCP - General Sports Medicine 01/16/18 02/14/20 Raza Lakhani MD [address] [address] PCP - General Family Medicine 02/15/20 10/23/22 Jase Fernandes MD [address] [address] PCP - General Emergency Medicine 10/24/22 12/05/22 Raza Lakhani MD [address] [address] PCP - General Family Medicine 12/06/22 04/17/23 Pj Linder MD [address] [address] PCP - General Family Medicine 04/18/23 Marlon Mendoza MD [address] [address] Mobile Equipment Servicer Cardiovascular Disease 03/31/20 [place] [address] [place] [address] Consulting Physician Vascular Surgery 09/03/21 Ceferino Strickland MD [address] [facility] [facility] [address] [place] [address] [place] [address] Consulting Physician Infectious Diseases 10/20/21 documented as of this encounter
--- OUTSIDE RECORDS SUMMARY | 2025-02-26 12:17 | XMS_ITS | Clinical Summary ---
Author Organization [facility] Address [address] [place] [id number] Phone Care Team Providers Care Beauty Consultant Name Role Phone Marlon Mendoza MD Unavailable Jaret Forrester MD Unavailable Ceferino Strickland MD Unavailable [phone] Pj Linder MD Primary Care Provider [phone] Allergies Active Allergy Reactions Criticality Noted Date [...] into each nostril as needed Active omega 0-lhx-kmp-fish oil (Fish Oil) 100-160-1,000 mg capsule Take [...] today. Assessment & Plan (04/04/2020 4:24 PM ORACLE SOA CONSULTANT): Currently patient is using 5 L of supplemental oxygen at rest and 6 with exertion. I will obtain 6 minutes walk test today to reassess her oxygen requirements. Patient has multiple comorbidities and osteoarthritis of the hands. She will benefit from small portable oxygen concentrator that he can carry around with ambulation. Will request her [employer] company to assist with it. Smoking greater than 30 pack years 04/04/2020 Assessment & Plan (04/04/2020 4:26 PM ORACLE SOA CONSULTANT): Patient has quit smoking about 1 and [...] inhaler. Assessment & Plan (04/04/2020 4:24 PM ORACLE SOA CONSULTANT): Continue with wixela, Incruse and p.r.n. albuterol [...] 02/12/2020 Assessment & Plan (04/04/2020 4:22 PM ORACLE SOA CONSULTANT): Patient states she underwent sleep study and [...] her pain. Will switch her back to Rumney. Pulmonary nodule 12/16/2015 Assessment & Plan (07/12/2020 [...] for infection at this point. Will initiate Rumney for pain control, continue dressing changes with Xeroform. Plan for follow-up in the office in 2 weeks for suture removal Fall 10/20/2021 12/10/2022 Cellulitis of toe of right foot 10/11/2021 10/12/2021 Acute osteomyelitis of left ankle or foot 09/06/2021 10/12/2021 Overview (09/06/2021): Added automatically from request for surgery [id number] Open wound of toe 08/28/2021 10/12/2021 Cellulitis [...] 03/31/202011/2022 Assessment & Plan (04/04/2020 4:24 PM ORACLE SOA CONSULTANT): Patient was advised to lose weight by diet and exercise. Family history of coronary artery disease 03/31/2020 12/10/2022 Asymptomatic COVID-19 virus infection 02/12/2020 10/18/2021 Massive hemoptysis 02/12/2020 2 Positive D-dimer 02/12/2020 08/28/2021 Dyspnea on exertion 08/13/2019 08/29/19 Assessment & Plan (04/04/2020 4:23 PM ORACLE SOA CONSULTANT): The shortness of breath is improved. Will [...] needed. Assessment & Plan (04/04/2020 4:24 PM ORACLE SOA CONSULTANT): Continue with Flonase on as needed basis. [...] 105 pt states. CHF (congestive heart failure) ([facility]) history Wears dentures On home oxygen therapy 4L/NC History of COVID-19 04/29/2021 Osteomyelitis of left foot ([facility]) 04/29/2021 Obstructive sleep apnea [...] week 05/01/2021 How often do you attend [facility] or religion services? 1 to 4 times per year [...] on file Legal Sex Female 4:57 PM ORACLE SOA CONSULTANT Gender Identity Not on file Sexual Orientation [...] Regular Well Visit/Exam 18-64 06/28/2022 06/28/2021, 06/28/2021 Depression Screening 12/11/2023 12/10/2022, 10/02/2021, 10/02/2021, Additional history exists Breast Cancer Screening-Mammogram 05/28/2024 05/29/2023, 10/03/2021, 01/20/2018 Covid-19 Vaccine (2 - 2024-2 6 season) 2024 04/10/2022 Influenza Vaccine (#1) 2024 , 11/23/2020, 12/25/2019, Additional history exists Colon Cancer Screening-Colonoscopy 09/17/20262016 Zoster Vaccine Completed 04/23/2022, 02/16/2022 Medical Devices Implanted Type Area Multigrapher Device Identifier Shelf Expiration Date Model / [...] age 40, based on guidelines of the [place] [employer] (ACR Practice Parameter for the Performance of Screening and Diagnostic Mammography) and [place] [employer]. For women [...] ID:Not on file Type:MEDICAID RISK OTHER Address: [address] [place], [place] [id number] [place] [address] [facility] Advance Directives For more information, please contact: [phone] Documents on File Type Date Recorded Patient Community Marketing Manager Expl anation ADVANCE DIRECTIVE 02/05/2022 8:42 AM POLST - PHYS ORDER FOR PT PREFERENCES ADVANCE DIRECTIVE 07/15/2012 12:00 AM [employer] * Full Code (Latest Code Status on File) Date Activated Date Inactivated Comments 10/12/2021 12:24 AM 10/21/2021 5:13 AM * Full Code Date Activated Date Inactivated Comments 08/29/2021 12:42 AM 09/03/2021 9:27 PM Care Teams Beauty Consultant Relationship Specialty Start Date End Date Pj Linder MD [address] [place] [id number] PCP - General Family Medicine 04/18/23 Marlon Mendoza MD Instant Printer Operator Cardiovascular Disease 03/31/20 Jaret Forrester MD [address] [facility] [address] [place] [address] [place] [id number] Consulting Physician Vascular Surgery 09/03/21 Ceferino Strickland MD [address] [facility] [address] [place] [address] [place] [id number] Consulting Physician Infectious Diseases 10/20/21
[2025-02-26 12:27] LABS: Hematocrit 47.2 % (37.0-47.0); Hemoglobin 14.6 g/dL (12.0-15.0); Immature Granulocyte Percent A 0.7 % (0-0.5); Lymphocytes Absolute Auto 1.98 K/mm3 (0.9-3.2); Mean Corpuscular HGB Conc 30.9 g/dl (32-36); Mean Corpuscular Hemoglobin 27.8 pg (26-34); Mean Corpuscular Volume 89.9 fl (80-100); Nucleated Red Blood Cells Absolute Auto 0.000 K/mm3 (0.0-0.012); Nucleated Red Blood Cells Perc 0.0 % (0.0-0.2); Platelet Count Result 145 k/mm3 (150-375); Red Blood Count 5.25 M/mm3 (4.2-5.4); White Blood Count 9.6 K/mm3 (4.5-10.0)
--- NOTE | 2025-02-26 12:31 | ED.ABDPAIN ---
HPI - Abdominal Pain General Chief Complaint: Abdominal Pain Stated Complaint: flank pain after fall yest @ 0500 Time Seen by Provider: 02/26/25 12:03 Source: patient Mode of arrival: EMS Limitations: no limitations History of Present Illness HPI narrative: This is a 64-year-old female with history of WALT, CKD, COPD, CHF, bipolar, AFib who presents to the ED for flank pain and fall. Patient states that yesterday, she slipped in her bathroom and let herself down easily by her door handle fell onto her buttock. Since then, she has had some right flank pain. She states that when she woke up this morning she some distension that was new for her to EMS. Denies nausea, vomiting. No known liver disease. Related Data Home Medications ?Medication ?Instructions ?Recorded ?Confirmed ?Last Taken ?Type allopurinol 300 mg tablet 300 mg PO DAILY 07/02/20 12/01/24 02/13/23 History atorvastatin 40 mg tablet 40 mg PO HS 07/02/20 12/01/24 02/13/23 History gabapentin 800 mg tablet 800 mg PO TID 07/02/20 12/01/24 02/13/23 History montelukast 10 mg tablet 10 mg PO HS 07/02/20 12/01/24 02/13/23 History trazodone 50 mg tablet 100 mg PO HS 07/02/20 12/01/24 02/13/23 History aripiprazole 5 mg tablet 5 mg PO DAILY 05/07/22 12/01/24 02/13/23 History famotidine 40 mg tablet 40 mg PO DAILY 05/07/22 12/01/24 02/13/23 History topiramate 50 mg tablet 50 mg PO BID 05/07/22 12/01/24 02/13/23 History benzonatate 200 mg capsule 200 mg PO TID 10/19/22 12/01/24 Unknown History cyclobenzaprine 10 mg tablet 10 mg PO DAILY 10/19/22 12/01/24 Unknown History duloxetine 30 mg capsule,delayed 30 mg PO DAILY 10/19/22 12/01/24 Unknown History release furosemide 40 mg tablet 40 mg PO BID 10/19/22 12/01/24 02/13/23 History isosorbide dinitrate 30 mg tablet 30 mg PO DAILY 10/19/22 12/01/24 02/13/23 History metolazone 2.5 mg tablet 2.5 mg PO EVERY OTHER DAY 10/19/22 12/01/24 Unknown History spironolactone 25 mg tablet 25 mg PO BID 10/19/22 12/01/24 02/13/23 History buspirone 10 mg tablet 10 mg PO BID 12/13/22 12/01/24 02/13/23 History lamotrigine 25 mg tablet 25 mg PO DAILY 12/13/22 12/01/24 02/13/23 History Allergies Allergy/AdvReac Type Severity Reaction Status Date / Time bee venom protein (honey bee) Allergy Severe Anaphylaxis Verified 02/26/25 11:29 Bleach (Sodium Hypochlorite) Allergy Severe Anaphylaxis Verified 02/26/25 11:29 Penicillins Allergy Anaphylaxis Verified 02/26/25 11:29 bee Stings Allergy Severe Anaphylaxis Uncoded 09/11/24 19:12 Fixodent Allergy Intermediate Blister Uncoded 09/11/24 19:12 fixodent Allergy Hives Uncoded 09/11/24 19:12 Review of Systems Review of Systems: All systems reviewed & are unremarkable except as noted in HPI and below PMFSH Past Medical History Medical History Psoriasis Kidney stones Cervical cancer Obstructive sleep apnea on CPAP Bipolar disorder Chronic kidney disease Chronic obstructive pulmonary disease 5 L nasal cannula. Chronic respiratory failure with hypoxia, on home oxygen therapy Hyperlipidemia Depression with anxiety Hypertension History of tobacco abuse Peripheral neuropathy (10/2022) Asthma Morbid obesity with BMI of 50.0-59.9, adult Surgical History Surgical History History of section History of benign breast biopsy History of cystoscopy History of tonsillectomy History of reverse total replacement of right shoulder joint History of hysterectomy History of bilateral cataract extraction Family History Family History Mother , age 68 CHF (congestive heart failure) Emphysema of lung Father , at age 62 Acute myocardial infarction Emphysema of lung Sibling , age 59 Pancreatic cancer Sibling , age 40 acute [place] Acute myocardial infarction Social History Social History Social History: Healthcare power of assistant city attorney: Mag Dorsey, daughter. Code status: Full code. Smoking packs per day: 1.5 Smoking cigarettes per day: 30.0 Years smoked: 40 Smoking pack-years: 60.00 Smoking status: Former smoker Second hand tobacco smoke exposure: Yes (in childhood) Alcohol intake: never Substance use type: does not use Other substance usage details: prescribed Lack of Transportation: No Lack of Food: Never True Current Housing: I Have Housing Concerned About Future Housing: No Difficulty Paying Gas/Electric Bills: No Difficulty Paying for Meds: No Currently Unemployed: No Education: High School Diploma/GED Difficulty w/ Childcare or Family Care: No Additional living arrangements comments: Lives in [place]. Has 4 children. Additional occupation/education comments: Disabled. Spiritual care concerns: No Exam Narrative: APPEARANCE: No acute distress, nontoxic, resting in bed EYES: EOMI HEENT: Normocephalic, atraumatic, OMM RESPIRATORY: No respiratory distress Clear to auscultation bilaterally with no rhonchi wheezing or rales. CARDIOVASCULAR: Regular rate and rhythm without murmurs rubs or gallops. ABDOMINAL: Obese. Soft, nontender, mild epigastric distention, no rebound or guarding MUSCULOSKELETAl: Moves all extremities. No clubbing, cyanosis or edema. NEURO: Awake and alert. Following commands, speech normal, no focal deficits SKIN:: Warm, dry. No rashes lesions or abrasions PSYCHIATRIC: Normal affect/mood, Course Vital Signs Vital signs: Vital Signs Temperature 97.6 F 02/26/25 11:19 Pulse Rate 63 02/26/25 11:19 Respiratory Rate 13 02/26/25 11:19 Blood Pressure 134/86 02/26/25 11:19 Pulse Oximetry 95 02/26/25 11:19 Oxygen Delivery Room Air 02/26/25 11:19 Temperature 97.6 F 02/26/25 11:19 Pulse Rate 60 02/26/25 12:58 Respiratory Rate 16 02/26/25 12:58 Blood Pressure 130/79 02/26/25 12:58 Pulse Oximetry 93 02/26/25 12:58 Oxygen Delivery Room Air 02/26/25 11:19 MDM MDM Narrative Medical decision making narrative: 64-year-old female Presenting for flank pain and abdominal distension. On initial evaluation patient was in no acute distress afebrile, hemodynamic stable. Differentials include but are not limited to: Ureterolithiasis, pyelonephritis, MSK pain, constipation, obstruction, PNA, Cancer Notable exam findings: Mild abdominal distension to the epigastrium without tenderness to palpation I personally reviewed the patient's lab result. Notable lab findings: CBC and CMP without significant abnormalities. CT abdomen/pelvis showed a T11 compression fracture, also on my read, noted gaseous distension of the colon Patient's flank pain may be referred pain from her compression fracture. She has no red flag signs for cauda equina. She is already on Vicodin for chronic back pain at this point so she was given her home dose of Vicodin here. She was also given a prescription for MiraLax regarding the likely constipation causing her colonic distension. She was advised follow-up with her PCP in the next week for re-evaluation. Patient was agreeable to this plan. Given strict return precautions. Differential Diagnosis Differential Diagnosis: Ureterolithiasis, pyelonephritis, MSK pain, constipation, obstruction, PNA, Cancer Lab Data 02/26/25 12:16 02/26/25 12:16 Labs: Lab Results 02/26/25 Range/Units 12:16 WBC 9.6 (4.5-10.0) K/mm3 RBC 5.25 (4.2-5.4) M/mm3 Hgb 14.6 (12.0-15.0) g/dL Hct 47.2 H (37.0-47.0) % MCV 89.9 (80-100) fl MCH 27.8 (26-34) pg MCHC 30.9 L (32-36) g/dl RDW 14.4 (11.5-14.5) % Plt Count 145 L (150-375) k/mm3 MPV 12.2 H (7.4-10.4) fl Immature Gran % (Auto) 0.7 H (0-0.5) % Neut % (Auto) 63.9 (45.5-73.1) % Lymph % (Auto) 20.7 (18.3-44.2) % [place] % (Auto) 11.0 H (2.6-8.5) % Eos % (Auto) 3.4 (0-4.4) % Baso % (Auto) 0.3 (0.2-1.2) % Lymph # (Auto) 1.98 (0.9-3.2) K/mm3 [place] # (Auto) 1.1 H (0.1-0.6) K/mm3 Eos # (Auto) 0.3 (0-0.3) K/mm3 Baso # (Auto) 0.0 (0.0-0.1) K/mm3 Abs Immat Gran (auto) 0.07 H (0.00-0.031) K/mm3 Absolute Neuts (auto) 6.1 (1.3-6.7) K/mm3 Absolute Nucleated RBC 0.000 (0.0-0.012) K/mm3 Nucleated RBC % 0.0 (0.0-0.2) % Sodium 138 (137-145) mmol/L Potassium 3.7 (3.4-5.0) mmol/L Chloride 99 (98-107) mmol/L Carbon Dioxide 34 H (22-30) mmol/L Anion Gap 5 (4-12) mmol/L BUN 14 (7-17) mg/dL Creatinine 1.15 H (0.7-1.0) mg/dL Estim Creat Clear Calc 67 ml/min Estimated GFR 48 L (59 - ) Glucose 116 H (65-110) mg/dL Calcium 9.8 (8.4-10.2) mg/dL Total Bilirubin 0.6 (0.2-1.3) mg/dL AST 28 (14-36) U/L ALT 18 (6-35) U/L Alkaline Phosphatase 127 H (38-126) U/L Total Protein 7.6 (6.3-8.2) g/dL Albumin 4.2 (3.5-5.1) g/dL Lipase 80 (23-300) U/L Imaging Data Radiologist's impression: ITS Impressions Abdomen/Pelvis CT 02/26/25 13:18 IMPRESSION: 1. Compression fracture T11. 2. No acute visceral abnormality within abdomen or pelvis. Discharge Plan Discharge Clinical Impression: Closed traumatic compression fracture of T11 vertebra Qualifiers: Encounter type: initial encounter Qualified Code(s): S22.080A - Wedge compression fracture of T11-T12 vertebra, initial encounter for closed fracture Constipation Qualifiers: Constipation type: unspecified constipation type Qualified Code(s): K59.00 - Constipation, unspecified Patient Disposition: Home Condition: Stable Instructions: Antibiotic Form, Vertebral Compression Fracture (ED) Additional Instructions: You were found to have a T11 compression fracture, this should heal on its own. Have your PCP monitor this. Regarding your abdominal distension, this was due to gas buildup likely from constipation. Your given a prescription for MiraLax, take this as prescribed. Return to the ED for any new worsening symptoms. Patient Language: Slovak Prescriptions: New polyethylene glycol 3350 [Miralax] 17 gram/dose powder 17 g PO DAILY Qty: 238 0RF No Action buspirone 10 mg tablet 10 mg PO BID lamotrigine 25 mg tablet 25 mg PO DAILY guaifenesin [Mucinex] 600 mg tablet extended release 12hr 600 mg PO Q12H PRN (Reason: congestion) Qty: 30 11RF budesonide 160 mcg-glycopyr 9 mcg-formot 4.8 mcg/actuation HFA inhaler 160-9-4.8 mcg/actuation HFA aerosol inhaler 0RF Breztri Aerosphere 160-9-4.8 mcg/actuation HFA aerosol inhaler 2 inh inhalation BID Qty: 10.7 5RF Rx Instructions: Breztri replaces Symbicort. Use 2 puffs every 12 hours every day as your maintenance inhaler. famotidine 40 mg tablet 40 mg PO DAILY aripiprazole 5 mg tablet 5 mg PO DAILY topiramate 50 mg tablet 50 mg PO BID metoprolol tartrate 25 mg Tablet 25 mg PO Q12HR 30 Days Qty: 60 0RF simethicone 125 mg capsule 125 mg PO QID Qty: 20 0RF Rx Instructions: administer after meals and at bedtime dicyclomine 20 mg tablet 20 mg PO QID Qty: 20 0RF levofloxacin 750 mg tablet 750 mg PO DAILY Qty: 5 0RF atorvastatin 40 mg Tablet 40 mg PO HS trazodone 50 mg Tablet 100 mg PO HS gabapentin 800 mg Tablet 800 mg PO TID montelukast 10 mg Tablet 10 mg PO HS allopurinol 300 mg Tablet 300 mg PO DAILY cyclobenzaprine 10 mg tablet 10 mg PO DAILY furosemide 40 mg tablet 40 mg PO BID isosorbide dinitrate 30 mg tablet 30 mg PO DAILY duloxetine 30 mg capsule,delayed release(DR/EC) 30 mg PO DAILY metolazone 2.5 mg Tablet 2.5 mg PO EVERY OTHER DAY benzonatate 200 mg Capsule 200 mg PO TID spironolactone 25 mg tablet 25 mg PO BID acetaminophen 325 mg Tablet 650 mg PO Q4H PRN (Reason: Mild Pain (1-3) Or Fever) Qty: 0 0RF cefdinir 300 mg Capsule 300 mg PO Q12HR Qty: 0 0RF doxycycline hyclate 100 mg Tablet 100 mg PO Q12HR Qty: 0 0RF potassium chloride [K-Tab] 20 mEq Tablet Extended Release 40 meq PO BIDWM Qty: 0 0RF bupropion HCl [Wellbutrin SR] 150 mg Tablet Sustained-Release 12 Hr 150 mg PO Q12H Qty: 60 0RF tramadol 50 mg tablet 50 mg PO Q6H PRN (Reason: Pain) Qty: 12 0RF alprazolam 0.5 mg tablet 0.5 mg PO HS Qty: 12 0RF hydrocodone-acetaminophen 5-325 mg tablet 1 tablet PO Q6H PRN (Reason: pain) Qty: 12 0RF doxycycline hyclate 100 mg capsule 100 mg PO BID 5 Days Qty: 10 0RF Follow-up/Referrals: UNKNOWN,DOCTOR [Primary Care Provider]
[2025-02-26 12:45] LABS: Alanine Aminotransferase 18 U/L (6-35); Albumin Level 4.2 g/dL (3.5-5.1); Alkaline Phosphatase 127 U/L (38-126); Anion Gap 5 mmol/L (4-12); Aspartate Amino Transferase 28 U/L (14-36); Bilirubin,Total 0.6 mg/dL (0.2-1.3); Blood Urea Nitrogen 14 mg/dL (7-17); Calcium 9.8 mg/dL (8.4-10.2); Carbon Dioxide 34 mmol/L (22-30); Chloride 99 mmol/L (98-107); Estimated CRCL calculation 67 ml/min; Estimated Glomerular Filt Rate 48; Glucose 116 mg/dL (65-110); Lipase 80 U/L (23-300); Potassium 3.7 mmol/L (3.4-5.0); Sodium 138 mmol/L (137-145); Total Protein 7.6 g/dL (6.3-8.2)
[2025-02-26 12:58] VITALS: BP 130/79; PULSE 60; RESP 16; O2SAT 93
[2025-02-26] MEDS: oxyCODONE/ACETAMINOPHEN (*CRX) 10-325 MG TABLET 1 TAB PO (13:54)
[2025-02-26 15:38] VITALS: BP 123/82; PULSE 71; RESP 20; O2SAT 95
== END 2025-02-26 15:40 | disposition home or self-care (01) ==
PROVIDERS: Emergency Medicine; Emergency Provider Student in an Organized Health Care Education/Training Program
DX: S22.080A Wedge compression fracture of T11-T12 vertebra, initial encounter for closed fracture (principal); K59.00 Constipation, unspecified; I13.0 Hypertensive heart and chronic kidney disease with heart failure and stage 1 through stage 4 chronic kidney disease, or unspecified chronic kidney disease; N18.9 Chronic kidney disease, unspecified; I50.9 Heart failure, unspecified; I48.91 Unspecified atrial fibrillation; J96.11 Chronic respiratory failure with hypoxia; Z99.81 Dependence on supplemental oxygen; E66.01 Morbid (severe) obesity due to excess calories; Z68.41 Body mass index [BMI] 40.0-44.9, adult; G47.33 Obstructive sleep apnea (adult) (pediatric); G62.9 Polyneuropathy, unspecified; L40.9 Psoriasis, unspecified; F41.8 Other specified anxiety disorders; Z85.41 Personal history of malignant neoplasm of cervix uteri; Z87.442 Personal history of urinary calculi; Z79.899 Other long term (current) drug therapy; W01.0XXA Fall on same level from slipping, tripping and stumbling without subsequent striking against object, initial encounter
CPT/HCPCS: 36415; 74177; 80053; 83690; 85025; 99284; A9270; Q9967